=== PATIENT | female | born 1940 ===

== ENCOUNTER 2017-02-23 12:12 | Emergency (ER) | payer OTHER ==
[2017-02-23 12:35] VITALS: BMI 25.9
[2017-02-23] MEDS ORDERED: Albuterol-Ipratrop 3 mg / 0.5 (3 ml) UD IH STA (14:05)
--- NOTE | 2017-02-23 14:23 | RAD ---
HISTORY: SOB COMPARISON: No prior. TECHNIQUE: Chest PA and lateral FINDINGS: LUNGS: No alveolitis is appreciated bilaterally. Reticular markings/fibrosis are identified in the right apex and right base with mild moderate volume loss noted at the right chest. Biapical pleural thickening is greater the right than left sides. PLEURA: No significant pleural effusion identified. No pneumothorax apparent. Biapical pleural thickening noted. CARDIOVASCULAR: Normal. OSSEOUS STRUCTURES: No significant abnormalities. VISUALIZED UPPER ABDOMEN: Normal. OTHER FINDINGS: None. IMPRESSION: No acute cardiopulmonary disease appreciable. Volume loss of the right chest is appreciated with biapical pleural thickening and right apex pulmonary fibrosis as well as at the right base.
--- NOTE | 2017-02-23 14:29 | C.PDOC ---
History Of Present Illness 76 y/o female presents to ED with complaints of cough and congestion for 1 week with associated fever for 1 day. As per daughter patient has Hx of COPD and used to smoke. Patient denies chest pain, sob, n/v/d or any other complaints at this time. Time Seen by Provider: 02/23/17 13:51 Chief Complaint (Nursing): Cough, Cold, Congestion History Per: Patient History/Exam Limitations: no limitations Onset/Duration Of Symptoms: Days Current Symptoms Are (Timing): Still Present Associated Symptoms: Fever Past Medical History Reviewed: Historical Data, Nursing Documentation, Vital Signs Vital Signs: Last Vital Signs Temp 98.1 F 02/23/17 16:01 Pulse 80 02/23/17 16:01 Resp 20 02/23/17 16:01 BP 152/77 H 02/23/17 16:01 Pulse Ox 98 02/23/17 16:01 - Medical History PMH: Asthma, HTN, Hypercholesterolemia Surgical History: Cholecystectomy Family History: States: No Known Family Hx - Social History Hx Alcohol Use: No Hx Substance Use: No - Immunization History Hx Tetanus Toxoid Vaccination: No Hx Influenza Vaccination: No Hx Pneumococcal Vaccination: No Review Of Systems Constitutional: Positive for: Fever. Negative for: Chills ENT: Positive for: Nose Congestion Cardiovascular: Negative for: Chest Pain Respiratory: Positive for: Cough. Negative for: Shortness of Breath Gastrointestinal: Negative for: Nausea, Vomiting, Diarrhea Skin: Negative for: Rash Physical Exam - Physical Exam Appears: Non-toxic, No Acute Distress Skin: Normal Color, Warm, Dry, No Rash Head: Atraumatic, Normacephalic Eye(s): bilateral: Normal Inspection Oral Mucosa: Moist Throat: Normal, No Erythema Neck: Normal ROM, Supple Chest: Symmetrical Cardiovascular: Rhythm Regular, No Murmur Respiratory: Normal Breath Sounds, No Rales, No Rhonchi, No Wheezing Gastrointestinal/Abdominal: Soft, No Tenderness, No Guarding, No Rebound Extremity: Normal ROM, Capillary Refill (<2 seconds) Neurological/Psych: Oriented x3 ED Course And Treatment - Laboratory Results Result Diagrams: 02/23/17 14:32 02/23/17 14:32 Lab Interpretation: No Acute Changes O2 Sat by Pulse Oximetry: 99 (RA) Pulse Ox Interpretation: Normal - Radiology CXR: Interpreted by Me CXR Interpretation: Yes: No Acute Disease Progress Note: Treated with duoneb and zithromax. On re-evaluation lungs clear , feeling better Reassessment Condition: Improved Medical Decision Making Medical Decision Making: Plan: * CXR Disposition Counseled Patient/Family Regarding: Studies Performed, Diagnosis, Need For Followup, Rx Given - Disposition Referrals: [facility] [Outside] [facility] [Outside] Disposition: HOME/ ROUTINE Disposition Time: 15:50 Condition: STABLE Additional Instructions: Follow up with PMD or clinic for further evaluation Prescriptions: Azithromycin [Zithromax] 250 mg PO DAILY #4 tab Instructions: Upper Respiratory Infection (ED) Forms: [facility] ([employer]) Print Language: BHUTANESE - POA Present On Arrival: None - Clinical Impression Clinical Impression: Bronchitis - Scribe Statement The provider has reviewed the documentation as recorded by the Yasminibrobe Ravi All medical record entries made by the Yasminibrobe were at my direction and personally dictated by me. I have reviewed the chart and agree that the record accurately reflects my personal performance of the history, physical exam, medical decision making, and the department course for this patient. I have also personally directed, reviewed, and agree with the discharge instructions and disposition.
[2017-02-23] MEDS ORDERED: Albuterol-Ipratrop 3 mg / 0.5 (3 ml) UD ONE (14:33)
[2017-02-23 14:40] LABS: BASO % 0.5 % (0.0-2.0); EOS # 0.4 K/uL (0.0-0.7); EOS % 5.9 % (0.0-4.0); HEMATOCRIT 35.1 % (34.0-47.0); LYMPH # 1.3 K/uL (1.0-4.3); LYMPH % 22.1 % (20.0-40.0); MEAN CELL VOLUME 90.8 fL (81.0-99.0); MEAN CORPUSCULAR HEMOGLOBIN 30.3 pg (27.0-31.0); MEAN CORPUSCULAR HGB CONC 33.4 g/dL (33.0-37.0); MEAN PLATELET VOLUME 8.1 fL (7.2-11.7); MONO # 0.5 K/uL (0.0-0.8); MONO % 7.7 % (0.0-10.0); NRBC % 0.1 % (0.0-2.0); RED CELL DISTRIBUTION WIDTH 13.9 % (11.5-14.5); WHITE BLOOD COUNT 5.9 K/uL (4.8-10.8)
[2017-02-23 14:57] LABS: POTASSIUM 5.5 mmol/L (3.6-5.2)
[2017-02-23 14:59] LABS: ALB/GLOB RATIO 1.1 (1.0-2.1); BILIRUBIN,TOTAL 0.4 mg/dL (0.2-1.3); TOTAL PROTEIN 8.1 g/dL (6.3-8.3)
[2017-02-23 15:00] LABS: CALCIUM 9.4 mg/dl (8.6-10.4)
[2017-02-23 15:01] LABS: GRANULAR CAST 1 /lpf (0-1); RBC URINE 2 /hpf (0-3); URINE BILIRUBIN NEGATIVE (NEGATIVE); URINE BLOOD NEGATIVE (NEGATIVE); URINE COLOR Yellow (YELLOW); URINE GLUCOSE (UA) NORMAL (Normal); URINE KETONE NEGATIVE (NEGATIVE); URINE LEUKOCYTE ESTERASE 1+ Leu/uL (Negative); URINE PROTEIN 2+ mg/dL (NEGATIVE); URINE UROBILINOGEN NORMAL mg/dL (0.2-1.0); WBC URINE 4 /hpf (0-5)
[2017-02-23 16:02] VITALS: BP 152/77; PULSE 80; RESP 20; TEMP 98.1
[2017-02-23 17:31] VITALS: O2SAT 99
== END 2017-02-23 16:18 | disposition home or self-care (01) ==
LOC: C.ER 12:12
DX: J40 Bronchitis, not specified as acute or chronic (principal)

== ENCOUNTER 2017-02-27 13:27 | Emergency (ER) | payer OTHER ==
[2017-02-27 13:30] VITALS: BMI 27.6
[2017-02-27 13:34] VITALS: RESP 18; TEMP 98
[2017-02-27] MEDS ORDERED: Aluminum Hydroxide/Magnesium Hydroxide Susp (30 mL) PO STA (14:40)
[2017-02-27] MEDS ORDERED: Sodium Chloride 0.9% 500 ML IV ONE ×2 (14:40→15:04)
[2017-02-27 15:00] LABS: BASO % 0.2 % (0.0-2.0); EOS # 0.1 K/uL (0.0-0.7); EOS % 1.7 % (0.0-4.0); HEMATOCRIT 34.5 % (34.0-47.0); LYMPH # 0.9 K/uL (1.0-4.3); LYMPH % 13.6 % (20.0-40.0); MEAN CELL VOLUME 89.4 fL (81.0-99.0); MEAN CORPUSCULAR HEMOGLOBIN 30.1 pg (27.0-31.0); MEAN CORPUSCULAR HGB CONC 33.6 g/dL (33.0-37.0); MEAN PLATELET VOLUME 8.2 fL (7.2-11.7); MONO # 0.3 K/uL (0.0-0.8); MONO % 4.1 % (0.0-10.0); NRBC % 0.1 % (0.0-2.0); RED CELL DISTRIBUTION WIDTH 13.7 % (11.5-14.5); WHITE BLOOD COUNT 6.7 K/uL (4.8-10.8)
[2017-02-27] MEDS ORDERED: Aluminum Hydroxide/Magnesium Hydroxide Susp (30 mL) ONE (15:04)
[2017-02-27 15:16] LABS: CHLORIDE 103 mmol/L (98-107); POTASSIUM 5.3 mmol/L (3.6-5.2); SODIUM 139 mmol/L (132-148)
[2017-02-27 15:18] LABS: GFR AFRICAN-AMERICAN 58
[2017-02-27 15:19] LABS: ALB/GLOB RATIO 1.1 (1.0-2.1); ALKALINE PHOSPHATASE 85 U/L (38-126); ALT/SGPT 48 U/L (9-52); AST/SGOT 34 U/L (14-36); BILIRUBIN,TOTAL 0.5 mg/dL (0.2-1.3); BLOOD UREA NITROGEN 30 mg/dL (7-17); CALCIUM 9.5 mg/dl (8.6-10.4); CARBON DIOXIDE 25 mmol/L (22-30); GLUCOSE,RANDOM 192 mg/dL (65-105); TOTAL PROTEIN 8.1 g/dL (6.3-8.3)
--- NOTE | 2017-02-27 15:34 | RAD ---
HISTORY: abd pain COMPARISON: No prior. FINDINGS: BOWEL: Normal. No obstruction. No free air. BONES: Normal. OTHER FINDINGS: None. IMPRESSION: No active disease.
--- NOTE | 2017-02-27 18:39 | C.PDOC ---
History Of Present Illness Patient is a 76 y/o female, with a Hx of HTN and DM, who presents to the ED with her family with complaints of n/v/d for the past day. Patient denies fever , chills, chest pain, and SOB; admits to throwing up multiple times today. Patient notes mild headache, mild neck pain, and mild body aches. No other physical complaints at this time. Time Seen by Provider: 02/27/17 14:36 Chief Complaint (Nursing): Dizziness/Lightheaded History Per: Patient History/Exam Limitations: no limitations Onset/Duration Of Symptoms: Hrs (for the last day. ) Current Symptoms Are (Timing): Still Present Recent travel outside of the [place]: No Additional History Per: Patient, Family Past Medical History Reviewed: Historical Data, Nursing Documentation, Vital Signs Vital Signs: Last Vital Signs Temp 98 F 02/27/17 13:30 Pulse 88 02/27/17 16:31 Resp 18 02/27/17 16:31 BP 168/68 H 02/27/17 16:31 Pulse Ox 96 02/27/17 18:52 - Medical History PMH: Asthma, HTN, Hypercholesterolemia, Osteoporosis Surgical History: Cholecystectomy Family History: States: Unknown Family Hx - Social History Hx Alcohol Use: No Hx Substance Use: No - Immunization History Hx Tetanus Toxoid Vaccination: Yes Hx Influenza Vaccination: Yes Hx Pneumococcal Vaccination: Yes Review Of Systems Constitutional: Negative for: Fever, Chills Cardiovascular: Negative for: Chest Pain Respiratory: Negative for: Shortness of Breath Gastrointestinal: Positive for: Nausea, Vomiting, Diarrhea Musculoskeletal: Positive for: Neck Pain (mild) Neurological: Positive for: Headache (mild) Physical Exam - Physical Exam Appears: Well, Non-toxic, No Acute Distress, Other (awake, alert, cooperative. ) Skin: Normal Color, Warm, Dry Head: Atraumatic, Normacephalic Oral Mucosa: Moist Throat: Normal Chest: Symmetrical Cardiovascular: Rhythm Regular, No Murmur Respiratory: Normal Breath Sounds, No Rales, No Rhonchi, No Wheezing Gastrointestinal/Abdominal: Soft, No Tenderness Neurological/Psych: Oriented x3, Normal Speech, Normal Cognition Other Neurological Findings: Facial Palsy (family reports it to be old. ) ED Course And Treatment - Laboratory Results Result Diagrams: 02/27/17 14:53 02/27/17 14:53 O2 Sat by Pulse Oximetry: 96 (Room air) Pulse Ox Interpretation: Normal Medical Decision Making Medical Decision Making: Plan: Pepcid, Zofran, Maalox, and IV fluids administered; EKG and UA ordered. Patient given "GI Cocktail" and feels better; able to tolerate PO. Pending UA to rule out UTI by Dr. Harry. Disposition - Disposition Disposition Time: 18:54 Condition: STABLE Forms: [employer] (Citizen [place]) - Clinical Impression Clinical Impression: Gastroenteritis - Scribe Statement The provider has reviewed the documentation as recorded by the Scribe Elma Almeida All medical record entries made by the Scribe were at my direction and personally dictated by me. I have reviewed the chart and agree that the record accurately reflects my personal performance of the history, physical exam, medical decision making, and the department course for this patient. I have also personally directed, reviewed, and agree with the discharge instructions and disposition. Physician Patient Turnover Patient Signed Over To: Ab Harry Handoff Comments: elderly patient with NVD, feeling better, pending UA, r/o UTI , and final dispo,
[2017-02-27 18:48] LABS: URINE BACTERIA RARE (<OCC); URINE BILIRUBIN NEGATIVE (NEGATIVE); URINE COLOR Straw (YELLOW); URINE GLUCOSE (UA) 1+ mg/dL (Normal); URINE KETONE NEGATIVE (NEGATIVE); URINE LEUKOCYTE ESTERASE NEG Leu/uL (Negative); URINE PROTEIN 2+ mg/dL (NEGATIVE); URINE UROBILINOGEN NORMAL mg/dL (0.2-1.0); WBC URINE 2 /hpf (0-5)
[2017-02-27 18:51] LABS: RBC URINE 2 /hpf (0-3)
[2017-02-27 18:52] LABS: URINE BLOOD TRACE-INTACT (NEGATIVE)
[2017-02-27 19:12] VITALS: BP 163/80; PULSE 82; O2SAT 78
--- NOTE | 2017-02-28 15:55 | CARD ---
APPROVED REPORT EKG Measurement Heart [id number] <Conclusion> Normal sinus rhythm Normal ECG
== END 2017-02-27 19:11 | disposition home or self-care (01) ==
LOC: C.ER 13:27
DX: K52.9 Noninfective gastroenteritis and colitis, unspecified (principal)
CPT/HCPCS: 74000; 80053; 81001; 84484; 85025; 93005; 96374; 96375; 99285; J2405; J7040

== ENCOUNTER 2017-04-19 14:30 | Inpatient (IN) | payer OTHER ==
[2017-04-19 14:30] VITALS: BMI 27.6
[2017-04-19] MEDS ORDERED: Sodium Chloride 0.9% 1,000 ML IV ONE ×2 (14:58→17:02)
[2017-04-19] MEDS ORDERED: Sodium Chloride 0.9% 1,000 ML ONE ×2 (15:11→17:21)
[2017-04-19 15:24] LABS: BASO % 0.3 % (0.0-2.0); EOS # 0.1 K/uL (0.0-0.7); EOS % 1.7 % (0.0-4.0); HEMATOCRIT 37.2 % (34.0-47.0); LYMPH # 0.9 K/uL (1.0-4.3); LYMPH % 14.9 % (20.0-40.0); MEAN CELL VOLUME 89.7 fL (81.0-99.0); MEAN CORPUSCULAR HEMOGLOBIN 29.7 pg (27.0-31.0); MEAN CORPUSCULAR HGB CONC 33.1 g/dL (33.0-37.0); MEAN PLATELET VOLUME 9.1 fL (7.2-11.7); MONO # 0.3 K/uL (0.0-0.8); MONO % 4.6 % (0.0-10.0); NRBC % 0.2 % (0.0-2.0); RED CELL DISTRIBUTION WIDTH 12.8 % (11.5-14.5); WHITE BLOOD COUNT 6.3 K/uL (4.8-10.8)
[2017-04-19 15:37] LABS: CHLORIDE 92 mmol/L (98-107); SODIUM 126 mmol/L (132-148)
[2017-04-19 15:38] LABS: POTASSIUM 5.8 mmol/L (3.6-5.2)
[2017-04-19 15:39] LABS: GFR AFRICAN-AMERICAN 53
[2017-04-19 15:40] LABS: ALB/GLOB RATIO 1.2 (1.0-2.1); ALKALINE PHOSPHATASE 112 U/L (38-126); ALT/SGPT 53 U/L (9-52); AST/SGOT 38 U/L (14-36); BILIRUBIN,TOTAL 0.7 mg/dL (0.2-1.3); BLOOD UREA NITROGEN 44 mg/dL (7-17); CALCIUM 9.2 mg/dl (8.6-10.4); CARBON DIOXIDE 23 mmol/L (22-30); TOTAL PROTEIN 7.9 g/dL (6.3-8.3)
[2017-04-19 16:00] LABS: GLUCOSE,RANDOM 542 mg/dL (65-105)
--- NOTE | 2017-04-19 16:41 | CT ---
PROCEDURE: CT HEAD WITHOUT CONTRAST. HISTORY: Hit head s/p fall off bed. on Plavix COMPARISON: None available. TECHNIQUE: Axial computed tomography images were obtained through the head/brain without intravenous contrast. Radiation dose: Total exam DLP = 822.72 mGy-cm. This CT exam was performed using one or more of the following dose reduction techniques: Automated exposure control, adjustment of the mA and/or kV according to patient size, and/or use of iterative reconstruction technique. FINDINGS: HEMORRHAGE: No intracranial hemorrhage. BRAIN: Diffuse atrophy with prominence of the ventricles and sulci noted. No mass effect or edema. Intracranial atherosclerosis. Scattered periventricular and subcortical white matter hypodensities, which are nonspecific, but often seen with chronic microvascular ischemic disease. Please note that MRI with diffusion imaging is more sensitive in the detection of acute ischemic event. VENTRICLES: No hydrocephalus. CALVARIUM: Unremarkable. PARANASAL SINUSES: Unremarkable as visualized. No significant inflammatory changes. MASTOID AIR CELLS: Unremarkable as visualized. No inflammatory changes. OTHER FINDINGS: None. IMPRESSION: Generalized atrophy. Nonspecific white matter changes.
--- NOTE | 2017-04-19 16:50 | C.PDOC ---
Time Seen by Provider: 04/19/17 14:47 Chief Complaint (Nursing): Abdominal Pain History Per: Patient, Family Onset/Duration Of Symptoms: Hrs (today) Current Symptoms Are (Timing): Still Present Severity: Moderate Location Of Pain/Discomfort: Epigastric Quality Of Discomfort: "Pain" Associated Symptoms: Nausea, Vomiting, Diarrhea Alleviating Factors: None Last Bowel Movement: Today Additional History Per: Prior Records Past Medical History Reviewed: Historical Data, Nursing Documentation, Vital Signs Vital Signs: Last Vital Signs Temp 97.9 F 04/19/17 14:38 Pulse 14 L 04/19/17 15:50 Resp 13 04/19/17 15:50 BP 180/78 H 04/19/17 15:50 Pulse Ox 97 04/19/17 16:55 - Medical History PMH: Asthma, CVA, Diabetes (?), HTN, Hypercholesterolemia, Osteoporosis, Chronic Kidney Disease Surgical History: Cholecystectomy, Other Surgeries: Eye surgeries. Family History: States: Unknown Family Hx - Social History Hx Tobacco Use: No Hx Alcohol Use: No Hx Substance Use: No - Immunization History Hx Tetanus Toxoid Vaccination: Yes Hx Influenza Vaccination: Yes Hx Pneumococcal Vaccination: Yes Review Of Systems Except As Marked, All Systems Reviewed And Found Negative. Constitutional: Positive for: Weakness. Negative for: Fever Cardiovascular: Negative for: Chest Pain Respiratory: Negative for: Shortness of Breath Gastrointestinal: Positive for: Nausea, Vomiting, Abdominal Pain, Diarrhea. Negative for: Melena, Hematochezia, Hematemesis Musculoskeletal: Negative for: Neck Pain Neurological: Positive for: Headache (Pt was vomiting from the bed today when she fell from the bed hitting her head in the ground.), Dizziness. Negative for : Weakness, Numbness, Seizures Physical Exam - Physical Exam Appears: Other (Uncomfortable. Malaised.) Skin: Normal Color, Warm, Dry Head: No Laceration, Other (Frontal scalp contusion) Eye(s): left: Abnormal Pupil (Post-surgical) Oral Mucosa: Dry Neck: Normal ROM, No Midline Cervical Tenderness, No Step Off Deformity, Supple Cardiovascular: Rhythm Regular Respiratory: Normal Breath Sounds, No Accessory Muscle Use Gastrointestinal/Abdominal: Soft, Tenderness (epigastric) Extremity: Normal ROM, No Deformity Neurological/Psych: Oriented x3, No Normal Motor (right facial droop, old), Slow To Respond With Command, Other (Moving all extremities) Gait: Unable To Assess ED Course And Treatment - Laboratory Results Result Diagrams: 04/19/17 15:18 04/19/17 15:18 Lab Interpretation: Abnormal Interpretation Of Abnormal: Hyperglycemia without DKA. Elevated BUN. Hyperkalemia. ECG: Interpreted By Me, Viewed By Me ECG Rhythm: Sinus Rhythm ECG Interpretation: No Acute Changes Rate From EC O2 Sat by Pulse Oximetry: 97 Pulse Ox Interpretation: Normal - CT Scan/US CT head Other Rad Studies (CT/US): Read By Radiologist, Radiology Report Reviewed CT/US Interpretation: IMPRESSION: Generalized atrophy. Nonspecific white matter changes. CT abd/pelv Other Rad Studies (CT/US): Read By Radiologist, Radiology Report Reviewed CT/US Interpretation: IMPRESSION: Reticular nodular opacities at the lung bases. Bibasilar fibrosis. Bronchiectasis. No acute abdominal or pelvic pathology identified . Incidental findings as above. Disposition Discussed With : Will Morton Comment: She accepted pt on hospitalist service. Doctor Will See Patient In The: Hospital Counseled Patient/Family Regarding: Studies Performed, Diagnosis - Disposition Disposition: HOSPITALIZED Disposition Time: 17:03 Condition: SERIOUS - Clinical Impression Clinical Impression: Nausea, vomiting, and diarrhea, Dehydration, Hyperkalemia, Hyperglycemia, Epigastric abdominal pain, Closed head injury
--- NOTE | 2017-04-19 16:54 | CT ---
PROCEDURE: CT Abdomen and Pelvis without Oral or IV contrast. HISTORY: N/V/D, epigastric pain. r/o obstruction. COMPARISON: None available. TECHNIQUE: Contiguous axial images of the abdomen and pelvis. No oral or IV contrast administered. Coronal and Sagittal reformats generated and reviewed. Radiation dose: Total exam DLP = 820.46 MGy-cm. This CT exam was performed using one or more of the following dose reduction techniques: Automated exposure control, adjustment of the mA and/or kV according to patient size, and/or use of iterative reconstruction technique. FINDINGS: There is limited evaluation of the solid organs without the administration of IV contrast. LOWER THORAX: Reticular nodular opacities at the lung bases. Bibasilar fibrosis. Bronchiectasis. There is no visible pleural effusion or pneumothorax. LIVER: Unremarkable unenhanced appearance. GALLBLADDER AND BILE DUCTS: Cholecystectomy. PANCREAS: Unremarkable unenhanced appearance. SPLEEN: Unremarkable unenhanced appearance. ADRENALS: Unremarkable unenhanced appearance. KIDNEYS AND URETERS: No hydronephrosis or obstructing renal calculus. BLADDER: The urinary bladder appears unremarkable. REPRODUCTIVE: Uterus is absent, presumably due to hysterectomy. APPENDIX: The appendix appears within normal limits of caliber. No secondary signs of acute appendicitis. BOWEL: The stomach is nondistended. Lack of oral contrast limits evaluation for bowel pathology. The bowel loops appear within normal limits of caliber without evidence of intestinal obstruction. PERITONEUM: No significant free fluid. No definite free air. LYMPH NODES: No bulky lymphadenopathy identified. VASCULATURE: Atherosclerotic calcifications. No aortic aneurysm. BONES: Degenerative changes. OTHER FINDINGS: None. IMPRESSION: Reticular nodular opacities at the lung bases. Bibasilar fibrosis. Bronchiectasis. No acute abdominal or pelvic pathology identified . Incidental findings as above.
[2017-04-19] MEDS ORDERED: (Novolin R) Insulin Human Regular 100 units/ml vial IV ONE (17:02)
[2017-04-19] MEDS ORDERED: (Novolin R) Insulin Human Regular 100 units/ml vial ONE (17:21)
--- NOTE | 2017-04-19 18:37 | CP.PCM.HP ---
<Salina Dodson - Last Filed: 04/19/17 19:32> History of Present Illness - History of Present Illness History of Present Illness: This patient is a 76 year old female with a PMHx of Asthma, CVA (30 years ago), Diabetes, HTN, Hypercholesterolemia, Osteoporosis, CKD, pneumonia. Who presented to the ED with complaints of abdominal pain with vomiting, syncopal episode, and fall. Patient was very lethargic so history was taken from daughter and friend. They stated that she sat down on the bed, passed out, fell forward, and hit her forehead. She was unconscious for a couple minutes. When she woke up she was lethargic. They deny any urinary or bowel incontinence or tongue biting. They stated before this syncopal event, the patient complained of abdominal pain associated with non-blood vomiting and diarrhea. The daughter claims that her stool was black. Patient had green banana and cheese for breakfast. ROS Positive: Dizziness, abdominal pain, nausea, vomiting (non-bloody), diarrhea (melena), productive cough with yellow sputum, loss of appetite, lethargy Negative: Fever, chills, SOB, constipation, urinary or bowel incontinence, urinary frequency, hematuria, recent travel, sick contacts PMHx: Asthma, CVA (about 30 years ago, unknown residual weakness), Diabetes, HTN , HLD, Osteoporosis, CKD, Hx of PNA PSHx: cholecystectomy Allergies: NKDA Social: Denies tobacco, alcohol,drugs FamilyHx: Throat Cancer (Mother - at 93), Brother (Lung Cancer - ) Medications: MAR reviewed. Differences include Levemir 12 units HS, Januvia 1 Daily?, and Metoprolol 50mg Daily, Cardizem 50mg? PMD: The couldn't remember name. They know its an [place] woman. They think the name is Dr. Eduarda Garnett. Present on Admission - Present on Admission Any Indicators Present on Admission: Yes History of Uncontrolled Diabetes: Yes Review of Systems - Review of Systems All systems: reviewed and no additional remarkable complaints except Review of Systems: As per HPI Past Patient History - Past Social History Smoking Status: Never Smoked - CARDIAC Hx Hypercholesterolemia: Yes Hx Hypertension: Yes - PULMONARY Hx Asthma: Yes - NEUROLOGICAL HX Cerebrovascular Accident: Yes - RENAL Hx Chronic Kidney Disease: Yes - ENDOCRINE/METABOLIC Hx Endocrine Disorders: Yes Hx Diabetes Mellitus Type 1: Yes - MUSCULOSKELETAL/RHEUMATOLOGICAL Hx Osteoporosis: Yes - PSYCHIATRIC Hx Substance Use: No - SURGICAL HISTORY Hx Cholecystectomy: Yes - ANESTHESIA Hx Anesthesia: Yes Hx Anesthesia Reactions: No Meds Allergies/Adverse Reactions: Allergies Allergy/AdvReac Type Severity Reaction Status Date / Time No Known Allergies Allergy Verified 04/19/17 14:55 Physical Exam - Constitutional Appears: No Acute Distress, Other (Lethargic) - Head Exam Additional comments: Right forehead Tender to palpation, No Abrasion or wound. - Eye Exam Eye Exam: PERRL (Delayed pupilary reflex b/l ). absent: Scleral icterus - ENT Exam ENT Exam: Mucous Membranes Dry - Neck Exam Neck exam: Negative for: Lymphadenopathy, Thyromegaly - Respiratory Exam Respiratory Exam: Wheezes (Diffuse B/L ) - Cardiovascular Exam Cardiovascular Exam: RRR, +S1, +S2 - GI/Abdominal Exam GI & Abdominal Exam: Normal Bowel Sounds, Soft, Tenderness (Epigastric ). absent: Distended, Firm, Guarding, Organomegaly, Rebound, Rigid - Rectal Exam Rectal Exam: NORMAL INSPECTION - Extremities Exam Extremities exam: Positive for: normal capillary refill, pedal pulses present Additional comments: Cool distal lower extremities. - Back Exam Back exam: tenderness - Neurological Exam Neurological exam: Altered - Psychiatric Exam Psychiatric exam: Flat Affect - Skin Skin Exam: Dry, Intact, Normal Color Results - Vital Signs Recent Vital Signs: Last Vital Signs Temp 97.9 F 04/19/17 14:38 Pulse 85 04/19/17 18:14 Resp 18 04/19/17 18:14 BP 161/68 H 04/19/17 18:14 Pulse Ox 95 04/19/17 18:14 - Labs Result Diagrams: 04/19/17 15:18 04/19/17 15:18 Labs: Laboratory Results - last 24 hr 04/19/17 04/19/17 04/19/17 15:18 15:18 18:16 WBC 6.3 RBC 4.14 Hgb 12.3 Hct 37.2 MCV 89.7 MCH 29.7 MCHC 33.1 RDW 12.8 Plt Count 196 MPV 9.1 Neut % (Auto) 78.5 H Lymph % (Auto) 14.[address] % (Auto) 4.6 Eos % (Auto) 1.7 Baso % (Auto) 0.3 Neut # 4.9 Lymph # 0.[address] [place] # 0.3 Eos # 0.1 Baso # 0.0 Sodium 126 L Potassium 5.8 H Chloride 92 L Carbon Dioxide 23 Anion Gap 17 BUN 44 H Creatinine 1.2 Est GFR ( Amer) 53 Est GFR (Non-Af Amer) 44 POC Glucose (mg/dL) 283 H Random Glucose 542 H* D Calcium 9.2 Total Bilirubin 0.7 AST 38 H ALT 53 H Alkaline Phosphatase 112 Troponin I < 0.0120 Total Protein 7.9 Albumin 4.3 Globulin 3.7 Albumin/Globulin Ratio 1.2 Lipase 347 H Serum Ketones Negative Assessment & Plan - Assessment and Plan (Free Text) Assessment: 76 year old female admitted for evaluation and treatment of AMS and Abdominal Pain with Associated nausea and vomiting. Plan: Syncopal Episode with Associated AMS likely 2/[address] showed generalized Atrophy with Non-specific white matter changes EKG was NSR with no acute ST-T wave changes Portable CXR pending read. Preliminary read by Dr. Dodson shows possible developing b/l lower lobe consolidation Patient received 2 1L fluid Boluses in the ED Start NS 100mls/hr Abd/Pelvis CT showed Reticular nodular opacities at the lung bases & basilar fibrosis Blood Cultures UA Urine Cultures Abdominal Pain with associated vomiting and diarrhea likely 2/2 viral gastritis Abd/Pelvis CT showed no GI pathology. Study was limited due to no bowel prep Stool Occult Blood Protonix 40 Daily Zofran Fluids NS 100mls/hr Liquid Diet Consider GI consult if Stool Occult Blood is positive Lipase in AM CMP/CBC/Mg in AM DM Patient was hyperglyemic on Admission. 10 units of regular insulin was given High Dose Insulin Sliding Scale HgBA1C Hx of HTN Metoprolol 25mg PO Daily Consider starting Cardizem once medication is confirmed. Consider increasing Metoprolol to 25 PO BID once medication is confirmed HLD Rosuvastatin 10mg PO HS Hx of CVA Plavix 75 PO Daily ASA 81 Daily Hx of Asthma Advair Diskus 250/50 Duonebs Q6 Proph: Pauda Prediction Score of 3. No indication for pharmacological DVT proph. SCD's Protonix Zofran Patient seen and discussed with Attending Salina Dodson PGY-1 - Date & Time Date: 04/19/17 Time: 17:45 <Will Morton - Last Filed: 04/20/17 13:33> Results - Vital Signs Recent Vital Signs: Last Vital Signs Temp 98.3 F 04/20/17 08:30 Pulse 103 H 04/20/17 10:40 Resp 20 04/20/17 10:40 BP 149/64 04/20/17 10:40 Pulse Ox 98 04/20/17 08:43 - Labs Result Diagrams: 04/20/17 07:02 04/20/17 07:02 Labs: Laboratory Results - last 24 hr 04/19/17 04/19/17 04/19/17 15:18 15:18 18:16 WBC 6.3 RBC 4.14 Hgb 12.3 Hct 37.2 MCV 89.7 MCH 29.7 MCHC 33.1 RDW 12.8 Plt Count 196 MPV 9.1 Neut % (Auto) 78.5 H Lymph % (Auto) 14.[address] [place] % (Auto) 4.6 Eos % (Auto) 1.7 Baso % (Auto) 0.3 Neut # 4.9 Lymph # 0.[address] [place] # 0.3 Eos # 0.1 Baso # 0.0 Sodium 126 L Potassium 5.8 H Chloride 92 L Carbon Dioxide 23 Anion Gap 17 BUN 44 H Creatinine 1.2 Est GFR ( Amer) 53 Est GFR (Non-Af Amer) 44 POC Glucose (mg/dL) 283 H Random Glucose 542 H* D Hemoglobin A1c Calcium 9.2 Magnesium Total Bilirubin 0.7 AST 38 H ALT 53 H Alkaline Phosphatase 112 Total Creatine Kinase CK-MB (Mass) Troponin I < 0.0120 Troponin I, Quant Total Protein 7.9 Albumin 4.3 Globulin 3.7 Albumin/Globulin Ratio 1.2 Lipase 347 H Urine Color Urine Clarity Urine pH Ur Specific [place] Urine Protein Urine Glucose (UA) Urine Ketones Urine Blood Urine Nitrate Urine Bilirubin Urine Urobilinogen Ur Leukocyte Esterase Urine WBC (Auto) Urine RBC (Auto) Ur Squamous Epith Cells Calcium Oxalate Crystal Urine Bacteria Serum Ketones Negative 04/19/17 04/19/17 04/19/17 18:47 19:42 21:10 WBC RBC Hgb Hct MCV MCH MCHC RDW Plt Count MPV Neut % (Auto) Lymph % (Auto) [place] % (Auto) Eos % (Auto) Baso % (Auto) Neut # Lymph # [place] # Eos # Baso # Sodium Potassium Chloride Carbon Dioxide Anion Gap BUN Creatinine Est GFR ( Amer) Est GFR (Non-Af Amer) POC Glucose (mg/dL) 263 H 297 H Random Glucose Hemoglobin A1c Calcium Magnesium Total Bilirubin AST ALT Alkaline Phosphatase Total Creatine Kinase CK-MB (Mass) Troponin I Troponin I, Quant Total Protein Albumin Globulin Albumin/Globulin Ratio Lipase Urine Color Yellow Urine Clarity Hazy Urine pH 7.0 Ur Specific [place] 1.016 Urine Protein 2+ H Urine Glucose (UA) 3+ H Urine Ketones Negative Urine Blood Trace H Urine Nitrate Negative Urine Bilirubin Negative Urine Urobilinogen Normal Ur Leukocyte Esterase Negative Urine WBC (Auto) 2 Urine RBC (Auto) 3 Ur Squamous Epith Cells < 1 Calcium Oxalate Crystal Rare Urine Bacteria Rare Serum Ketones 04/20/17 04/20/17 04/20/17 06:14 07:02 07:02 WBC 7.3 RBC 3.38 L Hgb 10.3 L D Hct 30.2 L MCV 89.4 MCH 30.4 MCHC 34.1 RDW 12.9 Plt Count 176 MPV 9.1 Neut % (Auto) 85.9 H Lymph % (Auto) 10.[address] [place] % (Auto) 3.1 Eos % (Auto) 0.0 Baso % (Auto) 0.1 Neut # 6.3 Lymph # 0.[address] [place] # 0.2 Eos # 0.0 Baso # 0.0 Sodium Potassium Chloride Carbon Dioxide Anion Gap BUN Creatinine Est GFR ( Amer) Est GFR (Non-Af Amer) POC Glucose (mg/dL) 353 H Random Glucose Hemoglobin A1c 12.3 H Calcium Magnesium Total Bilirubin AST ALT Alkaline Phosphatase Total Creatine Kinase CK-MB (Mass) Troponin I Troponin I, Quant Total Protein Albumin Globulin Albumin/Globulin Ratio Lipase Urine Color Urine Clarity Urine pH Ur Specific [place] Urine Protein Urine Glucose (UA) Urine Ketones Urine Blood Urine Nitrate Urine Bilirubin Urine Urobilinogen Ur Leukocyte Esterase Urine WBC (Auto) Urine RBC (Auto) Ur Squamous Epith Cells Calcium Oxalate Crystal Urine Bacteria Serum Ketones 04/20/17 04/20/17 04/20/17 07:02 09:15 11:48 WBC RBC Hgb Hct MCV MCH MCHC RDW Plt Count MPV Neut % (Auto) Lymph % (Auto) [place] % (Auto) Eos % (Auto) Baso % (Auto) Neut # Lymph # [place] # Eos # Baso # Sodium 131 L Potassium 4.9 Chloride 97 L Carbon Dioxide 25 Anion Gap 14 BUN 32 H Creatinine 1.2 Est GFR ( Amer) 53 Est GFR (Non-Af Amer) 44 POC Glucose (mg/dL) 372 H Random Glucose 370 H Hemoglobin A1c Calcium 8.0 L Magnesium 1.1 L Total Bilirubin 0.6 AST 20 ALT 48 Alkaline Phosphatase 80 Total Creatine Kinase 39 CK-MB (Mass) < 0.22 Troponin I Troponin I, Quant < 0.0120 Total Protein 6.4 Albumin 3.5 Globulin 2.9 Albumin/Globulin Ratio 1.2 Lipase 100 Urine Color Urine Clarity Urine pH Ur Specific [place] Urine Protein Urine Glucose (UA) Urine Ketones Urine Blood Urine Nitrate Urine Bilirubin Urine Urobilinogen Ur Leukocyte Esterase Urine WBC (Auto) Urine RBC (Auto) Ur Squamous Epith Cells Calcium Oxalate Crystal Urine Bacteria Serum Ketones Attending/Attestation - Attestation I have personally seen and examined this patient.: Yes I have fully participated in the care of the patient.: Yes I have reviewed all pertinent clinical information: Yes Notes (Text): This is a 76years old female with history of CVA,DM,HTN ,asthma and anemia on oral iron was brought in for syncope,vomiting,abdominal pain and diarrhea.Patient's daughter found her face down on the floor.patient said she was dizzy before the fall and fainting episode.Had dark stool 1.Syncope 2.abdominal pain,nause,vomting dark stool could be due to iron we will give protonix and do stool OB,rectal exam with no stool or blood 3.DM 4.HTN 5.HLD 6.h/o CVA 6.asthma patient was seen and examined.D/W the resident I agree with the residents documentation of the assessment and the plan
[2017-04-19 19:03] LABS: RBC URINE 3 /hpf (0-3); URINE BACTERIA RARE (<OCC); URINE BILIRUBIN NEGATIVE (NEGATIVE); URINE CALCIUM OXALATE CRYSTALS RARE /hpf (<OCC); URINE COLOR Yellow (YELLOW); URINE GLUCOSE (UA) 3+ mg/dL (Normal); URINE KETONE NEGATIVE (NEGATIVE); URINE PROTEIN 2+ mg/dL (NEGATIVE); URINE UROBILINOGEN NORMAL mg/dL (0.2-1.0); WBC URINE 2 /hpf (0-5)
[2017-04-19 19:04] LABS: URINE BLOOD TRACE (NEGATIVE); URINE LEUKOCYTE ESTERASE NEGATIVE Leu/uL (Negative)
[2017-04-19] MEDS: Sodium Chloride 0.9% 1,000 ML IV SCH (20:16)
[2017-04-19] MEDS: Albuterol-Ipratrop 3 mg / 0.5 (3 ml) UD INH SCH ×2 (20:41→21:03)
[2017-04-19] MEDS: (Novolin R) Insulin Human Regular 100 units/ml vial SC SCH (21:27)
--- NOTE | 2017-04-20 00:29 | RAD ---
HISTORY: Wheezing COMPARISON: Comparison is made to 02/25/2017 FINDINGS: LUNGS: No active pulmonary disease. PLEURA: No significant pleural effusion identified, no pneumothorax apparent. CARDIOVASCULAR: Normal. OSSEOUS STRUCTURES: No significant abnormalities. VISUALIZED UPPER ABDOMEN: Normal. OTHER FINDINGS: None. IMPRESSION: No active disease.
[2017-04-20] MEDS: Albuterol-Ipratrop 3 mg / 0.5 (3 ml) UD INH SCH ×4 (01:33→20:13)
[2017-04-20] MEDS: Sodium Chloride 0.9% 1,000 ML IV SCH ×2 (05:45→14:39)
[2017-04-20 07:32] LABS: BASO % 0.1 % (0.0-2.0); LYMPH # 0.8 K/uL (1.0-4.3); MEAN PLATELET VOLUME 9.1 fL (7.2-11.7); MONO # 0.2 K/uL (0.0-0.8); RED CELL DISTRIBUTION WIDTH 12.9 % (11.5-14.5)
[2017-04-20 07:37] LABS: POTASSIUM 4.9 mmol/L (3.6-5.2)
[2017-04-20 07:38] LABS: ALB/GLOB RATIO 1.2 (1.0-2.1); BILIRUBIN,TOTAL 0.6 mg/dL (0.2-1.3); TOTAL PROTEIN 6.4 g/dL (6.3-8.3)
[2017-04-20 07:39] LABS: MAGNESIUM 1.1 mg/dL (1.6-2.3)
[2017-04-20 07:47] LABS: LYMPH % 10.9 % (20.0-40.0); MONO % 3.1 % (0.0-10.0); WHITE BLOOD COUNT 7.3 K/uL (4.8-10.8)
[2017-04-20 07:54] LABS: HEMATOCRIT 30.2 % (34.0-47.0); MEAN CELL VOLUME 89.4 fL (81.0-99.0); MEAN CORPUSCULAR HEMOGLOBIN 30.4 pg (27.0-31.0); MEAN CORPUSCULAR HGB CONC 34.1 g/dL (33.0-37.0)
[2017-04-20] MEDS ORDERED: Magnesium Sulfate 1 gm in D5W 1 GM/100 ML BAG IVPB ONE (08:00)
[2017-04-20] MEDS: (Novolin R) Insulin Human Regular 100 units/ml vial SC SCH ×4 (08:28→22:34)
[2017-04-20] MEDS ORDERED: Pantoprazole 40 mg EC Tab PO SCH (10:00)
--- NOTE | 2017-04-20 10:26 | CP.PCM.PN ---
<Manuel Latif - Last Filed: 04/20/17 18:21> Subjective - Date & Time of Evaluation Date of Evaluation: 04/20/17 Time of Evaluation: 10:25 - Subjective Subjective: PGY-[address] Morton. No acute events overnight. Patient today complained of reproducible chest pain. A stat EKG was done which showed sinus tachycardia. She also admits to nausea/ vomiting this AM as well as lethargy, diffuse abdominal pain and lower extremity pain bilaterally. She said she had black diarrhea stool but admits to taking an iron pill. Patient is AAOx3. Her daughter was at bedside and provided the number to the pharmacy so her medication list can be verified. She denied fever, chills, dysuria. Objective - Vital Signs/Intake and Output Vital Signs (last 24 hours): Temp Pulse Resp BP Pulse Ox 98.3 F 113 H 20 155/68 H 98 04/20/17 08:30 04/20/17 08:43 04/20/17 08:43 04/20/17 08:43 04/20/17 08:43 Intake and Output: 04/20/17 04/20/17 06:59 18:59 Intake Total 1220 Output Total 300 Balance 920 - Medications Medications: Current Medications Albuterol/Ipratropium (Duoneb 3 Mg/0.5 Mg (3 Ml) Ud) 3 ml INH RQ6 [facility] Last Admin: 04/20/17 07:57 Dose: 3 ml Aspirin (Ecotrin) 81 mg PO DAILY [facility] Clopidogrel Bisulfate (Plavix) 75 mg PO DAILY [facility] Sodium Chloride (Sodium Chloride 0.9%) 1,000 mls @ 100 mls/hr IV .Q10H [facility] Last Admin: 04/20/17 05:45 Dose: 100 mls/hr Insulin Human Regular (Novolin R) 0 unit SC ACHS [facility] PRN Reason: Protocol Last Admin: 04/20/17 08:28 Dose: 8 unit Metoprolol Succinate (Toprol Xl) 25 mg PO DAILY [facility] Ondansetron HCl (Zofran Inj) 4 mg IVP ONCE PRN PRN Reason: Nausea/Vomiting Pantoprazole Sodium (Protonix Inj) 40 mg IVP Q12H [facility] Rosuvastatin Calcium (Crestor) 10 mg PO HS [facility] Last Admin: 04/19/17 21:20 Dose: 10 mg Fluticasone/Salmeterol (Advair Diskus 250/50) 1 puff IH RBID [facility] - Labs Labs: 04/20/17 07:02 04/20/17 07:02 - Additional Findings Additional findings: - Constitutional Appears: No Acute Distress, Other (Lethargic) - Head Exam Additional comments: Right forehead Tender to palpation, No Abrasion or wound. Right facial droop from prior CVA. - Eye Exam Eye Exam: PERRL (Delayed pupilary reflex b/l ). absent: Scleral icterus - ENT Exam ENT Exam: Mucous Membranes Dry - Neck Exam Neck exam: Negative for: Lymphadenopathy, Thyromegaly - Respiratory Exam Respiratory Exam: Wheezes (Diffuse B/L ) - Cardiovascular Exam Cardiovascular Exam: RRR, +S1, +S2 - GI/Abdominal Exam GI & Abdominal Exam: Normal Bowel Sounds, Soft, Tenderness (Epigastric ). absent: Distended, Firm, Guarding, Organomegaly, Rebound, Rigid - Rectal Exam Rectal Exam: NORMAL INSPECTION - Extremities Exam Extremities exam: Positive for: normal capillary refill, pedal pulses present Additional comments: non-tender to palpation - Back Exam Back exam: tenderness - Neurological Exam Neurological exam: Altered - Psychiatric Exam Psychiatric exam: Flat Affect - Skin Skin Exam: Dry, Intact, Normal Color Assessment and Plan - Assessment and Plan (Free Text) Assessment: Assessment: 76 year old female admitted for evaluation and treatment of AMS and Abdominal Pain with Associated nausea and vomiting. Plan: Syncopal Episode with Associated AMS Neurology consult, Dr Monzon. likely 2/2 to dehydration EKG was NSR with no acute ST-T wave changes Patient received 2 1L fluid Boluses in the ED NS 100mls/hr UA 04/19: 2+ protein, 3+ glucose, trace blood Urine Cultures, F/U Blood Cultures, F/U Imaging: Head CT 04/19 showed generalized Atrophy with non-specific white matter changes CXR 04/19 showed no active disease Abd/Pelvis CT w/o PO or IV contrast 04/19: No acute abdominal or pelvic pathology identified. Reticular nodular opacities at the lung bases. Basilar fibrosis. Bronchiectasis. Abdominal Pain with associated vomiting and diarrhea likely 2/2 viral gastritis Stool Occult Blood Protonix 40 Daily Zofran 4mg IVP qd prn NS 100mls/hr Liquid Diet Consider GI consult if Stool Occult Blood is positive Lipase 347 on admission, now WNL LFTs WNL Imaging: Abd/Pelvis CT w/o PO or IV contrast 04/19 No acute abdominal or pelvic pathology identified. Reticular nodular opacities at the lung bases. Basilar fibrosis. Bronchiectasis. Uncontrolled DM2 Patient was hyperglyemic on Admission. 10 units of regular insulin was given High Dose Insulin Sliding Scale HgBA1C 12.3 Hx of HTN Metoprolol 25mg PO Daily Consider starting Cardizem once medication is confirmed. Consider increasing Metoprolol to 25 PO BID once medication is confirmed HLD Rosuvastatin 10mg PO HS Hx of CVA Plavix 75 PO Daily ASA 81 Daily Hx of Asthma Advair Diskus 250/50 Duonebs Q6 Abd/Pelvis CT w/o PO or IV contrast 04/19: Reticular nodular opacities at the lung bases. Basilar fibrosis. Bronchiectasis. Proph: Pauda Prediction Score of 3. No indication for pharmacological DVT proph. SCD's Protonix Zofran <Will Morton - Last Filed: 04/21/17 13:53> Objective - Vital Signs/Intake and Output Vital Signs (last 24 hours): Temp Pulse Resp BP Pulse Ox 98.3 F 103 H 20 149/64 98 04/20/17 08:30 04/20/17 10:40 04/20/17 10:40 04/20/17 10:40 04/20/17 08:43 Intake and Output: 04/20/17 04/20/17 06:59 18:59 Intake Total 1220 Output Total 300 Balance 920 - Medications Medications: Current Medications Albuterol/Ipratropium (Duoneb 3 Mg/0.5 Mg (3 Ml) Ud) 3 ml INH RQ6 [facility] Last Admin: 04/20/17 13:24 Dose: 3 ml Aspirin (Ecotrin) 81 mg PO DAILY [facility] Last Admin: 04/20/17 10:41 Dose: 81 mg Clopidogrel Bisulfate (Plavix) 75 mg PO DAILY [facility] Last Admin: 04/20/17 10:41 Dose: 75 mg Sodium Chloride (Sodium Chloride 0.9%) 1,000 mls @ 100 mls/hr IV .Q10H [facility] Last Admin: 04/20/17 05:45 Dose: 100 mls/hr Insulin Human Regular (Novolin R) 0 unit SC ACHS [facility] PRN Reason: Protocol Last Admin: 04/20/17 13:07 Dose: 8 unit Metoprolol Succinate (Toprol Xl) 25 mg PO DAILY [facility] Last Admin: 04/20/17 10:41 Dose: 25 mg Ondansetron HCl (Zofran Inj) 4 mg IVP ONCE PRN PRN Reason: Nausea/Vomiting Pantoprazole Sodium (Protonix Inj) 40 mg IVP Q12H [facility] Last Admin: 04/20/17 10:41 Dose: 40 mg Rosuvastatin Calcium (Crestor) 10 mg PO HS [facility] Last Admin: 04/19/17 21:20 Dose: 10 mg Fluticasone/Salmeterol (Advair Diskus 250/50) 1 puff IH RBID [facility] - Labs Labs: 04/20/17 07:02 04/20/17 07:02 Attending/Attestation - Attestation I have personally seen and examined this patient.: Yes I have fully participated in the care of the patient.: Yes I have reviewed all pertinent clinical information, including history, physical exam and plan: Yes Notes (Text): Patient was seen and examined this morning. She was complaining of chest pain.Talk to her with language service.Complaining of chest pain and epigastric pain.NO SOB,no vomiting.Reproducible chest pain d/w her daughter at bedside She takse iron,levemir 13units and Janumet with other listed home meds.She will bring it later EKG done shows no ischemic changes and troponin normal we will continue clear liquids,IV fluids,Follow Stool OB (Rectal exam with no bleeding,not able to get enough sample) monitor cbc neurology consult,monitor sugar.resume insulin once she start tolerating diet
[2017-04-20] MEDS: Metoprolol Succinate 25 mg XL Tab PO SCH (10:41)
--- NOTE | 2017-04-20 11:13 | CARD ---
APPROVED REPORT EKG Measurement Heart [id number] <Conclusion> Normal sinus rhythm Normal ECG
[2017-04-20 15:14] LABS: HEMATOCRIT 29.8 % (34.0-47.0); MEAN CELL VOLUME 91.3 fL (81.0-99.0); MEAN CORPUSCULAR HGB CONC 32.9 g/dL (33.0-37.0); MEAN PLATELET VOLUME 8.9 fL (7.2-11.7); RED CELL DISTRIBUTION WIDTH 12.9 % (11.5-14.5)
[2017-04-20] MEDS: Fluticasone-Salmeterol 250-50mcg Diskus IH SCH (20:20)
--- NOTE | 2017-04-20 23:48 | CP.PCM.CON ---
History of Present Illness - History of Present Illness History of Present Illness: Syncopal episode, and fall, very lethargic. Dizziness, abdominal pain, nausea, vomiting (non -bloody), diarrhea (melena), productive cough This patient is a 76 year old female with a PMHx of Asthma, CVA (30 years ago), Diabetes, HTN, Hypercholesterolemia, Osteoporosis, CKD, pneumonia. Who presented to the ED with complaints of abdominal pain with vomiting, syncopal episode, and fall. Patient was very lethargic so history was taken from daughter and friend. They stated that she sat down on the bed, passed out, fell forward, and hit her forehead. She was unconscious for a couple minutes. When she woke up she was lethargic. They deny any urinary or bowel incontinence or tongue biting. They stated before this syncopal event, the patient complained of abdominal pain associated with non-blood vomiting and diarrhea. The daughter claims that her stool was black. Patient had green banana and cheese for breakfast. 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 Differences include Levemir 12 units HS, Januvia 1 Daily?, and Metoprolol 50mg Daily, Cardizem 50mg? History of Uncontrolled Diabetes: Yes Review of Systems - Review of Systems All systems: reviewed and no additional remarkable complaints except Review of Systems: As per HPI Past Patient History - Past Social History Smoking Status: Never Smoked - CARDIAC Hx Hypercholesterolemia: Yes Hx Hypertension: Yes - PULMONARY Hx Asthma: Yes - NEUROLOGICAL HX Cerebrovascular Accident: Yes - RENAL Hx Chronic Kidney Disease: Yes - ENDOCRINE/METABOLIC Hx Endocrine Disorders: Yes Hx Diabetes Mellitus Type 1: Yes - MUSCULOSKELETAL/RHEUMATOLOGICAL Hx Osteoporosis: Yes - PSYCHIATRIC Hx Substance Use: No - SURGICAL HISTORY Hx Cholecystectomy: Yes - ANESTHESIA Hx Anesthesia: Yes Hx Anesthesia Reactions: No Meds Allergies/Adverse Reactions: Allergies Allergy/AdvReac Type Severity Reaction Status Date / Time No Known Allergies Allergy Verified 04/19/17 14:55 Physical Exam - Constitutional Appears: No Acute Distress, Other (Lethargic) - Head Exam Additional comments: Right forehead Tender to palpation, No Abrasion or wound. - Eye Exam Eye Exam: PERRL (Delayed pupilary reflex b/l ). absent: Scleral icterus - ENT Exam ENT Exam: Mucous Membranes Dry - Neck Exam Neck exam: Negative for: Lymphadenopathy, Thyromegaly - Respiratory Exam Respiratory Exam: Wheezes (Diffuse B/L ) - Cardiovascular Exam Cardiovascular Exam: RRR, +S1, +S2 - GI/Abdominal Exam GI & Abdominal Exam: Normal Bowel Sounds, Soft, Tenderness (Epigastric ). absent: Distended, Firm, Guarding, Organomegaly, Rebound, Rigid - Rectal Exam Rectal Exam: NORMAL INSPECTION - Extremities Exam Extremities exam: Positive for: normal capillary refill, pedal pulses present Additional comments: Cool distal lower extremities. - Back Exam Back exam: tenderness - Neurological Exam Neurological exam: Altered - Psychiatric Exam Psychiatric exam: Flat Affect - Skin Skin Exam: Dry, Intact, Normal Color Results - Vital Signs Recent Vital Signs: Last Vital Signs Temp 97.9 F 04/19/17 14:38 Pulse 85 04/19/17 18:14 Resp 18 04/19/17 18:14 BP 161/68 H 04/19/17 18:14 Pulse Ox 95 04/19/17 18:14 Assessment & Plan - Assessment and Plan (Free Text) Assessment: 76 year old female admitted for evaluation and treatment of AMS and Abdominal Pain with Associated nausea and vomiting. Plan: Syncopal Episode with Associated AMS likely 2/[address] showed generalized Atrophy with Non-specific white matter changes EKG was NSR with no acute ST-T wave changes Portable CXR pending read. Preliminary read by Dr. Dodson shows possible developing b/l lower lobe consolidation Patient received 2 1L fluid Boluses in the ED Start NS 100mls/hr Abd/Pelvis CT showed Reticular nodular opacities at the lung bases & basilar fibrosis Blood Cultures UA Urine Cultures Abdominal Pain with associated vomiting and diarrhea likely 2/2 viral gastritis Abd/Pelvis CT showed no GI pathology. Study was limited due to no bowel prep Stool Occult Blood Protonix 40 Daily Zofran Fluids NS 100mls/hr Liquid Diet Consider GI consult if Stool Occult Blood is positive Lipase in AM CMP/CBC/Mg in AM DM Patient was hyperglyemic on Admission. 10 units of regular insulin was given High Dose Insulin Sliding Scale HgBA1C Hx of HTN Metoprolol 25mg PO Daily Consider starting Cardizem once medication is confirmed. Consider increasing Metoprolol to 25 PO BID once medication is confirmed HLD Rosuvastatin 10mg PO HS Hx of CVA Plavix 75 PO Daily ASA 81 Daily Hx of Asthma Advair Diskus 250/50 Duonebs Q6 Proph: Pauda Prediction Score of 3. No indication for pharmacological DVT proph. SCD's Protonix Zofran Patient seen and discussed with Attending Salina Dodson PGY-1 - Date & Time Date: 04/19/17 Time: 17:45 <Will Morton - Last Filed: 04/20/17 13:33> Results - Vital Signs Recent Vital Signs: Last Vital Signs Temp 98.3 F 04/20/17 08:30 Pulse 103 H 04/20/17 10:40Summary Resp 20 04/20/17 10:40 BP 149/64 04/20/17 10:40 Pulse Ox 98 04/20/17 08:43 - Labs Result Diagrams: 04/20/17 07:02 Summary: 1.Syncope 2.abdominal pain,nause,vomting dark stool could be due to iron we will give protonix and do stool OB,rectal exam with no stool or blood 3.DM 4.HTN 5.HLD 6.old h/o CVA and old History of Horta's Palsy 7. History of Bronchial Asthma and CXR shows bilateral Pneumonia. Past Patient History - Past Medical History & Family History Past Medical History?: Yes - Past Social History Smoking Status: Never Smoked - CARDIAC Hx Hypercholesterolemia: Yes Hx Hypertension: Yes - PULMONARY Hx Asthma: Yes - NEUROLOGICAL HX Cerebrovascular Accident: Yes - HEENT Hx HEENT Problems: Yes - RENAL Hx Chronic Kidney Disease: Yes - ENDOCRINE/METABOLIC Hx Endocrine Disorders: Yes Hx Diabetes Mellitus Type 1: Yes - HEMATOLOGICAL/ONCOLOGICAL Hx Blood Disorders: No - INTEGUMENTARY Hx Dermatological Problems: No - MUSCULOSKELETAL/RHEUMATOLOGICAL Hx Osteoporosis: Yes - GASTROINTESTINAL Hx Gastrointestinal Disorders: No - GENITOURINARY/GYNECOLOGICAL Hx Genitourinary Disorders: No - PSYCHIATRIC Hx Substance Use: No - SURGICAL HISTORY Hx Cholecystectomy: Yes - ANESTHESIA Hx Anesthesia: Yes Hx Anesthesia Reactions: No Meds Allergies/Adverse Reactions: Allergies Allergy/AdvReac Type Severity Reaction Status Date / Time No Known Allergies Allergy Verified 04/19/17 14:55 - Medications Medications: Current Medications Acetaminophen (Tylenol 325mg Tab) 650 mg PO Q8H PRN PRN Reason: Pain, Mild (1-3) Last Admin: 04/20/17 14:37 Dose: 650 mg Albuterol/Ipratropium (Duoneb 3 Mg/0.5 Mg (3 Ml) Ud) 3 ml INH RQ6 [facility] Last Admin: 04/20/17 20:13 Dose: 3 ml Aspirin (Ecotrin) 81 mg PO DAILY [facility] Last Admin: 04/20/17 10:41 Dose: 81 mg Clopidogrel Bisulfate (Plavix) 75 mg PO DAILY [facility] Last Admin: 04/20/17 10:41 Dose: 75 mg Sodium Chloride (Sodium Chloride 0.9%) 1,000 mls @ 100 mls/hr IV .Q10H [facility] Last Admin: 04/20/17 14:39 Dose: Not Given Insulin Human Regular (Novolin R) 0 unit SC ACHS [facility]ITO PRN Reason: Protocol Last Admin: 04/20/17 22:34 Dose: 3 unit Metoprolol Succinate (Toprol Xl) 25 mg PO DAILY [facility] Last Admin: 04/20/17 10:41 Dose: 25 mg Ondansetron HCl (Zofran Inj) 4 mg IVP ONCE PRN PRN Reason: Nausea/Vomiting Pantoprazole Sodium (Protonix Inj) 40 mg IVP Q12H [facility] Last Admin: 04/20/17 22:34 Dose: 40 mg Rosuvastatin Calcium (Crestor) 10 mg PO HS [facility] Last Admin: 04/20/17 22:34 Dose: 10 mg Fluticasone/Salmeterol (Advair Diskus 250/50) 1 puff IH RBID [facility] Last Admin: 04/20/17 20:20 Dose: Not Given Physical Exam - Neurological Exam Additional comments: She feels multiple bony aches allover the body, neck pain lbp, knee pain, UEs pain, more on the right side, she has a post traumatic headache. 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 Sensory : Pain because of her Traumas Cerebellar: Normal FNT Stature and Gait: she is able to walk with help, before her falling 2 days ago she was walking normally Results - Vital Signs Recent Vital Signs: Last Vital Signs Temp 98.8 F 04/20/17 15:05 Pulse 103 H 04/20/17 16:00 Resp 20 04/20/17 15:05 BP 169/77 H 04/20/17 15:05 Pulse Ox 98 04/20/17 15:05 - Labs Result Diagrams: 04/20/17 15:10 04/20/17 07:02 Labs: Laboratory Results - last 24 hr 04/20/17 04/20/17 04/20/17 06:14 07:02 07:02 WBC 7.3 RBC 3.38 L Hgb 10.3 L D Hct 30.2 L MCV 89.4 MCH 30.4 MCHC 34.1 RDW 12.9 Plt Count 176 MPV 9.1 Neut % (Auto) 85.9 H Lymph % (Auto) 10.9 L Bland % (Auto) 3.1 Eos % (Auto) 0.0 Baso % (Auto) 0.1 Neut # 6.3 Lymph # 0.8 L Bland # 0.2 Eos # 0.0 Baso # 0.0 Sodium Potassium Chloride Carbon Dioxide Anion Gap BUN Creatinine Est GFR ( Amer) Est GFR (Non-Af Amer) POC Glucose (mg/dL) 353 H Random Glucose Hemoglobin A1c 12.3 H Calcium Magnesium Total Bilirubin AST ALT Alkaline Phosphatase Total Creatine Kinase CK-MB (Mass) Troponin I, Quant Total Protein Albumin Globulin Albumin/Globulin Ratio Lipase 04/20/17 04/20/17 04/20/17 07:02 09:15 11:48 WBC RBC Hgb Hct MCV MCH MCHC RDW Plt Count MPV Neut % (Auto) Lymph % (Auto) Bland % (Auto) Eos % (Auto) Baso % (Auto) Neut # Lymph # Bland # Eos # Baso # Sodium 131 L Potassium 4.9 Chloride 97 L Carbon Dioxide 25 Anion Gap 14 BUN 32 H Creatinine 1.2 Est GFR ( Amer) 53 Est GFR (Non-Af Amer) 44 POC Glucose (mg/dL) 372 H Random Glucose 370 H Hemoglobin A1c Calcium 8.0 L Magnesium 1.1 L Total Bilirubin 0.6 AST 20 ALT 48 Alkaline Phosphatase 80 Total Creatine Kinase 39 CK-MB (Mass) < 0.22 Troponin I, Quant < 0.0120 Total Protein 6.4 Albumin 3.5 Globulin 2.9 Albumin/Globulin Ratio 1.2 Lipase 100 04/20/17 04/20/17 04/20/17 15:10 16:26 20:58 WBC 8.0 RBC 3.26 L Hgb 9.8 L Hct 29.8 L MCV 91.3 MCH 30.0 MCHC 32.9 L RDW 12.9 Plt Count 155 MPV 8.9 Neut % (Auto) Lymph % (Auto) Bland % (Auto) Eos % (Auto) Baso % (Auto) Neut # Lymph # Bland # Eos # Baso # Sodium Potassium Chloride Carbon Dioxide Anion Gap BUN Creatinine Est GFR ( Amer) Est GFR (Non-Af Amer) POC Glucose (mg/dL) 323 H 367 H Random Glucose Hemoglobin A1c Calcium Magnesium Total Bilirubin AST ALT Alkaline Phosphatase Total Creatine Kinase CK-MB (Mass) Troponin I, Quant Total Protein Albumin Globulin Albumin/Globulin Ratio Lipase Assessment & Plan (1) Closed head injury Assessment and Plan: R/O Seizures, R/O Intra cranial structural Pathology. She has post traumatic Headache. 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
[2017-04-21] MEDS: Albuterol-Ipratrop 3 mg / 0.5 (3 ml) UD INH SCH ×4 (01:29→19:00)
[2017-04-21] MEDS: Sodium Chloride 0.9% 1,000 ML IV SCH ×2 (05:51→11:08)
[2017-04-21 07:05] LABS: BASO % 0.1 % (0.0-2.0); EOS % 0.2 % (0.0-4.0); HEMATOCRIT 28.6 % (34.0-47.0); LYMPH # 1.1 K/uL (1.0-4.3); LYMPH % 16.4 % (20.0-40.0); MEAN CELL VOLUME 89.1 fL (81.0-99.0); MEAN CORPUSCULAR HEMOGLOBIN 30.1 pg (27.0-31.0); MEAN CORPUSCULAR HGB CONC 33.8 g/dL (33.0-37.0); MEAN PLATELET VOLUME 8.6 fL (7.2-11.7); MONO # 0.4 K/uL (0.0-0.8); MONO % 6.1 % (0.0-10.0); NRBC % 0.1 % (0.0-2.0); RED CELL DISTRIBUTION WIDTH 12.8 % (11.5-14.5); WHITE BLOOD COUNT 6.7 K/uL (4.8-10.8)
--- NOTE | 2017-04-21 07:06 | CP.PCM.PN ---
Addendum entered and electronically signed by Manuel Latif 04/21/17 16:22: continuation of subjective: She denied vomiting. She complained of epigastric pain which she described as "like heartburn". Urinating normally but has not had a bowel movement. She says the melena started around the time she started taking her iron pills which as 10 days ago. Original Note: <Manuel Latif - Last Filed: 04/21/17 16:05> Subjective - Date & Time of Evaluation Date of Evaluation: 04/21/17 Time of Evaluation: 07:04 - Subjective Subjective: PGY-[address] Morton. Overnight the patient again complained of chest pain, a stat EKG was ordered which showed NSR. Patient says the chest pain could be from due to her cough. She complains of body aches all over her body, as well as neck pain, low back pain, right knee pain. Objective - Vital Signs/Intake and Output Vital Signs (last 24 hours): Temp Pulse Resp BP Pulse Ox 98.4 F 90 20 160/69 H 100 04/21/17 05:56 04/21/17 05:56 04/21/17 05:56 04/21/17 05:56 04/21/17 05:56 Intake and Output: 04/21/17 04/21/17 06:59 18:59 Intake Total 1840 Output Total 400 Balance 1440 - Medications Medications: Current Medications Acetaminophen (Tylenol 325mg Tab) 650 mg PO Q8H PRN PRN Reason: Pain, Mild (1-3) Last Admin: 04/21/17 05:50 Dose: 650 mg Albuterol/Ipratropium (Duoneb 3 Mg/0.5 Mg (3 Ml) Ud) 3 ml INH RQ6 [facility] Last Admin: 04/21/17 01:29 Dose: 3 ml Aspirin (Ecotrin) 81 mg PO DAILY [facility] Last Admin: 04/20/17 10:41 Dose: 81 mg Clopidogrel Bisulfate (Plavix) 75 mg PO DAILY [facility] Last Admin: 04/20/17 10:41 Dose: 75 mg Sodium Chloride (Sodium Chloride 0.9%) 1,000 mls @ 100 mls/hr IV .Q10H [facility] Last Admin: 04/21/17 05:51 Dose: 100 mls/hr Insulin Human Regular (Novolin R) 0 unit SC ACHS TITO PRN Reason: Protocol Last Admin: 04/20/17 22:34 Dose: 3 unit Metoprolol Succinate (Toprol Xl) 25 mg PO DAILY [facility] Last Admin: 04/20/17 10:41 Dose: 25 mg Ondansetron HCl (Zofran Inj) 4 mg IVP ONCE PRN PRN Reason: Nausea/Vomiting Pantoprazole Sodium (Protonix Inj) 40 mg IVP Q12H [facility] Last Admin: 04/20/17 22:34 Dose: 40 mg Rosuvastatin Calcium (Crestor) 10 mg PO HS [facility] Last Admin: 04/20/17 22:34 Dose: 10 mg Fluticasone/Salmeterol (Advair Diskus 250/50) 1 puff IH RBID [facility] Last Admin: 04/20/17 20:20 Dose: Not Given - Labs Labs: 04/20/17 15:10 04/20/17 07:02 - Additional Findings Additional findings: - Constitutional Appears: No Acute Distress, Other (Lethargic) - Head Exam Additional comments: Right forehead Tender to palpation, No Abrasion or wound. 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 absent: Distended, Firm, Guarding, Organomegaly, Rebound, Rigid - Rectal Exam Rectal Exam: NORMAL INSPECTION - Extremities Exam Extremities exam: Positive for: normal capillary refill, pedal pulses present Additional comments: non-tender to palpation - Back Exam Back exam: tenderness - Neurological Exam Neurological exam: AAOx3 she is able to walk with help, before her falling 2 days ago she was walking normally DTR 0/4 By Plantar stimulation toes are down going bilaterally Normal finger to nose test - Psychiatric Exam Psychiatric exam: Flat Affect - Skin Skin Exam: Dry, Intact, Normal Color Assessment and Plan - Assessment and Plan (Free Text) Assessment: Syncopal Episode with Associated AMS Neurology consult, Dr Monzon. likely 2/2 to dehydration; R/O Seizures, R/O Intra cranial structural Pathology , R/O CVA EKG was NSR with no acute ST-T wave changes Patient received 2 1L fluid Boluses in the ED UA 04/19: 2+ protein, 3+ glucose, trace blood Blood Cultures 04/19 shows no growth up to date Urine Cultures 04/19, multiple species, probably contamination CRP WNL Folate, F/U Lipid Panel WNL TSH WNL Uric Acid WNL Vitamin D 25-OH 21.5 (low) ESR 50 (high) Vitamin B2, F/U Anti Nuclear Antibody, F/U Imaging: CT Head 04/19 showed generalized Atrophy with non-specific white matter changes CXR 04/[address] showed no active disease CT Abd/Pelvis w/o PO or IV contrast 04/19: No acute abdominal or pelvic pathology identified. Reticular nodular opacities at the lung bases. Basilar fibrosis. Bronchiectasis. MRI Brain without contrast 04/21: no acute intracranial findings EEG, F/U Cardotid Duplex, F/U Meds: NS 100mls/hr Abdominal Pain with associated vomiting and diarrhea likely 2/2 viral gastritis Stool Occult Blood Consider GI consult if Stool Occult Blood is positive, FOBT still pending Lipase 347 on admission, now WNL LFTs WNL Imaging: Abd/Pelvis CT w/o PO or IV contrast 04/19 No acute abdominal or pelvic pathology identified. Reticular nodular opacities at the lung bases. Basilar fibrosis. Bronchiectasis. Meds: Protonix 40mg IVP Q12H Zofran 4mg IVP qd prn NS 100mls/hr Uncontrolled DM2 Patient was hyperglycemic on Admission. 10 units of regular insulin was given High Dose Insulin Sliding Scale Continue home med Levemir 13units QAM HgBA1C 12.3 Hx of HTN Continue home med Metoprolol 50mg PO Daily Losartan 25mg PO QD HLD Rosuvastatin 10mg PO HS Hx of CVA Plavix 75 PO Daily ASA 81 Daily Hx of Asthma Advair Diskus 250/50 Duonebs Q6 Abd/Pelvis CT w/o PO or IV contrast 04/19: Reticular nodular opacities at the lung bases. Basilar fibrosis. Bronchiectasis. 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 No indication for pharmacological DVT proph. SCD's Protonix 40mg IVP Q12H Zofran 4mg IVP qd prn Physical therapy screen Heart healthy diet - low carbohydrate diet <FernandezGarfield colesravanthigalen - Last Filed: 04/23/17 19:06> Objective - Vital Signs/Intake and Output Vital Signs (last 24 hours): Temp Pulse Resp BP Pulse Ox 98.3 F 85 20 153/69 H 99 04/21/17 12:59 04/21/17 12:59 04/21/17 12:59 04/21/17 12:59 04/21/17 12:59 Intake and Output: 04/21/17 04/21/17 06:59 18:59 Intake Total 1840 Output Total 400 Balance 1440 - Medications Medications: Current Medications Acetaminophen (Tylenol 325mg Tab) 650 mg PO Q8H PRN PRN Reason: Pain, Mild (1-3) Last Admin: 04/21/17 05:50 Dose: 650 mg Albuterol/Ipratropium (Duoneb 3 Mg/0.5 Mg (3 Ml) Ud) 3 ml INH RQ6 [facility] Last Admin: 04/21/17 13:29 Dose: 3 ml Aspirin (Ecotrin) 81 mg PO DAILY [facility] Last Admin: 04/21/17 10:13 Dose: 81 mg Clopidogrel Bisulfate (Plavix) 75 mg PO DAILY [facility] Last Admin: 04/21/17 10:13 Dose: 75 mg Insulin Detemir (Levemir) 13 unit SC QAM [facility] Last Admin: 04/21/17 10:59 Dose: 13 unit Insulin Human Regular (Novolin R) 0 unit SC ACHS [facility] PRN Reason: Protocol Last Admin: 04/21/17 12:57 Dose: 6 unit Losartan Potassium (Cozaar) 25 mg PO DAILY [facility] Metoprolol Succinate (Toprol Xl) 50 mg PO DAILY [facility] Ondansetron HCl (Zofran Inj) 4 mg IVP ONCE PRN PRN Reason: Nausea/Vomiting Pantoprazole Sodium (Protonix Inj) 40 mg IVP Q12H [facility] Last Admin: 04/21/17 10:13 Dose: 40 mg Rosuvastatin Calcium (Crestor) 10 mg PO HS [facility] Last Admin: 04/20/17 22:34 Dose: 10 mg Fluticasone/Salmeterol (Advair Diskus 250/50) 1 puff IH RBID [facility] Last Admin: 04/21/17 07:20 Dose: Not Given - Labs Labs: 04/21/17 06:51 Attending/Attestation - Attestation I have personally seen and examined this patient.: Yes I have fully participated in the care of the patient.: Yes I have reviewed all pertinent clinical information, including history, physical exam and plan: Yes Notes (Text): Seen and examined.Talk to her with the language interpreter service.No vomiting this morning,No BM after admission.had diarrhea with dark stool before she came.As per pt she has dark stool after started taking iron tablet.Rectal exam at ER , no stool,no bleeding Her abdominal pain is better d/w Daughter Resume diet,follow neuro recommendation I agree with resident's documentation of the assessment and the plan Recommend to follow stool OB as an out pt and follow clinic
[2017-04-21] MEDS: Fluticasone-Salmeterol 250-50mcg Diskus IH SCH ×2 (07:20→19:00)
[2017-04-21 07:50] LABS: CHLORIDE 92 mmol/L (98-107); POTASSIUM 4.3 mmol/L (3.6-5.2); SODIUM 125 mmol/L (132-148)
[2017-04-21 07:52] LABS: CARBON DIOXIDE 26 mmol/L (22-30); CHOLESTEROL 114 mg/dL (0-199); GFR AFRICAN-AMERICAN > 60
[2017-04-21 07:53] LABS: ALB/GLOB RATIO 1.1 (1.0-2.1); ALKALINE PHOSPHATASE 76 U/L (38-126); ALT/SGPT 38 U/L (9-52); AST/SGOT 22 U/L (14-36); BILIRUBIN,TOTAL 0.7 mg/dL (0.2-1.3); BLOOD UREA NITROGEN 17 mg/dL (7-17); CALCIUM 8.1 mg/dl (8.6-10.4); GLUCOSE,RANDOM 290 mg/dL (65-105); TOTAL PROTEIN 6.2 g/dL (6.3-8.3); URIC ACID 5.2 mg/dL (2.2-7.5)
[2017-04-21] MEDS: Metoprolol Succinate 25 mg XL Tab PO SCH ×2 (07:56→10:13)
[2017-04-21 08:08] LABS: THYROID STIMULATING HORMONE 1.69 mIU/L (0.46-4.68)
[2017-04-21] MEDS: (Novolin R) Insulin Human Regular 100 units/ml vial SC SCH ×4 (08:15→22:13)
[2017-04-21 08:43] LABS: FOLATE 11.5 ng/mL
[2017-04-21] MEDS: Insulin Detemir 100 units/ml Vial (Levemir) SC SCH (10:59)
--- NOTE | 2017-04-21 11:06 | MRI ---
PROCEDURE: MRI BRAIN WITHOUT CONTRAST HISTORY: R/O Seizures, Post Concussion, severe head trauma COMPARISON: None. TECHNIQUE: Multiplanar, multisequence MR images of the brain were obtained without intravenous contrast enhancement. FINDINGS: HEMORRHAGE: None DWI: No evidence of an acute or early subacute infarction. BRAIN PARENCHYMA: No mass effect or edema. Minimal chronic microvascular changes are seen. VENTRICLES: Unremarkable. No hydrocephalus. CRANIUM: Unremarkable. ORBITS: Grossly unremarkable. PARANASAL SINUSES/MASTOIDS: Clear VASCULAR SYSTEM: Skull base flow voids intact. OTHER FINDINGS: None. IMPRESSION: No acute intracranial findings
[2017-04-21] MEDS ORDERED: Metoprolol Succinate 50 mg XL Tab PO ONE (17:00)
--- NOTE | 2017-04-21 21:25 | CP.PCM.PN ---
Subjective - Date & Time of Evaluation Date of Evaluation: 04/21/17 Time of Evaluation: 20:00 - Subjective Subjective: No deterioration in her condition, low vitamin D that needs to be replaced Objective - Vital Signs/Intake and Output Vital Signs (last 24 hours): Temp Pulse Resp BP Pulse Ox 98.3 F 76 20 184/76 H 98 04/21/17 15:10 04/21/17 16:08 04/21/17 15:10 04/21/17 15:10 04/21/17 15:10 Intake and Output: 04/21/17 04/22/17 18:59 06:59 Intake Total 900 Balance 900 - Medications Medications: Current Medications Acetaminophen (Tylenol 325mg Tab) 650 mg PO Q8H PRN PRN Reason: Pain, Mild (1-3) Last Admin: 04/21/17 05:50 Dose: 650 mg Albuterol/Ipratropium (Duoneb 3 Mg/0.5 Mg (3 Ml) Ud) 3 ml INH RQ6 [facility] Last Admin: 04/21/17 19:00 Dose: 3 ml Aspirin (Ecotrin) 81 mg PO DAILY [facility] Last Admin: 04/21/17 10:13 Dose: 81 mg Calcium Carbonate (Oscal) 500 mg PO BID [facility] Clopidogrel Bisulfate (Plavix) 75 mg PO DAILY [facility] Last Admin: 04/21/17 10:13 Dose: 75 mg Ergocalciferol (Drisdol 50,000 Intl Units Cap) 1 cap PO Q7D [facility] Insulin Detemir (Levemir) 13 unit SC QAM [facility] Last Admin: 04/21/17 10:59 Dose: 13 unit Insulin Human Regular (Novolin R) 0 unit SC ACHS [facility] PRN Reason: Protocol Last Admin: 04/21/17 17:29 Dose: 6 unit Losartan Potassium (Cozaar) 25 mg PO DAILY [facility] Metoprolol Succinate (Toprol Xl) 50 mg PO DAILY [facility] Ondansetron HCl (Zofran Inj) 4 mg IVP ONCE PRN PRN Reason: Nausea/Vomiting Pantoprazole Sodium (Protonix Inj) 40 mg IVP Q12H [facility] Last Admin: 04/21/17 10:13 Dose: 40 mg Rosuvastatin Calcium (Crestor) 10 mg PO HS [facility] Last Admin: 04/20/17 22:34 Dose: 10 mg Fluticasone/Salmeterol (Advair Diskus 250/50) 1 puff IH RBID [facility] Last Admin: 04/21/17 19:00 Dose: Not Given - Labs Labs: 04/21/17 06:51 04/21/17 06:51 Assessment and Plan (1) Closed head injury Status: Acute (2) Gastroenteritis Status: Acute (3) CVA (cerebral vascular accident) Status: Acute (4) Syncope Status: Acute (5) Right-sided Horta's palsy Status: Acute
[2017-04-21] MEDS: Ergocalciferol 50,000 Intl Units Cap PO SCH (21:54)
[2017-04-22] MEDS: Albuterol-Ipratrop 3 mg / 0.5 (3 ml) UD INH SCH ×4 (01:30→19:44)
[2017-04-22] MEDS ORDERED: Alum-Mag Hydrox-Simethicone Susp (30 mL) PO STA (06:24)
[2017-04-22] MEDS: Fluticasone-Salmeterol 250-50mcg Diskus IH SCH ×2 (07:35→19:44)
[2017-04-22 08:02] LABS: BASO % 0.1 % (0.0-2.0); EOS # 0.1 K/uL (0.0-0.7); EOS % 0.8 % (0.0-4.0); HEMATOCRIT 30.9 % (34.0-47.0); LYMPH # 1.3 K/uL (1.0-4.3); LYMPH % 15.3 % (20.0-40.0); MEAN CELL VOLUME 88.1 fL (81.0-99.0); MEAN CORPUSCULAR HEMOGLOBIN 29.9 pg (27.0-31.0); MEAN CORPUSCULAR HGB CONC 33.9 g/dL (33.0-37.0); MEAN PLATELET VOLUME 8.8 fL (7.2-11.7); MONO # 0.5 K/uL (0.0-0.8); MONO % 6.3 % (0.0-10.0); NRBC % 0.1 % (0.0-2.0); RED CELL DISTRIBUTION WIDTH 12.8 % (11.5-14.5); WHITE BLOOD COUNT 8.5 K/uL (4.8-10.8)
[2017-04-22] MEDS: (Novolin R) Insulin Human Regular 100 units/ml vial SC SCH ×4 (08:19→21:41)
[2017-04-22 08:31] LABS: POTASSIUM 4.1 mmol/L (3.6-5.2)
[2017-04-22 08:32] LABS: BILIRUBIN,TOTAL 0.7 mg/dL (0.2-1.3)
[2017-04-22 08:33] LABS: ALB/GLOB RATIO 1.2 (1.0-2.1); CALCIUM 7.9 mg/dl (8.6-10.4); TOTAL PROTEIN 6.6 g/dL (6.3-8.3)
[2017-04-22] MEDS: Metoprolol Succinate 50 mg XL Tab PO SCH (08:59)
[2017-04-22] MEDS: Insulin Detemir 100 units/ml Vial (Levemir) SC SCH (09:08)
--- NOTE | 2017-04-22 10:50 | VASCLAB ---
PROCEDURE: HISTORY: Syncopal spell, R/O CVA, R/O TIA COMPARISON: None available. TECHNIQUE: Grayscale and duplex Doppler evaluation of the cervical carotid and vertebral arteries were performed. The common carotid, carotid bifurcations and cervical Internal Carotid Artery (ICA) and proximal External Carotid Artery (ECA) were evaluated. The vertebral arteries were evaluated for gross patency and flow direction. Report prepared by Jonathan Zhou, BS, RVT FINDINGS: RIGHT CAROTID ARTERIES: 1. Common Carotid Artery: No significant focal plaque formation of the right common carotid artery. Maximum Peak Systolic velocity: 94 cm/sec: End-diastolic velocity 16 cm/sec. 2. Carotid Bifurcation: plaque formation. Maximum Peak Systolic velocity: 91 cm/sec: End-diastolic velocity 25 cm/sec. 3. Internal Carotid Artery: Plaque description: Heterogeneous 3.1. Proximal Segment: Peak systolic velocity 135 cm/sec: End-diastolic velocity 37 cm/sec - % stenosis 0-15% 3.2. Middle Segment: Peak systolic velocity 67 cm/sec: End-diastolic velocity 19 cm/sec - % stenosis 0-15% 3.3. Distal Segment: Peak systolic velocity 65 cm/sec: End-diastolic velocity 15 cm/sec - % stenosis 0-15% 4. External Carotid Artery: No significant focal plaque formation. Peak systolic velocity 89 cm/sec 5. ICA/CCA Ratio: 1.7 LEFT CAROTID ARTERIES: 1. Common Carotid Artery: No significant focal plaque formation of the left common carotid artery. Maximum Peak Systolic velocity: 85 cm/sec: End-diastolic velocity 15 cm/sec. 2. Carotid Bifurcation: plaque formation. Maximum Peak Systolic velocity: 63 cm/sec: End-diastolic velocity 10 cm/sec. 3. Internal Carotid Artery: Plaque description: Heterogeneous 3.1. Proximal Segment: Peak systolic velocity 101 cm/sec: End-diastolic velocity 22 cm/sec - % stenosis 0-15% 3.2. Middle Segment: Peak systolic velocity 57 cm/sec: End-diastolic velocity 20 cm/sec - % stenosis 0-15% 3.3. Distal Segment: Peak systolic velocity 95 cm/sec: End-diastolic velocity 30 cm/sec - % stenosis 0-15% 4. External Carotid Artery: No significant focal plaque formation. Peak systolic velocity 89 cm/sec 5. ICA/CCA Ratio: 1.6 VERTEBRAL ARTERIES: 1. Right Vertebral Artery: The right vertebral artery flow direction is antegrade. 2. Left Vertebral Artery: The left vertebral artery flow direction is antegrade. OTHER FINDINGS: 1. Right Brachial Blood pressure: 210 mmHg. 2. Left Brachial Blood pressure: 190 mmHg. IMPRESSION: RIGHT: Duplex scan does not suggest hemodynamically significant stenosis of the right extracranial carotid arteries. LEFT: Duplex scan does not suggest hemodynamically significant stenosis of the left extracranial carotid arteries.
[2017-04-22] MEDS: Magnesium Sulfate 1 gm in D5W 1 GM/100 ML BAG IVPB SCH ×6 (13:03→19:03)
[2017-04-22] MEDS: POLYETHYLENE GLYCOL 3350 17 GM/Dose PACKET PO SCH (15:02)
--- NOTE | 2017-04-22 15:35 | CP.PCM.CON ---
<aRniMitchelllisa - Last Filed: 04/22/17 15:15> History of Present Illness - History of Present Illness History of Present Illness: Kathy Saravia DO PGY1 - GI Consult Note for Dr. Alexandre Consultation for abdominal pain HPI: 76yo F with PMH of asthma, CVA 30 years ago, DM, HTN, HLD, osteoporosis, and chronic anemia initially presented to the hospital s/p fall and syncopal episode, and was also complaining of abdominal pain, nausea, and constipation. Our consultation was requested for intractable abdominal pain. The patient is now complaining of bilateral lower quadrant and suprapubic abdominal pain, worse when she attempts to urinate, with associated dysuria, and incomplete voiding, all of which started about 5 days ago. She also has epigastric burning pain extending to her chest and neck, which started 2 days ago, and is slightly improved today; she does admit to occasional heartburn at home which feels similar, but not as severe. She is also complaining of constipation, which she has had for a long time, last BM was 4 days ago, prior to her admission; she normally has a BM every 1-4 days, with straining, hard stools, and pain. She also admits to black stools, which she attributes to her iron pills which she takes for chronic anemia. She is also complaining of nausea, without vomiting; she endorses a decreased appetite, but was able to eat her meals yesterday and this morning without vomiting. She denies fevers, chills, diarrhea, recent weight loss, hematochezia, hematemesis, hemoptysis. She has never had a colonoscopy or endoscopy before. ROS: 12 point ROS obtained and was negative except as in HPI PMH: as above PSH: Cholecystectomy, cesearean section, tubal ligation FHx: "Throat" CA in mother; Lung CA in brother; denies family history of colon or gastric CA Soc: Prior smoker, quit 30 years ago; Denies alcohol or illicits All: NKDA Past Patient History - Past Medical History & Family History Past Medical History?: Yes - Past Social History Smoking Status: Never Smoked - CARDIAC Hx Hypercholesterolemia: Yes Hx Hypertension: Yes - PULMONARY Hx Asthma: Yes - NEUROLOGICAL HX Cerebrovascular Accident: Yes - HEENT Hx HEENT Problems: Yes - RENAL Hx Chronic Kidney Disease: Yes - ENDOCRINE/METABOLIC Hx Diabetes Mellitus Type 1: Yes - HEMATOLOGICAL/ONCOLOGICAL Hx Blood Disorders: No - INTEGUMENTARY Hx Dermatological Problems: No - MUSCULOSKELETAL/RHEUMATOLOGICAL Hx Osteoporosis: Yes - GASTROINTESTINAL Hx Gastrointestinal Disorders: No - GENITOURINARY/GYNECOLOGICAL Hx Genitourinary Disorders: No - PSYCHIATRIC Hx Substance Use: No - SURGICAL HISTORY Hx Cholecystectomy: Yes - ANESTHESIA Hx Anesthesia: Yes Hx Anesthesia Reactions: No Meds Allergies/Adverse Reactions: Allergies Allergy/AdvReac Type Severity Reaction Status Date / Time No Known Allergies Allergy Verified 04/19/17 14:55 - Medications Medications: Current Medications Acetaminophen (Tylenol 325mg Tab) 650 mg PO Q8H PRN PRN Reason: Pain, Mild (1-3) Last Admin: 04/22/17 01:53 Dose: 650 mg Albuterol/Ipratropium (Duoneb 3 Mg/0.5 Mg (3 Ml) Ud) 3 ml INH RQ6 [facility] Last Admin: 04/22/17 13:21 Dose: 3 ml Aspirin (Ecotrin) 81 mg PO DAILY [facility] Last Admin: 04/22/17 09:00 Dose: 81 mg Calcium Carbonate (Oscal) 500 mg PO BID [facility] Last Admin: 04/22/17 09:07 Dose: 500 mg Clopidogrel Bisulfate (Plavix) 75 mg PO DAILY [facility] Last Admin: 04/22/17 09:00 Dose: 75 mg Ergocalciferol (Drisdol 50,000 Intl Units Cap) 1 cap PO Q7D [facility] Last Admin: 04/21/17 21:54 Dose: 1 cap Hydralazine HCl (Apresoline) 10 mg IVP Q6H PRN PRN Reason: Systolic Blood Pressure Last Admin: 04/22/17 08:23 Dose: 10 mg Insulin Detemir (Levemir) 13 unit SC QAM [facility] Last Admin: 04/22/17 09:08 Dose: 13 unit Insulin Human Regular (Novolin R) 0 unit SC ACHS [facility] PRN Reason: Protocol Last Admin: 04/22/17 13:00 Dose: 10 unit Losartan Potassium (Cozaar) 25 mg PO DAILY [facility] Last Admin: 04/22/17 09:43 Dose: 25 mg Metoprolol Succinate (Toprol Xl) 50 mg PO DAILY [facility] Last Admin: 04/22/17 08:59 Dose: 50 mg Ondansetron HCl (Zofran Inj) 4 mg IVP ONCE PRN PRN Reason: Nausea/Vomiting Last Admin: 04/22/17 09:05 Dose: 4 mg Pantoprazole Sodium (Protonix Inj) 40 mg IVP Q12H [facility] Last Admin: 04/22/17 09:00 Dose: 40 mg Polyethylene Glycol (Miralax) 17 gm PO DAILY [facility] Last Admin: 04/22/17 15:02 Dose: 17 gm Rosuvastatin Calcium (Crestor) 10 mg PO HS [facility] Last Admin: 04/21/17 22:12 Dose: 10 mg Fluticasone/Salmeterol (Advair Diskus 250/50) 1 puff IH RBID [facility] Last Admin: 04/22/17 07:35 Dose: Not Given Physical Exam - Constitutional Appears: Non-toxic, No Acute Distress - Head Exam Head Exam: ATRAUMATIC, NORMOCEPHALIC - Eye Exam Eye Exam: EOMI, Normal appearance. absent: Scleral icterus - ENT Exam ENT Exam: Mucous Membranes Moist, Normal Oropharynx - Neck Exam Neck exam: Positive for: Normal Inspection - Respiratory Exam Respiratory Exam: Clear to Auscultation Bilateral, NORMAL BREATHING PATTERN - Cardiovascular Exam Cardiovascular Exam: RRR, +S1, +S2 - GI/Abdominal Exam GI & Abdominal Exam: Normal Bowel Sounds, Soft, Tenderness (minimal, diffuse, worst in b/l LQ and epigastrum) - Rectal Exam Rectal Exam: NORMAL INSPECTION. absent: Black Stool, Bloody Stool, Hemorrhoids , Fecal Impaction Additional comments: Small-moderate amount of hard stool Brown stool - Extremities Exam Extremities exam: Negative for: calf tenderness, pedal edema - Neurological Exam Neurological exam: Alert, Oriented x3 - Psychiatric Exam Psychiatric exam: Normal Affect, Normal Mood - Skin Skin Exam: Dry, Intact Results - Vital Signs Recent Vital Signs: Last Vital Signs Temp 97.8 F 04/22/17 08:45 Pulse 96 H 04/22/17 08:45 Resp 18 04/22/17 08:45 BP 169/73 H 04/22/17 08:45 Pulse Ox 100 04/22/17 08:45 - Labs Result Diagrams: 04/22/17 07:38 04/22/17 07:38 Labs: Laboratory Results - last 24 hr 04/21/17 04/21/17 04/21/17 06:51 16:24 21:45 WBC RBC Hgb Hct MCV MCH MCHC RDW Plt Count MPV Neut % (Auto) Lymph % (Auto) [place] % (Auto) Eos % (Auto) Baso % (Auto) Neut # Lymph # [place] # Eos # Baso # Sodium Potassium Chloride Carbon Dioxide Anion Gap BUN Creatinine Est GFR ( Amer) Est GFR (Non-Af Amer) POC Glucose (mg/dL) 314 H 327 H Random Glucose Serum Osmolality Calcium Magnesium Total Bilirubin AST ALT Alkaline Phosphatase Total Protein Albumin Globulin Albumin/Globulin Ratio Ur Random Sodium NADIA 6 Profile Negative 04/22/17 04/22/17 04/22/17 02:21 07:00 07:38 WBC 8.5 RBC 3.51 L Hgb 10.5 L Hct 30.9 L MCV 88.1 MCH 29.9 MCHC 33.9 RDW 12.8 Plt Count 177 MPV 8.8 Neut % (Auto) 77.5 H Lymph % (Auto) 15.3 L [place] % (Auto) 6.3 Eos % (Auto) 0.8 Baso % (Auto) 0.1 Neut # 6.6 Lymph # 1.3 [place] # 0.5 Eos # 0.1 Baso # 0.0 Sodium Potassium Chloride Carbon Dioxide Anion Gap BUN Creatinine Est GFR ( Amer) Est GFR (Non-Af Amer) POC Glucose (mg/dL) 335 H 280 H Random Glucose Serum Osmolality Calcium Magnesium Total Bilirubin AST ALT Alkaline Phosphatase Total Protein Albumin Globulin Albumin/Globulin Ratio Ur Random Sodium NADIA 6 Profile 04/22/17 04/22/17 04/22/17 07:38 11:26 11:26 WBC RBC Hgb Hct MCV MCH MCHC RDW Plt Count MPV Neut % (Auto) Lymph % (Auto) [place] % (Auto) Eos % (Auto) Baso % (Auto) Neut # Lymph # [place] # Eos # Baso # Sodium 121 L Potassium 4.1 Chloride 85 L Carbon Dioxide 27 Anion Gap 13 BUN 25 H Creatinine 1.2 Est GFR ( Amer) 53 Est GFR (Non-Af Amer) 44 POC Glucose (mg/dL) Random Glucose 316 H Serum Osmolality Calcium 7.9 L Magnesium 1.0 L* Total Bilirubin 0.7 AST 23 ALT 49 Alkaline Phosphatase 75 Total Protein 6.6 Albumin 3.6 Globulin 3.0 Albumin/Globulin Ratio 1.2 Ur Random Sodium 64 NADIA 6 Profile 04/22/17 04/22/17 11:31 12:18 WBC RBC Hgb Hct MCV MCH MCHC RDW Plt Count MPV Neut % (Auto) Lymph % (Auto) [place] % (Auto) Eos % (Auto) Baso % (Auto) Neut # Lymph # [place] # Eos # Baso # Sodium Potassium Chloride Carbon Dioxide Anion Gap BUN Creatinine Est GFR ( Amer) Est GFR (Non-Af Amer) POC Glucose (mg/dL) 409 H* Random Glucose Serum Osmolality 281 Calcium Magnesium Total Bilirubin AST ALT Alkaline Phosphatase Total Protein Albumin Globulin Albumin/Globulin Ratio Ur Random Sodium NADIA 6 Profile Assessment & Plan - Assessment and Plan (Free Text) Assessment: 76yo F with PMH of asthma, CVA 30 years ago, DM, HTN, HLD, osteoporosis, and chronic anemia presented s/p syncopal episode and fall; complaining of abdominal pain, nausea, constipation, and melena. Plan: >CT A/P in ER shows no acute abdominal or pelvic pathology; reticular nodular opacities at lung bases and bronchiectasis >Rectal exam shows no impaction, no tani blood or melanotic stool - History of melena more likely 2/2 iron supplementation than GIB - Currently hemodynamically stable, with stable H/H compared to baseline from prior admission >Abdominal pain likely 2/2 chronic constipation vs UTI - Patient is afebrile, no leukocytosis, UA negative, urine culture likely contaminated - Constipation may be causing difficulty with urination - Start bowel regimen; Miralax 15gm daily, glycerin suppository x1 >Burning epigastric pain likely 2/2 acid reflux, recommend trial of once daily oral PPI >Patient would benefit from outpatient colonoscopy and EGD given history of melena, chronic constipation, and reflux to rule out underlying anatomical pathology >Will continue to monitor clinical status Patient seen, discussed, and reviewed with attending <Master Alexandre - Last Filed: 04/22/17 17:35> Meds - Medications Medications: Current Medications Acetaminophen (Tylenol 325mg Tab) 650 mg PO Q8H PRN PRN Reason: Pain, Mild (1-3) Last Admin: 04/22/17 01:53 Dose: 650 mg Albuterol/Ipratropium (Duoneb 3 Mg/0.5 Mg (3 Ml) Ud) 3 ml INH RQ6 [facility] Last Admin: 04/22/17 13:21 Dose: 3 ml Aspirin (Ecotrin) 81 mg PO DAILY [facility] Last Admin: 04/22/17 09:00 Dose: 81 mg Calcium Carbonate (Oscal) 500 mg PO BID [facility] Last Admin: 04/22/17 09:07 Dose: 500 mg Clopidogrel Bisulfate (Plavix) 75 mg PO DAILY [facility] Last Admin: 04/22/17 09:00 Dose: 75 mg Ergocalciferol (Drisdol 50,000 Intl Units Cap) 1 cap PO Q7D [facility] Last Admin: 04/21/17 21:54 Dose: 1 cap Hydralazine HCl (Apresoline) 10 mg IVP Q6H PRN PRN Reason: Systolic Blood Pressure Last Admin: 04/22/17 08:23 Dose: 10 mg Insulin Detemir (Levemir) 13 unit SC QAM [facility] Last Admin: 04/22/17 09:08 Dose: 13 unit Insulin Human Regular (Novolin R) 0 unit SC [facility] PRN Reason: Protocol Last Admin: 04/22/17 13:00 Dose: 10 unit Losartan Potassium (Cozaar) 25 mg PO DAILY [facility] Last Admin: 04/22/17 09:43 Dose: 25 mg Magnesium Oxide (Mag-Ox) 400 mg PO BID [facility] Metoprolol Succinate (Toprol Xl) 50 mg PO DAILY [facility] Last Admin: 04/22/17 08:59 Dose: 50 mg Ondansetron HCl (Zofran Inj) 4 mg IVP ONCE PRN PRN Reason: Nausea/Vomiting Last Admin: 04/22/17 09:05 Dose: 4 mg Pantoprazole Sodium (Protonix Ec Tab) 40 mg PO QAM [facility] Polyethylene Glycol (Miralax) 17 gm PO DAILY [facility] Last Admin: 04/22/17 15:02 Dose: 17 gm Rosuvastatin Calcium (Crestor) 10 mg PO HS [facility] Last Admin: 04/21/17 22:12 Dose: 10 mg Fluticasone/Salmeterol (Advair Diskus 250/50) 1 puff IH RBID [facility] Last Admin: 04/22/17 07:35 Dose: Not Given Results - Vital Signs Recent Vital Signs: Last Vital Signs Temp 97.9 F 04/22/17 15:15 Pulse 86 04/22/17 15:15 Resp 18 04/22/17 15:15 BP 174/81 H 04/22/17 15:15 Pulse Ox 99 04/22/17 15:15 - Labs Result Diagrams: 04/22/17 07:38 04/22/17 07:38 Labs: Laboratory Results - last 24 hr 04/21/17 04/21/17 04/22/17 06:51 21:45 02:21 WBC RBC Hgb Hct MCV MCH MCHC RDW Plt Count MPV Neut % (Auto) Lymph % (Auto) [place] % (Auto) Eos % (Auto) Baso % (Auto) Neut # Lymph # [place] # Eos # Baso # Sodium Potassium Chloride Carbon Dioxide Anion Gap BUN Creatinine Est GFR ( Amer) Est GFR (Non-Af Amer) POC Glucose (mg/dL) 327 H 335 H Random Glucose Serum Osmolality Calcium Magnesium Total Bilirubin AST ALT Alkaline Phosphatase Total Protein Albumin Globulin Albumin/Globulin Ratio Ur Random Sodium NADIA 6 Profile Negative 04/22/17 04/22/17 04/22/17 07:00 07:38 07:38 WBC 8.5 RBC 3.51 L Hgb 10.5 L Hct 30.9 L MCV 88.1 MCH 29.9 MCHC 33.9 RDW 12.8 Plt Count 177 MPV 8.8 Neut % (Auto) 77.5 H Lymph % (Auto) 15.3 L [place] % (Auto) 6.3 Eos % (Auto) 0.8 Baso % (Auto) 0.1 Neut # 6.6 Lymph # 1.3 [place] # 0.5 Eos # 0.1 Baso # 0.0 Sodium 121 L Potassium 4.1 Chloride 85 L Carbon Dioxide 27 Anion Gap 13 BUN 25 H Creatinine 1.2 Est GFR ( Amer) 53 Est GFR (Non-Af Amer) 44 POC Glucose (mg/dL) 280 H Random Glucose 316 H Serum Osmolality Calcium 7.9 L Magnesium Total Bilirubin 0.7 AST 23 ALT 49 Alkaline Phosphatase 75 Total Protein 6.6 Albumin 3.6 Globulin 3.0 Albumin/Globulin Ratio 1.2 Ur Random Sodium NADIA 6 Profile 04/22/17 04/22/17 04/22/17 11:26 11:26 11:31 WBC RBC Hgb Hct MCV MCH MCHC RDW Plt Count MPV Neut % (Auto) Lymph % (Auto) [place] % (Auto) Eos % (Auto) Baso % (Auto) Neut # Lymph # [place] # Eos # Baso # Sodium Potassium Chloride Carbon Dioxide Anion Gap BUN Creatinine Est GFR ( Amer) Est GFR (Non-Af Amer) POC Glucose (mg/dL) Random Glucose Serum Osmolality 281 Calcium Magnesium 1.0 L* Total Bilirubin AST ALT Alkaline Phosphatase Total Protein Albumin Globulin Albumin/Globulin Ratio Ur Random Sodium 64 NADIA 6 Profile 04/22/17 04/22/17 12:18 17:11 WBC RBC Hgb Hct MCV MCH MCHC RDW Plt Count MPV Neut % (Auto) Lymph % (Auto) [place] % (Auto) Eos % (Auto) Baso % (Auto) Neut # Lymph # [place] # Eos # Baso # Sodium Potassium Chloride Carbon Dioxide Anion Gap BUN Creatinine Est GFR ( Amer) Est GFR (Non-Af Amer) POC Glucose (mg/dL) 409 H* 300 H Random Glucose Serum Osmolality Calcium Magnesium Total Bilirubin AST ALT Alkaline Phosphatase Total Protein Albumin Globulin Albumin/Globulin Ratio Ur Random Sodium NADIA 6 Profile Attending/Attestation - Attestation I have personally seen and examined this patient.: Yes I have fully participated in the care of the patient.: Yes I have reviewed all pertinent clinical information: Yes Notes (Text): 04/22/17 17:33 76 year old female with h/o asthma, CVA, DM, HTN, HLD, osteoporosis, and chronic anemia a/w syncope and fall, also with GERD symptoms and constipation/ abdominal pain. 1. GERD 2. Abdominal pain 3. Constipation 4. Iron deficiency Anemia Plan: -CT unremarkable, no signs of GI bleeding -would recommend PPI therapy -recommend outpatient egd/colonoscopy for anemia workup -recommend bowel regimen with miralax -pain seems to be related to constipation, possible IBS-C
--- NOTE | 2017-04-22 16:19 | CP.PCM.PN ---
<Gisela Meyer - Last Filed: 04/22/17 16:14> Subjective - Date & Time of Evaluation Date of Evaluation: 04/22/17 Time of Evaluation: 07:30 - Subjective Subjective: Medicine note for Dr. Morton Patient seen and examined at bedside. Patient resting comfortably in bed with no new complaints at this time. Patient still complaining of epigastric burning radiating down her entire abdomen and to her feet b/l. Patient admits to associated nausea and constipation x5days. Patient denies fever, chills, SOB, vomiting, diarrhea, LE swelling. Objective - Vital Signs/Intake and Output Vital Signs (last 24 hours): Temp Pulse Resp BP Pulse Ox 97.8 F 96 H 18 169/73 H 100 04/22/17 08:45 04/22/17 08:45 04/22/17 08:45 04/22/17 08:45 04/22/17 08:45 Intake and Output: 04/22/17 04/22/17 06:59 18:59 Intake Total 20 Output Total 400 Balance -380 - Medications Medications: Current Medications Acetaminophen (Tylenol 325mg Tab) 650 mg PO Q8H PRN PRN Reason: Pain, Mild (1-3) Last Admin: 04/22/17 01:53 Dose: 650 mg Albuterol/Ipratropium (Duoneb 3 Mg/0.5 Mg (3 Ml) Ud) 3 ml INH RQ6 [facility] Last Admin: 04/22/17 13:21 Dose: 3 ml Aspirin (Ecotrin) 81 mg PO DAILY [facility] Last Admin: 04/22/17 09:00 Dose: 81 mg Calcium Carbonate (Oscal) 500 mg PO BID [facility] Last Admin: 04/22/17 09:07 Dose: 500 mg Clopidogrel Bisulfate (Plavix) 75 mg PO DAILY [facility] Last Admin: 04/22/17 09:00 Dose: 75 mg Ergocalciferol (Drisdol 50,000 Intl Units Cap) 1 cap PO Q7D [facility] Last Admin: 04/21/17 21:54 Dose: 1 cap Hydralazine HCl (Apresoline) 10 mg IVP Q6H PRN PRN Reason: Systolic Blood Pressure Last Admin: 04/22/17 08:23 Dose: 10 mg Insulin Detemir (Levemir) 13 unit SC QAM [facility] Last Admin: 04/22/17 09:08 Dose: 13 unit Insulin Human Regular (Novolin R) 0 unit SC ACHS [facility] PRN Reason: Protocol Last Admin: 04/22/17 13:00 Dose: 10 unit Losartan Potassium (Cozaar) 25 mg PO DAILY [facility] Last Admin: 04/22/17 09:43 Dose: 25 mg Metoprolol Succinate (Toprol Xl) 50 mg PO DAILY [facility] Last Admin: 04/22/17 08:59 Dose: 50 mg Ondansetron HCl (Zofran Inj) 4 mg IVP ONCE PRN PRN Reason: Nausea/Vomiting Last Admin: 04/22/17 09:05 Dose: 4 mg Pantoprazole Sodium (Protonix Ec Tab) 40 mg PO QAM [facility] Polyethylene Glycol (Miralax) 17 gm PO DAILY [facility] Last Admin: 04/22/17 15:02 Dose: 17 gm Rosuvastatin Calcium (Crestor) 10 mg PO HS [facility] Last Admin: 04/21/17 22:12 Dose: 10 mg Fluticasone/Salmeterol (Advair Diskus 250/50) 1 puff IH RBID [facility] Last Admin: 04/22/17 07:35 Dose: Not Given - Labs Labs: 04/22/17 07:38 04/22/17 07:38 - Additional Findings Additional findings: - Constitutional Appears: No Acute Distress, Other (Lethargic) - Head Exam Additional comments: 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 absent: Distended, Firm, Guarding, Organomegaly, Rebound, Rigid - Rectal Exam Rectal Exam: NORMAL INSPECTION - Extremities Exam Extremities exam: Positive for: normal capillary refill, pedal pulses present Additional comments: non-tender to palpation - Back Exam Back exam: tenderness - Neurological Exam Neurological exam: AAOx3 she is able to walk with help, before her falling 2 days ago she was walking normally DTR 0/4 By Plantar stimulation toes are down going bilaterally Normal finger to nose test - Psychiatric Exam Psychiatric exam: Flat Affect - Skin Skin Exam: Dry, Intact, Normal Color Assessment and Plan - Assessment and Plan (Free Text) Plan: Syncopal Episode with Associated AMS Neurology consult, Dr Monzon. likely 2/2 to dehydration; R/O Seizures, R/O Intra cranial structural Pathology , R/O CVA EKG was NSR with no acute ST-T wave changes Patient received 2 1L fluid Boluses in the ED UA 04/19: 2+ protein, 3+ glucose, trace blood Blood Cultures 04/19 shows no growth up to date Urine Cultures 04/19, multiple species, probably contamination CRP WNL Folate 11.5 Lipid Panel WNL TSH WNL Uric Acid WNL Vitamin D 25-OH 21.5 (low) ESR 50 (high) Vitamin B2, F/U Anti Nuclear Antibody, F/U Imaging: CT Head 04/19 showed generalized Atrophy with non-specific white matter changes CXR 04/19 showed no active disease CT Abd/Pelvis w/o PO or IV contrast 04/19: No acute abdominal or pelvic pathology identified. Reticular nodular opacities at the lung bases. Basilar fibrosis. Bronchiectasis. MRI Brain without contrast 04/21: no acute intracranial findings EEG, F/U Cardotid Duplex showed mild disease b/l Echo, F/U Meds: NS 100mls/hr Abdominal Pain with associated vomiting and diarrhea GI consult (Dr. Melvin) - recs appreciated likely 2/2 viral gastritis Stool Occult Blood Consider GI consult if Stool Occult Blood is positive, FOBT still pending Lipase 347 on admission, now WNL LFTs WNL Imaging: Abd/Pelvis CT w/o PO or IV contrast 04/19 No acute abdominal or pelvic pathology identified. Reticular nodular opacities at the lung bases. Basilar fibrosis. Bronchiectasis. Meds: Protonix 40mg IVP Q12H Zofran 4mg IVP qd prn NS 100mls/hr Hyponatremia Nephrology consult (Lc) - recs appreciated F/U Urine sodium Uncontrolled DM2 Patient was hyperglycemic on Admission. 10 units of regular insulin was given High Dose Insulin Sliding Scale Continue home med Levemir 13units QAM HgBA1C 12.3 Hx of HTN Continue home med Metoprolol 50mg PO Daily Losartan 25mg PO QD HLD Rosuvastatin 10mg PO HS Hx of CVA Plavix 75 PO Daily ASA 81 Daily Hx of Asthma Advair Diskus 250/50 Duonebs Q6 Abd/Pelvis CT w/o PO or IV contrast 04/19: Reticular nodular opacities at the lung bases. Basilar fibrosis. Bronchiectasis. 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 No indication for pharmacological DVT proph. SCD's Protonix 40mg IVP Q12H Zofran 4mg IVP qd prn Physical therapy screen Heart healthy diet - low carbohydrate diet <Will Morton - Last Filed: 04/23/17 19:08> Objective - Vital Signs/Intake and Output Vital Signs (last 24 hours): Temp Pulse Resp BP Pulse Ox 97.9 F 102 H 18 101/38 L 99 04/23/17 16:00 04/23/17 18:00 04/23/17 18:00 04/23/17 18:00 04/23/17 18:00 Intake and Output: 04/23/17 04/23/17 06:59 18:59 Intake Total 20 1679 Output Total 2820 Balance 20 -1141 - Medications Medications: Current Medications Acetaminophen (Tylenol 325mg Tab) 650 mg PO Q8H PRN PRN Reason: Pain, Mild (1-3) Last Admin: 04/23/17 05:26 Dose: 650 mg Albuterol/Ipratropium (Duoneb 3 Mg/0.5 Mg (3 Ml) Ud) 3 ml INH RQ6 [facility] Last Admin: 04/23/17 14:31 Dose: 3 ml Aspirin (Ecotrin) 81 mg PO DAILY [facility] Last Admin: 04/23/17 11:29 Dose: 81 mg Calcium Carbonate (Oscal) 500 mg PO BID [facility] Last Admin: 04/23/17 17:33 Dose: Not Given Clopidogrel Bisulfate (Plavix) 75 mg PO DAILY [facility] Last Admin: 04/23/17 11:28 Dose: 75 mg Ergocalciferol (Drisdol 50,000 Intl Units Cap) 1 cap PO Q7D [facility] Last Admin: 04/21/17 21:54 Dose: 1 cap Hydralazine HCl (Apresoline) 10 mg IVP Q6H PRN PRN Reason: Systolic Blood Pressure Last Admin: 04/23/17 11:27 Dose: 10 mg Sodium Chloride (Sodium Chloride 0.9%) 1,000 mls @ 75 mls/hr IV .[id number] [facility] Last Admin: 04/23/17 18:07 Dose: 75 mls/hr Insulin Human Regular 100 unit (/ Sodium Chloride) 100 mls @ 2 mls/hr IV .Q24H [facility] Last Admin: 04/23/17 17:30 Dose: 2 mls/hr Insulin Detemir (Levemir) 13 unit SC ACB [facility] Last Admin: 04/23/17 08:22 Dose: 13 unit Isosorbide Mononitrate (Imdur) 60 mg PO DAILY [facility] Last Admin: 04/23/17 11:28 Dose: 60 mg Labetalol HCl (Trandate) 10 mg IV Q4 PRN PRN Reason: Systolic Blood Pressure >150 Last Admin: 04/23/17 15:35 Dose: 10 mg Losartan Potassium (Cozaar) 25 mg PO DAILY [facility] Last Admin: 04/23/17 11:29 Dose: 25 mg Magnesium Oxide (Mag-Ox) 400 mg PO BID [facility] Last Admin: 04/23/17 11:31 Dose: Not Given Metoprolol Succinate (Toprol Xl) 50 mg PO DAILY [facility] Last Admin: 04/23/17 11:28 Dose: 50 mg Ondansetron HCl (Zofran Inj) 4 mg IVP ONCE PRN PRN Reason: Nausea/Vomiting Last Admin: 04/22/17 09:05 Dose: 4 mg Pantoprazole Sodium (Protonix Ec Tab) 40 mg PO QAM [facility] Last Admin: 04/23/17 11:29 Dose: 40 mg Polyethylene Glycol (Miralax) 17 gm PO DAILY [facility] Last Admin: 04/23/17 12:20 Dose: Not Given Rosuvastatin Calcium (Crestor) 10 mg PO HS [facility] Last Admin: 04/22/17 21:36 Dose: 10 mg Fluticasone/Salmeterol (Advair Diskus 250/50) 1 puff IH RBID [facility] Last Admin: 04/23/17 07:55 Dose: Not Given Sodium Bicarbonate (Sodium Bicarbonate Tab) 650 mg PO Q6 [facility] Last Admin: 04/23/17 17:20 Dose: 650 mg - Labs Labs: 04/23/17 07:15 04/23/17 15:53 Attending/Attestation - Attestation I have personally seen and examined this patient.: Yes I have fully participated in the care of the patient.: Yes I have reviewed all pertinent clinical information, including history, physical exam and plan: Yes Notes (Text): This is a 76years old female with history of astma,cva,horta's palsy,DM, HTN,CKD was brought in for nausea,vomiting,diarrhea and syncope. No diarrhea after her admission.Having dark stool since she was started on iron .She was nauseous.On admission her HCT was held. Patient's hyponatremia was getting worse.Fluids held on 04/21/2017.Insulin added for DM control Her intake was poor . 1.Syncope CT brai and MRI negative for new pathology blood and urine culture negative Neurology consult, Dr Monzon. likely 2/2 to dehydration 2.Abdominal pain Improving,zofran for nausea 3.Hyponatremia d/w sr account executive DR Platt - Recommend off fluids urine sodium and osmolarity done,serum osmolarity He will see the patient soon 3.uncontrolled DM Insulin added,poor intake,we will increase insulin as needed 4.HTN continue metoprolol amd Losartan 5.Hyperlipidemia 6.CVA 7.Astma 8.bells palsy 9 DVT and GI prophylaxis
[2017-04-22] MEDS ORDERED: Metoprolol Succinate 50 mg XL Tab PO ONE (18:00)
[2017-04-22] MEDS: Magnesium Oxide 400 mg Tab UD PO SCH (19:01)
--- NOTE | 2017-04-22 21:18 | CP.PCM.PN ---
Subjective - Date & Time of Evaluation Date of Evaluation: 04/22/17 Time of Evaluation: 19:00 - Subjective Subjective: No major changes, she suffers from CHEVY, epigastric pain, Blood sugar readings are high, Low serum Ca at 7.6, low serum Mg 1 /dl Objective - Vital Signs/Intake and Output Vital Signs (last 24 hours): Temp Pulse Resp BP Pulse Ox 97.9 F 86 18 174/81 H 99 04/22/17 15:15 04/22/17 15:15 04/22/17 15:15 04/22/17 15:15 04/22/17 15:15 - Medications Medications: Current Medications Acetaminophen (Tylenol 325mg Tab) 650 mg PO Q8H PRN PRN Reason: Pain, Mild (1-3) Last Admin: 04/22/17 01:53 Dose: 650 mg Albuterol/Ipratropium (Duoneb 3 Mg/0.5 Mg (3 Ml) Ud) 3 ml INH RQ6 [facility] Last Admin: 04/22/17 19:44 Dose: 3 ml Aspirin (Ecotrin) 81 mg PO DAILY [facility] Last Admin: 04/22/17 09:00 Dose: 81 mg Calcium Carbonate (Oscal) 500 mg PO BID [facility] Last Admin: 04/22/17 19:01 Dose: 500 mg Clopidogrel Bisulfate (Plavix) 75 mg PO DAILY [facility] Last Admin: 04/22/17 09:00 Dose: 75 mg Ergocalciferol (Drisdol 50,000 Intl Units Cap) 1 cap PO Q7D [facility] Last Admin: 04/21/17 21:54 Dose: 1 cap Hydralazine HCl (Apresoline) 10 mg IVP Q6H PRN PRN Reason: Systolic Blood Pressure Last Admin: 04/22/17 08:23 Dose: 10 mg Insulin Detemir (Levemir) 13 unit SC QAM [facility] Last Admin: 04/22/17 09:08 Dose: 13 unit Insulin Human Regular (Novolin R) 0 unit SC ACHS [facility] PRN Reason: Protocol Last Admin: 04/22/17 19:00 Dose: 6 unit Losartan Potassium (Cozaar) 25 mg PO DAILY [facility] Last Admin: 04/22/17 09:43 Dose: 25 mg Magnesium Oxide (Mag-Ox) 400 mg PO BID [facility] Last Admin: 04/22/17 19:01 Dose: 400 mg Metoprolol Succinate (Toprol Xl) 50 mg PO DAILY [facility] Last Admin: 04/22/17 08:59 Dose: 50 mg Ondansetron HCl (Zofran Inj) 4 mg IVP ONCE PRN PRN Reason: Nausea/Vomiting Last Admin: 04/22/17 09:05 Dose: 4 mg Pantoprazole Sodium (Protonix Ec Tab) 40 mg PO QAM [facility] Polyethylene Glycol (Miralax) 17 gm PO DAILY [facility] Last Admin: 04/22/17 15:02 Dose: 17 gm Rosuvastatin Calcium (Crestor) 10 mg PO HS [facility] Last Admin: 04/21/17 22:12 Dose: 10 mg Fluticasone/Salmeterol (Advair Diskus 250/50) 1 puff IH RBID [facility] Last Admin: 04/22/17 19:44 Dose: Not Given - Labs Labs: 04/22/17 07:38 04/22/17 07:38 Assessment and Plan (1) Closed head injury Status: Acute (2) Gastroenteritis Status: Acute (3) CVA (cerebral vascular accident) Status: Acute (4) Syncope Status: Acute (5) Right-sided Horta's palsy Status: Acute
--- NOTE | 2017-04-22 21:29 | CP.PCM.CON ---
Past Patient History - Past Medical History & Family History Past Medical History?: Yes - Past Social History Smoking Status: Never Smoked - CARDIAC Hx Hypercholesterolemia: Yes Hx Hypertension: Yes - PULMONARY Hx Asthma: Yes - NEUROLOGICAL HX Cerebrovascular Accident: Yes - HEENT Hx HEENT Problems: Yes - RENAL Hx Chronic Kidney Disease: Yes - ENDOCRINE/METABOLIC Hx Diabetes Mellitus Type 1: Yes - HEMATOLOGICAL/ONCOLOGICAL Hx Blood Disorders: No - INTEGUMENTARY Hx Dermatological Problems: No - MUSCULOSKELETAL/RHEUMATOLOGICAL Hx Osteoporosis: Yes - GASTROINTESTINAL Hx Gastrointestinal Disorders: No - GENITOURINARY/GYNECOLOGICAL Hx Genitourinary Disorders: No - PSYCHIATRIC Hx Substance Use: No - SURGICAL HISTORY Hx Cholecystectomy: Yes - ANESTHESIA Hx Anesthesia: Yes Hx Anesthesia Reactions: No Meds Allergies/Adverse Reactions: Allergies Allergy/AdvReac Type Severity Reaction Status Date / Time No Known Allergies Allergy Verified 04/19/17 14:55 - Medications Medications: Current Medications Acetaminophen (Tylenol 325mg Tab) 650 mg PO Q8H PRN PRN Reason: Pain, Mild (1-3) Last Admin: 04/22/17 01:53 Dose: 650 mg Albuterol/Ipratropium (Duoneb 3 Mg/0.5 Mg (3 Ml) Ud) 3 ml INH RQ6 [facility] Last Admin: 04/22/17 19:44 Dose: 3 ml Aspirin (Ecotrin) 81 mg PO DAILY [facility] Last Admin: 04/22/17 09:00 Dose: 81 mg Calcium Carbonate (Oscal) 500 mg PO BID [facility] Last Admin: 04/22/17 19:01 Dose: 500 mg Clopidogrel Bisulfate (Plavix) 75 mg PO DAILY [facility] Last Admin: 04/22/17 09:00 Dose: 75 mg Ergocalciferol (Drisdol 50,000 Intl Units Cap) 1 cap PO Q7D [facility] Last Admin: 04/21/17 21:54 Dose: 1 cap Hydralazine HCl (Apresoline) 10 mg IVP Q6H PRN PRN Reason: Systolic Blood Pressure Last Admin: 04/22/17 08:23 Dose: 10 mg Insulin Detemir (Levemir) 13 unit SC QAM [facility] Last Admin: 04/22/17 09:08 Dose: 13 unit Insulin Human Regular (Novolin R) 0 unit SC ACHS [facility] PRN Reason: Protocol Last Admin: 04/22/17 19:00 Dose: 6 unit Losartan Potassium (Cozaar) 25 mg PO DAILY [facility] Last Admin: 04/22/17 09:43 Dose: 25 mg Magnesium Oxide (Mag-Ox) 400 mg PO BID [facility] Last Admin: 04/22/17 19:01 Dose: 400 mg Metoprolol Succinate (Toprol Xl) 50 mg PO DAILY [facility] Last Admin: 04/22/17 08:59 Dose: 50 mg Ondansetron HCl (Zofran Inj) 4 mg IVP ONCE PRN PRN Reason: Nausea/Vomiting Last Admin: 04/22/17 09:05 Dose: 4 mg Pantoprazole Sodium (Protonix Ec Tab) 40 mg PO QAM [facility] Polyethylene Glycol (Miralax) 17 gm PO DAILY [facility] Last Admin: 04/22/17 15:02 Dose: 17 gm Rosuvastatin Calcium (Crestor) 10 mg PO HS [facility] Last Admin: 04/21/17 22:12 Dose: 10 mg Fluticasone/Salmeterol (Advair Diskus 250/50) 1 puff IH RBID [facility] Last Admin: 04/22/17 19:44 Dose: Not Given Results - Vital Signs Recent Vital Signs: Last Vital Signs Temp 97.9 F 04/22/17 15:15 Pulse 86 04/22/17 15:15 Resp 18 04/22/17 15:15 BP 174/81 H 04/22/17 15:15 Pulse Ox 99 04/22/17 15:15 - Labs Result Diagrams: 04/22/17 07:38 04/22/17 07:38 Labs: Laboratory Results - last 24 hr 04/21/17 04/21/17 04/22/17 06:51 21:45 02:21 WBC RBC Hgb Hct MCV MCH MCHC RDW Plt Count MPV Neut % (Auto) Lymph % (Auto) [place] % (Auto) Eos % (Auto) Baso % (Auto) Neut # Lymph # [place] # Eos # Baso # Sodium Potassium Chloride Carbon Dioxide Anion Gap BUN Creatinine Est GFR ( Amer) Est GFR (Non-Af Amer) POC Glucose (mg/dL) 327 H 335 H Random Glucose Serum Osmolality Calcium Magnesium Total Bilirubin AST ALT Alkaline Phosphatase Total Protein Albumin Globulin Albumin/Globulin Ratio Urine Osmolality Ur Random Sodium Stool Occult Blood NADIA 6 Profile Negative 04/22/17 04/22/17 04/22/17 07:00 07:38 07:38 WBC 8.5 RBC 3.51 L Hgb 10.5 L Hct 30.9 L MCV 88.1 MCH 29.9 MCHC 33.9 RDW 12.8 Plt Count 177 MPV 8.8 Neut % (Auto) 77.5 H Lymph % (Auto) 15.3 L [place] % (Auto) 6.3 Eos % (Auto) 0.8 Baso % (Auto) 0.1 Neut # 6.6 Lymph # 1.3 [place] # 0.5 Eos # 0.1 Baso # 0.0 Sodium 121 L Potassium 4.1 Chloride 85 L Carbon Dioxide 27 Anion Gap 13 BUN 25 H Creatinine 1.2 Est GFR ( Amer) 53 Est GFR (Non-Af Amer) 44 POC Glucose (mg/dL) 280 H Random Glucose 316 H Serum Osmolality Calcium 7.9 L Magnesium Total Bilirubin 0.7 AST 23 ALT 49 Alkaline Phosphatase 75 Total Protein 6.6 Albumin 3.6 Globulin 3.0 Albumin/Globulin Ratio 1.2 Urine Osmolality Ur Random Sodium Stool Occult Blood NADIA 6 Profile 04/22/17 04/22/17 04/22/17 11:26 11:26 11:31 WBC RBC Hgb Hct MCV MCH MCHC RDW Plt Count MPV Neut % (Auto) Lymph % (Auto) [place] % (Auto) Eos % (Auto) Baso % (Auto) Neut # Lymph # [place] # Eos # Baso # Sodium Potassium Chloride Carbon Dioxide Anion Gap BUN Creatinine Est GFR ( Amer) Est GFR (Non-Af Amer) POC Glucose (mg/dL) Random Glucose Serum Osmolality 281 Calcium Magnesium 1.0 L* Total Bilirubin AST ALT Alkaline Phosphatase Total Protein Albumin Globulin Albumin/Globulin Ratio Urine Osmolality Ur Random Sodium 64 Stool Occult Blood NADIA 6 Profile 04/22/17 04/22/17 04/22/17 12:18 17:11 20:23 WBC RBC Hgb Hct MCV MCH MCHC RDW Plt Count MPV Neut % (Auto) Lymph % (Auto) [place] % (Auto) Eos % (Auto) Baso % (Auto) Neut # Lymph # [place] # Eos # Baso # Sodium Potassium Chloride Carbon Dioxide Anion Gap BUN Creatinine Est GFR ( Amer) Est GFR (Non-Af Amer) POC Glucose (mg/dL) 409 H* 300 H Random Glucose Serum Osmolality Calcium Magnesium Total Bilirubin AST ALT Alkaline Phosphatase Total Protein Albumin Globulin Albumin/Globulin Ratio Urine Osmolality Ur Random Sodium Stool Occult Blood Negative NADIA 6 Profile 04/22/17 04/22/17 20:23 21:05 WBC RBC Hgb Hct MCV MCH MCHC RDW Plt Count MPV Neut % (Auto) Lymph % (Auto) [place] % (Auto) Eos % (Auto) Baso % (Auto) Neut # Lymph # [place] # Eos # Baso # Sodium Potassium Chloride Carbon Dioxide Anion Gap BUN Creatinine Est GFR ( Amer) Est GFR (Non-Af Amer) POC Glucose (mg/dL) 312 H Random Glucose Serum Osmolality Calcium Magnesium Total Bilirubin AST ALT Alkaline Phosphatase Total Protein Albumin Globulin Albumin/Globulin Ratio Urine Osmolality 445 Ur Random Sodium Stool Occult Blood NADIA 6 Profile Assessment & Plan - Assessment and Plan (Free Text) Plan: s osmo u osmo cbc cm daily sansca 15mg daily restrict fluid
[2017-04-23] MEDS: Albuterol-Ipratrop 3 mg / 0.5 (3 ml) UD INH SCH ×4 (01:15→19:06)
[2017-04-23 07:39] LABS: BASO % 0.1 % (0.0-2.0); EOS # 0.1 K/uL (0.0-0.7); EOS % 0.7 % (0.0-4.0); HEMATOCRIT 34.1 % (34.0-47.0); LYMPH # 1.4 K/uL (1.0-4.3); LYMPH % 11.4 % (20.0-40.0); MEAN CELL VOLUME 86.3 fL (81.0-99.0); MEAN CORPUSCULAR HEMOGLOBIN 29.9 pg (27.0-31.0); MEAN CORPUSCULAR HGB CONC 34.7 g/dL (33.0-37.0); MONO # 0.8 K/uL (0.0-0.8); MONO % 6.2 % (0.0-10.0); NRBC % 0.1 % (0.0-2.0); RED CELL DISTRIBUTION WIDTH 12.4 % (11.5-14.5); WHITE BLOOD COUNT 12.4 K/uL (4.8-10.8)
[2017-04-23] MEDS ORDERED: Insulin Detemir 100 units/ml Vial (Levemir) SC SCH ×2 (07:45→07:49)
[2017-04-23] MEDS: Fluticasone-Salmeterol 250-50mcg Diskus IH SCH ×2 (07:55→19:07)
[2017-04-23 08:06] LABS: CHLORIDE 74 mmol/L (98-107)
[2017-04-23 08:07] LABS: POTASSIUM 4.3 mmol/L (3.6-5.2)
[2017-04-23 08:09] LABS: ALB/GLOB RATIO 1.2 (1.0-2.1); ALKALINE PHOSPHATASE 93 U/L (38-126); ALT/SGPT 48 U/L (9-52); AST/SGOT 26 U/L (14-36); BILIRUBIN,TOTAL 1.1 mg/dL (0.2-1.3); BLOOD UREA NITROGEN 21 mg/dL (7-17); CARBON DIOXIDE 27 mmol/L (22-30); GFR AFRICAN-AMERICAN > 60; GLUCOSE,RANDOM 264 mg/dL (65-105); TOTAL PROTEIN 7.6 g/dL (6.3-8.3)
[2017-04-23 08:10] LABS: CALCIUM 8.1 mg/dl (8.6-10.4); MAGNESIUM 1.6 mg/dL (1.6-2.3)
--- NOTE | 2017-04-23 08:20 | CARD ---
APPROVED REPORT EKG Measurement Heart [id number] <Conclusion> Sinus tachycardia Otherwise normal ECG
[2017-04-23 08:21] LABS: SODIUM 111 mmol/L (132-148)
[2017-04-23] MEDS: Insulin Detemir 100 units/ml Vial (Levemir) SC SCH (08:22)
[2017-04-23] MEDS: (Novolin R) Insulin Human Regular 100 units/ml vial SC SCH ×2 (08:23→12:22)
[2017-04-23] MEDS ORDERED: Tolvaptan 15 MG TAB PO STA (08:28)
--- NOTE | 2017-04-23 09:34 | CP.PCM.PN ---
Subjective - Date & Time of Evaluation Date of Evaluation: 04/23/17 Time of Evaluation: 08:30 - Subjective Subjective: Patient was seen and examined this morning She was alert and oriented and was complaining of lower abdomen and epigastria are pain.No vomiting,No change in her mental status noted Objective - Vital Signs/Intake and Output Vital Signs (last 24 hours): Temp Pulse Resp BP Pulse Ox 98.5 F 86 20 155/73 H 100 04/23/17 07:45 04/23/17 07:45 04/23/17 07:45 04/23/17 07:45 04/23/17 07:45 Intake and Output: 04/23/17 04/23/17 06:59 18:59 Intake Total 20 Balance 20 - Medications Medications: Current Medications Acetaminophen (Tylenol 325mg Tab) 650 mg PO Q8H PRN PRN Reason: Pain, Mild (1-3) Last Admin: 04/23/17 05:26 Dose: 650 mg Albuterol/Ipratropium (Duoneb 3 Mg/0.5 Mg (3 Ml) Ud) 3 ml INH RQ6 [facility] Last Admin: 04/23/17 01:15 Dose: 3 ml Aspirin (Ecotrin) 81 mg PO DAILY [facility] Last Admin: 04/22/17 09:00 Dose: 81 mg Calcium Carbonate (Oscal) 500 mg PO BID [facility] Last Admin: 04/22/17 19:01 Dose: 500 mg Clopidogrel Bisulfate (Plavix) 75 mg PO DAILY [facility] Last Admin: 04/22/17 09:00 Dose: 75 mg Ergocalciferol (Drisdol 50,000 Intl Units Cap) 1 cap PO Q7D [facility] Last Admin: 04/21/17 21:54 Dose: 1 cap Hydralazine HCl (Apresoline) 10 mg IVP Q6H PRN PRN Reason: Systolic Blood Pressure Last Admin: 04/23/17 05:25 Dose: 10 mg Insulin Detemir (Levemir) 13 unit SC ACB [facility] Last Admin: 04/23/17 08:22 Dose: 13 unit Insulin Human Regular (Novolin R) 0 unit SC ACHS [facility] PRN Reason: Protocol Last Admin: 04/23/17 08:23 Dose: 3 unit Losartan Potassium (Cozaar) 25 mg PO DAILY [facility] Last Admin: 04/22/17 09:43 Dose: 25 mg Magnesium Oxide (Mag-Ox) 400 mg PO BID [facility] Last Admin: 04/22/17 19:01 Dose: 400 mg Metoprolol Succinate (Toprol Xl) 50 mg PO DAILY [facility] Last Admin: 04/22/17 08:59 Dose: 50 mg Ondansetron HCl (Zofran Inj) 4 mg IVP ONCE PRN PRN Reason: Nausea/Vomiting Last Admin: 04/22/17 09:05 Dose: 4 mg Pantoprazole Sodium (Protonix Ec Tab) 40 mg PO QAM [facility] Polyethylene Glycol (Miralax) 17 gm PO DAILY [facility] Last Admin: 04/22/17 15:02 Dose: 17 gm Rosuvastatin Calcium (Crestor) 10 mg PO HS [facility] Last Admin: 04/22/17 21:36 Dose: 10 mg Fluticasone/Salmeterol (Advair Diskus 250/50) 1 puff IH RBID [facility] Last Admin: 04/22/17 19:44 Dose: Not Given - Labs Labs: 04/23/17 07:15 04/23/17 07:15 - Constitutional Appears: Non-toxic - Head Exam Head Exam: ATRAUMATIC - Eye Exam Eye Exam: Normal appearance - ENT Exam ENT Exam: Normal Exam - Neck Exam Neck Exam: Normal Inspection - Respiratory Exam Respiratory Exam: Clear to Ausculation Bilateral - Cardiovascular Exam Cardiovascular Exam: REGULAR RHYTHM - GI/Abdominal Exam GI & Abdominal Exam: Soft, Tenderness (mild epigastric tenderness). absent: Guarding, Rigid, Rebound - Extremities Exam Extremities Exam: Full ROM - Neurological Exam Neurological Exam: Alert - Psychiatric Exam Psychiatric exam: Normal Mood - Skin Skin Exam: Normal Color Assessment and Plan - Assessment and Plan (Free Text) Assessment: This is a 76years old female with history of astma,cva,lauren's palsy,DM, HTN,CKD was brought in for nausea,vomiting,diarrhea and syncope. No diarrhea after her admission.Having dark stool since she was started on iron .She was nauseous.On admission her HCT was held. Patient's hyponatremia was getting worse.Fluids held on 04/21/2017.Insulin added for DM control Her intake was poor . 1.Severe Hyponatremia Patient is awake and oriented and no mental status changes noted Her sodium is 111.Off fluids.D/W Dr Lc Cat motion picture camera operator about the sodium level.He recommended 3% saline at 20ml/hour at ICU Intensive care physician was called for a an ICU bed and management of hyponatremia Discussed with ICU physician Dr Oscar Platt about the recommendation of motion picture camera operator . Patient was transferred to ICU for the management of hyponatremia d/w daughter at ICU 2.Syncope CT brain and MRI negative for new pathology blood and urine culture negative Neurology consult, Dr Monzon. likely 2/2 to dehydration 3.Abdominal pain Improving,zofran for nausea 4.uncontrolled DM Insulin added,poor intake,we will increase insulin as needed 5.HTN continue metoprolol amd Losartan.Hydralazine as needed and treat nausea 6.Hyperlipidemia 7.CVA 8.bells palsy 9 DVT and GI prophylaxis
[2017-04-23] MEDS ORDERED: Pantoprazole 40 mg EC Tab PO SCH (10:00)
--- NOTE | 2017-04-23 10:27 | CP.PCM.CON ---
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 Patient c/o abdominal pain, nausea, and constipation. (+) nausea, without vomiting; (+) decreased appetite (-) fevers, chills, diarrhea, recent weight loss Patient has uncontrolled BGM. Patient's PMD Dr. Garnett has recently prescribed atacand/hydrochlorothiazine and losartan with hydrochrolothiazide. Patient's sodium is low and ICU was consulted. Patient seen and examined at bedside. Medications clarified with bintaer. Patient denies any chest pain, denies any abdominal pain and denies any dizziness. Review of Systems - Review of Systems Systems not reviewed;Unavailable: Unstable Vital Signs Review of Systems: SBP >170 - Constitutional Constitutional: As Per HPI, Anorexia - Cardiovascular Cardiovascular: As Per HPI - Respiratory Respiratory: As Per HPI - Gastrointestinal Gastrointestinal: As Per HPI Past Patient History - Past Medical History & Family History Past Medical History?: Yes - Past Social History Smoking Status: Never Smoked - CARDIAC Hx Hypercholesterolemia: Yes Hx Hypertension: Yes - PULMONARY Hx Asthma: Yes - NEUROLOGICAL HX Cerebrovascular Accident: Yes - HEENT Hx HEENT Problems: Yes - RENAL Hx Chronic Kidney Disease: Yes - ENDOCRINE/METABOLIC Hx Diabetes Mellitus Type 1: Yes - HEMATOLOGICAL/ONCOLOGICAL Hx Blood Disorders: No - INTEGUMENTARY Hx Dermatological Problems: No - MUSCULOSKELETAL/RHEUMATOLOGICAL Hx Osteoporosis: Yes - GASTROINTESTINAL Hx Gastrointestinal Disorders: No - GENITOURINARY/GYNECOLOGICAL Hx Genitourinary Disorders: No - PSYCHIATRIC Hx Substance Use: No - SURGICAL HISTORY Hx Cholecystectomy: Yes - ANESTHESIA Hx Anesthesia: Yes Hx Anesthesia Reactions: No Meds Allergies/Adverse Reactions: Allergies Allergy/AdvReac Type Severity Reaction Status Date / Time No Known Allergies Allergy Verified 04/19/17 14:55 - Medications Medications: Current Medications Acetaminophen (Tylenol 325mg Tab) 650 mg PO Q8H PRN PRN Reason: Pain, Mild (1-3) Last Admin: 04/23/17 05:26 Dose: 650 mg Albuterol/Ipratropium (Duoneb 3 Mg/0.5 Mg (3 Ml) Ud) 3 ml INH RQ6 [facility] Last Admin: 04/23/17 07:55 Dose: 3 ml Aspirin (Ecotrin) 81 mg PO DAILY [facility] Last Admin: 04/22/17 09:00 Dose: 81 mg Calcium Carbonate (Oscal) 500 mg PO BID [facility] Last Admin: 04/22/17 19:01 Dose: 500 mg Clopidogrel Bisulfate (Plavix) 75 mg PO DAILY [facility] Last Admin: 04/22/17 09:00 Dose: 75 mg Ergocalciferol (Drisdol 50,000 Intl Units Cap) 1 cap PO Q7D [facility] Last Admin: 04/21/17 21:54 Dose: 1 cap Furosemide (Lasix) 40 mg IVP STAT STA Stop: 04/23/17 10:20 Hydralazine HCl (Apresoline) 10 mg IVP Q6H PRN PRN Reason: Systolic Blood Pressure Last Admin: 04/23/17 05:25 Dose: 10 mg Insulin Detemir (Levemir) 13 unit SC ACB [facility] Last Admin: 04/23/17 08:22 Dose: 13 unit Insulin Human Regular (Novolin R) 0 unit SC ACHS [facility] PRN Reason: Protocol Last Admin: 04/23/17 08:23 Dose: 3 unit Losartan Potassium (Cozaar) 25 mg PO DAILY [facility] Last Admin: 04/22/17 09:43 Dose: 25 mg Magnesium Oxide (Mag-Ox) 400 mg PO BID [facility] Last Admin: 04/22/17 19:01 Dose: 400 mg Metoprolol Succinate (Toprol Xl) 50 mg PO DAILY [facility] Last Admin: 04/22/17 08:59 Dose: 50 mg Ondansetron HCl (Zofran Inj) 4 mg IVP ONCE PRN PRN Reason: Nausea/Vomiting Last Admin: 04/22/17 09:05 Dose: 4 mg Pantoprazole Sodium (Protonix Ec Tab) 40 mg PO QAM [facility] Polyethylene Glycol (Miralax) 17 gm PO DAILY [facility] Last Admin: 04/22/17 15:02 Dose: 17 gm Rosuvastatin Calcium (Crestor) 10 mg PO HS [facility] Last Admin: 04/22/17 21:36 Dose: 10 mg Fluticasone/Salmeterol (Advair Diskus 250/50) 1 puff IH RBID [facility] Last Admin: 04/23/17 07:55 Dose: Not Given Physical Exam - Constitutional Appears: Older Than Stated Age, Chronically Ill - Head Exam Head Exam: ATRAUMATIC - Eye Exam Additional comments: left pupil s/p cataract right pupil reactive, lateral gaze - Neck Exam Neck exam: Positive for: Full Rom - Respiratory Exam Respiratory Exam: Rales - Cardiovascular Exam Cardiovascular Exam: Diastolic murmur, +S1, +S2, Systolic Murmur - GI/Abdominal Exam GI & Abdominal Exam: Normal Bowel Sounds - Skin Skin Exam: Dry, Intact Results - Vital Signs Recent Vital Signs: Last Vital Signs Temp 98.5 F 04/23/17 07:45 Pulse 86 04/23/17 07:45 Resp 20 04/23/17 07:45 BP 155/73 H 04/23/17 07:45 Pulse Ox 100 04/23/17 07:45 - Labs Result Diagrams: 04/23/17 07:15 04/23/17 07:15 Labs: Laboratory Results - last 24 hr 04/21/17 04/22/17 04/22/17 06:51 11:26 11:26 WBC RBC Hgb Hct MCV MCH MCHC RDW Plt Count MPV Neut % (Auto) Lymph % (Auto) Haines % (Auto) Eos % (Auto) Baso % (Auto) Neut # Lymph # Haines # Eos # Baso # Sodium Potassium Chloride Carbon Dioxide Anion Gap BUN Creatinine Est GFR ( Amer) Est GFR (Non-Af Amer) POC Glucose (mg/dL) Random Glucose Serum Osmolality Calcium Magnesium 1.0 L* Total Bilirubin AST ALT Alkaline Phosphatase Total Protein Albumin Globulin Albumin/Globulin Ratio Urine Osmolality Ur Random Sodium 64 Stool Occult Blood NADIA 6 Profile Negative 04/22/17 04/22/17 04/22/17 11:31 12:18 17:11 WBC RBC Hgb Hct MCV MCH MCHC RDW Plt Count MPV Neut % (Auto) Lymph % (Auto) Haines % (Auto) Eos % (Auto) Baso % (Auto) Neut # Lymph # Haines # Eos # Baso # Sodium Potassium Chloride Carbon Dioxide Anion Gap BUN Creatinine Est GFR ( Amer) Est GFR (Non-Af Amer) POC Glucose (mg/dL) 409 H* 300 H Random Glucose Serum Osmolality 281 Calcium Magnesium Total Bilirubin AST ALT Alkaline Phosphatase Total Protein Albumin Globulin Albumin/Globulin Ratio Urine Osmolality Ur Random Sodium Stool Occult Blood NADIA 6 Profile 04/22/17 04/22/17 04/22/17 20:23 20:23 21:05 WBC RBC Hgb Hct MCV MCH MCHC RDW Plt Count MPV Neut % (Auto) Lymph % (Auto) Haines % (Auto) Eos % (Auto) Baso % (Auto) Neut # Lymph # Haines # Eos # Baso # Sodium Potassium Chloride Carbon Dioxide Anion Gap BUN Creatinine Est GFR ( Amer) Est GFR (Non-Af Amer) POC Glucose (mg/dL) 312 H Random Glucose Serum Osmolality Calcium Magnesium Total Bilirubin AST ALT Alkaline Phosphatase Total Protein Albumin Globulin Albumin/Globulin Ratio Urine Osmolality 445 Ur Random Sodium Stool Occult Blood Negative NADIA 6 Profile 04/23/17 04/23/17 04/23/17 02:15 06:41 07:15 WBC 12.4 H RBC 3.95 Hgb 11.8 Hct 34.1 MCV 86.3 MCH 29.9 MCHC 34.7 RDW 12.4 Plt Count 201 MPV 9.0 Neut % (Auto) 81.6 H Lymph % (Auto) 11.4 L Haines % (Auto) 6.2 Eos % (Auto) 0.7 Baso % (Auto) 0.1 Neut # 10.1 H Lymph # 1.4 Haines # 0.8 Eos # 0.1 Baso # 0.0 Sodium Potassium Chloride Carbon Dioxide Anion Gap BUN Creatinine Est GFR ( Amer) Est GFR (Non-Af Amer) POC Glucose (mg/dL) 198 H 213 H Random Glucose Serum Osmolality Calcium Magnesium Total Bilirubin AST ALT Alkaline Phosphatase Total Protein Albumin Globulin Albumin/Globulin Ratio Urine Osmolality Ur Random Sodium Stool Occult Blood NADIA 6 Profile 04/23/17 07:15 WBC RBC Hgb Hct MCV MCH MCHC RDW Plt Count MPV Neut % (Auto) Lymph % (Auto) Haines % (Auto) Eos % (Auto) Baso % (Auto) Neut # Lymph # Haines # Eos # Baso # Sodium 111 L* Potassium 4.3 Chloride 74 L Carbon Dioxide 27 Anion Gap 14 BUN 21 H Creatinine 1.0 Est GFR ( Amer) > 60 Est GFR (Non-Af Amer) 54 POC Glucose (mg/dL) Random Glucose 264 H Serum Osmolality Calcium 8.1 L Magnesium 1.6 Total Bilirubin 1.1 AST 26 ALT 48 Alkaline Phosphatase 93 Total Protein 7.6 Albumin 4.1 Globulin 3.5 Albumin/Globulin Ratio 1.2 Urine Osmolality Ur Random Sodium Stool Occult Blood NADIA 6 Profile Assessment & Plan - Assessment and Plan (Free Text) Assessment: -Hyponatremia:2nd HCTZ: hold hydrochlorothiazide, please contact primary clinic and verify individual medications -HTN/urgency: uncotrolled: continue patient's home medications, add av chanell swapna, hydralazine and ACEI as (cr normal) -DM: uncontrolled: will beneift from endocrin follow up, continue home medicatoins of long acting and pre-meals -PVD: due to long history of uncontrolled BP and DM, at risk of CAD and PVD: will benwfit from antiplatelets -diabetic neuropathy: patient currently denies any burning pain -DVT ppx lovenox -PUD ppx not indicated -will hold 3% saline as patient likely has diastolic heart failure and holding HCTZ will likely improve sodium cc time spent 35 minutes
[2017-04-23] MEDS: Metoprolol Succinate 50 mg XL Tab PO SCH (11:28)
[2017-04-23] MEDS: Pantoprazole 40 mg EC Tab PO SCH (11:29)
[2017-04-23] MEDS: Magnesium Oxide 400 mg Tab UD PO SCH ×2 (11:31→19:14)
[2017-04-23] MEDS: POLYETHYLENE GLYCOL 3350 17 GM/Dose PACKET PO SCH (12:20)
[2017-04-23 13:14] LABS: URINE BILIRUBIN NEGATIVE (NEGATIVE); URINE BLOOD 1+ (NEGATIVE); URINE COLOR Straw (YELLOW); URINE GLUCOSE (UA) 3+ mg/dL (Normal); URINE KETONE TRACE mg/dL (NEGATIVE); URINE LEUKOCYTE ESTERASE NEG Leu/uL (Negative); URINE PROTEIN 2+ mg/dL (NEGATIVE); URINE UROBILINOGEN NORMAL mg/dL (0.2-1.0); WBC URINE 1 /hpf (0-5)
[2017-04-23 13:17] LABS: RBC URINE 4 /hpf (0-3)
[2017-04-23 13:25] LABS: CREATININE, RANDOM URINE 23.9 mg/dL
--- NOTE | 2017-04-23 14:44 | CARD ---
APPROVED REPORT EXAM: Two-dimensional and M-mode echocardiogram with Doppler and color Doppler. M-Mode DIMENSIONS Left Atrium (MM)2.60 (2.5-4.0cm)IVSd1.28 (0.7-1.1cm) Aortic Root3.29 (2.2-3.7cm)LVDd3.67 (4.0-5.6cm) Aortic Cusp Exc.1.85 (1.5-2.0cm)PWd1.31 (0.7-1.1cm) FS (%) 40 %LVDs2.19 (2.0-3.8cm) LVEF (%)72 (>50%) Mitral Valve MV E [id number]/sMV A Dxijubhx086.4cm/sE/A ratio0.7 TDI E/Lateral E'0.0E/Medial E'0.0 Tricuspid Valve TR Peak [id number]/sTR Peak [id number] LEFT VENTRICLE The left ventricle is normal size. There is mild concentric left ventricular hypertrophy. The left ventricular function is normal. The left ventricular ejection fraction is within the normal range. There is normal LV segmental wall motion. Transmitral Doppler flow pattern is Grade I-abnormal relaxation pattern. No left ventricle thrombus noted on this study. There is no ventricular septal defect visualized. There is no left ventricular aneurysm. There is no mass noted in the left ventricle. RIGHT VENTRICLE The right ventricle is normal size. There is normal right ventricular wall thickness. The right ventricular systolic function is normal. ATRIA The left atrium size is normal. The right atrium size is normal. The interatrial septum is intact with no evidence for an atrial septal defect. AORTIC VALVE The aortic valve is normal in structure. No aortic regurgitation is present. There is no aortic valvular stenosis. There is no aortic valvular vegetation. MITRAL VALVE The mitral valve is normal in structure. There is no mitral valve stenosis. There is no mitral valve regurgitation noted. TRICUSPID VALVE The tricuspid valve is normal in structure. There is no tricuspid valve regurgitation noted. PULMONIC VALVE The pulmonary valve is normal in structure. GREAT VESSELS The aortic root is normal in size. The ascending aorta is normal in size. The pulmonary artery is normal. The IVC is normal in size and collapses >50% with inspiration. PERICARDIAL EFFUSION There is no pericardial effusion. <Conclusion> There is mild concentric left ventricular hypertrophy. Transmitral Doppler flow pattern is Grade I-abnormal relaxation pattern. lvef is 70%.
--- NOTE | 2017-04-23 15:44 | CP.PCM.PN ---
<Kendall Platt - Last Filed: 04/23/17 15:45> Subjective - Date & Time of Evaluation Date of Evaluation: 04/23/17 Time of Evaluation: 07:00 - Subjective Subjective: PGY4 GI Follow-up Pt seen and examined in the AM As per RN, she had a BM yesterday Rn denies any BRBPR, melena, or hematemesis Sodium low, was transfered to ICU tolerating diet as per RN, pt still complaining of intermittent abd pain in the AM ROS: could not conduct due to AMS Objective - Vital Signs/Intake and Output Vital Signs (last 24 hours): Temp Pulse Resp BP Pulse Ox 98.3 F 101 H 20 174/61 H 97 04/23/17 15:11 04/23/17 15:11 04/23/17 15:11 04/23/17 15:11 04/23/17 15:11 Intake and Output: 04/23/17 04/23/17 06:59 18:59 Intake Total 20 140 Output Total 650 Balance 20 -510 - Medications Medications: Current Medications Acetaminophen (Tylenol 325mg Tab) 650 mg PO Q8H PRN PRN Reason: Pain, Mild (1-3) Last Admin: 04/23/17 05:26 Dose: 650 mg Albuterol/Ipratropium (Duoneb 3 Mg/0.5 Mg (3 Ml) Ud) 3 ml INH RQ6 [facility] Last Admin: 04/23/17 14:31 Dose: 3 ml Aspirin (Ecotrin) 81 mg PO DAILY [facility] Last Admin: 04/23/17 11:29 Dose: 81 mg Calcium Carbonate (Oscal) 500 mg PO BID [facility] Last Admin: 04/23/17 12:20 Dose: Not Given Clopidogrel Bisulfate (Plavix) 75 mg PO DAILY [facility] Last Admin: 04/23/17 11:28 Dose: 75 mg Ergocalciferol (Drisdol 50,000 Intl Units Cap) 1 cap PO Q7D [facility] Last Admin: 04/21/17 21:54 Dose: 1 cap Hydralazine HCl (Apresoline) 10 mg IVP Q6H PRN PRN Reason: Systolic Blood Pressure Last Admin: 04/23/17 11:27 Dose: 10 mg Insulin Detemir (Levemir) 13 unit SC ACB [facility] Last Admin: 04/23/17 08:22 Dose: 13 unit Insulin Human Regular (Novolin R) 0 unit SC ACHS [facility] PRN Reason: Protocol Last Admin: 04/23/17 12:22 Dose: 4 unit Isosorbide Mononitrate (Imdur) 60 mg PO DAILY [facility] Last Admin: 04/23/17 11:28 Dose: 60 mg Labetalol HCl (Trandate) 10 mg IV Q4 PRN PRN Reason: Systolic Blood Pressure >150 Losartan Potassium (Cozaar) 25 mg PO DAILY [facility] Last Admin: 04/23/17 11:29 Dose: 25 mg Magnesium Oxide (Mag-Ox) 400 mg PO BID [facility] Last Admin: 04/23/17 11:31 Dose: Not Given Metoprolol Succinate (Toprol Xl) 50 mg PO DAILY [facility] Last Admin: 04/23/17 11:28 Dose: 50 mg Ondansetron HCl (Zofran Inj) 4 mg IVP ONCE PRN PRN Reason: Nausea/Vomiting Last Admin: 04/22/17 09:05 Dose: 4 mg Pantoprazole Sodium (Protonix Ec Tab) 40 mg PO QAM [facility] Last Admin: 04/23/17 11:29 Dose: 40 mg Polyethylene Glycol (Miralax) 17 gm PO DAILY [facility] Last Admin: 04/23/17 12:20 Dose: Not Given Rosuvastatin Calcium (Crestor) 10 mg PO HS [facility] Last Admin: 04/22/17 21:36 Dose: 10 mg Fluticasone/Salmeterol (Advair Diskus 250/50) 1 puff IH RBID [facility] Last Admin: 04/23/17 07:55 Dose: Not Given - Labs Labs: 04/23/17 07:15 04/23/17 07:15 - Constitutional Appears: Confused, Chronically Ill - Head Exam Head Exam: ATRAUMATIC, NORMOCEPHALIC - Eye Exam Eye Exam: Normal appearance - Respiratory Exam Respiratory Exam: Clear to Ausculation Bilateral, NORMAL BREATHING PATTERN. absent: Decreased Breath Sounds, Rales, Rhonchi, Respiratory Distress - Cardiovascular Exam Cardiovascular Exam: REGULAR RHYTHM, +S1, +S2 - GI/Abdominal Exam GI & Abdominal Exam: Soft, Normal Bowel Sounds. absent: Distended, Guarding, Rigid, Tenderness - Extremities Exam Extremities Exam: absent: Joint Swelling, Pedal Edema - Neurological Exam Neurological Exam: Altered - Skin Skin Exam: Dry, Intact, Normal Color, Warm Assessment and Plan - Assessment and Plan (Free Text) Assessment: 76yo F with PMH of asthma, CVA 30 years ago, DM, HTN, HLD, osteoporosis, and chronic anemia presented s/p syncopal episode and fall; complaining of abdominal pain, nausea, constipation, and melena. 1. Constipation 2. Melena?, hgb stable 3. AMS likely 2/2 infection and hyponatremia Plan: -CT A/P in ER shows no acute abdominal or pelvic pathology; reticular nodular opacities at lung bases and bronchiectasis -Rectal exam shows no impaction, no tani blood or melanotic stool - History of melena more likely 2/2 iron supplementation than GIB - Currently hemodynamically stable, with stable H/H compared to baseline from prior admission -continue miralax daily -continue PPI daily -Patient would benefit from outpatient colonoscopy and EGD given history of melena, chronic constipation, and reflux to rule out underlying anatomical pathology -will sign off D/W Dr. Melvin <Olegario PACHECO,[facility] - Last Filed: 04/23/17 19:02> Objective - Vital Signs/Intake and Output Vital Signs (last 24 hours): Temp Pulse Resp BP Pulse Ox 97.9 F 102 H 18 101/38 L 99 04/23/17 16:00 04/23/17 18:00 04/23/17 18:00 04/23/17 18:00 04/23/17 18:00 Intake and Output: 04/23/17 04/23/17 06:59 18:59 Intake Total 20 2009 Output Total 3120 Balance 20 -1111 - Medications Medications: Current Medications Acetaminophen (Tylenol 325mg Tab) 650 mg PO Q8H PRN PRN Reason: Pain, Mild (1-3) Last Admin: 04/23/17 05:26 Dose: 650 mg Albuterol/Ipratropium (Duoneb 3 Mg/0.5 Mg (3 Ml) Ud) 3 ml INH RQ6 [facility] Last Admin: 04/23/17 14:31 Dose: 3 ml Aspirin (Ecotrin) 81 mg PO DAILY [facility] Last Admin: 04/23/17 11:29 Dose: 81 mg Calcium Carbonate (Oscal) 500 mg PO BID [facility] Last Admin: 04/23/17 17:33 Dose: Not Given Clopidogrel Bisulfate (Plavix) 75 mg PO DAILY [facility] Last Admin: 04/23/17 11:28 Dose: 75 mg Ergocalciferol (Drisdol 50,000 Intl Units Cap) 1 cap PO Q7D [facility] Last Admin: 04/21/17 21:54 Dose: 1 cap Hydralazine HCl (Apresoline) 10 mg IVP Q6H PRN PRN Reason: Systolic Blood Pressure Last Admin: 04/23/17 11:27 Dose: 10 mg Sodium Chloride (Sodium Chloride 0.9%) 1,000 mls @ 75 mls/hr IV .[id number] [facility] Last Admin: 04/23/17 18:07 Dose: 75 mls/hr Insulin Human Regular 100 unit (/ Sodium Chloride) 100 mls @ 2 mls/hr IV .Q24H [facility] Last Admin: 04/23/17 17:30 Dose: 2 mls/hr Insulin Detemir (Levemir) 13 unit SC ACB [facility] Last Admin: 04/23/17 08:22 Dose: 13 unit Isosorbide Mononitrate (Imdur) 60 mg PO DAILY [facility] Last Admin: 04/23/17 11:28 Dose: 60 mg Labetalol HCl (Trandate) 10 mg IV Q4 PRN PRN Reason: Systolic Blood Pressure >150 Last Admin: 04/23/17 15:35 Dose: 10 mg Losartan Potassium (Cozaar) 25 mg PO DAILY [facility] Last Admin: 04/23/17 11:29 Dose: 25 mg Magnesium Oxide (Mag-Ox) 400 mg PO BID [facility] Last Admin: 04/23/17 11:31 Dose: Not Given Metoprolol Succinate (Toprol Xl) 50 mg PO DAILY [facility] Last Admin: 04/23/17 11:28 Dose: 50 mg Ondansetron HCl (Zofran Inj) 4 mg IVP ONCE PRN PRN Reason: Nausea/Vomiting Last Admin: 04/22/17 09:05 Dose: 4 mg Pantoprazole Sodium (Protonix Ec Tab) 40 mg PO QAM [facility] Last Admin: 04/23/17 11:29 Dose: 40 mg Polyethylene Glycol (Miralax) 17 gm PO DAILY [facility] Last Admin: 04/23/17 12:20 Dose: Not Given Rosuvastatin Calcium (Crestor) 10 mg PO HS [facility] Last Admin: 04/22/17 21:36 Dose: 10 mg Fluticasone/Salmeterol (Advair Diskus 250/50) 1 puff IH RBID [facility] Last Admin: 04/23/17 07:55 Dose: Not Given Sodium Bicarbonate (Sodium Bicarbonate Tab) 650 mg PO Q6 [facility] Last Admin: 04/23/17 17:20 Dose: 650 mg - Labs Labs: 04/23/17 07:15 04/23/17 15:53 Attending/Attestation - Attestation I have personally seen and examined this patient.: Yes I have fully participated in the care of the patient.: Yes I have reviewed all pertinent clinical information, including history, physical exam and plan: Yes Notes (Text): 04/23/17 18:58 Patient seen with GI fellow on rounds. This is a 76 yr old F with PMH of asthma , CVA on plavix, DM, HTN, HLD, osteoporosis, and chronic anemia presented s/p syncopal episode and fall; complaining of abdominal pain, nausea, constipation. Gi consulted for above. Continue stringent bowel regimen. Hb/Hct stable without overt GI bleeding. Rectal exam with empty vault. CT A/P in ER shows no acute abdominal or pelvic pathology; reticular nodular opacities at lung bases and bronchiectasis. Hyponatremia and hyperglycemia this morning mandated MICU admission. Rest of plan as per MICU. No urgent luminal/ endoscopic intervention necessary in acute setting. Will sign off. Thank you for letting us participate in the care of your patient
[2017-04-23] MEDS ORDERED: Labetalol 5 mg/ml Inj 20ML IV PRN (16:00)
[2017-04-23 16:07] LABS: POTASSIUM 4.4 mmol/L (3.6-5.2)
[2017-04-23 16:09] LABS: ALB/GLOB RATIO 0.9 (1.0-2.1); BILIRUBIN,TOTAL 0.6 mg/dL (0.2-1.3); TOTAL PROTEIN 7.5 g/dL (6.3-8.3)
[2017-04-23 16:10] LABS: CALCIUM 7.9 mg/dl (8.6-10.4)
[2017-04-23] MEDS ORDERED: Sodium Chloride 0.9% 1,000 ML IV ONE (16:26)
[2017-04-23] MEDS ORDERED: Insulin Human Regular 100 UNIT in Sodium Chloride 0.9% 99 ML IV SCH ×2 (16:30→19:45)
--- NOTE | 2017-04-23 16:33 | CP.PCM.PCO ---
Addendum Addendum: Patient's Blood glucose at 4PM was 107 with blood sugar 484. -will start insulin ggt and NS -patient's bp uncontrolled - 04/23/17 16:33
[2017-04-23] MEDS: Sodium Chloride 0.9% 1,000 ML IV SCH ×2 (17:22→18:07)
--- NOTE | 2017-04-23 18:33 | CP.PCM.PN ---
Subjective - Date & Time of Evaluation Date of Evaluation: 04/23/17 Time of Evaluation: 13:00 - Subjective Subjective: clinically same Objective - Vital Signs/Intake and Output Vital Signs (last 24 hours): Temp Pulse Resp BP Pulse Ox 97.9 F 102 H 18 101/38 L 99 04/23/17 16:00 04/23/17 18:00 04/23/17 18:00 04/23/17 18:00 04/23/17 18:00 Intake and Output: 04/23/17 04/23/17 06:59 18:59 Intake Total 20 1675 Output Total 2820 Balance 20 -1145 - Medications Medications: Current Medications Acetaminophen (Tylenol 325mg Tab) 650 mg PO Q8H PRN PRN Reason: Pain, Mild (1-3) Last Admin: 04/23/17 05:26 Dose: 650 mg Albuterol/Ipratropium (Duoneb 3 Mg/0.5 Mg (3 Ml) Ud) 3 ml INH RQ6 [facility] Last Admin: 04/23/17 14:31 Dose: 3 ml Aspirin (Ecotrin) 81 mg PO DAILY [facility] Last Admin: 04/23/17 11:29 Dose: 81 mg Calcium Carbonate (Oscal) 500 mg PO BID [facility] Last Admin: 04/23/17 17:33 Dose: Not Given Clopidogrel Bisulfate (Plavix) 75 mg PO DAILY [facility] Last Admin: 04/23/17 11:28 Dose: 75 mg Ergocalciferol (Drisdol 50,000 Intl Units Cap) 1 cap PO Q7D [facility] Last Admin: 04/21/17 21:54 Dose: 1 cap Hydralazine HCl (Apresoline) 10 mg IVP Q6H PRN PRN Reason: Systolic Blood Pressure Last Admin: 04/23/17 11:27 Dose: 10 mg Sodium Chloride (Sodium Chloride 0.9%) 1,000 mls @ 75 mls/hr IV .[id number] [facility] Last Admin: 04/23/17 18:07 Dose: 75 mls/hr Insulin Human Regular 100 unit (/ Sodium Chloride) 100 mls @ 2 mls/hr IV .Q24H [facility] Last Admin: 04/23/17 17:30 Dose: 2 mls/hr Insulin Detemir (Levemir) 13 unit SC ACB [facility] Last Admin: 04/23/17 08:22 Dose: 13 unit Isosorbide Mononitrate (Imdur) 60 mg PO DAILY [facility] Last Admin: 04/23/17 11:28 Dose: 60 mg Labetalol HCl (Trandate) 10 mg IV Q4 PRN PRN Reason: Systolic Blood Pressure >150 Last Admin: 04/23/17 15:35 Dose: 10 mg Losartan Potassium (Cozaar) 25 mg PO DAILY [facility] Last Admin: 04/23/17 11:29 Dose: 25 mg Magnesium Oxide (Mag-Ox) 400 mg PO BID [facility] Last Admin: 04/23/17 11:31 Dose: Not Given Metoprolol Succinate (Toprol Xl) 50 mg PO DAILY [facility] Last Admin: 04/23/17 11:28 Dose: 50 mg Ondansetron HCl (Zofran Inj) 4 mg IVP ONCE PRN PRN Reason: Nausea/Vomiting Last Admin: 04/22/17 09:05 Dose: 4 mg Pantoprazole Sodium (Protonix Ec Tab) 40 mg PO QAM [facility] Last Admin: 04/23/17 11:29 Dose: 40 mg Polyethylene Glycol (Miralax) 17 gm PO DAILY [facility] Last Admin: 04/23/17 12:20 Dose: Not Given Rosuvastatin Calcium (Crestor) 10 mg PO HS [facility] Last Admin: 04/22/17 21:36 Dose: 10 mg Fluticasone/Salmeterol (Advair Diskus 250/50) 1 puff IH RBID [facility] Last Admin: 04/23/17 07:55 Dose: Not Given Sodium Bicarbonate (Sodium Bicarbonate Tab) 650 mg PO Q6 [facility] Last Admin: 04/23/17 17:20 Dose: 650 mg - Labs Labs: 04/23/17 07:15 04/23/17 15:53 - Constitutional Appears: Well - Head Exam Head Exam: ATRAUMATIC, NORMAL INSPECTION, NORMOCEPHALIC - Eye Exam Eye Exam: EOMI, Normal appearance, PERRL Pupil Exam: NORMAL ACCOMODATION, PERRL - ENT Exam ENT Exam: Mucous Membranes Moist, Normal Exam - Neck Exam Neck Exam: Full ROM, Normal Inspection. absent: Lymphadenopathy - Respiratory Exam Respiratory Exam: Decreased Breath Sounds - Cardiovascular Exam Cardiovascular Exam: REGULAR RHYTHM, +S1, +S2. absent: Murmur - GI/Abdominal Exam GI & Abdominal Exam: Soft, Normal Bowel Sounds. absent: Tenderness - Rectal Exam Rectal Exam: Deferred Assessment and Plan (1) CVA (cerebral vascular accident) Status: Acute (2) Closed head injury Status: Acute (3) Hyponatremia Status: Acute (4) Right-sided Horta's palsy Status: Acute (5) Syncope Status: Acute (6) Gastroenteritis Status: Acute - Assessment and Plan (Free Text) Plan: discused with staff and pmd 20 ml per hr 3 percent noivf and restrict fluid samsca prn paul same control nasuea or vomitting/pain pt received ivf discussed with inesivist on duty at 1050pm adv to stp ic fluid start 3 percent nacl at 25ml per hr adn cmp q 12
[2017-04-23 23:34] LABS: BILIRUBIN,TOTAL 0.5 mg/dL (0.2-1.3)
[2017-04-23 23:35] LABS: ALB/GLOB RATIO 0.9 (1.0-2.1); PHOSPHOROUS 3.6 mg/dL (2.5-4.5); TOTAL PROTEIN 7.2 g/dL (6.3-8.3)
[2017-04-23 23:36] LABS: CALCIUM 7.5 mg/dl (8.6-10.4); MAGNESIUM 1.6 mg/dL (1.6-2.3)
--- NOTE | 2017-04-23 23:37 | CP.PCM.PN ---
Subjective - Date & Time of Evaluation Date of Evaluation: 04/23/17 Time of Evaluation: 19:40 - Subjective Subjective: Patient is transferred to the ICU for significant a significant low level of Na 107 Dr Emory Platt was called on the case for nephrology help. She is stable now and she will be receiving slow replacement of her electrolytes deficit, She is on Insulin for her Diabetes. Objective - Vital Signs/Intake and Output Vital Signs (last 24 hours): Temp Pulse Resp BP Pulse Ox 97.9 F 91 H 19 122/44 L 99 04/23/17 16:00 04/23/17 23:00 04/23/17 23:00 04/23/17 22:26 04/23/17 23:00 Intake and Output: 04/23/17 04/24/17 18:59 06:59 Intake Total 2008 85 Output Total 3120 270 Balance -1111 584 - Medications Medications: Current Medications Acetaminophen (Tylenol 325mg Tab) 650 mg PO Q8H PRN PRN Reason: Pain, Mild (1-3) Last Admin: 04/23/17 05:26 Dose: 650 mg Albuterol/Ipratropium (Duoneb 3 Mg/0.5 Mg (3 Ml) Ud) 3 ml INH RQ6 [facility] Last Admin: 04/23/17 19:06 Dose: 3 ml Aspirin (Ecotrin) 81 mg PO DAILY [facility] Last Admin: 04/23/17 11:29 Dose: 81 mg Calcium Carbonate (Oscal) 500 mg PO BID [facility] Last Admin: 04/23/17 17:33 Dose: Not Given Clopidogrel Bisulfate (Plavix) 75 mg PO DAILY [facility] Last Admin: 04/23/17 11:28 Dose: 75 mg Ergocalciferol (Drisdol 50,000 Intl Units Cap) 1 cap PO Q7D [facility] Last Admin: 04/21/17 21:54 Dose: 1 cap Hydralazine HCl (Apresoline) 10 mg IVP Q6H PRN PRN Reason: Systolic Blood Pressure Last Admin: 04/23/17 11:27 Dose: 10 mg Insulin Human Regular 100 unit (/ Sodium Chloride) 100 mls @ 1.41 mls/hr IV .Q24H [facility]; 0.02 UNIT/KG/HR PRN Reason: Protocol Last Titration: 04/23/17 23:07 Dose: 0.02 unit/kg/hr, 2 mls/hr Insulin Detemir (Levemir) 13 unit SC ACB [facility] Last Admin: 04/23/17 08:22 Dose: 13 unit Isosorbide Mononitrate (Imdur) 60 mg PO DAILY [facility] Last Admin: 04/23/17 11:28 Dose: 60 mg Labetalol HCl (Trandate) 10 mg IV Q4 PRN PRN Reason: Systolic Blood Pressure >150 Last Admin: 04/23/17 15:35 Dose: 10 mg Losartan Potassium (Cozaar) 25 mg PO DAILY [facility] Last Admin: 04/23/17 11:29 Dose: 25 mg Magnesium Oxide (Mag-Ox) 400 mg PO BID [facility] Last Admin: 04/23/17 19:14 Dose: Not Given Metoprolol Succinate (Toprol Xl) 50 mg PO DAILY [facility] Last Admin: 04/23/17 11:28 Dose: 50 mg Ondansetron HCl (Zofran Inj) 4 mg IVP ONCE PRN PRN Reason: Nausea/Vomiting Last Admin: 04/22/17 09:05 Dose: 4 mg Pantoprazole Sodium (Protonix Ec Tab) 40 mg PO QAM [facility] Last Admin: 04/23/17 11:29 Dose: 40 mg Polyethylene Glycol (Miralax) 17 gm PO DAILY [facility] Last Admin: 04/23/17 12:20 Dose: Not Given Rosuvastatin Calcium (Crestor) 10 mg PO HS [facility] Last Admin: 04/23/17 21:38 Dose: 10 mg Fluticasone/Salmeterol (Advair Diskus 250/50) 1 puff IH RBID [facility] Last Admin: 04/23/17 19:07 Dose: Not Given Sodium Chloride (Sodium Chloride Tab) 1 gm PO Q8 [facility] - Labs Labs: 04/23/17 07:15 04/23/17 15:53 Assessment and Plan (1) Closed head injury Status: Acute (2) Gastroenteritis Status: Acute (3) CVA (cerebral vascular accident) Status: Acute (4) Syncope Status: Acute (5) Right-sided Horta's palsy Status: Acute
[2017-04-24] MEDS: Albuterol-Ipratrop 3 mg / 0.5 (3 ml) UD INH SCH ×4 (01:29→19:37)
[2017-04-24 05:40] LABS: BASO % 0.1 % (0.0-2.0); EOS % 0.2 % (0.0-4.0); HEMATOCRIT 27.8 % (34.0-47.0); LYMPH # 0.9 K/uL (1.0-4.3); LYMPH % 8.1 % (20.0-40.0); MEAN CELL VOLUME 86.4 fL (81.0-99.0); MEAN CORPUSCULAR HEMOGLOBIN 30.6 pg (27.0-31.0); MEAN CORPUSCULAR HGB CONC 35.4 g/dL (33.0-37.0); MEAN PLATELET VOLUME 8.1 fL (7.2-11.7); MONO # 0.9 K/uL (0.0-0.8); MONO % 8.1 % (0.0-10.0); PLATELET COUNT 170 K/uL (130-400); RED CELL DISTRIBUTION WIDTH 12.9 % (11.5-14.5); WHITE BLOOD COUNT 10.6 K/uL (4.8-10.8)
[2017-04-24 05:51] LABS: POTASSIUM 4.2 mmol/L (3.6-5.2)
[2017-04-24 05:53] LABS: ALB/GLOB RATIO 0.8 (1.0-2.1); BILIRUBIN,TOTAL 0.5 mg/dL (0.2-1.3); TOTAL PROTEIN 6.9 g/dL (6.3-8.3)
[2017-04-24 05:54] LABS: CALCIUM 7.4 mg/dl (8.6-10.4)
[2017-04-24 06:33] LABS: NEUTROPHIL 84 % (50-75); REACTIVE LYMPHOCYTES 6 % (0-0); TOTAL CELLS COUNTED 100
[2017-04-24] MEDS: Fluticasone-Salmeterol 250-50mcg Diskus IH SCH ×2 (07:42→19:35)
[2017-04-24] MEDS: (Novolin R) Insulin Human Regular 100 units/ml vial SC SCH ×4 (08:48→21:36)
[2017-04-24] MEDS: Insulin Detemir 100 units/ml Vial (Levemir) SC SCH (08:48)
[2017-04-24] MEDS: Sodium Chloride 0.9% 1,000 ML IV SCH ×2 (09:41→18:30)
[2017-04-24] MEDS: Pantoprazole 40 mg EC Tab PO SCH (09:41)
[2017-04-24] MEDS: Magnesium Oxide 400 mg Tab UD PO SCH ×2 (09:41→18:50)
[2017-04-24] MEDS: POLYETHYLENE GLYCOL 3350 17 GM/Dose PACKET PO SCH (09:43)
--- NOTE | 2017-04-24 09:49 | CP.PCM.PN ---
Subjective - Date & Time of Evaluation Date of Evaluation: 04/24/17 Time of Evaluation: 09:41 - Subjective Subjective: No events, patient was sleeping this morning, but has been responding to house staff. Patent overnight had been 3% saline and salt tablets. Objective - Vital Signs/Intake and Output Vital Signs (last 24 hours): Temp Pulse Resp BP Pulse Ox 97.9 F 107 H 21 120/46 L 100 04/23/17 16:00 04/24/17 08:26 04/24/17 08:26 04/24/17 08:26 04/24/17 08:26 Intake and Output: 04/24/17 04/24/17 06:59 18:59 Intake Total 1164 25 Output Total 645 70 Balance 519 -45 - Medications Medications: Current Medications Acetaminophen (Tylenol 325mg Tab) 650 mg PO Q8H PRN PRN Reason: Pain, Mild (1-3) Last Admin: 04/23/17 05:26 Dose: 650 mg Albuterol/Ipratropium (Duoneb 3 Mg/0.5 Mg (3 Ml) Ud) 3 ml INH RQ6 [facility] Last Admin: 04/24/17 07:39 Dose: 3 ml Aspirin (Ecotrin) 81 mg PO DAILY [facility] Last Admin: 04/23/17 11:29 Dose: 81 mg Calcium Carbonate (Oscal) 500 mg PO BID [facility] Last Admin: 04/23/17 17:33 Dose: Not Given Clopidogrel Bisulfate (Plavix) 75 mg PO DAILY [facility] Last Admin: 04/23/17 11:28 Dose: 75 mg Ergocalciferol (Drisdol 50,000 Intl Units Cap) 1 cap PO Q7D [facility] Last Admin: 04/21/17 21:54 Dose: 1 cap Sodium Chloride (Sodium Chloride 0.9%) 1,000 mls @ 125 mls/hr IV .Q8H [facility] Insulin Detemir (Levemir) 13 unit SC ACB [facility] Last Admin: 04/24/17 08:48 Dose: 13 unit Insulin Human Regular (Novolin R) 0 unit SC ACHS [facility] PRN Reason: Protocol Last Admin: 04/24/17 08:48 Dose: 3 unit Labetalol HCl (Trandate) 10 mg IV Q4 PRN PRN Reason: Systolic Blood Pressure >150 Last Admin: 04/23/17 15:35 Dose: 10 mg Losartan Potassium (Cozaar) 25 mg PO DAILY [facility] Last Admin: 04/23/17 11:29 Dose: 25 mg Magnesium Oxide (Mag-Ox) 400 mg PO BID [facility] Last Admin: 04/23/17 19:14 Dose: Not Given Metoprolol Succinate (Toprol Xl) 50 mg PO DAILY [facility] Last Admin: 04/23/17 11:28 Dose: 50 mg Ondansetron HCl (Zofran Inj) 4 mg IVP ONCE PRN PRN Reason: Nausea/Vomiting Last Admin: 04/24/17 02:36 Dose: 4 mg Pantoprazole Sodium (Protonix Ec Tab) 40 mg PO QAM [facility] Last Admin: 04/23/17 11:29 Dose: 40 mg Polyethylene Glycol (Miralax) 17 gm PO DAILY [facility] Last Admin: 04/23/17 12:20 Dose: Not Given Rosuvastatin Calcium (Crestor) 10 mg PO HS [facility] Last Admin: 04/23/17 21:38 Dose: 10 mg Fluticasone/Salmeterol (Advair Diskus 250/50) 1 puff IH RBID [facility] Last Admin: 04/24/17 07:42 Dose: Not Given Sodium Chloride (Sodium Chloride Tab) 1 gm PO Q8 [facility] Last Admin: 04/24/17 05:59 Dose: 1 gm - Labs Labs: 04/24/17 05:37 04/24/17 05:37 - Additional Findings Additional findings: * HEENT TITA * Neck Supple * Chest Clear * CVS regular, not gallop or rub * PA soft, nt, bs present * ext no edema * Skin lower trgor, clinically dry * CORONER slow response, discuss with primary team has some what slower response, moving ext. Assessment and Plan - Assessment and Plan (Free Text) Assessment: * Hyponatremia unclear form hctz vs being dry, as today on clinical exam patient is dry, Na came up on 3% saline * HTN, LVH, good ef, suggesting chronic htn but fluctuations noticed in hospital rather consistent htn * Hyperglycema patient has been restarted on home dose levimir, with sliding scale coverage * Renal insufficiency creat 1.3 Plan: * Since patient is dry on clinical exam will provide NS, hold of on the 3% saline, salt tabs * stop prn bp meds, pt not in clinical heart failure, hold on nitrates, may go up ARB as it is lower in dose, this admission metorpolol has also been increased * Serial electrolytes * DM control * GI/DVT prophylaxis * See orders for detail.
--- NOTE | 2017-04-24 12:01 | CP.PCM.PN ---
Subjective - Date & Time of Evaluation Date of Evaluation: 04/24/17 Time of Evaluation: 11:30 - Subjective Subjective: Patient is complaining of stomach is burning.Had headache yesterday.She is nauseous,no vomting ,no diarrhea. She knows she is at hospital for treatment.As per daughter samantha mental status is at her baseline Discussed with the patient and the daughter with the dog raiser service. Objective - Vital Signs/Intake and Output Vital Signs (last 24 hours): Temp Pulse Resp BP Pulse Ox 97.9 F 103 H 19 130/63 100 04/23/17 16:00 04/24/17 10:26 04/24/17 10:26 04/24/17 10:26 04/24/17 10:26 Intake and Output: 04/24/17 04/24/17 06:59 18:59 Intake Total 1164 275 Output Total 645 140 Balance 519 135 - Medications Medications: Current Medications Acetaminophen (Tylenol 325mg Tab) 650 mg PO Q8H PRN PRN Reason: Pain, Mild (1-3) Last Admin: 04/23/17 05:26 Dose: 650 mg Albuterol/Ipratropium (Duoneb 3 Mg/0.5 Mg (3 Ml) Ud) 3 ml INH RQ6 [facility] Last Admin: 04/24/17 07:39 Dose: 3 ml Aspirin (Ecotrin) 81 mg PO DAILY [facility] Last Admin: 04/23/17 11:29 Dose: 81 mg Calcium Carbonate (Oscal) 500 mg PO BID [facility] Last Admin: 04/24/17 09:41 Dose: 500 mg Clopidogrel Bisulfate (Plavix) 75 mg PO DAILY [facility] Last Admin: 04/24/17 09:41 Dose: 75 mg Ergocalciferol (Drisdol 50,000 Intl Units Cap) 1 cap PO Q7D [facility] Last Admin: 04/21/17 21:54 Dose: 1 cap Sodium Chloride (Sodium Chloride 0.9%) 1,000 mls @ 125 mls/hr IV .Q8H [facility] Last Admin: 04/24/17 09:41 Dose: 125 mls/hr Insulin Detemir (Levemir) 13 unit SC ACB [facility] Last Admin: 04/24/17 08:48 Dose: 13 unit Insulin Human Regular (Novolin R) 0 unit SC ACHS [facility] PRN Reason: Protocol Last Admin: 04/24/17 08:48 Dose: 3 unit Labetalol HCl (Trandate) 10 mg IV Q4 PRN PRN Reason: Systolic Blood Pressure >150 Last Admin: 04/23/17 15:35 Dose: 10 mg Losartan Potassium (Cozaar) 25 mg PO DAILY [facility] Last Admin: 04/24/17 09:41 Dose: 25 mg Magnesium Oxide (Mag-Ox) 400 mg PO BID [facility] Last Admin: 04/24/17 09:41 Dose: 400 mg Metoprolol Succinate (Toprol Xl) 50 mg PO DAILY [facility] Last Admin: 04/23/17 11:28 Dose: 50 mg Ondansetron HCl (Zofran Inj) 4 mg IVP ONCE PRN PRN Reason: Nausea/Vomiting Last Admin: 04/24/17 02:36 Dose: 4 mg Pantoprazole Sodium (Protonix Ec Tab) 40 mg PO QAM [facility] Last Admin: 04/24/17 09:41 Dose: 40 mg Polyethylene Glycol (Miralax) 17 gm PO DAILY [facility] Last Admin: 04/24/17 09:43 Dose: 17 gm Rosuvastatin Calcium (Crestor) 10 mg PO HS [facility] Last Admin: 04/23/17 21:38 Dose: 10 mg Fluticasone/Salmeterol (Advair Diskus 250/50) 1 puff IH RBID [facility] Last Admin: 04/24/17 07:42 Dose: Not Given Sodium Chloride (Sodium Chloride Tab) 1 gm PO Q8 [facility] Last Admin: 04/24/17 05:59 Dose: 1 gm - Labs Labs: 04/24/17 05:37 04/24/17 05:37 - Constitutional Appears: Non-toxic - Head Exam Head Exam: NORMAL INSPECTION - Eye Exam Eye Exam: Normal appearance - ENT Exam ENT Exam: Mucous Membranes Dry - Neck Exam Neck Exam: Full ROM, Normal Inspection - Respiratory Exam Respiratory Exam: NORMAL BREATHING PATTERN - Cardiovascular Exam Cardiovascular Exam: REGULAR RHYTHM - GI/Abdominal Exam GI & Abdominal Exam: Soft, Tenderness (mild epigastric), Normal Bowel Sounds. absent: Guarding, Rigid - Extremities Exam Extremities Exam: Full ROM - Back Exam Back Exam: NORMAL INSPECTION - Neurological Exam Neurological Exam: Alert - Psychiatric Exam Psychiatric exam: Normal Mood - Skin Skin Exam: Dry Assessment and Plan - Assessment and Plan (Free Text) Assessment: This is a 76years old female with history of astma,cva,lauren's palsy,DM, HTN,CKD was brought in for nausea,vomiting,diarrhea and syncope. No diarrhea after her admission.Having dark stool since she was started on iron .stool ob negative She is nauseous since admission .On admission her HCT was held.Her intake is poor Patient's was brought to ICU yesterday for hyponatremia 1.Severe Hyponatremia Patient is awake and oriented and no mental status changes Her sodium is 117.D/W Dr Winter in detail Monitor sodium,continue normal saline follow nephrology recommendation 2.Syncope CT brain and MRI negative for new pathology blood and urine culture negative Neurology consult, Dr Monzon. likely 2/2 to dehydration 3.Abdominal pain,nausea voming possible gastroparesis vs gastritis Improving,zofran for nausea GI f/u appreciated 4.uncontrolled DM On home insulin, poor intake,we will increase insulin as needed 5.HTN BP has been fluctuating since admission continue metoprolol amd Losartan control nausea and stop prn hydralazine 6.Hyperlipidemia 7.CVA 8.bells palsy 9 DVT and GI prophylaxis d/w daughter at bedside
--- NOTE | 2017-04-24 13:59 | CP.PCM.PN ---
Subjective - Date & Time of Evaluation Date of Evaluation: 04/24/17 Time of Evaluation: 13:20 - Subjective Subjective: clinically same Objective - Vital Signs/Intake and Output Vital Signs (last 24 hours): Temp Pulse Resp BP Pulse Ox 97.9 F 96 H 14 106/55 L 100 04/23/17 16:00 04/24/17 12:27 04/24/17 12:27 04/24/17 12:27 04/24/17 12:27 Intake and Output: 04/24/17 04/24/17 06:59 18:59 Intake Total 1164 525 Output Total 645 230 Balance 519 295 - Medications Medications: Current Medications Acetaminophen (Tylenol 325mg Tab) 650 mg PO Q8H PRN PRN Reason: Pain, Mild (1-3) Last Admin: 04/23/17 05:26 Dose: 650 mg Albuterol/Ipratropium (Duoneb 3 Mg/0.5 Mg (3 Ml) Ud) 3 ml INH RQ6 [facility] Last Admin: 04/24/17 13:04 Dose: 3 ml Aspirin (Ecotrin) 81 mg PO DAILY [facility] Last Admin: 04/23/17 11:29 Dose: 81 mg Calcium Carbonate (Oscal) 500 mg PO BID [facility] Last Admin: 04/24/17 09:41 Dose: 500 mg Clopidogrel Bisulfate (Plavix) 75 mg PO DAILY [facility] Last Admin: 04/24/17 09:41 Dose: 75 mg Ergocalciferol (Drisdol 50,000 Intl Units Cap) 1 cap PO Q7D [facility] Last Admin: 04/21/17 21:54 Dose: 1 cap Sodium Chloride (Sodium Chloride 0.9%) 1,000 mls @ 125 mls/hr IV .Q8H [facility] Last Admin: 04/24/17 09:41 Dose: 125 mls/hr Insulin Detemir (Levemir) 13 unit SC ACB [facility] Last Admin: 04/24/17 08:48 Dose: 13 unit Insulin Human Regular (Novolin R) 0 unit SC ACHS [facility] PRN Reason: Protocol Last Admin: 04/24/17 08:48 Dose: 3 unit Labetalol HCl (Trandate) 10 mg IV Q4 PRN PRN Reason: Systolic Blood Pressure >150 Last Admin: 04/23/17 15:35 Dose: 10 mg Losartan Potassium (Cozaar) 25 mg PO DAILY [facility] Last Admin: 04/24/17 09:41 Dose: 25 mg Magnesium Oxide (Mag-Ox) 400 mg PO BID [facility] Last Admin: 04/24/17 09:41 Dose: 400 mg Metoprolol Succinate (Toprol Xl) 50 mg PO DAILY [facility] Last Admin: 04/23/17 11:28 Dose: 50 mg Ondansetron HCl (Zofran Inj) 4 mg IVP ONCE PRN PRN Reason: Nausea/Vomiting Last Admin: 04/24/17 02:36 Dose: 4 mg Pantoprazole Sodium (Protonix Ec Tab) 40 mg PO QAM [facility] Last Admin: 04/24/17 09:41 Dose: 40 mg Polyethylene Glycol (Miralax) 17 gm PO DAILY [facility] Last Admin: 04/24/17 09:43 Dose: 17 gm Rosuvastatin Calcium (Crestor) 10 mg PO HS [facility] Last Admin: 04/23/17 21:38 Dose: 10 mg Fluticasone/Salmeterol (Advair Diskus 250/50) 1 puff IH RBID [facility] Last Admin: 04/24/17 07:42 Dose: Not Given Sodium Chloride (Sodium Chloride Tab) 1 gm PO Q8 [facility] Last Admin: 04/24/17 05:59 Dose: 1 gm - Labs Labs: 04/24/17 05:37 04/24/17 05:37 - Constitutional Appears: Well - Head Exam Head Exam: ATRAUMATIC, NORMAL INSPECTION, NORMOCEPHALIC - Eye Exam Eye Exam: EOMI, Normal appearance, PERRL Pupil Exam: NORMAL ACCOMODATION, PERRL - ENT Exam ENT Exam: Mucous Membranes Moist, Normal Exam - Neck Exam Neck Exam: Full ROM, Normal Inspection. absent: Lymphadenopathy - Respiratory Exam Respiratory Exam: Decreased Breath Sounds - Cardiovascular Exam Cardiovascular Exam: REGULAR RHYTHM, +S1, +S2 - GI/Abdominal Exam GI & Abdominal Exam: Soft, Diminished Bowel Sounds - Rectal Exam Rectal Exam: Deferred Assessment and Plan (1) CVA (cerebral vascular accident) Status: Acute (2) Closed head injury Status: Acute (3) Hyponatremia Status: Acute (4) Right-sided Horta's palsy Status: Acute (5) Syncope Status: Acute (6) Gastroenteritis Status: Acute - Assessment and Plan (Free Text) Plan: Patient examined. Patient better. Continue aspirin and clopidogrel. Continue antihypertensive and antidiabetic medications. Bronchodilator. Continue supportive care.
[2017-04-24] MEDS: Metoprolol Succinate 50 mg XL Tab PO SCH (14:08)
[2017-04-24 14:55] LABS: POTASSIUM 4.1 mmol/L (3.6-5.2)
[2017-04-24 14:59] LABS: CALCIUM 7.4 mg/dl (8.6-10.4)
--- NOTE | 2017-04-24 23:05 | CP.PCM.PN ---
Subjective - Date & Time of Evaluation Date of Evaluation: 04/24/17 Time of Evaluation: 17:45 - Subjective Subjective: She is receiving replacement for her Na deficit. She was sleeping, not very responsive earlier this morning. Glucose is Below 300 and once below 200, and she is responsive now. Hyponatremia has improved to a value of 117 and the Na replacement is very gradual to avoid comlications of sudden changes. Objective - Vital Signs/Intake and Output Vital Signs (last 24 hours): Temp Pulse Resp BP Pulse Ox 98.2 F 97 H 20 177/69 H 100 04/24/17 22:00 04/24/17 22:27 04/24/17 22:27 04/24/17 22:27 04/24/17 22:27 Intake and Output: 04/24/17 04/25/17 18:59 06:59 Intake Total 1275 600 Output Total 1340 175 Balance -65 425 - Medications Medications: Current Medications Acetaminophen (Tylenol 325mg Tab) 650 mg PO Q8H PRN PRN Reason: Pain, Mild (1-3) Last Admin: 04/23/17 05:26 Dose: 650 mg Aspirin (Ecotrin) 81 mg PO DAILY [facility] Last Admin: 04/24/17 10:00 Dose: 81 mg Calcium Carbonate (Oscal) 500 mg PO BID [facility] Last Admin: 04/24/17 18:51 Dose: 500 mg Clopidogrel Bisulfate (Plavix) 75 mg PO DAILY [facility] Last Admin: 04/24/17 09:41 Dose: 75 mg Ergocalciferol (Drisdol 50,000 Intl Units Cap) 1 cap PO Q7D [facility] Last Admin: 04/21/17 21:54 Dose: 1 cap Sodium Chloride (Sodium Chloride 0.9%) 1,000 mls @ 125 mls/hr IV .Q8H [facility] Last Admin: 04/24/17 18:30 Dose: 125 mls/hr Insulin Detemir (Levemir) 20 unit SC ACB [facility] Insulin Human Regular (Novolin R) 0 unit SC ACHS [facility] PRN Reason: Protocol Last Admin: 04/24/17 21:36 Dose: Not Given Labetalol HCl (Trandate) 10 mg IV Q4 PRN PRN Reason: Systolic Blood Pressure >150 Last Admin: 04/23/17 15:35 Dose: 10 mg Losartan Potassium (Cozaar) 25 mg PO DAILY [facility] Last Admin: 04/24/17 09:41 Dose: 25 mg Magnesium Oxide (Mag-Ox) 400 mg PO BID [facility] Last Admin: 04/24/17 18:50 Dose: 400 mg Metoprolol Succinate (Toprol Xl) 50 mg PO DAILY [facility] Last Admin: 04/24/17 14:08 Dose: 50 mg Ondansetron HCl (Zofran Inj) 4 mg IVP ONCE PRN PRN Reason: Nausea/Vomiting Last Admin: 04/24/17 02:36 Dose: 4 mg Pantoprazole Sodium (Protonix Ec Tab) 40 mg PO QAM [facility] Last Admin: 04/24/17 09:41 Dose: 40 mg Polyethylene Glycol (Miralax) 17 gm PO DAILY [facility] Last Admin: 04/24/17 09:43 Dose: 17 gm Rosuvastatin Calcium (Crestor) 10 mg PO HS [facility] Last Admin: 04/24/17 21:40 Dose: 10 mg Fluticasone/Salmeterol (Advair Diskus 250/50) 1 puff IH RBID [facility] Last Admin: 04/24/17 19:35 Dose: Not Given Sodium Chloride (Sodium Chloride Tab) 1 gm PO Q8 [facility] Last Admin: 04/24/17 21:40 Dose: 1 gm - Labs Labs: 04/24/17 05:37 04/24/17 14:40 Assessment and Plan (1) Closed head injury Status: Acute (2) Gastroenteritis Status: Acute (3) CVA (cerebral vascular accident) Status: Acute (4) Syncope Status: Acute (5) Right-sided Horta's palsy Status: Acute
[2017-04-25] MEDS: Sodium Chloride 0.9% 1,000 ML IV SCH ×3 (02:00→17:15)
[2017-04-25 04:35] LABS: BASO % 0.1 % (0.0-2.0); EOS # 0.1 K/uL (0.0-0.7); EOS % 1.4 % (0.0-4.0); HEMATOCRIT 28.2 % (34.0-47.0); MEAN CELL VOLUME 87.5 fL (81.0-99.0); MEAN CORPUSCULAR HEMOGLOBIN 30.3 pg (27.0-31.0); MEAN CORPUSCULAR HGB CONC 34.6 g/dL (33.0-37.0); MEAN PLATELET VOLUME 8.3 fL (7.2-11.7); MONO # 0.8 K/uL (0.0-0.8); MONO % 8.3 % (0.0-10.0); RED CELL DISTRIBUTION WIDTH 12.6 % (11.5-14.5); WHITE BLOOD COUNT 9.5 K/uL (4.8-10.8)
[2017-04-25 04:44] LABS: CHLORIDE 87 mmol/L (98-107); SODIUM 121 mmol/L (132-148)
[2017-04-25 04:45] LABS: POTASSIUM 4.1 mmol/L (3.6-5.2)
[2017-04-25 04:47] LABS: ALB/GLOB RATIO 0.8 (1.0-2.1); ALKALINE PHOSPHATASE 65 U/L (38-126); ALT/SGPT 39 U/L (9-52); AST/SGOT 16 U/L (14-36); BILIRUBIN,TOTAL 0.5 mg/dL (0.2-1.3); BLOOD UREA NITROGEN 18 mg/dL (7-17); CALCIUM 7.6 mg/dl (8.6-10.4); CARBON DIOXIDE 27 mmol/L (22-30); GFR AFRICAN-AMERICAN > 60; GLUCOSE,RANDOM 170 mg/dL (65-105); TOTAL PROTEIN 6.8 g/dL (6.3-8.3)
[2017-04-25 04:48] LABS: MAGNESIUM 1.2 mg/dL (1.6-2.3)
[2017-04-25] MEDS: Fluticasone-Salmeterol 250-50mcg Diskus IH SCH ×2 (07:34→19:53)
[2017-04-25] MEDS: (Novolin R) Insulin Human Regular 100 units/ml vial SC SCH ×4 (08:21→21:37)
[2017-04-25] MEDS: Insulin Detemir 100 units/ml Vial (Levemir) SC SCH (08:22)
--- NOTE | 2017-04-25 08:37 | CP.CCUPN ---
<Coco Eugene Susan - Last Filed: 04/25/17 12:54> CCU Subjective - Physician Review Subjective (Free Text): Patient seen and examined at bedside. Patient complains of abdominal pain and nausea. Patient has had no vomiting and is tolerating breakfast. Patient denies shortness of breath, diarrhea, or constipation. CCU Objective - Vital Signs / Intake & Output Vital Signs (Last 4 hours): Vital Signs Temp Pulse Resp BP Pulse Ox 04/25/17 07:00 84 13 100 04/25/17 06:27 82 20 139/60 100 04/25/17 06:21 85 19 168/70 H 100 04/25/17 06:00 98.2 F 86 20 100 04/25/17 05:26 94 H 14 119/98 H 95 04/25/17 05:00 86 17 96 04/25/17 04:27 83 20 140/52 L 100 04/25/17 04:26 82 21 100 Intake and Output (Last 8hrs): Intake & Output 04/24/17 04/25/17 04/25/17 22:59 06:59 14:59 Intake Total 1100 1250 125 Output Total 675 450 50 Balance 425 800 75 Weight 144 lb Intake: Intake, IV Amount 1000 1000 125 Left Forearm 1000 1000 125 Oral 100 250 0 Output: Urine 675 450 50 Urethral (Douglass) 675 450 50 Stool 0 Other: # Bowel Movements 0 - Physical Exam Head: Positive for: Atraumatic, Normocephalic Extroacular Muscles: Positive for: Other (right sided droop ) Conjunctiva: Positive for: Normal Mouth: Positive for: Moist Mucous Membranes Respiratory/Chest: Positive for: Clear to Auscultation, Good Air Exchange. Negative for: Accessory Muscle Use Cardiovascular: Positive for: Regular Rate and Rhythm, Normal S1, S2 Abdomen: Positive for: Tenderness, Normal Bowel Sounds Upper Extremity: Positive for: Normal Inspection Lower Extremity: Positive for: Normal Inspection. Negative for: Edema Skin: Positive for: Warm, Normal Color Psychiatric: Positive for: Alert, Oriented x 3 - Medications Active Medications: Active Medications Generic Name Dose Route Start Last Admin Trade Name Freq PRN Reason Stop Dose Admin Acetaminophen 650 mg 04/20/17 13:44 04/25/17 01:03 Tylenol 325mg Tab PO 650 mg Q8H PRN Administration Pain, Mild (1-3) Albuterol/Ipratropium 3 ml 04/25/17 08:00 Duoneb 3 Mg/0.5 Mg (3 Ml) Ud INH RQ6 [facility] Aspirin 81 mg 04/20/17 10:00 04/24/17 10:00 Ecotrin PO 81 mg DAILY TITO Administration Calcium Carbonate 500 mg 04/22/17 10:00 04/24/17 18:51 Oscal PO 500 mg BID TITO Administration Clopidogrel Bisulfate 75 mg 04/20/17 10:00 04/24/17 09:41 Plavix PO 75 mg DAILY TITO Administration Ergocalciferol 1 cap 04/21/17 21:30 04/21/17 21:54 Drisdol 50,000 Intl Units Cap PO 1 cap Q7D TITO Administration Sodium Chloride 1,000 mls @ 125 mls/hr 04/24/17 09:45 04/25/17 02:00 Sodium Chloride 0.9% IV 125 mls/hr .Q8H [facility]O Administration Insulin Detemir 20 unit 04/25/17 07:30 Levemir SC ACB [facility] Insulin Human Regular 0 unit 04/24/17 07:30 04/24/17 21:36 Novolin R SC Not Given ACHS [facility] Protocol Labetalol HCl 10 mg 04/23/17 16:00 04/23/17 15:35 Trandate IV 10 mg Q4 PRN Administration Systolic Blood Pressure >150 Losartan Potassium 25 mg 04/22/17 10:00 04/24/17 09:41 Cozaar PO 25 mg DAILY TITO Administration Magnesium Oxide 400 mg 04/22/17 18:00 04/24/17 18:50 Mag-Ox PO 400 mg BID TITO Administration Metoprolol Succinate 50 mg 04/21/17 10:28 04/24/17 14:08 Toprol Xl PO 50 mg DAILY TITO Administration Ondansetron HCl 4 mg 04/22/17 08:59 04/24/17 02:36 Zofran Inj IVP 4 mg ONCE PRN Administration Nausea/Vomiting Pantoprazole Sodium 40 mg 04/23/17 10:00 04/24/17 09:41 Protonix Ec Tab PO 40 mg QAM TITO Administration Polyethylene Glycol 17 gm 04/22/17 14:30 04/24/17 09:43 Miralax PO 17 gm DAILY TITO Administration Rosuvastatin Calcium 10 mg 04/19/17 22:00 11/12/17 21:40 Crestor PO 10 mg HS TITO Administration Fluticasone/Salmeterol 1 puff 04/20/17 10:00 04/25/17 07:34 Advair Diskus 250/50 IH Not Given RBID TITO Sodium Chloride 1 gm 04/24/17 06:00 04/25/17 06:33 Sodium Chloride Tab PO 1 gm Q8 TITO Administration - Patient Studies Lab Studies: Microbiology Studies 04/19/17 20:15 Blood Culture - Final Blood NO GROWTH AFTER 5 DAYS Gram Stain - Final TEST NOT PERFORMED 04/19/17 20:15 Blood Culture - Final Blood NO GROWTH AFTER 5 DAYS Gram Stain - Final TEST NOT PERFORMED 04/23/17 11:40 MRSA Culture (Admit) - Final Naris MRSA NOT DETECTED Lab Studies 04/25/17 04/25/17 04/25/17 Range/Units 07:19 04:29 04:29 WBC 9.5 (4.8-10.8) K/uL RBC 3.23 L (3.80-5.20) Mil/uL Hgb 9.8 L (11.0-16.0) g/dL Hct 28.2 L (34.0-47.0) % MCV 87.5 (81.0-99.0) fL MCH 30.3 (27.0-31.0) pg MCHC 34.6 (33.0-37.0) g/dL RDW 12.6 (11.5-14.5) % Plt Count 165 (130-400) K/uL MPV 8.3 (7.2-11.7) fL Neut % (Auto) 79.2 H (50.0-75.0) % Lymph % (Auto) 11.0 L (20.0-40.0) % [place] % (Auto) 8.3 (0.0-10.0) % Eos % (Auto) 1.4 (0.0-4.0) % Baso % (Auto) 0.1 (0.0-2.0) % Neut # 7.5 H (1.8-7.0) K/uL Lymph # 1.0 (1.0-4.3) K/uL [place] # 0.8 (0.0-0.8) K/uL Eos # 0.1 (0.0-0.7) K/uL Baso # 0.0 (0.0-0.2) K/uL Sodium 121 L (132-148) mmol/L Potassium 4.1 (3.6-5.2) mmol/L Chloride 87 L (98-107) mmol/L Carbon Dioxide 27 (22-30) mmol/L Anion Gap 11 (10-20) BUN 18 H (7-17) mg/dL Creatinine 1.0 (0.7-1.2) mg/dL Est GFR ( Amer) > 60 Est GFR (Non-Af Amer) 54 POC Glucose (mg/dL) 226 H (65-110) mg/dL Random Glucose 170 H (65-105) mg/dL Calcium 7.6 L (8.6-10.4) mg/dl Magnesium 1.2 L (1.6-2.3) mg/dL Total Bilirubin 0.5 (0.2-1.3) mg/dL AST 16 (14-36) U/L ALT 39 (9-52) U/L Alkaline Phosphatase 65 (38-126) U/L Total Protein 6.8 (6.3-8.3) g/dL Albumin 3.1 L (3.5-5.0) g/dL Globulin 3.8 (2.2-3.9) gm/dL Albumin/Globulin Ratio 0.8 L (1.0-2.1) 04/24/17 04/24/17 04/24/17 Range/Units 21:28 16:15 14:40 WBC (4.8-10.8) K/uL RBC (3.80-5.20) Mil/uL Hgb (11.0-16.0) g/dL Hct (34.0-47.0) % MCV (81.0-99.0) fL MCH (27.0-31.0) pg MCHC (33.0-37.0) g/dL RDW (11.5-14.5) % Plt Count (130-400) K/uL MPV (7.2-11.7) fL Neut % (Auto) (50.0-75.0) % Lymph % (Auto) (20.0-40.0) % [place] % (Auto) (0.0-10.0) % Eos % (Auto) (0.0-4.0) % Baso % (Auto) (0.0-2.0) % Neut # (1.8-7.0) K/uL Lymph # (1.0-4.3) K/uL [place] # (0.0-0.8) K/uL Eos # (0.0-0.7) K/uL Baso # (0.0-0.2) K/uL Sodium 119 L* (132-148) mmol/L Potassium 4.1 (3.6-5.2) mmol/L Chloride 87 L (98-107) mmol/L Carbon Dioxide 24 (22-30) mmol/L Anion Gap 12 (10-20) BUN 25 H (7-17) mg/dL Creatinine 1.1 (0.7-1.2) mg/dL Est GFR ( Amer) 58 Est GFR (Non-Af Amer) 48 POC Glucose (mg/dL) 293 H 233 H (65-110) mg/dL Random Glucose 265 H (65-105) mg/dL Calcium 7.4 L (8.6-10.4) mg/dl Magnesium (1.6-2.3) mg/dL Total Bilirubin (0.2-1.3) mg/dL AST (14-36) U/L ALT (9-52) U/L Alkaline Phosphatase (38-126) U/L Total Protein (6.3-8.3) g/dL Albumin (3.5-5.0) g/dL Globulin (2.2-3.9) gm/dL Albumin/Globulin Ratio (1.0-2.1) 04/24/17 Range/Units 14:01 WBC (4.8-10.8) K/uL RBC (3.80-5.20) Mil/uL Hgb (11.0-16.0) g/dL Hct (34.0-47.0) % MCV (81.0-99.0) fL MCH (27.0-31.0) pg MCHC (33.0-37.0) g/dL RDW (11.5-14.5) % Plt Count (130-400) K/uL MPV (7.2-11.7) fL Neut % (Auto) (50.0-75.0) % Lymph % (Auto) (20.0-40.0) % [place] % (Auto) (0.0-10.0) % Eos % (Auto) (0.0-4.0) % Baso % (Auto) (0.0-2.0) % Neut # (1.8-7.0) K/uL Lymph # (1.0-4.3) K/uL [place] # (0.0-0.8) K/uL Eos # (0.0-0.7) K/uL Baso # (0.0-0.2) K/uL Sodium (132-148) mmol/L Potassium (3.6-5.2) mmol/L Chloride (98-107) mmol/L Carbon Dioxide (22-30) mmol/L Anion Gap (10-20) BUN (7-17) mg/dL Creatinine (0.7-1.2) mg/dL Est GFR ( Amer) Est GFR (Non-Af Amer) POC Glucose (mg/dL) 258 H (65-110) mg/dL Random Glucose (65-105) mg/dL Calcium (8.6-10.4) mg/dl Magnesium (1.6-2.3) mg/dL Total Bilirubin (0.2-1.3) mg/dL AST (14-36) U/L ALT (9-52) U/L Alkaline Phosphatase (38-126) U/L Total Protein (6.3-8.3) g/dL Albumin (3.5-5.0) g/dL Globulin (2.2-3.9) gm/dL Albumin/Globulin Ratio (1.0-2.1) Laboratory Results - last 24 hr 04/24/17 04/24/17 04/24/17 14:01 14:40 16:15 WBC RBC Hgb Hct MCV MCH MCHC RDW Plt Count MPV Neut % (Auto) Lymph % (Auto) [place] % (Auto) Eos % (Auto) Baso % (Auto) Neut # Lymph # [place] # Eos # Baso # Sodium 119 L* Potassium 4.1 Chloride 87 L Carbon Dioxide 24 Anion Gap 12 BUN 25 H Creatinine 1.1 Est GFR ( Amer) 58 Est GFR (Non-Af Amer) 48 POC Glucose (mg/dL) 258 H 233 H Random Glucose 265 H Calcium 7.4 L Magnesium Total Bilirubin AST ALT Alkaline Phosphatase Total Protein Albumin Globulin Albumin/Globulin Ratio 04/24/17 04/25/17 04/25/17 21:28 04:29 04:29 WBC 9.5 RBC 3.23 L Hgb 9.8 L Hct 28.2 L MCV 87.5 MCH 30.3 MCHC 34.6 RDW 12.6 Plt Count 165 MPV 8.3 Neut % (Auto) 79.2 H Lymph % (Auto) 11.0 L [place] % (Auto) 8.3 Eos % (Auto) 1.4 Baso % (Auto) 0.1 Neut # 7.5 H Lymph # 1.0 [place] # 0.8 Eos # 0.1 Baso # 0.0 Sodium 121 L Potassium 4.1 Chloride 87 L Carbon Dioxide 27 Anion Gap 11 BUN 18 H Creatinine 1.0 Est GFR ( Amer) > 60 Est GFR (Non-Af Amer) 54 POC Glucose (mg/dL) 293 H Random Glucose 170 H Calcium 7.6 L Magnesium 1.2 L Total Bilirubin 0.5 AST 16 ALT 39 Alkaline Phosphatase 65 Total Protein 6.8 Albumin 3.1 L Globulin 3.8 Albumin/Globulin Ratio 0.8 L 04/25/17 07:19 WBC RBC Hgb Hct MCV MCH MCHC RDW Plt Count MPV Neut % (Auto) Lymph % (Auto) [place] % (Auto) Eos % (Auto) Baso % (Auto) Neut # Lymph # [place] # Eos # Baso # Sodium Potassium Chloride Carbon Dioxide Anion Gap BUN Creatinine Est GFR ( Amer) Est GFR (Non-Af Amer) POC Glucose (mg/dL) 226 H Random Glucose Calcium Magnesium Total Bilirubin AST ALT Alkaline Phosphatase Total Protein Albumin Globulin Albumin/Globulin Ratio Fingerstick Blood Sugar Results: 293 Review of Systems - Constitutional Constitutional: absent: Fever, Chills, Sweats - Cardiovascular Cardiovascular: absent: Chest Pain, Dyspnea, Leg Edema - Respiratory Respiratory: absent: Cough, Dyspnea, Stridor - Gastrointestinal Gastrointestinal: Abdominal Pain, Nausea. 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 Neuro: Head CT (04/19): generalized atrophy, nonspecific white matter changes MRI (04/21): no acute intracranial findings Cardio: -Aspirin 82 mg po daily -Plavix 75mg po daily -Labetalol 10 mg iv q4 prn -Losartan 25mg po daily -Metoprolol Succinate 50mg po daily -Crestor 10mg po HS -Carotid duplex scan (04/21): does not suggest hemodynamically significant stenosis of the right or left extracranial carotid arteries Pulm: -Duonebs q6h -Advair diskus Nephro: hyponatremia -continue to monitor -magnesium repleted GI: CT Abd/ Pelvis (04/19): reticular nodular opacities at the lung bases. bibasilar fibrosis. bronchiectasis. no acute abdominal or pelvic pathology. Endo: hx DM -Levemir 20 u SC ACB -ISS -acchuchecks Prophylaxis: GI: Protonix 40mg po daily DVT: Heparin 5000 u sc q8h <Radha Montaño - Last Filed: 04/25/17 13:52> CCU Objective - Vital Signs / Intake & Output Vital Signs (Last 4 hours): Vital Signs Temp Pulse Resp BP Pulse Ox 04/25/17 13:00 95 H 19 98 04/25/17 12:55 96 H 12 138/64 100 04/25/17 12:28 97 H 12 187/76 H 100 04/25/17 12:00 98.3 F 94 H 17 100 04/25/17 11:27 92 H 18 152/65 H 100 04/25/17 11:00 89 15 100 04/25/17 10:27 93 H 19 147/59 L 100 04/25/17 10:09 95 H 20 106/55 L 100 04/25/17 10:00 100 H 19 100 Intake and Output (Last 8hrs): Intake & Output 04/24/17 04/25/17 04/25/17 22:59 06:59 14:59 Intake Total 1100 1250 1595 Output Total 675 450 950 Balance 425 800 645 Weight 144 lb Intake: Intake, IV Amount 1000 1000 1075 Left Forearm 1000 1000 125 Right Forearm 950 Oral 100 250 520 Output: Urine 675 450 950 Urethral (Douglass) 675 450 950 Stool 0 Other: # Voids Urine, Voided 0 # Bowel Movements 0 0 - Medications Active Medications: Active Medications Generic Name Dose Route Start Last Admin Trade Name Freq PRN Reason Stop Dose Admin Acetaminophen 650 mg 04/20/17 13:44 04/25/17 01:03 Tylenol 325mg Tab PO 650 mg Q8H PRN Administration Pain, Mild (1-3) Albuterol/Ipratropium 3 ml 04/25/17 08:00 04/19/17 20:41 Duoneb 3 Mg/0.5 Mg (3 Ml) Ud INH 3 ml RQ6 [facility] Administration Aspirin 81 mg 04/20/17 10:00 04/25/17 10:23 Ecotrin PO 81 mg DAILY TITO Administration Clopidogrel Bisulfate 75 mg 04/20/17 10:00 04/25/17 10:23 Plavix PO 75 mg DAILY [facility] Administration Ergocalciferol 1 cap 04/21/17 21:30 04/21/17 21:54 Drisdol 50,000 Intl Units Cap PO 1 cap Q7D [facility] Administration Heparin Sodium (Porcine) 5,000 units 04/25/17 10:00 04/25/17 13:37 Heparin SC 5,000 units Q8 TITO Administration Sodium Chloride 1,000 mls @ 125 mls/hr 04/24/17 09:45 04/25/17 10:27 Sodium Chloride 0.9% IV 125 mls/hr .Q8H [facility] Administration Insulin Detemir 20 unit 04/25/17 07:30 04/25/17 08:22 Levemir SC 20 unit ACB [facility] Administration Insulin Human Regular 0 unit 04/24/17 07:30 04/25/17 11:25 Novolin R SC 8 unit ACHS [facility] Administration Protocol Losartan Potassium 25 mg 04/22/17 10:00 04/25/17 10:40 Cozaar PO 25 mg DAILY [facility]O Administration Metoprolol Succinate 50 mg 04/21/17 10:28 04/25/17 10:39 Toprol Xl PO 50 mg DAILY [facility]ITO Administration Ondansetron HCl 4 mg 04/22/17 08:59 04/24/17 02:36 Zofran Inj IVP 4 mg ONCE PRN Administration Nausea/Vomiting Pantoprazole Sodium 40 mg 04/23/17 10:00 04/25/17 10:23 Protonix Ec Tab PO 40 mg QAM [facility] Administration Polyethylene Glycol 17 gm 04/22/17 14:30 04/25/17 10:23 Miralax PO 17 gm DAILY [facility]O Administration Rosuvastatin Calcium 10 mg 04/19/17 22:00 04/24/17 21:40 Crestor PO 10 mg HS [facility]O Administration Fluticasone/Salmeterol 1 puff 04/20/17 10:00 04/25/17 07:34 Advair Diskus 250/50 IH Not Given RBID [facility] - Patient Studies Lab Studies: Microbiology Studies 04/19/17 20:15 Blood Culture - Final Blood NO GROWTH AFTER 5 DAYS Gram Stain - Final TEST NOT PERFORMED 04/19/17 20:15 Blood Culture - Final Blood NO GROWTH AFTER 5 DAYS Gram Stain - Final TEST NOT PERFORMED 04/23/17 11:40 MRSA Culture (Admit) - Final Naris MRSA NOT DETECTED Lab Studies 04/25/17 04/25/17 04/25/17 Range/Units 11:10 10:14 10:14 WBC (4.8-10.8) K/uL RBC (3.80-5.20) Mil/uL Hgb (11.0-16.0) g/dL Hct (34.0-47.0) % MCV (81.0-99.0) fL MCH (27.0-31.0) pg MCHC (33.0-37.0) g/dL RDW (11.5-14.5) % Plt Count (130-400) K/uL MPV (7.2-11.7) fL Neut % (Auto) (50.0-75.0) % Lymph % (Auto) (20.0-40.0) % [place] % (Auto) (0.0-10.0) % Eos % (Auto) (0.0-4.0) % Baso % (Auto) (0.0-2.0) % Neut # (1.8-7.0) K/uL Lymph # (1.0-4.3) K/uL [place] # (0.0-0.8) K/uL Eos # (0.0-0.7) K/uL Baso # (0.0-0.2) K/uL Sodium 121 L (132-148) mmol/L Potassium 4.2 (3.6-5.2) mmol/L Chloride 87 L (98-107) mmol/L Carbon Dioxide 28 (22-30) mmol/L Anion Gap 10 (10-20) BUN 19 H (7-17) mg/dL Creatinine 1.0 (0.7-1.2) mg/dL Est GFR ( Amer) > 60 Est GFR (Non-Af Amer) 54 POC Glucose (mg/dL) 370 H (65-110) mg/dL Random Glucose 301 H (65-105) mg/dL Serum Osmolality 278 (272-300) mosm/kg Calcium 7.4 L (8.6-10.4) mg/dl Phosphorus 2.5 (2.5-4.5) mg/dL Magnesium 1.1 L (1.6-2.3) mg/dL Total Bilirubin 0.6 (0.2-1.3) mg/dL AST 18 (14-36) U/L ALT 36 (9-52) U/L Alkaline Phosphatase 66 (38-126) U/L Total Protein 5.9 L (6.3-8.3) g/dL Albumin 3.2 L (3.5-5.0) g/dL Globulin 2.8 (2.2-3.9) gm/dL Albumin/Globulin Ratio 1.1 (1.0-2.1) Urine Osmolality (300-1000) mosm/kg Ur Random Sodium mmol/L 04/25/17 04/25/17 04/25/17 Range/Units 10:13 07:19 04:29 WBC 9.5 (4.8-10.8) K/uL RBC 3.23 L (3.80-5.20) Mil/uL Hgb 9.8 L (11.0-16.0) g/dL Hct 28.2 L (34.0-47.0) % MCV 87.5 (81.0-99.0) fL MCH 30.3 (27.0-31.0) pg MCHC 34.6 (33.0-37.0) g/dL RDW 12.6 (11.5-14.5) % Plt Count 165 (130-400) K/uL MPV 8.3 (7.2-11.7) fL Neut % (Auto) 79.2 H (50.0-75.0) % Lymph % (Auto) 11.0 L (20.0-40.0) % [place] % (Auto) 8.3 (0.0-10.0) % Eos % (Auto) 1.4 (0.0-4.0) % Baso % (Auto) 0.1 (0.0-2.0) % Neut # 7.5 H (1.8-7.0) K/uL Lymph # 1.0 (1.0-4.3) K/uL [place] # 0.8 (0.0-0.8) K/uL Eos # 0.1 (0.0-0.7) K/uL Baso # 0.0 (0.0-0.2) K/uL Sodium (132-148) mmol/L Potassium (3.6-5.2) mmol/L Chloride (98-107) mmol/L Carbon Dioxide (22-30) mmol/L Anion Gap (10-20) BUN (7-17) mg/dL Creatinine (0.7-1.2) mg/dL Est GFR ( Amer) Est GFR (Non-Af Amer) POC Glucose (mg/dL) 226 H (65-110) mg/dL Random Glucose (65-105) mg/dL Serum Osmolality (272-300) mosm/kg Calcium (8.6-10.4) mg/dl Phosphorus (2.5-4.5) mg/dL Magnesium (1.6-2.3) mg/dL Total Bilirubin (0.2-1.3) mg/dL AST (14-36) U/L ALT (9-52) U/L Alkaline Phosphatase (38-126) U/L Total Protein (6.3-8.3) g/dL Albumin (3.5-5.0) g/dL Globulin (2.2-3.9) gm/dL Albumin/Globulin Ratio (1.0-2.1) Urine Osmolality 483 (300-1000) mosm/kg Ur Random Sodium 128 mmol/L 04/25/17 04/24/17 04/24/17 Range/Units 04:29 21:28 16:15 WBC (4.8-10.8) K/uL RBC (3.80-5.20) Mil/uL Hgb (11.0-16.0) g/dL Hct (34.0-47.0) % MCV (81.0-99.0) fL MCH (27.0-31.0) pg MCHC (33.0-37.0) g/dL RDW (11.5-14.5) % Plt Count (130-400) K/uL MPV (7.2-11.7) fL Neut % (Auto) (50.0-75.0) % Lymph % (Auto) (20.0-40.0) % [place] % (Auto) (0.0-10.0) % Eos % (Auto) (0.0-4.0) % Baso % (Auto) (0.0-2.0) % Neut # (1.8-7.0) K/uL Lymph # (1.0-4.3) K/uL [place] # (0.0-0.8) K/uL Eos # (0.0-0.7) K/uL Baso # (0.0-0.2) K/uL Sodium 121 L (132-148) mmol/L Potassium 4.1 (3.6-5.2) mmol/L Chloride 87 L (98-107) mmol/L Carbon Dioxide 27 (22-30) mmol/L Anion Gap 11 (10-20) BUN 18 H (7-17) mg/dL Creatinine 1.0 (0.7-1.2) mg/dL Est GFR ( Amer) > 60 Est GFR (Non-Af Amer) 54 POC Glucose (mg/dL) 293 H 233 H (65-110) mg/dL Random Glucose 170 H (65-105) mg/dL Serum Osmolality (272-300) mosm/kg Calcium 7.6 L (8.6-10.4) mg/dl Phosphorus (2.5-4.5) mg/dL Magnesium 1.2 L (1.6-2.3) mg/dL Total Bilirubin 0.5 (0.2-1.3) mg/dL AST 16 (14-36) U/L ALT 39 (9-52) U/L Alkaline Phosphatase 65 (38-126) U/L Total Protein 6.8 (6.3-8.3) g/dL Albumin 3.1 L (3.5-5.0) g/dL Globulin 3.8 (2.2-3.9) gm/dL Albumin/Globulin Ratio 0.8 L (1.0-2.1) Urine Osmolality (300-1000) mosm/kg Ur Random Sodium mmol/L 04/24/17 04/24/17 Range/Units 14:40 14:01 WBC (4.8-10.8) K/uL RBC (3.80-5.20) Mil/uL Hgb (11.0-16.0) g/dL Hct (34.0-47.0) % MCV (81.0-99.0) fL MCH (27.0-31.0) pg MCHC (33.0-37.0) g/dL RDW (11.5-14.5) % Plt Count (130-400) K/uL MPV (7.2-11.7) fL Neut % (Auto) (50.0-75.0) % Lymph % (Auto) (20.0-40.0) % [place] % (Auto) (0.0-10.0) % Eos % (Auto) (0.0-4.0) % Baso % (Auto) (0.0-2.0) % Neut # (1.8-7.0) K/uL Lymph # (1.0-4.3) K/uL [place] # (0.0-0.8) K/uL Eos # (0.0-0.7) K/uL Baso # (0.0-0.2) K/uL Sodium 119 L* (132-148) mmol/L Potassium 4.1 (3.6-5.2) mmol/L Chloride 87 L (98-107) mmol/L Carbon Dioxide 24 (22-30) mmol/L Anion Gap 12 (10-20) BUN 25 H (7-17) mg/dL Creatinine 1.1 (0.7-1.2) mg/dL Est GFR ( Amer) 58 Est GFR (Non-Af Amer) 48 POC Glucose (mg/dL) 258 H (65-110) mg/dL Random Glucose 265 H (65-105) mg/dL Serum Osmolality (272-300) mosm/kg Calcium 7.4 L (8.6-10.4) mg/dl Phosphorus (2.5-4.5) mg/dL Magnesium (1.6-2.3) mg/dL Total Bilirubin (0.2-1.3) mg/dL AST (14-36) U/L ALT (9-52) U/L Alkaline Phosphatase (38-126) U/L Total Protein (6.3-8.3) g/dL Albumin (3.5-5.0) g/dL Globulin (2.2-3.9) gm/dL Albumin/Globulin Ratio (1.0-2.1) Urine Osmolality (300-1000) mosm/kg Ur Random Sodium mmol/L Laboratory Results - last 24 hr 04/24/17 04/24/17 04/24/17 14:01 14:40 16:15 WBC RBC Hgb Hct MCV MCH MCHC RDW Plt Count MPV Neut % (Auto) Lymph % (Auto) [place] % (Auto) Eos % (Auto) Baso % (Auto) Neut # Lymph # [place] # Eos # Baso # Sodium 119 L* Potassium 4.1 Chloride 87 L Carbon Dioxide 24 Anion Gap 12 BUN 25 H Creatinine 1.1 Est GFR ( Amer) 58 Est GFR (Non-Af Amer) 48 POC Glucose (mg/dL) 258 H 233 H Random Glucose 265 H Serum Osmolality Calcium 7.4 L Phosphorus Magnesium Total Bilirubin AST ALT Alkaline Phosphatase Total Protein Albumin Globulin Albumin/Globulin Ratio Urine Osmolality Ur Random Sodium 04/24/17 04/25/17 04/25/17 21:28 04:29 04:29 WBC 9.5 RBC 3.23 L Hgb 9.8 L Hct 28.2 L MCV 87.5 MCH 30.3 MCHC 34.6 RDW 12.6 Plt Count 165 MPV 8.3 Neut % (Auto) 79.2 H Lymph % (Auto) 11.0 L [place] % (Auto) 8.3 Eos % (Auto) 1.4 Baso % (Auto) 0.1 Neut # 7.5 H Lymph # 1.0 [place] # 0.8 Eos # 0.1 Baso # 0.0 Sodium 121 L Potassium 4.1 Chloride 87 L Carbon Dioxide 27 Anion Gap 11 BUN 18 H Creatinine 1.0 Est GFR ( Amer) > 60 Est GFR (Non-Af Amer) 54 POC Glucose (mg/dL) 293 H Random Glucose 170 H Serum Osmolality Calcium 7.6 L Phosphorus Magnesium 1.2 L Total Bilirubin 0.5 AST 16 ALT 39 Alkaline Phosphatase 65 Total Protein 6.8 Albumin 3.1 L Globulin 3.8 Albumin/Globulin Ratio 0.8 L Urine Osmolality Ur Random Sodium 04/25/17 04/25/17 04/25/17 07:19 10:13 10:14 WBC RBC Hgb Hct MCV MCH MCHC RDW Plt Count MPV Neut % (Auto) Lymph % (Auto) [place] % (Auto) Eos % (Auto) Baso % (Auto) Neut # Lymph # [place] # Eos # Baso # Sodium 121 L Potassium 4.2 Chloride 87 L Carbon Dioxide 28 Anion Gap 10 BUN 19 H Creatinine 1.0 Est GFR ( Amer) > 60 Est GFR (Non-Af Amer) 54 POC Glucose (mg/dL) 226 H Random Glucose 301 H Serum Osmolality Calcium 7.4 L Phosphorus 2.5 Magnesium 1.1 L Total Bilirubin 0.6 AST 18 ALT 36 Alkaline Phosphatase 66 Total Protein 5.9 L Albumin 3.2 L Globulin 2.8 Albumin/Globulin Ratio 1.1 Urine Osmolality 483 Ur Random Sodium 128 04/25/17 04/25/17 10:14 11:10 WBC RBC Hgb Hct MCV MCH MCHC RDW Plt Count MPV Neut % (Auto) Lymph % (Auto) [place] % (Auto) Eos % (Auto) Baso % (Auto) Neut # Lymph # [place] # Eos # Baso # Sodium Potassium Chloride Carbon Dioxide Anion Gap BUN Creatinine Est GFR ( Amer) Est GFR (Non-Af Amer) POC Glucose (mg/dL) 370 H Random Glucose Serum Osmolality 278 Calcium Phosphorus Magnesium Total Bilirubin AST ALT Alkaline Phosphatase Total Protein Albumin Globulin Albumin/Globulin Ratio Urine Osmolality Ur Random Sodium Critical Care Progress Note - Nutrition Nutrition: Nutrition Category Date Time Status Heart Healthy Diet [DIET] Diets 04/24/17 Dinner Active Attending/Attestation - Attestation I have personally seen and examined this patient.: Yes I have fully participated in the care of the patient.: Yes I have reviewed all pertinent clinical information: Yes Notes (Text): 04/25/17 13:51 Patient is more awake and responding. Weakness present. Significant urine output noted. During the rounds a discussion was made. Labs reviewed Radiological investigation done Low-sodium level is still noted. Currently receiving normal saline. Urine output is increasing. Recent sodium is still on the low side. Patient is currently eating well and drinking well. She may be a good candidate for talvapton. We'll continue the current treatment.
[2017-04-25] MEDS: Magnesium Sulfate 1 gm in D5W 1 GM/100 ML BAG IVPB SCH ×2 (10:22→11:15)
[2017-04-25] MEDS: POLYETHYLENE GLYCOL 3350 17 GM/Dose PACKET PO SCH (10:23)
[2017-04-25] MEDS: Pantoprazole 40 mg EC Tab PO SCH (10:23)
[2017-04-25] MEDS: Metoprolol Succinate 50 mg XL Tab PO SCH ×2 (10:24→10:39)
[2017-04-25 10:25] LABS: CHLORIDE 87 mmol/L (98-107); POTASSIUM 4.2 mmol/L (3.6-5.2); SODIUM 121 mmol/L (132-148)
[2017-04-25 10:27] LABS: BILIRUBIN,TOTAL 0.6 mg/dL (0.2-1.3); CARBON DIOXIDE 28 mmol/L (22-30); GFR AFRICAN-AMERICAN > 60
[2017-04-25 10:28] LABS: ALB/GLOB RATIO 1.1 (1.0-2.1); ALKALINE PHOSPHATASE 66 U/L (38-126); ALT/SGPT 36 U/L (9-52); AST/SGOT 18 U/L (14-36); BLOOD UREA NITROGEN 19 mg/dL (7-17); CALCIUM 7.4 mg/dl (8.6-10.4); GLUCOSE,RANDOM 301 mg/dL (65-105); MAGNESIUM 1.1 mg/dL (1.6-2.3); PHOSPHOROUS 2.5 mg/dL (2.5-4.5); TOTAL PROTEIN 5.9 g/dL (6.3-8.3)
[2017-04-25] MEDS ORDERED: Magnesium Sulfate 1 gm in D5W 1 GM/100 ML BAG IVPB SCH (13:00)
[2017-04-25] MEDS ORDERED: Tolvaptan 15 MG TAB PO ONE (13:49)
[2017-04-25] MEDS: Albuterol-Ipratrop 3 mg / 0.5 (3 ml) UD INH SCH ×2 (13:57→19:53)
[2017-04-25 17:40] LABS: POTASSIUM 4.5 mmol/L (3.6-5.2)
[2017-04-25 17:42] LABS: ALB/GLOB RATIO 1.1 (1.0-2.1); BILIRUBIN,TOTAL 0.5 mg/dL (0.2-1.3); TOTAL PROTEIN 6.3 g/dL (6.3-8.3)
[2017-04-25 17:43] LABS: CALCIUM 7.7 mg/dl (8.6-10.4); MAGNESIUM 1.6 mg/dL (1.6-2.3); PHOSPHOROUS 2.4 mg/dL (2.5-4.5)
--- NOTE | 2017-04-25 19:23 | CP.PCM.PN ---
Subjective - Date & Time of Evaluation Date of Evaluation: 04/25/17 Time of Evaluation: 12:20 - Subjective Subjective: clinically same Objective - Vital Signs/Intake and Output Vital Signs (last 24 hours): Temp Pulse Resp BP Pulse Ox 98.6 F 91 H 14 137/64 100 04/25/17 16:00 04/25/17 19:00 04/25/17 19:00 04/25/17 18:27 04/25/17 16:01 Intake and Output: 04/25/17 04/26/17 18:59 06:59 Intake Total 2340 125 Output Total 2050 Balance 290 125 - Medications Medications: Current Medications Acetaminophen (Tylenol 325mg Tab) 650 mg PO Q8H PRN PRN Reason: Pain, Mild (1-3) Last Admin: 04/25/17 01:03 Dose: 650 mg Albuterol/Ipratropium (Duoneb 3 Mg/0.5 Mg (3 Ml) Ud) 3 ml INH RQ6 [facility] Last Admin: 04/25/17 13:57 Dose: 3 ml Aspirin (Ecotrin) 81 mg PO DAILY [facility] Last Admin: 04/25/17 10:23 Dose: 81 mg Clopidogrel Bisulfate (Plavix) 75 mg PO DAILY [facility] Last Admin: 04/25/17 10:23 Dose: 75 mg Ergocalciferol (Drisdol 50,000 Intl Units Cap) 1 cap PO Q7D [facility] Last Admin: 04/21/17 21:54 Dose: 1 cap Heparin Sodium (Porcine) (Heparin) 5,000 units SC Q8 [facility] Last Admin: 04/25/17 13:37 Dose: 5,000 units Sodium Chloride (Sodium Chloride 0.9%) 1,000 mls @ 125 mls/hr IV .Q8H [facility] Last Admin: 04/25/17 17:15 Dose: 125 mls/hr Insulin Detemir (Levemir) 20 unit SC ACB [facility] Last Admin: 04/25/17 08:22 Dose: 20 unit Insulin Human Regular (Novolin R) 0 unit SC ACHS [facility] PRN Reason: Protocol Last Admin: 04/25/17 17:14 Dose: 4 unit Losartan Potassium (Cozaar) 25 mg PO DAILY [facility] Last Admin: 04/25/17 10:40 Dose: 25 mg Metoprolol Succinate (Toprol Xl) 50 mg PO DAILY [facility] Last Admin: 04/25/17 10:39 Dose: 50 mg Ondansetron HCl (Zofran Inj) 4 mg IVP ONCE PRN PRN Reason: Nausea/Vomiting Last Admin: 04/24/17 02:36 Dose: 4 mg Pantoprazole Sodium (Protonix Ec Tab) 40 mg PO QAM [facility] Last Admin: 04/25/17 10:23 Dose: 40 mg Polyethylene Glycol (Miralax) 17 gm PO DAILY [facility] Last Admin: 04/25/17 10:23 Dose: 17 gm Rosuvastatin Calcium (Crestor) 10 mg PO HS [facility] Last Admin: 04/24/17 21:40 Dose: 10 mg Fluticasone/Salmeterol (Advair Diskus 250/50) 1 puff IH RBID [facility] Last Admin: 04/25/17 07:34 Dose: Not Given - Labs Labs: 04/25/17 04:29 04/25/17 17:28 - Constitutional Appears: Well - Head Exam Head Exam: ATRAUMATIC, NORMAL INSPECTION, NORMOCEPHALIC - Eye Exam Eye Exam: EOMI, Normal appearance, PERRL Pupil Exam: NORMAL ACCOMODATION, PERRL - ENT Exam ENT Exam: Mucous Membranes Moist, Normal Exam - Neck Exam Neck Exam: Full ROM, Normal Inspection. absent: Lymphadenopathy - Respiratory Exam Respiratory Exam: Decreased Breath Sounds - Cardiovascular Exam Cardiovascular Exam: REGULAR RHYTHM, +S1, +S2 - GI/Abdominal Exam GI & Abdominal Exam: Soft, Diminished Bowel Sounds - Rectal Exam Rectal Exam: Deferred Assessment and Plan (1) CVA (cerebral vascular accident) Status: Acute (2) Closed head injury Status: Acute (3) Hyponatremia Status: Acute (4) Right-sided Horta's palsy Status: Acute (5) Syncope Status: Acute (6) Gastroenteritis Status: Acute - Assessment and Plan (Free Text) Plan: Patient examined. Patient better. Continue aspirin and clopidogrel. Continue antihypertensive and antidiabetic medications. Bronchodilator. Continue supportive care.
[2017-04-26] MEDS: Albuterol-Ipratrop 3 mg / 0.5 (3 ml) UD INH SCH ×4 (01:13→20:06)
--- NOTE | 2017-04-26 01:14 | CP.PCM.PN ---
Subjective - Date & Time of Evaluation Date of Evaluation: 04/25/17 Time of Evaluation: 20:40 - Subjective Subjective: Patient Na is 120, she is receiving a slow replacement. Serum Glucose is 376 up to 403 Objective - Vital Signs/Intake and Output Vital Signs (last 24 hours): Temp Pulse Resp BP Pulse Ox 99 F 95 H 20 117/57 L 99 04/26/17 00:00 04/26/17 00:27 04/26/17 00:27 04/26/17 00:27 04/25/17 21:00 Intake and Output: 04/25/17 04/26/17 18:59 06:59 Intake Total 2340 1150 Output Total 2050 800 Balance 290 350 - Medications Medications: Current Medications Acetaminophen (Tylenol 325mg Tab) 650 mg PO Q8H PRN PRN Reason: Pain, Mild (1-3) Last Admin: 04/25/17 01:03 Dose: 650 mg Albuterol/Ipratropium (Duoneb 3 Mg/0.5 Mg (3 Ml) Ud) 3 ml INH RQ6 [facility] Last Admin: 04/25/17 19:53 Dose: 3 ml Aspirin (Ecotrin) 81 mg PO DAILY [facility] Last Admin: 04/25/17 10:23 Dose: 81 mg Clopidogrel Bisulfate (Plavix) 75 mg PO DAILY [facility] Last Admin: 04/25/17 10:23 Dose: 75 mg Ergocalciferol (Drisdol 50,000 Intl Units Cap) 1 cap PO Q7D [facility] Last Admin: 04/21/17 21:54 Dose: 1 cap Heparin Sodium (Porcine) (Heparin) 5,000 units SC Q8 [facility] Last Admin: 04/25/17 21:36 Dose: 5,000 units Sodium Chloride (Sodium Chloride 0.9%) 1,000 mls @ 125 mls/hr IV .Q8H [facility] Last Admin: 04/25/17 17:15 Dose: 125 mls/hr Insulin Detemir (Levemir) 20 unit SC ACB [facility] Last Admin: 04/25/17 08:22 Dose: 20 unit Insulin Human Regular (Novolin R) 0 unit SC ACHS [facility] PRN Reason: Protocol Last Admin: 04/25/17 21:37 Dose: 4 unit Losartan Potassium (Cozaar) 25 mg PO DAILY [facility] Last Admin: 04/25/17 10:40 Dose: 25 mg Metoprolol Succinate (Toprol Xl) 50 mg PO DAILY [facility] Last Admin: 04/25/17 10:39 Dose: 50 mg Ondansetron HCl (Zofran Inj) 4 mg IVP ONCE PRN PRN Reason: Nausea/Vomiting Last Admin: 04/24/17 02:36 Dose: 4 mg Pantoprazole Sodium (Protonix Ec Tab) 40 mg PO QAM [facility] Last Admin: 04/25/17 10:23 Dose: 40 mg Polyethylene Glycol (Miralax) 17 gm PO DAILY [facility] Last Admin: 04/25/17 10:23 Dose: 17 gm Rosuvastatin Calcium (Crestor) 10 mg PO HS [facility] Last Admin: 04/25/17 21:36 Dose: 10 mg Fluticasone/Salmeterol (Advair Diskus 250/50) 1 puff IH RBID [facility] Last Admin: 04/25/17 19:53 Dose: Not Given - Labs Labs: 04/25/17 04:29 04/25/17 17:28 Assessment and Plan (1) Closed head injury Status: Acute (2) Gastroenteritis Status: Acute (3) CVA (cerebral vascular accident) Status: Acute (4) Syncope Status: Acute (5) Right-sided Horta's palsy Status: Acute
[2017-04-26] MEDS: Sodium Chloride 0.9% 1,000 ML IV SCH ×2 (01:45→09:22)
[2017-04-26 04:10] LABS: CHLORIDE URINE 118 mmol/L (32-290)
[2017-04-26 06:46] LABS: BASO % 0.1 % (0.0-2.0); EOS # 0.2 K/uL (0.0-0.7); EOS % 2.2 % (0.0-4.0); HEMATOCRIT 28.7 % (34.0-47.0); LYMPH # 0.9 K/uL (1.0-4.3); LYMPH % 9.8 % (20.0-40.0); MEAN CELL VOLUME 88.8 fL (81.0-99.0); MEAN CORPUSCULAR HGB CONC 33.7 g/dL (33.0-37.0); MEAN PLATELET VOLUME 8.7 fL (7.2-11.7); MONO # 0.7 K/uL (0.0-0.8); MONO % 7.4 % (0.0-10.0); PLATELET COUNT 199 K/uL (130-400); RED CELL DISTRIBUTION WIDTH 12.8 % (11.5-14.5); WHITE BLOOD COUNT 9.6 K/uL (4.8-10.8)
[2017-04-26 07:02] LABS: ALB/GLOB RATIO 0.9 (1.0-2.1); BILIRUBIN,TOTAL 0.2 mg/dL (0.2-1.3); PHOSPHOROUS 2.4 mg/dL (2.5-4.5); TOTAL PROTEIN 6.9 g/dL (6.3-8.3)
[2017-04-26 07:03] LABS: CALCIUM 8.2 mg/dl (8.6-10.4); MAGNESIUM 1.7 mg/dL (1.6-2.3)
[2017-04-26 07:06] LABS: POTASSIUM 4.5 mmol/L (3.6-5.2)
[2017-04-26] MEDS: Insulin Detemir 100 units/ml Vial (Levemir) SC SCH (07:45)
[2017-04-26] MEDS: (Novolin R) Insulin Human Regular 100 units/ml vial SC SCH ×4 (07:45→22:26)
--- NOTE | 2017-04-26 08:16 | CP.CCUPN ---
CCU Subjective - Physician Review Subjective (Free Text): Patient seen and examined at bedside. Patient has no complaints today. Patient has had no vomiting and is tolerating breakfast. Patient denies shortness of breath, diarrhea, or constipation. Patient says she is feeling better. CCU Objective - Vital Signs / Intake & Output Vital Signs (Last 4 hours): Vital Signs Pulse Resp BP Pulse Ox 04/26/17 07:00 94 H 18 100 04/26/17 06:00 103 H 17 98 04/26/17 05:26 105 H 156/57 H 97 04/26/17 05:00 96 H 19 98 04/26/17 04:55 94 H 16 154/62 H 100 Intake and Output (Last 8hrs): Intake & Output 04/25/17 04/26/17 04/26/17 22:59 06:59 14:59 Intake Total 1520 1200 125 Output Total 1400 400 900 Balance 120 800 -775 Weight 148 lb Intake: Intake, IV Amount 1000 1000 125 Right Forearm 1000 1000 125 Oral 520 200 0 Output: Urine 1400 400 900 Urine, Voided 1400 400 900 Other: # Voids Urine, Voided 0 # Bowel Movements 0 - Physical Exam Head: Positive for: Atraumatic, Normocephalic Extroacular Muscles: Positive for: Other (right sided droop ) Conjunctiva: Positive for: Normal Mouth: Positive for: Moist Mucous Membranes Respiratory/Chest: Positive for: Clear to Auscultation, Good Air Exchange. Negative for: Accessory Muscle Use Cardiovascular: Positive for: Regular Rate and Rhythm, Normal S1, S2 Abdomen: Positive for: Tenderness, Normal Bowel Sounds Upper Extremity: Positive for: Normal Inspection Lower Extremity: Positive for: Normal Inspection. Negative for: Edema Skin: Positive for: Warm, Normal Color Psychiatric: Positive for: Alert, Oriented x 3 - Medications Active Medications: Active Medications Generic Name Dose Route Start Last Admin Trade Name Freq PRN Reason Stop Dose Admin Acetaminophen 650 mg 04/20/17 13:44 04/26/17 07:44 Tylenol 325mg Tab PO 650 mg Q8H PRN Administration Pain, Mild (1-3) Albuterol/Ipratropium 3 ml 04/25/17 08:00 04/26/17 07:20 Duoneb 3 Mg/0.5 Mg (3 Ml) Ud INH 3 ml RQ6 [facility] Administration Aspirin 81 mg 04/20/17 10:00 04/25/17 10:23 Ecotrin PO 81 mg DAILY [facility] Administration Clopidogrel Bisulfate 75 mg 04/20/17 10:00 04/25/17 10:23 Plavix PO 75 mg DAILY [facility] Administration Ergocalciferol 1 cap 04/21/17 21:30 04/21/17 21:54 Drisdol 50,000 Intl Units Cap PO 1 cap Q7D [facility] Administration Heparin Sodium (Porcine) 5,000 units 04/25/17 10:00 04/26/17 06:26 Heparin SC 5,000 units Q8 [facility] Administration Sodium Chloride 1,000 mls @ 125 mls/hr 04/24/17 09:45 04/26/17 01:45 Sodium Chloride 0.9% IV Not Given .Q8H [facility] Insulin Detemir 20 unit 04/25/17 07:30 04/26/17 07:45 Levemir SC 20 unit ACB [facility] Administration Insulin Human Regular 0 unit 04/24/17 07:30 04/26/17 07:45 Novolin R SC 6 unit ACHS [facility] Administration Protocol Losartan Potassium 25 mg 04/22/17 10:00 04/25/17 10:40 Cozaar PO 25 mg DAILY [facility] Administration Metoprolol Succinate 50 mg 04/21/17 10:28 04/25/17 10:39 Toprol Xl PO 50 mg DAILY [facility] Administration Ondansetron HCl 4 mg 04/22/17 08:59 04/24/17 02:36 Zofran Inj IVP 4 mg ONCE PRN Administration Nausea/Vomiting Pantoprazole Sodium 40 mg 04/23/17 10:00 04/25/17 10:23 Protonix Ec Tab PO 40 mg QAM [facility] Administration Polyethylene Glycol 17 gm 04/22/17 14:30 04/25/17 10:23 Miralax PO 17 gm DAILY [facility] Administration Rosuvastatin Calcium 10 mg 04/19/17 22:00 04/25/17 21:36 Crestor PO 10 mg HS [facility] Administration Fluticasone/Salmeterol 1 puff 04/20/17 10:00 04/25/17 19:53 Advair Diskus 250/50 IH Not Given RBID [facility] - Patient Studies Lab Studies: Lab Studies 04/26/17 04/26/17 04/25/17 Range/Units 06:40 06:40 21:08 WBC 9.6 (4.8-10.8) K/uL RBC 3.24 L (3.80-5.20) Mil/uL Hgb 9.7 L (11.0-16.0) g/dL Hct 28.7 L (34.0-47.0) % MCV 88.8 (81.0-99.0) fL MCH 30.0 (27.0-31.0) pg MCHC 33.7 (33.0-37.0) g/dL RDW 12.8 (11.5-14.5) % Plt Count 199 (130-400) K/uL MPV 8.7 (7.2-11.7) fL Neut % (Auto) 80.5 H (50.0-75.0) % Lymph % (Auto) 9.8 L (20.0-40.0) % [place] % (Auto) 7.4 (0.0-10.0) % Eos % (Auto) 2.2 (0.0-4.0) % Baso % (Auto) 0.1 (0.0-2.0) % Neut # 7.7 H (1.8-7.0) K/uL Lymph # 0.9 L (1.0-4.3) K/uL [place] # 0.7 (0.0-0.8) K/uL Eos # 0.2 (0.0-0.7) K/uL Baso # 0.0 (0.0-0.2) K/uL Sodium 134 (132-148) mmol/L Potassium 4.5 (3.6-5.2) mmol/L Chloride 98 (98-107) mmol/L Carbon Dioxide 28 (22-30) mmol/L Anion Gap 13 (10-20) BUN 24 H (7-17) mg/dL Creatinine 1.3 H (0.7-1.2) mg/dL Est GFR ( Amer) 48 Est GFR (Non-Af Amer) 40 POC Glucose (mg/dL) 403 H* (65-110) mg/dL Random Glucose 147 H (65-105) mg/dL Serum Osmolality (272-300) mosm/kg Calcium 8.2 L (8.6-10.4) mg/dl Phosphorus 2.4 L (2.5-4.5) mg/dL Magnesium 1.7 (1.6-2.3) mg/dL Total Bilirubin 0.2 (0.2-1.3) mg/dL AST 24 (14-36) U/L ALT 37 (9-52) U/L Alkaline Phosphatase 62 (38-126) U/L Total Protein 6.9 (6.3-8.3) g/dL Albumin 3.2 L (3.5-5.0) g/dL Globulin 3.7 (2.2-3.9) gm/dL Albumin/Globulin Ratio 0.9 L (1.0-2.1) Urine Osmolality (300-1000) mosm/kg Ur Random Sodium mmol/L Urine Chloride (32-290) mmol/L 04/25/17 04/25/17 04/25/17 Range/Units 17:28 17:28 16:27 WBC (4.8-10.8) K/uL RBC (3.80-5.20) Mil/uL Hgb (11.0-16.0) g/dL Hct (34.0-47.0) % MCV (81.0-99.0) fL MCH (27.0-31.0) pg MCHC (33.0-37.0) g/dL RDW (11.5-14.5) % Plt Count (130-400) K/uL MPV (7.2-11.7) fL Neut % (Auto) (50.0-75.0) % Lymph % (Auto) (20.0-40.0) % [place] % (Auto) (0.0-10.0) % Eos % (Auto) (0.0-4.0) % Baso % (Auto) (0.0-2.0) % Neut # (1.8-7.0) K/uL Lymph # (1.0-4.3) K/uL [place] # (0.0-0.8) K/uL Eos # (0.0-0.7) K/uL Baso # (0.0-0.2) K/uL Sodium 120 L* (132-148) mmol/L Potassium 4.5 (3.6-5.2) mmol/L Chloride 88 L (98-107) mmol/L Carbon Dioxide 25 (22-30) mmol/L Anion Gap 12 (10-20) BUN 21 H (7-17) mg/dL Creatinine 1.1 (0.7-1.2) mg/dL Est GFR ( Amer) 58 Est GFR (Non-Af Amer) 48 POC Glucose (mg/dL) 276 H (65-110) mg/dL Random Glucose 247 H (65-105) mg/dL Serum Osmolality 282 (272-300) mosm/kg Calcium 7.7 L (8.6-10.4) mg/dl Phosphorus 2.4 L (2.5-4.5) mg/dL Magnesium 1.6 (1.6-2.3) mg/dL Total Bilirubin 0.5 (0.2-1.3) mg/dL AST 19 (14-36) U/L ALT 38 (9-52) U/L Alkaline Phosphatase 69 (38-126) U/L Total Protein 6.3 (6.3-8.3) g/dL Albumin 3.3 L (3.5-5.0) g/dL Globulin 3.0 (2.2-3.9) gm/dL Albumin/Globulin Ratio 1.1 (1.0-2.1) Urine Osmolality (300-1000) mosm/kg Ur Random Sodium mmol/L Urine Chloride (32-290) mmol/L 04/25/17 04/25/17 04/25/17 Range/Units 11:10 10:14 10:14 WBC (4.8-10.8) K/uL RBC (3.80-5.20) Mil/uL Hgb (11.0-16.0) g/dL Hct (34.0-47.0) % MCV (81.0-99.0) fL MCH (27.0-31.0) pg MCHC (33.0-37.0) g/dL RDW (11.5-14.5) % Plt Count (130-400) K/uL MPV (7.2-11.7) fL Neut % (Auto) (50.0-75.0) % Lymph % (Auto) (20.0-40.0) % [place] % (Auto) (0.0-10.0) % Eos % (Auto) (0.0-4.0) % Baso % (Auto) (0.0-2.0) % Neut # (1.8-7.0) K/uL Lymph # (1.0-4.3) K/uL [place] # (0.0-0.8) K/uL Eos # (0.0-0.7) K/uL Baso # (0.0-0.2) K/uL Sodium 121 L (132-148) mmol/L Potassium 4.2 (3.6-5.2) mmol/L Chloride 87 L (98-107) mmol/L Carbon Dioxide 28 (22-30) mmol/L Anion Gap 10 (10-20) BUN 19 H (7-17) mg/dL Creatinine 1.0 (0.7-1.2) mg/dL Est GFR ( Amer) > 60 Est GFR (Non-Af Amer) 54 POC Glucose (mg/dL) 370 H (65-110) mg/dL Random Glucose 301 H (65-105) mg/dL Serum Osmolality 278 (272-300) mosm/kg Calcium 7.4 L (8.6-10.4) mg/dl Phosphorus 2.5 (2.5-4.5) mg/dL Magnesium 1.1 L (1.6-2.3) mg/dL Total Bilirubin 0.6 (0.2-1.3) mg/dL AST 18 (14-36) U/L ALT 36 (9-52) U/L Alkaline Phosphatase 66 (38-126) U/L Total Protein 5.9 L (6.3-8.3) g/dL Albumin 3.2 L (3.5-5.0) g/dL Globulin 2.8 (2.2-3.9) gm/dL Albumin/Globulin Ratio 1.1 (1.0-2.1) Urine Osmolality (300-1000) mosm/kg Ur Random Sodium mmol/L Urine Chloride (32-290) mmol/L 04/25/17 04/25/17 Range/Units 10:13 10:13 WBC (4.8-10.8) K/uL RBC (3.80-5.20) Mil/uL Hgb (11.0-16.0) g/dL Hct (34.0-47.0) % MCV (81.0-99.0) fL MCH (27.0-31.0) pg MCHC (33.0-37.0) g/dL RDW (11.5-14.5) % Plt Count (130-400) K/uL MPV (7.2-11.7) fL Neut % (Auto) (50.0-75.0) % Lymph % (Auto) (20.0-40.0) % [place] % (Auto) (0.0-10.0) % Eos % (Auto) (0.0-4.0) % Baso % (Auto) (0.0-2.0) % Neut # (1.8-7.0) K/uL Lymph # (1.0-4.3) K/uL [place] # (0.0-0.8) K/uL Eos # (0.0-0.7) K/uL Baso # (0.0-0.2) K/uL Sodium (132-148) mmol/L Potassium (3.6-5.2) mmol/L Chloride (98-107) mmol/L Carbon Dioxide (22-30) mmol/L Anion Gap (10-20) BUN (7-17) mg/dL Creatinine (0.7-1.2) mg/dL Est GFR ( Amer) Est GFR (Non-Af Amer) POC Glucose (mg/dL) (65-110) mg/dL Random Glucose (65-105) mg/dL Serum Osmolality (272-300) mosm/kg Calcium (8.6-10.4) mg/dl Phosphorus (2.5-4.5) mg/dL Magnesium (1.6-2.3) mg/dL Total Bilirubin (0.2-1.3) mg/dL AST (14-36) U/L ALT (9-52) U/L Alkaline Phosphatase (38-126) U/L Total Protein (6.3-8.3) g/dL Albumin (3.5-5.0) g/dL Globulin (2.2-3.9) gm/dL Albumin/Globulin Ratio (1.0-2.1) Urine Osmolality 483 (300-1000) mosm/kg Ur Random Sodium 128 mmol/L Urine Chloride 118 (32-290) mmol/L Laboratory Results - last 24 hr 04/25/17 04/25/17 04/25/17 10:13 10:13 10:14 WBC RBC Hgb Hct MCV MCH MCHC RDW Plt Count MPV Neut % (Auto) Lymph % (Auto) [place] % (Auto) Eos % (Auto) Baso % (Auto) Neut # Lymph # [place] # Eos # Baso # Sodium 121 L Potassium 4.2 Chloride 87 L Carbon Dioxide 28 Anion Gap 10 BUN 19 H Creatinine 1.0 Est GFR ( Amer) > 60 Est GFR (Non-Af Amer) 54 POC Glucose (mg/dL) Random Glucose 301 H Serum Osmolality Calcium 7.4 L Phosphorus 2.5 Magnesium 1.1 L Total Bilirubin 0.6 AST 18 ALT 36 Alkaline Phosphatase 66 Total Protein 5.9 L Albumin 3.2 L Globulin 2.8 Albumin/Globulin Ratio 1.1 Urine Osmolality 483 Ur Random Sodium 128 Urine Chloride 118 04/25/17 04/25/17 04/25/17 10:14 11:10 16:27 WBC RBC Hgb Hct MCV MCH MCHC RDW Plt Count MPV Neut % (Auto) Lymph % (Auto) [place] % (Auto) Eos % (Auto) Baso % (Auto) Neut # Lymph # [place] # Eos # Baso # Sodium Potassium Chloride Carbon Dioxide Anion Gap BUN Creatinine Est GFR ( Amer) Est GFR (Non-Af Amer) POC Glucose (mg/dL) 370 H 276 H Random Glucose Serum Osmolality 278 Calcium Phosphorus Magnesium Total Bilirubin AST ALT Alkaline Phosphatase Total Protein Albumin Globulin Albumin/Globulin Ratio Urine Osmolality Ur Random Sodium Urine Chloride 04/25/17 04/25/17 04/25/17 17:28 17:28 21:08 WBC RBC Hgb Hct MCV MCH MCHC RDW Plt Count MPV Neut % (Auto) Lymph % (Auto) [place] % (Auto) Eos % (Auto) Baso % (Auto) Neut # Lymph # [place] # Eos # Baso # Sodium 120 L* Potassium 4.5 Chloride 88 L Carbon Dioxide 25 Anion Gap 12 BUN 21 H Creatinine 1.1 Est GFR ( Amer) 58 Est GFR (Non-Af Amer) 48 POC Glucose (mg/dL) 403 H* Random Glucose 247 H Serum Osmolality 282 Calcium 7.7 L Phosphorus 2.4 L Magnesium 1.6 Total Bilirubin 0.5 AST 19 ALT 38 Alkaline Phosphatase 69 Total Protein 6.3 Albumin 3.3 L Globulin 3.0 Albumin/Globulin Ratio 1.1 Urine Osmolality Ur Random Sodium Urine Chloride 04/26/17 04/26/17 06:40 06:40 WBC 9.6 RBC 3.24 L Hgb 9.7 L Hct 28.7 L MCV 88.8 MCH 30.0 MCHC 33.7 RDW 12.8 Plt Count 199 MPV 8.7 Neut % (Auto) 80.5 H Lymph % (Auto) 9.8 L [place] % (Auto) 7.4 Eos % (Auto) 2.2 Baso % (Auto) 0.1 Neut # 7.7 H Lymph # 0.9 L [place] # 0.7 Eos # 0.2 Baso # 0.0 Sodium 134 Potassium 4.5 Chloride 98 Carbon Dioxide 28 Anion Gap 13 BUN 24 H Creatinine 1.3 H Est GFR ( Amer) 48 Est GFR (Non-Af Amer) 40 POC Glucose (mg/dL) Random Glucose 147 H Serum Osmolality Calcium 8.2 L Phosphorus 2.4 L Magnesium 1.7 Total Bilirubin 0.2 AST 24 ALT 37 Alkaline Phosphatase 62 Total Protein 6.9 Albumin 3.2 L Globulin 3.7 Albumin/Globulin Ratio 0.9 L Urine Osmolality Ur Random Sodium Urine Chloride Fingerstick Blood Sugar Results: 310 Review of Systems - Constitutional Constitutional: absent: Fever, Chills, Sweats - Cardiovascular Cardiovascular: Dyspnea. absent: Chest Pain, Irregular Heart Rhythm, Leg Edema - Respiratory Respiratory: absent: Cough - Gastrointestinal Gastrointestinal: absent: Abdominal Pain, Constipation, Diarrhea, Nausea, Vomiting - Genitourinary Genitourinary: absent: Difficulty Urinating - Integumentary Integumentary: absent: Rash Critical Care Progress Note - Nutrition Nutrition: Nutrition Category Date Time Status Heart Healthy Diet [DIET] Diets 04/24/17 Dinner Active Assessment/Plan - Assessment and Plan (Free Text) Assessment: 76 yo F with PMH of asthma, CVA 30 years ago(right sided droop), DM, HTN, HLD, osteoporosis, CAD/PVD, presents to [facility] s/p fall and syncopal episode and found to have hyponatremia. Today's Plan: Patient stable for transfer to med/surg floors. Plan: Neuro: Head CT (04/19): generalized atrophy, nonspecific white matter changes MRI (04/21): no acute intracranial findings Cardio: -Aspirin 81 mg po daily -Plavix 75mg po daily -Labetalol 10 mg iv q4 prn -Losartan 25mg po daily -Metoprolol Succinate 50mg po daily -Crestor 10mg po HS -Carotid duplex scan (04/21): does not suggest hemodynamically significant stenosis of the right or left extracranial carotid arteries Pulm: -Duonebs q6h -Advair diskus Nephro: hyponatremia -resolved, Na+: 134 on 04/26 -continue to monitor -d/c NS GI: CT Abd/ Pelvis (04/19): reticular nodular opacities at the lung bases. bibasilar fibrosis. bronchiectasis. no acute abdominal or pelvic pathology. Endo: hx DM -Levemir 20 u SC ACB -ISS -acchuchecks Prophylaxis: GI: Protonix 40mg po daily DVT: Heparin 5000 u sc q8h
[2017-04-26 09:11] LABS: EOSINOPHIL 3 % (0-4); NEUTROPHIL 78 % (50-75); TOTAL CELLS COUNTED 100
[2017-04-26] MEDS: Pantoprazole 40 mg EC Tab PO SCH (09:21)
[2017-04-26] MEDS: POLYETHYLENE GLYCOL 3350 17 GM/Dose PACKET PO SCH (09:21)
[2017-04-26] MEDS: Metoprolol Succinate 50 mg XL Tab PO SCH (09:21)
--- NOTE | 2017-04-26 12:41 | CARD ---
APPROVED REPORT EKG Measurement Heart [id number] <Conclusion> Normal sinus rhythm Normal ECG
[2017-04-26 13:59] VITALS: RESP 20
[2017-04-26] MEDS: Fluticasone-Salmeterol 250-50mcg Diskus IH SCH (20:06)
--- NOTE | 2017-04-26 20:36 | CP.PCM.PN ---
Subjective - Date & Time of Evaluation Date of Evaluation: 04/26/17 Time of Evaluation: 07:00 - Subjective Subjective: clinically same Objective - Vital Signs/Intake and Output Vital Signs (last 24 hours): Temp Pulse Resp BP Pulse Ox 98.2 F 94 H 20 147/66 98 04/26/17 16:00 04/26/17 16:00 04/26/17 16:00 04/26/17 16:00 04/26/17 16:00 Intake and Output: 04/26/17 04/27/17 18:59 06:59 Intake Total 1180 Output Total 1250 Balance -70 - Medications Medications: Current Medications Acetaminophen (Tylenol 325mg Tab) 650 mg PO Q8H PRN PRN Reason: Pain, Mild (1-3) Last Admin: 04/26/17 07:44 Dose: 650 mg Albuterol/Ipratropium (Duoneb 3 Mg/0.5 Mg (3 Ml) Ud) 3 ml INH RQ6 [facility] Last Admin: 04/26/17 20:06 Dose: 3 ml Aspirin (Ecotrin) 81 mg PO DAILY [facility] Last Admin: 04/26/17 09:21 Dose: 81 mg Clopidogrel Bisulfate (Plavix) 75 mg PO DAILY [facility] Last Admin: 04/26/17 09:21 Dose: 75 mg Ergocalciferol (Drisdol 50,000 Intl Units Cap) 1 cap PO Q7D [facility] Last Admin: 04/21/17 21:54 Dose: 1 cap Heparin Sodium (Porcine) (Heparin) 5,000 units SC Q8 [facility] Last Admin: 04/26/17 14:13 Dose: 5,000 units Insulin Detemir (Levemir) 30 unit SC ACB [facility] Insulin Human Regular (Novolin R) 0 unit SC ACHS [facility] PRN Reason: Protocol Last Admin: 04/26/17 17:19 Dose: 4 unit Losartan Potassium (Cozaar) 25 mg PO DAILY [facility] Last Admin: 04/26/17 09:21 Dose: 25 mg Metoprolol Succinate (Toprol Xl) 50 mg PO DAILY [facility] Last Admin: 04/26/17 09:21 Dose: 50 mg Ondansetron HCl (Zofran Inj) 4 mg IVP ONCE PRN PRN Reason: Nausea/Vomiting Last Admin: 04/24/17 02:36 Dose: 4 mg Pantoprazole Sodium (Protonix Ec Tab) 40 mg PO QAM [facility] Last Admin: 04/26/17 09:21 Dose: 40 mg Polyethylene Glycol (Miralax) 17 gm PO DAILY [facility] Last Admin: 04/26/17 09:21 Dose: 17 gm Rosuvastatin Calcium (Crestor) 10 mg PO HS [facility] Last Admin: 04/25/17 21:36 Dose: 10 mg Fluticasone/Salmeterol (Advair Diskus 250/50) 1 puff IH RBID [facility] Last Admin: 04/26/17 20:06 Dose: Not Given - Labs Labs: 04/26/17 06:40 04/26/17 06:40 - Constitutional Appears: Well - Head Exam Head Exam: ATRAUMATIC, NORMAL INSPECTION, NORMOCEPHALIC - Eye Exam Eye Exam: EOMI, Normal appearance, PERRL Pupil Exam: NORMAL ACCOMODATION, PERRL - ENT Exam ENT Exam: Mucous Membranes Moist, Normal Exam - Neck Exam Neck Exam: Full ROM, Normal Inspection. absent: Lymphadenopathy - Respiratory Exam Respiratory Exam: Decreased Breath Sounds - Cardiovascular Exam Cardiovascular Exam: REGULAR RHYTHM, +S1, +S2 - GI/Abdominal Exam GI & Abdominal Exam: Soft, Diminished Bowel Sounds - Rectal Exam Rectal Exam: Deferred Assessment and Plan (1) CVA (cerebral vascular accident) Status: Acute (2) Closed head injury Status: Acute (3) Hyponatremia Status: Acute (4) Right-sided Horta's palsy Status: Acute (5) Syncope Status: Acute (6) Gastroenteritis Status: Acute - Assessment and Plan (Free Text) Plan: Patient examined. Patient better. Continue aspirin and clopidogrel. Continue antihypertensive and antidiabetic medications. Bronchodilator. Continue supportive care.
--- NOTE | 2017-04-27 00:44 | CP.PCM.PN ---
Subjective - Date & Time of Evaluation Date of Evaluation: 04/26/17 Time of Evaluation: 21:00 - Subjective Subjective: Her Na and Chloride are back to normal. She was transferred to the floor and is awake, alert, oriented. She is receiving Vitamin D 50,000 unit/week and Oscal 500 mg BID. Objective - Vital Signs/Intake and Output Vital Signs (last 24 hours): Temp Pulse Resp BP Pulse Ox 98 F 94 H 20 155/71 H 99 04/27/17 00:00 04/27/17 00:00 04/27/17 00:00 04/27/17 00:00 04/27/17 00:00 Intake and Output: 04/26/17 04/27/17 18:59 06:59 Intake Total 1180 180 Output Total 1250 Balance -70 180 - Medications Medications: Current Medications Acetaminophen (Tylenol 325mg Tab) 650 mg PO Q8H PRN PRN Reason: Pain, Mild (1-3) Last Admin: 04/26/17 21:52 Dose: 650 mg Albuterol/Ipratropium (Duoneb 3 Mg/0.5 Mg (3 Ml) Ud) 3 ml INH RQ6 [facility] Last Admin: 04/26/17 20:06 Dose: 3 ml Aspirin (Ecotrin) 81 mg PO DAILY [facility] Last Admin: 04/26/17 09:21 Dose: 81 mg Clopidogrel Bisulfate (Plavix) 75 mg PO DAILY [facility] Last Admin: 04/26/17 09:21 Dose: 75 mg Ergocalciferol (Drisdol 50,000 Intl Units Cap) 1 cap PO Q7D [facility] Last Admin: 04/21/17 21:54 Dose: 1 cap Heparin Sodium (Porcine) (Heparin) 5,000 units SC Q8 [facility] Last Admin: 04/26/17 21:52 Dose: 5,000 units Insulin Detemir (Levemir) 30 unit SC ACB [facility] Insulin Human Regular (Novolin R) 0 unit SC ACHS [facility] PRN Reason: Protocol Last Admin: 04/26/17 22:26 Dose: Not Given Losartan Potassium (Cozaar) 25 mg PO DAILY [facility] Last Admin: 04/26/17 09:21 Dose: 25 mg Metoprolol Succinate (Toprol Xl) 50 mg PO DAILY [facility] Last Admin: 04/26/17 09:21 Dose: 50 mg Ondansetron HCl (Zofran Inj) 4 mg IVP ONCE PRN PRN Reason: Nausea/Vomiting Last Admin: 04/26/17 20:36 Dose: 4 mg Pantoprazole Sodium (Protonix Ec Tab) 40 mg PO QAM [facility] Last Admin: 04/26/17 09:21 Dose: 40 mg Polyethylene Glycol (Miralax) 17 gm PO DAILY [facility] Last Admin: 04/26/17 09:21 Dose: 17 gm Rosuvastatin Calcium (Crestor) 10 mg PO HS [facility] Last Admin: 04/26/17 21:54 Dose: 10 mg Fluticasone/Salmeterol (Advair Diskus 250/50) 1 puff IH RBID [facility] Last Admin: 04/26/17 20:06 Dose: Not Given - Labs Labs: 04/26/17 06:40 04/26/17 06:40 Assessment and Plan (1) Closed head injury Status: Acute (2) Gastroenteritis Status: Acute (3) CVA (cerebral vascular accident) Status: Acute (4) Syncope Status: Acute (5) Right-sided Horta's palsy Status: Acute (6) Hyponatremia Assessment & Plan: She recovered from Hyponatremia after being admitted to the ICU. She is back to Normal. Status: Acute
[2017-04-27] MEDS: Albuterol-Ipratrop 3 mg / 0.5 (3 ml) UD INH SCH ×4 (01:55→19:29)
[2017-04-27 07:57] LABS: BASO % 0.3 % (0.0-2.0); EOS # 0.3 K/uL (0.0-0.7); EOS % 2.9 % (0.0-4.0); HEMATOCRIT 31.2 % (34.0-47.0); LYMPH # 1.3 K/uL (1.0-4.3); LYMPH % 12.6 % (20.0-40.0); MEAN CELL VOLUME 90.1 fL (81.0-99.0); MEAN CORPUSCULAR HEMOGLOBIN 30.5 pg (27.0-31.0); MEAN CORPUSCULAR HGB CONC 33.9 g/dL (33.0-37.0); MEAN PLATELET VOLUME 8.1 fL (7.2-11.7); MONO % 9.2 % (0.0-10.0); NRBC % 0.1 % (0.0-2.0); WHITE BLOOD COUNT 10.5 K/uL (4.8-10.8)
[2017-04-27] MEDS: Fluticasone-Salmeterol 250-50mcg Diskus IH SCH ×2 (08:07→19:29)
[2017-04-27 08:38] LABS: CALCIUM 8.4 mg/dl (8.6-10.4); PHOSPHOROUS 2.8 mg/dL (2.5-4.5); POTASSIUM 4.7 mmol/L (3.6-5.2)
[2017-04-27 08:39] LABS: ALB/GLOB RATIO 1.3 (1.0-2.1); BILIRUBIN,TOTAL 0.6 mg/dL (0.2-1.3); MAGNESIUM 1.2 mg/dL (1.6-2.3); TOTAL PROTEIN 6.5 g/dL (6.3-8.3)
[2017-04-27] MEDS: Insulin Detemir 100 units/ml Vial (Levemir) SC SCH (08:48)
[2017-04-27] MEDS: (Novolin R) Insulin Human Regular 100 units/ml vial SC SCH ×3 (08:49→22:13)
[2017-04-27] MEDS: POLYETHYLENE GLYCOL 3350 17 GM/Dose PACKET PO SCH (10:46)
[2017-04-27] MEDS: Pantoprazole 40 mg EC Tab PO SCH (10:46)
[2017-04-27] MEDS: Magnesium Sulfate 1 gm in D5W 1 GM/100 ML BAG IVPB SCH ×2 (10:46→11:52)
[2017-04-27] MEDS: Metoprolol Succinate 50 mg XL Tab PO SCH (12:16)
--- NOTE | 2017-04-27 18:15 | CP.PCM.PN ---
<Jamir Arteaga - Last Filed: 04/27/17 18:08> Subjective - Date & Time of Evaluation Date of Evaluation: 04/27/17 Time of Evaluation: 18:08 - Subjective Subjective: Patient seen and examined at bedside Doing well with no complaints at this time ambulating dependently to and from the bathroom Objective - Vital Signs/Intake and Output Vital Signs (last 24 hours): Temp Pulse Resp BP Pulse Ox 98.9 F 95 H 20 140/65 97 04/27/17 15:00 04/27/17 15:00 04/27/17 15:00 04/27/17 15:00 04/27/17 15:00 Intake and Output: 04/27/17 04/27/17 06:59 18:59 Intake Total 180 440 Balance 180 440 - Medications Medications: Current Medications Acetaminophen (Tylenol 325mg Tab) 650 mg PO Q6H PRN PRN Reason: Pain, Mild (1-3) Albuterol/Ipratropium (Duoneb 3 Mg/0.5 Mg (3 Ml) Ud) 3 ml INH RQ6 [facility] Last Admin: 04/27/17 13:33 Dose: 3 ml Aspirin (Ecotrin) 81 mg PO DAILY [facility] Last Admin: 04/27/17 10:46 Dose: 81 mg Clopidogrel Bisulfate (Plavix) 75 mg PO DAILY [facility] Last Admin: 04/27/17 10:46 Dose: 75 mg Ergocalciferol (Drisdol 50,000 Intl Units Cap) 1 cap PO Q7D [facility] Last Admin: 04/21/17 21:54 Dose: 1 cap Heparin Sodium (Porcine) (Heparin) 5,000 units SC Q8 [facility] Last Admin: 04/27/17 14:47 Dose: 5,000 units Insulin Detemir (Levemir) 30 unit SC ACB [facility] Last Admin: 04/27/17 08:48 Dose: 30 unit Insulin Human Regular (Novolin R) 0 unit SC ACHS [facility] PRN Reason: Protocol Last Admin: 04/27/17 12:00 Dose: 10 unit Losartan Potassium (Cozaar) 50 mg PO DAILY [facility] Metoprolol Succinate (Toprol Xl) 50 mg PO DAILY [facility] Last Admin: 04/27/17 12:16 Dose: 50 mg Ondansetron HCl (Zofran Inj) 4 mg IVP ONCE PRN PRN Reason: Nausea/Vomiting Last Admin: 04/26/17 20:36 Dose: 4 mg Pantoprazole Sodium (Protonix Ec Tab) 40 mg PO QAM [facility] Last Admin: 04/27/17 10:46 Dose: 40 mg Polyethylene Glycol (Miralax) 17 gm PO DAILY [facility] Last Admin: 04/27/17 10:46 Dose: 17 gm Rosuvastatin Calcium (Crestor) 10 mg PO HS [facility] Last Admin: 04/26/17 21:54 Dose: 10 mg Fluticasone/Salmeterol (Advair Diskus 250/50) 1 puff IH RBID [facility] Last Admin: 04/27/17 08:07 Dose: 1 puff - Labs Labs: 04/27/17 07:49 04/27/17 07:49 - Additional Findings Additional findings: - Constitutional Appears: Non-toxic - Head Exam Head Exam: NORMAL INSPECTION - Eye Exam Eye Exam: Normal appearance - ENT Exam ENT Exam: Mucous Membranes Dry - Neck Exam Neck Exam: Full ROM, Normal Inspection - Respiratory Exam Respiratory Exam: NORMAL BREATHING PATTERN - Cardiovascular Exam Cardiovascular Exam: REGULAR RHYTHM - GI/Abdominal Exam GI & Abdominal Exam: Soft, Tenderness (mild epigastric), Normal Bowel Sounds. absent: Guarding, Rigid - Extremities Exam Extremities Exam: Full ROM - Back Exam Back Exam: NORMAL INSPECTION - Neurological Exam Neurological Exam: Alert - Psychiatric Exam Psychiatric exam: Normal Mood - Skin Skin Exam: Dry Assessment and Plan - Assessment and Plan (Free Text) Assessment: Hyponatremia * Mental status at baseline * Na 128 * Nephro Reccs Syncope * Neuro (Na) * 2/2 to dehydration * CT brain and MRI negative for new pathology * blood and urine culture negative Abdominal pain * gastroparesis vs gastritis * zofran for nausea DM * Levemir 30 SC Q8 * ISS High HTN * metoprolol * Losartan * PRN hydralazine <Halima Chakraborty V - Last Filed: 04/27/17 21:13> Objective - Vital Signs/Intake and Output Vital Signs (last 24 hours): Temp Pulse Resp BP Pulse Ox 98.9 F 95 H 20 140/65 97 04/27/17 15:00 04/27/17 15:00 04/27/17 15:00 04/27/17 15:00 04/27/17 15:00 Intake and Output: 04/27/17 04/28/17 18:59 06:59 Intake Total 440 Balance 440 - Medications Medications: Current Medications Acetaminophen (Tylenol 325mg Tab) 650 mg PO Q6H PRN PRN Reason: Pain, Mild (1-3) Albuterol/Ipratropium (Duoneb 3 Mg/0.5 Mg (3 Ml) Ud) 3 ml INH RQ6 [facility] Last Admin: 04/27/17 19:29 Dose: 3 ml Aspirin (Ecotrin) 81 mg PO DAILY [facility] Last Admin: 04/27/17 10:46 Dose: 81 mg Clopidogrel Bisulfate (Plavix) 75 mg PO DAILY [facility] Last Admin: 04/27/17 10:46 Dose: 75 mg Ergocalciferol (Drisdol 50,000 Intl Units Cap) 1 cap PO Q7D [facility] Last Admin: 04/21/17 21:54 Dose: 1 cap Heparin Sodium (Porcine) (Heparin) 5,000 units SC Q8 [facility] Last Admin: 04/27/17 14:47 Dose: 5,000 units Insulin Detemir (Levemir) 30 unit SC ACB [facility] Last Admin: 04/27/17 08:48 Dose: 30 unit Insulin Human Regular (Novolin R) 0 unit SC ACHS [facility] PRN Reason: Protocol Losartan Potassium (Cozaar) 50 mg PO DAILY [facility] Metoprolol Succinate (Toprol Xl) 50 mg PO DAILY [facility] Last Admin: 04/27/17 12:16 Dose: 50 mg Ondansetron HCl (Zofran Inj) 4 mg IVP ONCE PRN PRN Reason: Nausea/Vomiting Last Admin: 04/26/17 20:36 Dose: 4 mg Pantoprazole Sodium (Protonix Ec Tab) 40 mg PO QAM [facility] Last Admin: 04/27/17 10:46 Dose: 40 mg Polyethylene Glycol (Miralax) 17 gm PO DAILY [facility] Last Admin: 04/27/17 10:46 Dose: 17 gm Rosuvastatin Calcium (Crestor) 10 mg PO HS [facility] Last Admin: 04/26/17 21:54 Dose: 10 mg Fluticasone/Salmeterol (Advair Diskus 250/50) 1 puff IH RBID [facility] Last Admin: 04/27/17 19:29 Dose: 1 puff - Labs Labs: 04/27/17 07:49 04/27/17 07:49 Attending/Attestation - Attestation I have personally seen and examined this patient.: Yes I have fully participated in the care of the patient.: Yes I have reviewed all pertinent clinical information, including history, physical exam and plan: Yes Notes (Text): Patient seen, examined and case discussed with day-time resident. Patient transferred out from the ICU yesterday evening following correction of hyponatremia. Patient seen this morning. Reports mild headache which resolved with tylenol, denies nausea, denies vomitting, and is unsure when her last bowel movement. Magnesium repleted doay Physical therapy reconsulted today Assessment/Plan 1.Severe Hyponatremia * Patient is awake and oriented and no mental status changes * on 04/23: Na: 107 * Given Hypteronic bolus X1 on 04/24, attempted salt tabs on 04/24 * Given Samsca on 04/25 * NS 125 cc/hr until 14 AM * Sodium today: 128 * Emory Platt (nephrology on the case)-->help appreciated 2.Syncope * CT brain and MRI negative for new pathology * Blood culture (04/29): no growth after 5 days X2 * urine culture (04/29) contaminated * Neurology consult, Dr Monzon, on board--> help appreciate * likely 2/2 to dehydration * Cartoid normal * Echo: LVH EF: 70% 3.Abdominal pain,nausea vomitting-->resolved * GI (Dr. Blanchard) on board-->help appreciated * Signed off 04/23/17 * Ct Abdomen/Pelvis negative for acute pathology 4.Uncontrolled DM * On home insulin, poor intake,we will increase insulin as needed * Levemir 30 units ACB * RISS * Accuchecks QAC and HS * [employer] referral * Hgba1c: 12.3 5.HTN * Increase Cozaar 50mg PO daily * Toprol xl 50mg PO daily 6.Hyperlipidemia * Crestor 10mg POqHS 7.Hx of prior CVA * CT brain and MRI negative for new pathology * Aspirin 81mg PO daily * Plavix 75mg PO daily * Crestor 10mg POqHS * Blood pressure control * monitor and optimize sugars 8.bells palsy 9. Hx of asthma * Duonebs PRN shortness of breathe * Advair 250/50 1 inhaled BID 10 DVT and GI prophylaxis * Protonix 40mg PO daily * Heparin 5000 units [id number] * Reconsult PT * [employer] [employer] referral Disposition: patient is possible discharge tomorrow pending sodium level. Will f /u nephrology if patient will need Samsca or not. Follow-up PT regarding evaluation.
--- NOTE | 2017-04-27 20:04 | CP.PCM.PN ---
Subjective - Date & Time of Evaluation Date of Evaluation: 04/27/17 Time of Evaluation: 07:20 - Subjective Subjective: clinically same Objective - Vital Signs/Intake and Output Vital Signs (last 24 hours): Temp Pulse Resp BP Pulse Ox 98.9 F 95 H 20 140/65 97 04/27/17 15:00 04/27/17 15:00 04/27/17 15:00 04/27/17 15:00 04/27/17 15:00 Intake and Output: 04/27/17 04/28/17 18:59 06:59 Intake Total 440 Balance 440 - Medications Medications: Current Medications Acetaminophen (Tylenol 325mg Tab) 650 mg PO Q6H PRN PRN Reason: Pain, Mild (1-3) Albuterol/Ipratropium (Duoneb 3 Mg/0.5 Mg (3 Ml) Ud) 3 ml INH RQ6 [facility] Last Admin: 04/27/17 19:29 Dose: 3 ml Aspirin (Ecotrin) 81 mg PO DAILY [facility] Last Admin: 04/27/17 10:46 Dose: 81 mg Clopidogrel Bisulfate (Plavix) 75 mg PO DAILY [facility] Last Admin: 04/27/17 10:46 Dose: 75 mg Ergocalciferol (Drisdol 50,000 Intl Units Cap) 1 cap PO Q7D [facility] Last Admin: 04/21/17 21:54 Dose: 1 cap Heparin Sodium (Porcine) (Heparin) 5,000 units SC Q8 [facility] Last Admin: 04/27/17 14:47 Dose: 5,000 units Insulin Detemir (Levemir) 30 unit SC ACB [facility] Last Admin: 04/27/17 08:48 Dose: 30 unit Insulin Human Regular (Novolin R) 0 unit SC ACHS [facility] PRN Reason: Protocol Losartan Potassium (Cozaar) 50 mg PO DAILY [facility] Metoprolol Succinate (Toprol Xl) 50 mg PO DAILY [facility] Last Admin: 04/27/17 12:16 Dose: 50 mg Ondansetron HCl (Zofran Inj) 4 mg IVP ONCE PRN PRN Reason: Nausea/Vomiting Last Admin: 04/26/17 20:36 Dose: 4 mg Pantoprazole Sodium (Protonix Ec Tab) 40 mg PO QAM [facility] Last Admin: 04/27/17 10:46 Dose: 40 mg Polyethylene Glycol (Miralax) 17 gm PO DAILY [facility] Last Admin: 04/27/17 10:46 Dose: 17 gm Rosuvastatin Calcium (Crestor) 10 mg PO HS [facility] Last Admin: 04/26/17 21:54 Dose: 10 mg Fluticasone/Salmeterol (Advair Diskus 250/50) 1 puff IH RBID [facility] Last Admin: 04/27/17 19:29 Dose: 1 puff - Labs Labs: 04/27/17 07:49 04/27/17 07:49 - Constitutional Appears: Well - Head Exam Head Exam: ATRAUMATIC, NORMAL INSPECTION, NORMOCEPHALIC - Eye Exam Eye Exam: EOMI, Normal appearance, PERRL Pupil Exam: NORMAL ACCOMODATION, PERRL - ENT Exam ENT Exam: Mucous Membranes Moist, Normal Exam - Neck Exam Neck Exam: Full ROM, Normal Inspection. absent: Lymphadenopathy - Respiratory Exam Respiratory Exam: Decreased Breath Sounds - Cardiovascular Exam Cardiovascular Exam: REGULAR RHYTHM, +S1, +S2 - GI/Abdominal Exam GI & Abdominal Exam: Soft, Diminished Bowel Sounds - Rectal Exam Rectal Exam: Deferred Assessment and Plan (1) CVA (cerebral vascular accident) Status: Acute (2) Closed head injury Status: Acute (3) Hyponatremia Status: Acute (4) Right-sided Horta's palsy Status: Acute (5) Syncope Status: Acute (6) Gastroenteritis Status: Acute - Assessment and Plan (Free Text) Plan: Patient examined. Patient better. Continue aspirin and clopidogrel. Continue antihypertensive and antidiabetic medications. Continue bronchodilator. Continue supportive care.
--- NOTE | 2017-04-27 23:41 | CP.PCM.PN ---
Subjective - Date & Time of Evaluation Date of Evaluation: 04/27/17 Time of Evaluation: 18:50 - Subjective Subjective: She is improving and walking, horta's Palsy needs PT. Na level is back to normal Objective - Vital Signs/Intake and Output Vital Signs (last 24 hours): Temp Pulse Resp BP Pulse Ox 98.9 F 95 H 20 140/65 97 04/27/17 15:00 04/27/17 15:00 04/27/17 15:00 04/27/17 15:00 04/27/17 15:00 Intake and Output: 04/27/17 04/28/17 18:59 06:59 Intake Total 440 700 Balance 440 700 - Medications Medications: Current Medications Acetaminophen (Tylenol 325mg Tab) 650 mg PO Q6H PRN PRN Reason: Pain, Mild (1-3) Albuterol/Ipratropium (Duoneb 3 Mg/0.5 Mg (3 Ml) Ud) 3 ml INH RQ6 [facility] Last Admin: 04/27/17 19:29 Dose: 3 ml Aspirin (Ecotrin) 81 mg PO DAILY [facility] Last Admin: 04/27/17 10:46 Dose: 81 mg Clopidogrel Bisulfate (Plavix) 75 mg PO DAILY [facility] Last Admin: 04/27/17 10:46 Dose: 75 mg Ergocalciferol (Drisdol 50,000 Intl Units Cap) 1 cap PO Q7D [facility] Last Admin: 04/21/17 21:54 Dose: 1 cap Heparin Sodium (Porcine) (Heparin) 5,000 units SC Q8 [facility] Last Admin: 04/27/17 21:24 Dose: 5,000 units Insulin Detemir (Levemir) 30 unit SC ACB [facility] Last Admin: 04/27/17 08:48 Dose: 30 unit Insulin Human Regular (Novolin R) 0 unit SC ACHS [facility] PRN Reason: Protocol Last Admin: 04/27/17 22:13 Dose: 2 unit Losartan Potassium (Cozaar) 50 mg PO DAILY [facility] Metoprolol Succinate (Toprol Xl) 50 mg PO DAILY [facility] Last Admin: 04/27/17 12:16 Dose: 50 mg Ondansetron HCl (Zofran Inj) 4 mg IVP ONCE PRN PRN Reason: Nausea/Vomiting Last Admin: 04/26/17 20:36 Dose: 4 mg Pantoprazole Sodium (Protonix Ec Tab) 40 mg PO QAM [facility] Last Admin: 04/27/17 10:46 Dose: 40 mg Polyethylene Glycol (Miralax) 17 gm PO DAILY [facility] Last Admin: 04/27/17 10:46 Dose: 17 gm Rosuvastatin Calcium (Crestor) 10 mg PO HS [facility] Last Admin: 04/27/17 21:24 Dose: 10 mg Fluticasone/Salmeterol (Advair Diskus 250/50) 1 puff IH RBID [facility] Last Admin: 04/27/17 19:29 Dose: 1 puff - Labs Labs: 04/27/17 07:49 04/27/17 07:49 Assessment and Plan (1) Closed head injury Status: Acute (2) Gastroenteritis Status: Acute (3) CVA (cerebral vascular accident) Status: Acute (4) Syncope Status: Acute (5) Right-sided Horta's palsy Status: Acute (6) Hyponatremia Status: Acute
[2017-04-28] MEDS: Albuterol-Ipratrop 3 mg / 0.5 (3 ml) UD INH SCH ×4 (01:56→19:19)
[2017-04-28] MEDS: Fluticasone-Salmeterol 250-50mcg Diskus IH SCH ×2 (07:12→19:19)
[2017-04-28] MEDS: Insulin Detemir 100 units/ml Vial (Levemir) SC SCH (08:44)
[2017-04-28] MEDS: (Novolin R) Insulin Human Regular 100 units/ml vial SC SCH ×4 (08:45→21:43)
[2017-04-28 08:48] LABS: BASO % 0.2 % (0.0-2.0); EOS # 0.2 K/uL (0.0-0.7); EOS % 2.4 % (0.0-4.0); LYMPH # 1.9 K/uL (1.0-4.3); LYMPH % 20.2 % (20.0-40.0); MEAN CELL VOLUME 89.1 fL (81.0-99.0); MEAN CORPUSCULAR HEMOGLOBIN 30.2 pg (27.0-31.0); MEAN CORPUSCULAR HGB CONC 33.8 g/dL (33.0-37.0); MEAN PLATELET VOLUME 8.1 fL (7.2-11.7); MONO # 0.8 K/uL (0.0-0.8); MONO % 8.5 % (0.0-10.0); RED CELL DISTRIBUTION WIDTH 12.8 % (11.5-14.5); WHITE BLOOD COUNT 9.5 K/uL (4.8-10.8)
--- NOTE | 2017-04-28 08:52 | CP.PCM.PN ---
Subjective - Date & Time of Evaluation Date of Evaluation: 04/28/17 Time of Evaluation: 07:20 - Subjective Subjective: clinically same Objective - Vital Signs/Intake and Output Vital Signs (last 24 hours): Temp Pulse Resp BP Pulse Ox 98.6 F 67 20 134/68 97 04/28/17 07:44 04/28/17 07:44 04/28/17 07:44 04/28/17 07:44 04/28/17 07:44 Intake and Output: 04/28/17 04/28/17 06:59 18:59 Intake Total 900 Balance 900 - Medications Medications: Current Medications Acetaminophen (Tylenol 325mg Tab) 650 mg PO Q6H PRN PRN Reason: Pain, Mild (1-3) Last Admin: 04/28/17 03:16 Dose: 650 mg Albuterol/Ipratropium (Duoneb 3 Mg/0.5 Mg (3 Ml) Ud) 3 ml INH RQ6 [facility] Last Admin: 04/28/17 07:12 Dose: 3 ml Aspirin (Ecotrin) 81 mg PO DAILY [facility] Last Admin: 04/27/17 10:46 Dose: 81 mg Clopidogrel Bisulfate (Plavix) 75 mg PO DAILY [facility] Last Admin: 04/27/17 10:46 Dose: 75 mg Ergocalciferol (Drisdol 50,000 Intl Units Cap) 1 cap PO Q7D [facility] Last Admin: 04/21/17 21:54 Dose: 1 cap Heparin Sodium (Porcine) (Heparin) 5,000 units SC Q8 [facility] Last Admin: 04/28/17 06:40 Dose: Not Given Insulin Detemir (Levemir) 30 unit SC ACB [facility] Last Admin: 04/28/17 08:44 Dose: 30 unit Insulin Human Regular (Novolin R) 0 unit SC ACHS [facility] PRN Reason: Protocol Last Admin: 04/28/17 08:45 Dose: 4 unit Losartan Potassium (Cozaar) 50 mg PO DAILY [facility] Metoprolol Succinate (Toprol Xl) 50 mg PO DAILY [facility] Last Admin: 04/27/17 12:16 Dose: 50 mg Ondansetron HCl (Zofran Inj) 4 mg IVP ONCE PRN PRN Reason: Nausea/Vomiting Last Admin: 04/26/17 20:36 Dose: 4 mg Pantoprazole Sodium (Protonix Ec Tab) 40 mg PO QAM [facility] Last Admin: 04/27/17 10:46 Dose: 40 mg Polyethylene Glycol (Miralax) 17 gm PO DAILY [facility] Last Admin: 04/27/17 10:46 Dose: 17 gm Rosuvastatin Calcium (Crestor) 10 mg PO HS [facility] Last Admin: 04/27/17 21:24 Dose: 10 mg Fluticasone/Salmeterol (Advair Diskus 250/50) 1 puff IH RBID [facility] Last Admin: 04/28/17 07:12 Dose: 1 puff - Labs Labs: 04/27/17 07:49 04/27/17 07:49 - Constitutional Appears: Well - Head Exam Head Exam: ATRAUMATIC, NORMAL INSPECTION, NORMOCEPHALIC - Eye Exam Eye Exam: EOMI, Normal appearance, PERRL Pupil Exam: NORMAL ACCOMODATION, PERRL - ENT Exam ENT Exam: Mucous Membranes Moist, Normal Exam - Neck Exam Neck Exam: Full ROM, Normal Inspection. absent: Lymphadenopathy - Respiratory Exam Respiratory Exam: Decreased Breath Sounds - Cardiovascular Exam Cardiovascular Exam: REGULAR RHYTHM, +S1, +S2 - GI/Abdominal Exam GI & Abdominal Exam: Soft, Diminished Bowel Sounds - Rectal Exam Rectal Exam: Deferred Assessment and Plan - Assessment and Plan (Free Text) Plan: Samsca 15 mg once a day check CMP daily Controlled nausea vomiting and pain Patient may need a neurology consultations for occasional twitching Patient care discussed with the staff and the residents med reviewed
[2017-04-28 09:20] LABS: ALB/GLOB RATIO 1.2 (1.0-2.1); BILIRUBIN,TOTAL 0.7 mg/dL (0.2-1.3); CALCIUM 8.7 mg/dl (8.6-10.4); MAGNESIUM 1.5 mg/dL (1.6-2.3); PHOSPHOROUS 3.3 mg/dL (2.5-4.5); POTASSIUM 4.9 mmol/L (3.6-5.2)
[2017-04-28] MEDS ORDERED: Magnesium Sulfate 1 gm in D5W 1 GM/100 ML BAG IVPB ONE ×2 (10:00→17:28)
[2017-04-28] MEDS: POLYETHYLENE GLYCOL 3350 17 GM/Dose PACKET PO SCH (10:43)
[2017-04-28] MEDS: Pantoprazole 40 mg EC Tab PO SCH (10:43)
[2017-04-28] MEDS: Metoprolol Succinate 50 mg XL Tab PO SCH (10:55)
[2017-04-28] MEDS: Simethicone 40 mg/0.6 ml Liquid (30 ml) PO SCH ×4 (10:59→21:42)
[2017-04-28] MEDS ORDERED: Insulin Detemir 100 units/ml Vial (Levemir) SC SCH (12:52)
--- NOTE | 2017-04-28 13:44 | CP.PCM.PN ---
<Jamir Arteaga - Last Filed: 04/28/17 13:46> Subjective - Date & Time of Evaluation Date of Evaluation: 04/28/17 Time of Evaluation: 13:44 - Subjective Subjective: Patient seen and examined Doing well with no complaints at this time unable to ambulate due primarily to weakness. PT will continue to work with her Objective - Vital Signs/Intake and Output Vital Signs (last 24 hours): Temp Pulse Resp BP Pulse Ox 98.6 F 67 20 134/68 97 04/28/17 07:44 04/28/17 07:44 04/28/17 07:44 04/28/17 07:44 04/28/17 07:44 Intake and Output: 04/28/17 04/28/17 06:59 18:59 Intake Total 900 Balance 900 - Medications Medications: Current Medications Acetaminophen (Tylenol 325mg Tab) 650 mg PO Q6H PRN PRN Reason: Pain, Mild (1-3) Last Admin: 04/28/17 03:16 Dose: 650 mg Albuterol/Ipratropium (Duoneb 3 Mg/0.5 Mg (3 Ml) Ud) 3 ml INH RQ6 [facility] Last Admin: 04/28/17 13:26 Dose: 3 ml Aspirin (Ecotrin) 81 mg PO DAILY [facility] Last Admin: 04/28/17 10:43 Dose: 81 mg Clopidogrel Bisulfate (Plavix) 75 mg PO DAILY [facility] Last Admin: 04/28/17 10:43 Dose: 75 mg Ergocalciferol (Drisdol 50,000 Intl Units Cap) 1 cap PO Q7D [facility] Last Admin: 04/21/17 21:54 Dose: 1 cap Insulin Detemir (Levemir) 40 unit SC ACB TITO Insulin Human Regular (Novolin R) 0 unit SC ACHS [facility] PRN Reason: Protocol Last Admin: 04/28/17 12:21 Dose: 12 unit Losartan Potassium (Cozaar) 50 mg PO DAILY [facility] Last Admin: 04/28/17 10:47 Dose: 50 mg Metoprolol Succinate (Toprol Xl) 50 mg PO DAILY [facility] Last Admin: 04/28/17 10:55 Dose: 50 mg Ondansetron HCl (Zofran Inj) 4 mg IVP ONCE PRN PRN Reason: Nausea/Vomiting Last Admin: 04/26/17 20:36 Dose: 4 mg Pantoprazole Sodium (Protonix Ec Tab) 40 mg PO QAM [facility] Last Admin: 04/28/17 10:43 Dose: 40 mg Polyethylene Glycol (Miralax) 17 gm PO DAILY [facility] Last Admin: 04/28/17 10:43 Dose: 17 gm Rosuvastatin Calcium (Crestor) 10 mg PO HS [facility] Last Admin: 04/27/17 21:24 Dose: 10 mg Fluticasone/Salmeterol (Advair Diskus 250/50) 1 puff IH RBID [facility] Last Admin: 04/28/17 07:12 Dose: 1 puff Simethicone (Mylicon Liq) 40 mg PO QID [facility] Last Admin: 04/28/17 10:59 Dose: 0.6 ml - Labs Labs: 04/28/17 08:38 04/28/17 08:38 - Constitutional Appears: Well, Non-toxic, No Acute Distress - Head Exam Head Exam: ATRAUMATIC, NORMAL INSPECTION, NORMOCEPHALIC - Eye Exam Eye Exam: EOMI Pupil Exam: NORMAL ACCOMODATION - ENT Exam ENT Exam: Mucous Membranes Moist - Respiratory Exam Respiratory Exam: Clear to Ausculation Bilateral, NORMAL BREATHING PATTERN - Cardiovascular Exam Cardiovascular Exam: REGULAR RHYTHM - GI/Abdominal Exam GI & Abdominal Exam: Soft, Normal Bowel Sounds. absent: Distended, Tenderness - Extremities Exam Extremities Exam: absent: Joint Swelling, Tenderness - Back Exam Back Exam: absent: CVA tenderness (L), CVA tenderness (R) - Neurological Exam Neurological Exam: Alert, Awake, Oriented x3 Neuro motor strength exam: Left Upper Extremity: 5, Right Upper Extremity: 5, Left Lower Extremity: 5, Right Lower Extremity: 5 - Psychiatric Exam Psychiatric exam: Normal Affect, Normal Mood - Skin Skin Exam: Dry, Intact, Normal Color, Warm - Additional Findings Additional findings: - Constitutional Appears: Non-toxic - Head Exam Head Exam: NORMAL INSPECTION - Eye Exam Eye Exam: Normal appearance - ENT Exam ENT Exam: Mucous Membranes Dry - Neck Exam Neck Exam: Full ROM, Normal Inspection - Respiratory Exam Respiratory Exam: NORMAL BREATHING PATTERN - Cardiovascular Exam Cardiovascular Exam: REGULAR RHYTHM - GI/Abdominal Exam GI & Abdominal Exam: Soft, Tenderness (mild epigastric), Normal Bowel Sounds. absent: Guarding, Rigid - Extremities Exam Extremities Exam: Full ROM - Back Exam Back Exam: NORMAL INSPECTION - Neurological Exam Neurological Exam: Alert - Psychiatric Exam Psychiatric exam: Normal Mood - Skin Skin Exam: Dry Assessment and Plan - Assessment and Plan (Free Text) Assessment: Hyponatremia * Mental status at baseline * Nephro Reccs Syncope * Neuro (Na) * 2/2 to dehydration * CT brain and MRI negative for new pathology * blood and urine culture negative Abdominal pain * gastroparesis vs gastritis * zofran for nausea DM * Levemir 30 SC Q8 * ISS High HTN * metoprolol * Losartan * PRN hydralazine Dispo: Patient medically stable. Needs to work with PT until she is safe to d/c home. Spoke with PT so they will continue to work with her. No insurance so she can not go to [facility]. <Halima Chakraborty V - Last Filed: 04/28/17 22:04> Objective - Vital Signs/Intake and Output Vital Signs (last 24 hours): Temp Pulse Resp BP Pulse Ox 98.7 F 100 H 20 125/66 99 04/28/17 16:00 04/28/17 16:00 04/28/17 16:00 04/28/17 16:00 04/28/17 16:00 Intake and Output: 04/28/17 04/29/17 18:59 06:59 Intake Total 300 Balance 300 - Medications Medications: Current Medications Acetaminophen (Tylenol 325mg Tab) 650 mg PO Q6H PRN PRN Reason: Pain, Mild (1-3) Last Admin: 04/28/17 15:07 Dose: 650 mg Albuterol/Ipratropium (Duoneb 3 Mg/0.5 Mg (3 Ml) Ud) 3 ml INH RQ6 [facility] Last Admin: 04/28/17 19:19 Dose: 3 ml Aspirin (Ecotrin) 81 mg PO DAILY [facility] Last Admin: 04/28/17 10:43 Dose: 81 mg Clopidogrel Bisulfate (Plavix) 75 mg PO DAILY [facility] Last Admin: 04/28/17 10:43 Dose: 75 mg Ergocalciferol (Drisdol 50,000 Intl Units Cap) 1 cap PO Q7D [facility] Last Admin: 04/28/17 21:44 Dose: 1 cap Insulin Detemir (Levemir) 40 unit SC ACB TITO Insulin Human Regular (Novolin R) 0 unit SC ACHS [facility] PRN Reason: Protocol Last Admin: 04/28/17 21:43 Dose: Not Given Losartan Potassium (Cozaar) 50 mg PO DAILY [facility] Last Admin: 04/28/17 10:47 Dose: 50 mg Magnesium Oxide (Mag-Ox) 400 mg PO DAILY [facility] Metoprolol Succinate (Toprol Xl) 50 mg PO DAILY [facility] Last Admin: 04/28/17 10:55 Dose: 50 mg Ondansetron HCl (Zofran Inj) 4 mg IVP ONCE PRN PRN Reason: Nausea/Vomiting Last Admin: 04/26/17 20:36 Dose: 4 mg Pantoprazole Sodium (Protonix Ec Tab) 40 mg PO QAM [facility] Last Admin: 04/28/17 10:43 Dose: 40 mg Rosuvastatin Calcium (Crestor) 10 mg PO HS [facility] Last Admin: 04/28/17 21:44 Dose: 10 mg Fluticasone/Salmeterol (Advair Diskus 250/50) 1 puff IH RBID [facility] Last Admin: 04/28/17 19:19 Dose: 1 puff Simethicone (Mylicon Liq) 40 mg PO QID [facility] Last Admin: 04/28/17 21:42 Dose: 0.6 ml - Labs Labs: 04/28/17 08:38 04/28/17 18:00 Attending/Attestation - Attestation I have personally seen and examined this patient.: Yes I have fully participated in the care of the patient.: Yes I have reviewed all pertinent clinical information, including history, physical exam and plan: Yes Notes (Text): Patient seen, examined and case discussed with day-time resident. Patient seen this morning. Patient reports she does not feel, and had abdominal pain. Patient cannot recall when she had last bowel movement. No family present during my initial. Discussed with nurse, Sandi regarding family's concern for mother. Physical therapy to continue to work with the patient given unsteady. CONTINUOUS WELD PIPE MILL SUPERVISOR called in the afternoon; please refer to details in the CONTINUOUS WELD PIPE MILL SUPERVISOR note. Discussed with family, including 2 daughters, grandson-Nguyễn, and grandson's girlfriend who helped to explained patient's hospitalization as to why the patient remains at the hospital, including gait impairment, uncontrolled sugars, and the event from this afternoon possible new onset, focal seizure. All questions answered to best of knowledge in regards to family's questions. Ordered for repeat serum osmolarity, urine osmolarity, and urine sodium and repeat BMP at 22:00 endorsed to my night colleague and resident on night to follow-up. Nephrology has no recommendations at this time. Discussed with nurse, Delaney, in regards to change patient to telemetry bed given onset seizure, seizure precautions and neurochecks for the patient. Assessment/Plan 1.Severe Hyponatremia * Patient is awake and oriented and no mental status changes * This evening, appears to have focal seizure involving left mouth and eye; resolved on its own; given Ativan 1mg IVX1. witnessed by nursing, daughter, and myself at the CONTINUOUS WELD PIPE MILL SUPERVISOR. * on 04/23: Na: 107 (lowest) prompting further management in the ICU and was stablized and brought to the floors on 04/25 * Given Hypteronic bolus X1 on 04/24, attempted salt tabs on 04/24, Given Samsca on 04/25 * Sodium today: 127 this morning, on repeat 124 * ordered for serum osmolarity, urine osmolarity, urine sodium for this evening with repeat BMP at 22:00 * Emory Platt (nephrology on the case)-->help appreciated 2.Syncope * CT brain and MRI negative for new pathology * Blood culture (04/29): no growth after 5 days X2 * urine culture (04/29) contaminated * Neurology consult, Dr Monzon, on board--> help appreciate * likely 2/2 to dehydration * Cartoid normal * Echo: LVH EF: 70% 3.Abdominal pain,nausea vomitting-->resolved * GI (Dr. Blanchard) on board-->help appreciated * Signed off 04/23/17 * Ct Abdomen/Pelvis negative for acute pathology 4.Uncontrolled DM * On home insulin, poor intake,we will increase insulin as needed * Increased Levemir 40 units ACB given patient's sugars uncontrolled * RISS * Accuchecks QAC and HS * Filteration Operator referral-->seen patient on 04/26; recommended for Yasmani blanco * Ordered for health promotion educator for further diabetes education; also provided source of [employer] for educational information available in both [place] and [place]; family is aware that diabetes management is chronic condition that will need to continue even after hospital stay * Hgba1c: 12.3 5.HTN * Increase Cozaar 50mg PO daily * Toprol xl 50mg PO daily 6.Hyperlipidemia * Crestor 10mg POqHS 7.Hx of prior CVA * CT brain and MRI negative for new pathology * Aspirin 81mg PO daily * Plavix 75mg PO daily * Crestor 10mg POqHS * Blood pressure control * monitor and optimize sugars 8.[place] palsy (right side of face) 9. Hx of asthma * Duonebs PRN shortness of breathe * Advair 250/50 1 inhaled BID 10 DVT and GI prophylaxis * Protonix 40mg PO daily * Heparin 5000 units [id number] * Reconsult PT * Filteration Operator referral Disposition: Patient will need to continue working with Physical therapy. Given new onset seizure, transferred placed to telemetry, awaiting bed, seizure precautions, and neurochecks. Follow-up blood work and urine studies to monitor sodium.
--- NOTE | 2017-04-28 15:07 | CP.PCM.PN ---
Subjective - Date & Time of Evaluation Date of Evaluation: 04/28/17 Time of Evaluation: 15:06 - Subjective Subjective: There is more improvement and she is talking. However her Gait still needs more training. Objective - Vital Signs/Intake and Output Vital Signs (last 24 hours): Temp Pulse Resp BP Pulse Ox 98.6 F 67 20 134/68 97 04/28/17 07:44 04/28/17 07:44 04/28/17 07:44 04/28/17 07:44 04/28/17 07:44 Intake and Output: 04/28/17 04/28/17 06:59 18:59 Intake Total 900 Balance 900 - Medications Medications: Current Medications Acetaminophen (Tylenol 325mg Tab) 650 mg PO Q6H PRN PRN Reason: Pain, Mild (1-3) Last Admin: 04/28/17 03:16 Dose: 650 mg Albuterol/Ipratropium (Duoneb 3 Mg/0.5 Mg (3 Ml) Ud) 3 ml INH RQ6 [facility] Last Admin: 04/28/17 13:26 Dose: 3 ml Aspirin (Ecotrin) 81 mg PO DAILY [facility] Last Admin: 04/28/17 10:43 Dose: 81 mg Clopidogrel Bisulfate (Plavix) 75 mg PO DAILY [facility] Last Admin: 04/28/17 10:43 Dose: 75 mg Ergocalciferol (Drisdol 50,000 Intl Units Cap) 1 cap PO Q7D [facility] Last Admin: 04/21/17 21:54 Dose: 1 cap Insulin Detemir (Levemir) 40 unit SC ACB TITO Insulin Human Regular (Novolin R) 0 unit SC ACHS TITO PRN Reason: Protocol Last Admin: 04/28/17 12:21 Dose: 12 unit Losartan Potassium (Cozaar) 50 mg PO DAILY [facility] Last Admin: 04/28/17 10:47 Dose: 50 mg Metoprolol Succinate (Toprol Xl) 50 mg PO DAILY [facility] Last Admin: 04/28/17 10:55 Dose: 50 mg Ondansetron HCl (Zofran Inj) 4 mg IVP ONCE PRN PRN Reason: Nausea/Vomiting Last Admin: 04/26/17 20:36 Dose: 4 mg Pantoprazole Sodium (Protonix Ec Tab) 40 mg PO QAM [facility] Last Admin: 04/28/17 10:43 Dose: 40 mg Polyethylene Glycol (Miralax) 17 gm PO DAILY [facility] Last Admin: 04/28/17 10:43 Dose: 17 gm Rosuvastatin Calcium (Crestor) 10 mg PO HS [facility] Last Admin: 04/27/17 21:24 Dose: 10 mg Fluticasone/Salmeterol (Advair Diskus 250/50) 1 puff IH RBID [facility] Last Admin: 04/28/17 07:12 Dose: 1 puff Simethicone (Mylicon Liq) 40 mg PO QID [facility] Last Admin: 04/28/17 14:14 Dose: 0.6 ml - Labs Labs: 04/28/17 08:38 04/28/17 08:38 Assessment and Plan (1) Closed head injury Status: Acute (2) Gastroenteritis Status: Acute (3) CVA (cerebral vascular accident) Status: Acute (4) Syncope Status: Acute (5) Right-sided Horta's palsy Status: Acute (6) Hyponatremia Status: Acute
--- NOTE | 2017-04-28 17:55 | PCM.RRT ---
<Jamir Arteaga - Last Filed: 04/28/17 17:52> DISTRIBUTION CENTER SUPERVISOR Nurses Assessment - Situation Date: 04/28/17 Time DISTRIBUTION CENTER SUPERVISOR was called: 17:07 DISTRIBUTION CENTER SUPERVISOR Location:: 3T Med/Oncology Room Number: 371B DISTRIBUTION CENTER SUPERVISOR Called By: RN - IV IV Inserted during DISTRIBUTION CENTER SUPERVISOR?: No New IV Insertion Tolerance: Good - Respiratory [employer]RIBUT[employer] CENTER SUPERVISOR Delivery Method: Nasal Cannula @L/min, Non Rebreather @% Received Nebulizer Treatments: No Was the Patient Ventilated with Bag/Mask 100% O2?: No Secretions Suctioned?: No Was the Patient Intubated?: No - Ventilator Settings SAO2 %: 98 - Diagnostic Test Ordered EKG: No Chest X-Ray: No CT Scan: No - Stat Labs Ordered [employer]RIBUT[employer] CENTER SUPERVISOR Other Labs Ordered: Prolactin CPR started during DISTRIBUTION CENTER SUPERVISOR?: No - Vital Signs Vital Signs: T 98.7 HR 100 BP 125/66 - [place] Coma Scale Coma Scale Eye Opening: Spontaneous Coma Scale Motor: Obeys Commands Movement Coma Scale Verbal: Oriented Coma Scale Total: 15 - Time DISTRIBUTION CENTER SUPERVISOR Ended Time DISTRIBUTION CENTER SUPERVISOR Ended: 17:15 - Vital Signs at end of DISTRIBUTION CENTER SUPERVISOR Vital Signs at end of DISTRIBUTION CENTER SUPERVISOR: T 98 HR 100 BP 125/66 - Recommendations 5) DISTRIBUTION CENTER SUPERVISOR Level of Care Recommendations: Remain in current setting Notifications: Consultations (Na) <Halima Chakraborty V - Last Filed: 04/28/17 19:17> DISTRIBUTION CENTER SUPERVISOR Nurses Assessment - Vital Signs Vital Signs: Rapid Response Vital Sign Blood Pressure 139/81 Pulse Rate 99 Respiratory Rate 20 Temperature 98.4 F Oxygen Saturation 99 - Vital Signs at end of DISTRIBUTION CENTER SUPERVISOR Vital Signs at end of DISTRIBUTION CENTER SUPERVISOR: Rapid Response End Vital Sign Blood Pressure 136/80 Pulse Rate 94 Respiratory Rate 20 Temperature 98.2 F O2 Sat by Pulse Oximetry 99 - Constitutional Appears: Non-toxic, No Acute Distress - Head Head Exam: NORMAL INSPECTION - Eyes Eye Exam: EOMI - Respiratory Exam Respiratory Exam: NORMAL BREATHING PATTERN - Cardiovascular Exam Cardiovascular Exam: REGULAR RHYTHM, +S1, +S2 - GI/Abdominal Exam GI & Abdominal Exam: Soft, Normal Bowel Sounds. absent: Distended, Firm, Guarding, Rigid, Tenderness, Rebound - Neurological Exam Neurological Exam: Alert, Awake Additional exam: Responded to DISTRIBUTION CENTER SUPERVISOR called this afternoon. patient has witness spasm over the left side of facing involving the corner of the mouth and involves eye involuntary twitching which lasted for couple of seconds which resolved on its own. 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 Patient given Ativan 1mg IVX1. Repeat BMP, Mg2+, Prolactin , and EEG ordered at time of rapid. Resident Abadier called neurology, Dr. Monzon , on the case given this new finding. Strength intact 5/5 upper and lower extremities Reacts to commands, to name and face +gag reflex. Patient seen with daughter in the room at time of the DISTRIBUTION CENTER SUPERVISOR. I spoke with family at bedside including patient's two daughters, patient's grandson's Nguyễn, and patient's girlfriend regarding patient's hospitalization. I have explained up this point what has been done in regards to patient's etiology for syncope including hyponatremia; which was at severe level which required ICU monitoring and was stabilized as of two days ago after treatment with 3% saline, samsca, and NS IV fluids. Patient's sugars are attempted to be optimized. Explained that patient's a1c: 12.3 is an average over the past 3 months reflecting that the sugar is uncontrolled. patient's daughter at bedside affirms patient sees her primary care doctor frequently because of her uncontrolled diabetes. Explained patient is ordered for heart healthy, low carb diet; and has been evaluated by turbine assembler as well. Patient's insulin is being adjusted given that it ranges 400s in the morning; is being given long-acting in the AM, and is being given coverage insulin during the gi. I have also explained that patient has received imaging including CT scan head, Brain MRI, cartoid doppler, and echocardiogram in the course of finding the etiology of patient's syncope/fall at home. I have also explained that prior to this event and associated sodium drop, patient is working with the physical therapist given her gait is unsteady and PT has been working with the patient prior to this event. I have spoken with nurse, Delaney and explained the BMP labs to the family as well. We will repeat the lab at 22:00, I have put in a transfer to telemetry given new onset seizure, with neurochecks, and seizure precautions and we will follow-up with nephrology to see what recommendations are needed. ] - Extremities Exam Extremities Exam: absent: Pedal Edema, Tenderness Attending/Attestation - Attestation I have personally seen and examined this patient.: Yes I have fully participated in the care of the patient.: Yes I have reviewed all pertinent clinical information, including history, physical exam and plan: Yes
[2017-04-28 18:19] LABS: ALB/GLOB RATIO 0.9 (1.0-2.1); BILIRUBIN,TOTAL 0.3 mg/dL (0.2-1.3); CALCIUM 8.6 mg/dl (8.6-10.4); PHOSPHOROUS 3.4 mg/dL (2.5-4.5); POTASSIUM 4.8 mmol/L (3.6-5.2); TOTAL PROTEIN 7.5 g/dL (6.3-8.3)
[2017-04-28] MEDS ORDERED: Tolvaptan 15 MG TAB PO STA (20:18)
[2017-04-28] MEDS: Ergocalciferol 50,000 Intl Units Cap PO SCH (21:44)
[2017-04-28 22:56] LABS: CALCIUM 8.5 mg/dl (8.6-10.4); POTASSIUM 4.8 mmol/L (3.6-5.2)
[2017-04-29] MEDS: Albuterol-Ipratrop 3 mg / 0.5 (3 ml) UD INH SCH ×2 (01:51→08:21)
[2017-04-29] MEDS ORDERED: Sodium Chloride 0.9% 1,000 ML IV SCH (02:30)
[2017-04-29] MEDS: Magnesium Oxide 400 mg Tab UD PO SCH ×2 (05:08→11:24)
[2017-04-29 07:57] VITALS: BP 127/53; PULSE 97; TEMP 98.3; O2SAT 95
[2017-04-29] MEDS: Fluticasone-Salmeterol 250-50mcg Diskus IH SCH (08:22)
[2017-04-29 08:32] LABS: MAGNESIUM 1.9 mg/dL (1.6-2.3)
[2017-04-29 08:33] LABS: ALB/GLOB RATIO 1.2 (1.0-2.1); BILIRUBIN,TOTAL 0.7 mg/dL (0.2-1.3); CALCIUM 8.6 mg/dl (8.6-10.4); POTASSIUM 5.8 mmol/L (3.6-5.2); TOTAL PROTEIN 6.1 g/dL (6.3-8.3)
[2017-04-29] MEDS: (Novolin R) Insulin Human Regular 100 units/ml vial SC SCH (09:09)
[2017-04-29] MEDS ORDERED: Tolvaptan 15 MG TAB PO SCH (10:00)
[2017-04-29] MEDS: Metoprolol Succinate 50 mg XL Tab PO SCH (11:25)
[2017-04-29] MEDS: Pantoprazole 40 mg EC Tab PO SCH (11:25)
[2017-04-29] MEDS: Simethicone 40 mg/0.6 ml Liquid (30 ml) PO SCH (11:25)
--- NOTE | 2017-04-29 13:19 | CP.PCM.DIS ---
Provider - Provider Date of Admission: 04/19/17 17:05 Attending physician: Halima Chakraborty DO Consults: Nephro: Platt Time Spent in preparation of Discharge (in minutes): 45 Hospital Course - Lab Results Lab Results: Micro Results 04/26/17 12:01 Naris MRSA Culture - Final MRSA NOT DETECTED 04/19/17 20:15 Blood Blood Culture - Final NO GROWTH AFTER 5 DAYS 04/19/17 20:15 Blood Gram Stain - Final TEST NOT PERFORMED 04/19/17 20:15 Blood Blood Culture - Final NO GROWTH AFTER 5 DAYS 04/19/17 20:15 Blood Gram Stain - Final TEST NOT PERFORMED 04/23/17 11:40 Naris MRSA Culture (Admit) - Final MRSA NOT DETECTED 04/19/17 19:00 Urine Urine Culture - Final 10-50,000 CFU/ML. MULTIPLE SPECIES. PROBABLE CONTAMINATION. Most Recent Lab Values WBC 9.5 K/uL (4.8-10.8) 04/28/17 08:38 RBC 3.47 Mil/uL (3.80-5.20) L 04/28/17 08:38 Hgb 10.5 g/dL (11.0-16.0) L 04/28/17 08:38 Hct 31.0 % (34.0-47.0) L 04/28/17 08:38 MCV 89.1 fL (81.0-99.0) 04/28/17 08:38 MCH 30.2 pg (27.0-31.0) 04/28/17 08:38 MCHC 33.8 g/dL (33.0-37.0) 04/28/17 08:38 RDW 12.8 % (11.5-14.5) 04/28/17 08:38 Plt Count 280 K/uL (130-400) 04/28/17 08:38 MPV 8.1 fL (7.2-11.7) 04/28/17 08:38 Neut % (Auto) 68.7 % (50.0-75.0) 04/28/17 08:38 Lymph % (Auto) 20.2 % (20.0-40.0) 04/28/17 08:38 [place] % (Auto) 8.5 % (0.0-10.0) 04/28/17 08:38 Eos % (Auto) 2.4 % (0.0-4.0) 04/28/17 08:38 Baso % (Auto) 0.2 % (0.0-2.0) 04/28/17 08:38 Neut # 6.5 K/uL (1.8-7.0) 04/28/17 08:38 Lymph # 1.9 K/uL (1.0-4.3) 04/28/17 08:38 [place] # 0.8 K/uL (0.0-0.8) 04/28/17 08:38 Eos # 0.2 K/uL (0.0-0.7) 04/28/17 08:38 Baso # 0.0 K/uL (0.0-0.2) 04/28/17 08:38 Neutrophils % (Manual) 78 % (50-75) H 04/26/17 06:40 Band Neutrophils % 2 % (0-2) 04/26/17 06:40 Lymphocytes % (Manual) 11 % (20-40) L 04/26/17 06:40 Reactive Lymphs % 6 % (0-0) H 04/24/17 05:37 Monocytes % (Manual) 6 % (0-10) 04/26/17 06:40 Eosinophils % (Manual) 3 % (0-4) 04/26/17 06:40 Toxic Granulation Present 04/24/17 05:37 Platelet Estimate Normal (NORMAL) 04/26/17 06:40 Polychromasia Slight 04/26/17 06:40 Hypochromasia (manual) Slight 04/26/17 06:40 Anisocytosis (manual) Slight 04/24/17 05:37 Microcytosis (manual) Slight 04/24/17 05:37 ESR 50 mm/hr (0-20) H 04/21/17 06:51 Sodium 130 mmol/L (132-148) L 04/29/17 08:02 Potassium 5.8 mmol/L (3.6-5.2) H 04/29/17 08:02 Chloride 93 mmol/L (98-107) L 04/29/17 08:02 Carbon Dioxide 28 mmol/L (22-30) 04/29/17 08:02 Anion Gap 14 (10-20) 04/29/17 08:02 BUN 36 mg/dL (7-17) H 04/29/17 08:02 Creatinine 1.2 mg/dL (0.7-1.2) 04/29/17 08:02 Est GFR ( Amer) 53 04/29/17 08:02 Est GFR (Non-Af Amer) 44 04/29/17 08:02 POC Glucose (mg/dL) 204 mg/dL (65-110) H 04/29/17 11:29 Random Glucose 187 mg/dL (65-105) H 04/29/17 08:02 Hemoglobin A1c 12.3 % (4.2-6.5) H 04/21/17 06:51 Serum Osmolality 309 mosm/kg (272-300) H 04/29/17 08:02 Uric Acid 5.2 mg/dL (2.2-7.5) 04/21/17 06:51 Calcium 8.6 mg/dl (8.6-10.4) 04/29/17 08:02 Phosphorus 3.4 mg/dL (2.5-4.5) 04/28/17 18:00 Magnesium 1.9 mg/dL (1.6-2.3) 04/29/17 08:02 Total Bilirubin 0.7 mg/dL (0.2-1.3) 04/29/17 08:02 AST 35 U/L (14-36) 04/29/17 08:02 ALT 53 U/L (9-52) H 04/29/17 08:02 Alkaline Phosphatase 74 U/L (38-126) 04/29/17 08:02 Total Creatine Kinase 48 U/L (30-135) 04/21/17 06:51 CK-MB (Mass) 0.32 ng/mL (0.0-3.38) 04/21/17 06:51 Troponin I < 0.0120 ng/mL (0.00-0.120) 04/19/17 15:18 Troponin I, Quant < 0.0120 ng/mL (0.00-0.120) 04/21/17 06:51 C-React Prot High Sens 1.87 mg/L (1.00-3.00) 04/21/17 06:51 NT-Pro-B Natriuret Pep 1810 pg/mL (0-900) H 04/23/17 15:53 Total Protein 6.1 g/dL (6.3-8.3) L 04/29/17 08:02 Albumin 3.4 g/dL (3.5-5.0) L 04/29/17 08:02 Globulin 2.8 gm/dL (2.2-3.9) 04/29/17 08:02 Albumin/Globulin Ratio 1.2 (1.0-2.1) 04/29/17 08:02 Triglycerides 92 mg/dL (0-149) 04/21/17 06:51 Cholesterol 114 mg/dL (0-199) 04/21/17 06:51 LDL Cholesterol Direct 61 mg/dL (0-129) 04/21/17 06:51 HDL Cholesterol 39 mg/dL (30-70) 04/21/17 06:51 Lipase 100 U/L (23-300) 04/20/17 07:02 Vitamin B2 17.7 nmol/L (6.2-39.0) 04/21/17 06:51 25-OH Vitamin D Total 22.9 NG/ML (30.0-100.0) L 04/28/17 18:43 Folate 11.5 ng/mL 04/21/17 06:51 TSH 3rd Generation 1.69 mIU/L (0.46-4.68) 04/21/17 06:51 Prolactin 7.5 ng/mL (3.0-18.9) 04/28/17 17:40 Urine Color Straw (YELLOW) 04/23/17 12:58 Urine Clarity Clear (Clear) 04/23/17 12:58 Urine pH 7.0 (5.0-8.0) 04/23/17 12:58 Ur Specific [place] 1.009 (1.003-1.030) 04/23/17 12:58 Urine Protein 2+ mg/dL (NEGATIVE) H 04/23/17 12:58 Urine Glucose (UA) 3+ mg/dL (Normal) H 04/23/17 12:58 Urine Ketones Trace mg/dL (NEGATIVE) 04/23/17 12:58 Urine Blood 1+ (NEGATIVE) H 04/23/17 12:58 Urine Nitrate Negative (NEGATIVE) 04/23/17 12:58 Urine Bilirubin Negative (NEGATIVE) 04/23/17 12:58 Urine Urobilinogen Normal mg/dL (0.2-1.0) 04/23/17 12:58 Ur Leukocyte Esterase Neg [place]/uL (Negative) 04/23/17 12:58 Urine WBC (Auto) 1 /hpf (0-5) 04/23/17 12:58 Urine RBC (Auto) 4 /hpf (0-3) H 04/23/17 12:58 Ur Squamous Epith Cells < 1 /hpf (0-5) 04/23/17 12:58 Calcium Oxalate Crystal Rare /hpf (<OCC) 04/19/17 18:47 Urine Bacteria Rare (<OCC) 04/19/17 18:47 Urine Osmolality 179 mosm/kg (300-1000) L 04/29/17 04:46 Ur Random Creatinine 23.9 mg/dL 04/23/17 12:58 Ur Random Sodium 44 mmol/L 04/29/17 04:46 Urine Chloride 118 mmol/L (32-290) 04/25/17 10:13 Stool Occult Blood Negative (NEGATIVE) 04/22/17 20:23 Serum Ketones Negative (NEGATIVE) 04/19/17 15:18 NADIA 6 Profile Negative (NEGATIVE) 04/21/17 06:51 - Hospital Course Hospital Course: On Admission: This patient is a 76 year old female with a PMHx of Asthma, CVA (30 years ago), Diabetes, HTN, Hypercholesterolemia, Osteoporosis, CKD, pneumonia. Who presented to the ED with complaints of abdominal pain with vomiting, syncopal episode, and fall. Patient was very lethargic so history was taken from daughter and friend. They stated that she sat down on the bed, passed out, fell forward, and hit her forehead. She was unconscious for a couple minutes. When she woke up she was lethargic. They deny any urinary or bowel incontinence or tongue biting. They stated before this syncopal event, the patient complained of abdominal pain associated with non-blood vomiting and diarrhea. The daughter claims that her stool was black. Patient had green banana and cheese for breakfast. 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 The patient had a sodium of 107 and was sent to the ICU. Nephro was consulted. She was slowly replaced with 3% saline as well as given tolvaptan. Her blood glucose was also high at this time in the 400s. The patients sodium continue to rise to a normal level. The patient was clinically improving at this time and was transferred to the floor. Here the patient was seen by physical therapy that stated she was unable to get out of bed to walk. That day she began to exhibit some facial twitching that may have been seizure activity. A PHARMACY CUSTOMER CARE SPECIALIST was called and ativan was given. The neurologist was notified right after the incident. the next day the family stated she was unhappy with the care she was receiving at the hospital and asked to be transferred to another hospital. I explained that transfer to another hospital would be unlikely given that the services she needed for proper care were available at this hospital. I explained this to the family members. They insisted on leaving AMA so i explained the risks of leaving the hospital given the patients condition. They insisted on leaving the hospital at that time. All risks were discussed and the family and patient expressed understanding. Discharge Exam - Head Exam Head Exam: ATRAUMATIC, NORMAL INSPECTION, NORMOCEPHALIC - Eye Exam Pupil Exam: NORMAL ACCOMODATION - ENT Exam ENT Exam: Mucous Membranes Moist - Respiratory Exam Respiratory Exam: Clear to PA & Lateral, UNREMARKABLE - GI/Abdominal Exam GI & Abdominal Exam: Normal Bowel Sounds, Soft. absent: Distended, Tenderness - Neurological Exam Neurological exam: Alert, Oriented x3 Additional comments: facial droop Discharge Plan - Follow Up Plan Condition: SERIOUS Disposition: AGAINST MEDICAL ADVICE
--- NOTE | 2017-04-30 | CP.PCM.PN ---
Subjective - Date & Time of Evaluation Date of Evaluation: 04/29/17 Time of Evaluation: 14:00 - Subjective Subjective: She left the hospital AMA by her family after having a brief spell of Left Facial Twitches and calling [employer]. Objective - Vital Signs/Intake and Output Vital Signs (last 24 hours): Temp Pulse Resp BP Pulse Ox 98.3 F 97 H 20 127/53 L 95 04/29/17 07:00 04/29/17 07:00 04/29/17 07:00 04/29/17 07:00 04/29/17 07:00 - Labs Labs: 04/28/17 08:38 04/29/17 08:02 Assessment and Plan (1) Closed head injury Status: Acute (2) Gastroenteritis Status: Acute (3) CVA (cerebral vascular accident) Status: Acute (4) Syncope Status: Acute (5) Right-sided Horta's palsy Status: Acute (6) Hyponatremia Status: Acute
== END 2017-04-29 14:04 | disposition left against medical advice (07) | DRG 551 ==
LOC: C.ER 14:30 → C.9E 17:05 → C.6T 17:44 → C.9I 04-23 09:56 → C.7T 04-26 12:30 → C.3T 04-26 12:30 → C.5S 04-29 01:25
PROVIDERS: ADMIT Hospitalist; ATTEND Hospitalist
DX: A08.4 Viral intestinal infection, unspecified (principal); I50.30 Unspecified diastolic (congestive) heart failure; E11.22 Type 2 diabetes mellitus with diabetic chronic kidney disease; I13.0 Hypertensive heart and chronic kidney disease with heart failure and stage 1 through stage 4 chronic kidney disease, or unspecified chronic kidney disease; E87.1 Hypo-osmolality and hyponatremia; S06.9X1A Unspecified intracranial injury with loss of consciousness of 30 minutes or less, initial encounter; E11.43 Type 2 diabetes mellitus with diabetic autonomic (poly)neuropathy; E11.65 Type 2 diabetes mellitus with hyperglycemia; K92.1 Melena; N18.9 Chronic kidney disease, unspecified; K31.84 Gastroparesis; E86.0 Dehydration; Z79.4 Long term (current) use of insulin; E78.00 Pure hypercholesterolemia, unspecified; M81.0 Age-related osteoporosis without current pathological fracture; J45.909 Unspecified asthma, uncomplicated; R55 Syncope and collapse; Z86.73 Personal history of transient ischemic attack (TIA), and cerebral infarction without residual deficits; Z87.891 Personal history of nicotine dependence; K59.09 Other constipation; K21.9 Gastro-esophageal reflux disease without esophagitis; I25.10 Atherosclerotic heart disease of native coronary artery without angina pectoris; I16.0 Hypertensive urgency; I70.209 Unspecified atherosclerosis of native arteries of extremities, unspecified extremity; J47.9 Bronchiectasis, uncomplicated; G51.0 Bell's palsy; W18.39XA Other fall on same level, initial encounter

== ENCOUNTER 2017-04-29 13:56 | Inpatient (IN) | payer OTHER ==
[2017-04-29 13:57] VITALS: BMI 27.6
--- NOTE | 2017-04-29 14:03 | C.PDOC ---
History Of Present Illness Patient presents via EMS. Granddaughter provides history who states pt was discharged from the hospital this morning. Daughter reports noticing twitching in her face and extremities, and facial droop, yesterday and worsening this morning. Daughter also reports the patient has been complaining of a headache since yesterday. Time Seen by Provider: 04/29/17 14:01 Chief Complaint (Nursing): Weakness/Neurological Deficit History Per: EMS, Family History/Exam Limitations: clinical condition Onset/Duration Of Symptoms: Days Current Symptoms Are (Timing): Still Present Seizure Or Post-ictal Symptoms: None Fall Associated With With Symptoms: No Recent travel outside of the [place]: No Past Medical History Reviewed: Historical Data, Nursing Documentation, Vital Signs Vital Signs: Last Vital Signs Temp 99.3 F 04/30/17 23:25 Pulse 92 H 04/30/17 23:25 Resp 20 04/30/17 23:25 BP 166/75 H 04/30/17 23:25 Pulse Ox 99 05/01/17 01:54 - Medical History PMH: Arthritis (osteoporosis; back pain), Asthma, CVA, Diabetes (?), HTN, Hypercholesterolemia, Osteoporosis, Chronic Kidney Disease Surgical History: Cholecystectomy, Family History: States: Unknown Family Hx - Social History Hx Tobacco Use: No Hx Alcohol Use: No Hx Substance Use: No - Immunization History Hx Tetanus Toxoid Vaccination: Yes Hx Influenza Vaccination: Yes Hx Pneumococcal Vaccination: Yes Review Of Systems Review Of Systems: ROS cannot be obtained secondary to pt's inabilty to answer questions. Physical Exam - Physical Exam Appears: Non-toxic, No Acute Distress Skin: Warm, Dry Head: Atraumatic, Normacephalic Eye(s): bilateral: Normal Inspection Chest: Symmetrical, No Tenderness Cardiovascular: Rhythm Regular, No Murmur Respiratory: Normal Breath Sounds, No Rales, No Rhonchi, No Wheezing Gastrointestinal/Abdominal: Soft, No Tenderness, No Guarding, No Rebound Back: Normal Inspection Extremity: Normal ROM Neurological/Psych: Other (R sided facial droop. Does not spare the forehead. ) ED Course And Treatment - Laboratory Results Result Diagrams: 04/30/17 06:27 04/30/17 06:27 O2 Sat by Pulse Oximetry: 99 Critical Care Time - Critical Care Note Total Time (in mins): 60 Documented critical care: time excludes all time spent performing seperately billable procedures. NIHSS Stroke Scale - Date/Time Evaluation Performed Date Performed: 04/29/17 Time Performed: 13:55 - How Severe is the Stoke Level of Consciousness: 0=Alert LOC to Questions: 0=Both comments correct LOC to commands: 0=Obeys both correctly Best Gaze: 0=Normal Visual: 0=No visual loss Facial: 3=Complete unilateral paralysis Motor Arm - Left: 0=No drift Motor Arm - Right: 0=No drift Motor Leg - Left: 0=No drift Motor Leg - Right: 0=No drift Limb Ataxia: 0=Absent Sensory: 0=Normal Best Language: 0=No aphasia Dysarthia: 0=Normal articulation Extinction & Inattention (Neglect): 0=Normal, no object Score: 3 Severity Of Stroke: 1-4= Minor Stroke Medical Decision Making Medical Decision Making: ecg- sinus tach 104, nl int, no acute ischemia ativan given for recurrent partial seizures while in the ED consulted both ICU Dr Platt and neuro Dr Henao who eval the pt in the ED Disposition - Disposition Disposition: HOSPITALIZED Disposition Time: 17:29 Condition: SERIOUS - Clinical Impression Clinical Impression: UTI (urinary tract infection), Sepsis, Horta palsy, Partial seizure, Hyponatremia - Scribe Statement The provider has reviewed the documentation as recorded by the Scribe SM All medical record entries made by the Scribe were at my direction and personally dictated by me. I have reviewed the chart and agree that the record accurately reflects my personal performance of the history, physical exam, medical decision making, and the department course for this patient. I have also personally directed, reviewed, and agree with the discharge instructions and disposition.
[2017-04-29] MEDS ORDERED: Lactated Ringer's 1,000 ML IV ONE (14:06)
--- NOTE | 2017-04-29 14:20 | CT ---
PROCEDURE: CT HEAD WITHOUT CONTRAST. HISTORY: Code Stroke COMPARISON: Unenhanced head CT 04/19/2017. TECHNIQUE: Axial computed tomography images were obtained through the head/brain without intravenous contrast. Radiation dose: Total exam DLP = 935.2 mGy-cm. This CT exam was performed using one or more of the following dose reduction techniques: Automated exposure control, adjustment of the mA and/or kV according to patient size, and/or use of iterative reconstruction technique. FINDINGS: HEMORRHAGE: No intracranial hemorrhage. BRAIN: Mild diffuse cerebral atrophy chronic microangiopathy are reiterated. No mass-effect or other additional interval finding identified. Corticomedullary differentiation remains adequate throughout. VENTRICLES: Unremarkable. No hydrocephalus. CALVARIUM: Unremarkable. PARANASAL SINUSES: Unremarkable as visualized. No significant inflammatory changes. MASTOID AIR CELLS: Unremarkable as visualized. No inflammatory changes. OTHER FINDINGS: None. IMPRESSION: Stable limited age-related neuro degenerative changes are appreciate not significantly changed compared prior CT 04/19/2017. No acute intracranial findings by standard CT criteria. Follow-up CT or MRI are available if clinically warranted. Discussed with Dr. Isaac 04/19/2017 at 2:14 p.m..
[2017-04-29 14:38] LABS: VENOUS BLOOD GAS BASE EXCESS 8.9 mmol/L (0.0-2.0); VENOUS BLOOD GAS PCO2 56 mmHg (40-60); VENOUS BLOOD PH 7.41 (7.32-7.43)
[2017-04-29 14:58] LABS: BASO # 0.1 K/uL (0.0-0.2); BASO % 0.6 % (0.0-2.0); EOS # 0.3 K/uL (0.0-0.7); EOS % 2.3 % (0.0-4.0); LYMPH # 1.3 K/uL (1.0-4.3); LYMPH % 9.1 % (20.0-40.0); MEAN CORPUSCULAR HEMOGLOBIN 29.8 pg (27.0-31.0); MEAN CORPUSCULAR HGB CONC 33.1 g/dL (33.0-37.0); MEAN PLATELET VOLUME 7.7 fL (7.2-11.7); PLATELET COUNT 352 K/uL (130-400); RED CELL DISTRIBUTION WIDTH 12.9 % (11.5-14.5)
[2017-04-29] MEDS ORDERED: Lactated Ringer's 1,000 ML ONE (15:13)
[2017-04-29 15:35] LABS: BLOOD UREA NITROGEN 38 mg/dL (7-17); GLUCOSE,RANDOM 72 mg/dL (65-105)
[2017-04-29 15:36] LABS: CALCIUM 9.3 mg/dl (8.6-10.4); CARBON DIOXIDE 27 mmol/L (22-30); CHLORIDE 93 mmol/L (98-107); GFR AFRICAN-AMERICAN 48; POTASSIUM 5.3 mmol/L (3.6-5.2); SODIUM 131 mmol/L (132-148)
[2017-04-29 15:37] LABS: ALB/GLOB RATIO 1.1 (1.0-2.1); CHOLESTEROL 148 mg/dL (0-199); TOTAL PROTEIN 8.4 g/dL (6.3-8.3)
[2017-04-29 15:38] LABS: ALKALINE PHOSPHATASE 83 U/L (38-126); ALT/SGPT 77 U/L (9-52); AST/SGOT 56 U/L (14-36); BILIRUBIN,TOTAL 0.9 mg/dL (0.2-1.3)
--- NOTE | 2017-04-29 15:40 | RAD ---
HISTORY: code stroke COMPARISON: 04/19/2017 FINDINGS: LUNGS: No active pulmonary disease. PLEURA: No significant pleural effusion identified, no pneumothorax apparent. CARDIOVASCULAR: Normal. OSSEOUS STRUCTURES: No significant abnormalities. VISUALIZED UPPER ABDOMEN: Normal. OTHER FINDINGS: None. IMPRESSION: No active disease.
[2017-04-29 15:50] LABS: RBC URINE 32 /hpf (0-3); URINE BILIRUBIN NEGATIVE (NEGATIVE); URINE BLOOD 2+ (NEGATIVE); URINE COLOR Yellow (YELLOW); URINE GLUCOSE (UA) NORMAL (Normal); URINE KETONE NEGATIVE (NEGATIVE); URINE LEUKOCYTE ESTERASE TRACE Leu/uL (Negative); URINE PROTEIN 3+ mg/dL (NEGATIVE); WBC URINE 22 /hpf (0-5)
[2017-04-29 15:53] LABS: EOSINOPHIL 3 % (0-4); NEUTROPHIL 80 % (50-75); TOTAL CELLS COUNTED 100
[2017-04-29] MEDS ORDERED: cefTRIAXone IV 1 gm in Dextros 50 ML IVPB ONE (16:17)
--- NOTE | 2017-04-29 17:39 | CP.PCM.CON ---
History of Present Illness - History of Present Illness History of Present Illness: 76 y/o female discharged today from hospitatlist team presents to [facility] with c/o twitching on right side of face. Patient's family wanted to take patient to [facility] and left AMA. Patient had another episode of twitching and EMS brought patient to [facility] ER. Patient was given 0.5 mg of ativan by Er physician and ICU was consulted. Patient was very drowsy and unable to provide any history. LImited history obtained from family. Daughter showed video of facial twitching in Am and tongue. Neurologist Dr. Bates was consulted. Patient left AMA before neurolgy could be consulted. -ER physician was advised to obtain MRI of brain and brain stem. Review of Systems - Review of Systems Systems not reviewed;Unavailable: Altered Mental Status - Constitutional Constitutional: As Per HPI - EENT Eyes: As Per HPI Nose/Mouth/Throat: As Per HPI - Breasts Breasts: As Per HPI - Cardiovascular Cardiovascular: As Per HPI - Respiratory Respiratory: As Per HPI - Gastrointestinal Gastrointestinal: As Per HPI - Neurological Neurological: Other (drowsy limited exam) Past Patient History - Infectious Disease Hx of Infectious Diseases: None - Past Medical History & Family History Past Medical History?: Yes - Past Social History Smoking Status: Never Smoked - CARDIAC Hx Hypercholesterolemia: Yes Hx Hypertension: Yes - PULMONARY Hx Asthma: Yes - NEUROLOGICAL HX 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) - HEENT Hx HEENT Problems: Yes - RENAL Hx Chronic Kidney Disease: Yes - ENDOCRINE/METABOLIC Hx Diabetes Mellitus Type 1: Yes - HEMATOLOGICAL/ONCOLOGICAL Hx Blood Disorders: No - INTEGUMENTARY Hx Dermatological Problems: No - MUSCULOSKELETAL/RHEUMATOLOGICAL Hx Arthritis: Yes (osteoporosis; back pain) Hx Osteoporosis: Yes - GASTROINTESTINAL Hx Gastrointestinal Disorders: No - GENITOURINARY/GYNECOLOGICAL Hx Genitourinary Disorders: No - PSYCHIATRIC Hx Substance Use: No - SURGICAL HISTORY Hx Cholecystectomy: Yes - ANESTHESIA Hx Anesthesia: Yes Hx Anesthesia Reactions: No Meds Allergies/Adverse Reactions: Allergies Allergy/AdvReac Type Severity Reaction Status Date / Time No Known Allergies Allergy Verified 04/29/17 14:02 Physical Exam - Constitutional Additional comments: Drowsy - Head Exam Head Exam: ATRAUMATIC - Eye Exam Eye Exam: absent: Conjunctival injection Additional comments: pupils reactive, right pupil post corneal surgery - Respiratory Exam Respiratory Exam: NORMAL BREATHING PATTERN - Cardiovascular Exam Cardiovascular Exam: REGULAR RHYTHM, Systolic Murmur. absent: Irregular Rhythm - GI/Abdominal Exam GI & Abdominal Exam: Soft - Rectal Exam Rectal Exam: Deferred Results - Vital Signs Recent Vital Signs: Last Vital Signs Temp 101.8 F H 04/29/17 15:40 Pulse 101 H 04/29/17 17:14 Resp 20 04/29/17 17:14 BP 161/66 H 04/29/17 17:14 Pulse Ox 99 04/29/17 17:14 - Labs Result Diagrams: 04/29/17 14:50 04/29/17 14:50 Labs: Laboratory Results - last 24 hr 04/29/17 04/29/17 04/29/17 14:34 14:50 14:50 WBC 14.0 H RBC 3.88 Hgb 11.6 Hct 35.0 MCV 90.0 MCH 29.8 MCHC 33.1 RDW 12.9 Plt Count 352 MPV 7.7 Neut % (Auto) 81.0 H Lymph % (Auto) 9.1 L [place] % (Auto) 7.0 Eos % (Auto) 2.3 Baso % (Auto) 0.6 Neut # 11.3 H Lymph # 1.3 [place] # 1.0 H Eos # 0.3 Baso # 0.1 Neutrophils % (Manual) 80 H Lymphocytes % (Manual) 8 L Monocytes % (Manual) 9 Eosinophils % (Manual) 3 Platelet Estimate Normal RBC Morphology Normal pO2 23 L VBG pH 7.41 VBG pCO2 56 VBG HCO3 30.3 VBG Total CO2 37.2 H VBG O2 Sat (Calc) 45.9 VBG Base Excess 8.9 H VBG Potassium 5.3 H Sodium 139.0 131 L Chloride 103.0 93 L Glucose 79 Lactate 1.6 Potassium 5.3 H Carbon Dioxide 27 Anion Gap 1 L BUN 38 H Creatinine 1.3 H Est GFR ( Amer) 48 Est GFR (Non-Af Amer) 40 Random Glucose 72 Hemoglobin A1c Calcium 9.3 Total Bilirubin 0.9 AST 56 H D ALT 77 H D Alkaline Phosphatase 83 Troponin I < 0.0120 Total Protein 8.4 H Albumin 4.3 Globulin 4.1 H Albumin/Globulin Ratio 1.1 Triglycerides 98 Cholesterol 148 LDL Cholesterol Direct 55 HDL Cholesterol 63 Venous Blood Potassium 5.3 H Urine Color Urine Clarity Urine pH Ur Specific [place] Urine Protein Urine Glucose (UA) Urine Ketones Urine Blood Urine Nitrate Urine Bilirubin Urine Urobilinogen Ur Leukocyte Esterase Urine WBC (Auto) Urine RBC (Auto) Blood Type Antibody Screen 04/29/17 04/29/17 04/29/17 14:50 14:53 15:34 WBC RBC Hgb Hct MCV MCH MCHC RDW Plt Count MPV Neut % (Auto) Lymph % (Auto) [place] % (Auto) Eos % (Auto) Baso % (Auto) Neut # Lymph # [place] # Eos # Baso # Neutrophils % (Manual) Lymphocytes % (Manual) Monocytes % (Manual) Eosinophils % (Manual) Platelet Estimate RBC Morphology pO2 VBG pH VBG pCO2 VBG HCO3 VBG Total CO2 VBG O2 Sat (Calc) VBG Base Excess VBG Potassium Sodium Chloride Glucose Lactate Potassium Carbon Dioxide Anion Gap BUN Creatinine Est GFR ( Amer) Est GFR (Non-Af Amer) Random Glucose Hemoglobin A1c 12.3 H Calcium Total Bilirubin AST ALT Alkaline Phosphatase Troponin I Total Protein Albumin Globulin Albumin/Globulin Ratio Triglycerides Cholesterol LDL Cholesterol Direct HDL Cholesterol Venous Blood Potassium Urine Color Yellow Urine Clarity Clear Urine pH 7.0 Ur Specific [place] 1.011 Urine Protein 3+ H Urine Glucose (UA) Normal Urine Ketones Negative Urine Blood 2+ H Urine Nitrate Negative Urine Bilirubin Negative Urine Urobilinogen 4.0 H Ur Leukocyte Esterase Trace Urine WBC (Auto) 22 H Urine RBC (Auto) 32 H Blood Type A POSITIVE Antibody Screen Negative Assessment & Plan - Assessment and Plan (Free Text) Plan: -AMS: r/o [place] myelonosis, obtai MRI brain and brain stem -NPO -urine tox -leukocytosis: check lectic serial, vanco, cefepime (cover pseusomonas, if aspiraion), check CXR, -monitor BP: hydralazine pRN IV -EEG -BGm q6hrs, lispro ISS Patient will benefit from ICU level care until etiology of patient's current situation - Date & Time Date: 04/29/17 Time: 17:05
--- NOTE | 2017-04-29 18:18 | MRI ---
PROCEDURE: MRI BRAIN WITHOUT CONTRAST HISTORY: r/o central pontine myelinosis COMPARISON: Comparison is made to 04/21/2017 TECHNIQUE: Multiplanar, multisequence MR images of the brain were obtained without intravenous contrast enhancement. FINDINGS: Suboptimal study due to patient's motion. HEMORRHAGE: None DWI: No evidence of an acute or early subacute infarction. BRAIN PARENCHYMA: No mass effect or edema. No atrophy or chronic microvascular ischemic changes. VENTRICLES: Unremarkable. No hydrocephalus. CRANIUM: Unremarkable. ORBITS: Grossly unremarkable. PARANASAL SINUSES/MASTOIDS: Clear VASCULAR SYSTEM: Skull base flow voids intact. OTHER FINDINGS: None. IMPRESSION: Suboptimal study due to patient's motion. No evidence of diffusion restriction or abnormal hyperintense T2 signal at the angela to suggest osmotic demyelination syndrome/central pontine myelinolysis
[2017-04-29] MEDS: Sodium Chloride 0.9% 1,000 ML IV SCH (18:45)
[2017-04-29 19:14] LABS: CALCIUM 8.9 mg/dl (8.6-10.4); POTASSIUM 4.8 mmol/L (3.6-5.2)
--- NOTE | 2017-04-29 19:21 | CP.PCM.CON ---
History of Present Illness - History of Present Illness History of Present Illness: Mrs. Gigi Maldonado is a 76-year-old woman who was recently admitted with hyponatremia, hyperglycemia and possible infection. She was diagnosed with a Horta's Palsy, and discharged earlier today. Apparently, she has been having right facial twitching that the family became increasingly concerned about and brought the patient in for re-evaluation. I was able to view the video that the daughter recorded of the patient's facial twitching since when I saw her, she was no longer having the movements. It appeared to be spontaneous, rhythmic , violent and uncontrollable. It was severe enough to cause tongue lacerations since the whole mouth was moving along with wild jaw movements. The patient has facial weakness on the right side when she does not have these movements. 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) - HEENT Hx HEENT Problems: Yes - RENAL Hx Chronic Kidney Disease: Yes - ENDOCRINE/METABOLIC Hx Diabetes Mellitus Type 1: Yes - HEMATOLOGICAL/ONCOLOGICAL Hx Blood Disorders: No - INTEGUMENTARY Hx Dermatological Problems: No - MUSCULOSKELETAL/RHEUMATOLOGICAL Hx Arthritis: Yes (osteoporosis; back pain) Hx Osteoporosis: Yes - GASTROINTESTINAL Hx Gastrointestinal Disorders: No - GENITOURINARY/GYNECOLOGICAL Hx Genitourinary Disorders: No - PSYCHIATRIC Hx Substance Use: No - SURGICAL HISTORY Hx Cholecystectomy: Yes - ANESTHESIA Hx Anesthesia: Yes Hx Anesthesia Reactions: No Meds Allergies/Adverse Reactions: Allergies Allergy/AdvReac Type Severity Reaction Status Date / Time No Known Allergies Allergy Verified 04/29/17 14:02 - Medications Medications: Current Medications Sodium Chloride (Sodium Chloride 0.9%) 1,000 mls @ 100 mls/hr IV .Q10H TITO Levetiracetam 1,000 mg/ (Dextrose) 110 mls @ 420 mls/hr IVPB ONCE ONE Stop: 04/29/17 19:15 Levetiracetam (Keppra) 250 mg PO BID TITO Valacyclovir HCl (Valtrex) 500 mg PO Q12 TITO Physical Exam - Constitutional Appears: Confused - Head Exam Head Exam: ATRAUMATIC, NORMAL INSPECTION, NORMOCEPHALIC - Eye Exam Eye Exam: EOMI, Normal appearance, PERRL - ENT Exam ENT Exam: Mucous Membranes Moist, Normal Exam - Neck Exam Neck exam: Positive for: Normal Inspection - Respiratory Exam Respiratory Exam: Clear to Auscultation Bilateral, NORMAL BREATHING PATTERN - Cardiovascular Exam Cardiovascular Exam: REGULAR RHYTHM, +S1, +S2 - GI/Abdominal Exam GI & Abdominal Exam: Normal Bowel Sounds, Soft. absent: Tenderness - Rectal Exam Rectal Exam: Deferred - Extremities Exam Extremities exam: Positive for: normal inspection - Back Exam Back exam: NORMAL INSPECTION - Neurological Exam Neurological exam: Abnormal Gait, Altered, Reflexes Normal Additional comments: Slightly confused, but able to follow commands. Right 7th nerve palsy with difficulty in eye closure and facial droop. Generalized weakness, but no other focal findings. 4/5 strength throughout, but somnolent. Sensation is intact throughout. Plantar response is downgoing bilaterally. Romberg was not tested. Reflexes were normal. - Psychiatric Exam Psychiatric exam: Flat Affect - Skin Skin Exam: Dry, Intact, Normal Color, Warm Results - Vital Signs Recent Vital Signs: Last Vital Signs Temp 100.7 F H 04/29/17 18:20 Pulse 101 H 04/29/17 18:51 Resp 21 04/29/17 18:51 BP 171/80 H 04/29/17 18:51 Pulse Ox 99 04/29/17 18:51 - Labs Result Diagrams: 04/29/17 14:50 04/29/17 14:50 Labs: Laboratory Results - last 24 hr 04/29/17 04/29/17 04/29/17 14:34 14:50 14:50 WBC 14.0 H RBC 3.88 Hgb 11.6 Hct 35.0 MCV 90.0 MCH 29.8 MCHC 33.1 RDW 12.9 Plt Count 352 MPV 7.7 Neut % (Auto) 81.0 H Lymph % (Auto) 9.1 L Addison % (Auto) 7.0 Eos % (Auto) 2.3 Baso % (Auto) 0.6 Neut # 11.3 H Lymph # 1.3 Addison # 1.0 H Eos # 0.3 Baso # 0.1 Neutrophils % (Manual) 80 H Lymphocytes % (Manual) 8 L Monocytes % (Manual) 9 Eosinophils % (Manual) 3 Platelet Estimate Normal RBC Morphology Normal pO2 23 L VBG pH 7.41 VBG pCO2 56 VBG HCO3 30.3 VBG Total CO2 37.2 H VBG O2 Sat (Calc) 45.9 VBG Base Excess 8.9 H VBG Potassium 5.3 H Sodium 139.0 131 L Chloride 103.0 93 L Glucose 79 Lactate 1.6 Potassium 5.3 H Carbon Dioxide 27 Anion Gap 1 L BUN 38 H Creatinine 1.3 H Est GFR ( Amer) 48 Est GFR (Non-Af Amer) 40 Random Glucose 72 Hemoglobin A1c Calcium 9.3 Total Bilirubin 0.9 AST 56 H D ALT 77 H D Alkaline Phosphatase 83 Troponin I < 0.0120 C-React Prot High Sens Total Protein 8.4 H Albumin 4.3 Globulin 4.1 H Albumin/Globulin Ratio 1.1 Triglycerides 98 Cholesterol 148 LDL Cholesterol Direct 55 HDL Cholesterol 63 Venous Blood Potassium 5.3 H Urine Color Urine Clarity Urine pH Ur Specific [place] Urine Protein Urine Glucose (UA) Urine Ketones Urine Blood Urine Nitrate Urine Bilirubin Urine Urobilinogen Ur Leukocyte Esterase Urine WBC (Auto) Urine RBC (Auto) Blood Type Antibody Screen 04/29/17 04/29/17 04/29/17 14:50 14:53 15:34 WBC RBC Hgb Hct MCV MCH MCHC RDW Plt Count MPV Neut % (Auto) Lymph % (Auto) Addison % (Auto) Eos % (Auto) Baso % (Auto) Neut # Lymph # Addison # Eos # Baso # Neutrophils % (Manual) Lymphocytes % (Manual) Monocytes % (Manual) Eosinophils % (Manual) Platelet Estimate RBC Morphology pO2 VBG pH VBG pCO2 VBG HCO3 VBG Total CO2 VBG O2 Sat (Calc) VBG Base Excess VBG Potassium Sodium Chloride Glucose Lactate Potassium Carbon Dioxide Anion Gap BUN Creatinine Est GFR ( Amer) Est GFR (Non-Af Amer) Random Glucose Hemoglobin A1c 12.3 H Calcium Total Bilirubin AST ALT Alkaline Phosphatase Troponin I C-React Prot High Sens Total Protein Albumin Globulin Albumin/Globulin Ratio Triglycerides Cholesterol LDL Cholesterol Direct HDL Cholesterol Venous Blood Potassium Urine Color Yellow Urine Clarity Clear Urine pH 7.0 Ur Specific [place] 1.011 Urine Protein 3+ H Urine Glucose (UA) Normal Urine Ketones Negative Urine Blood 2+ H Urine Nitrate Negative Urine Bilirubin Negative Urine Urobilinogen 4.0 H Ur Leukocyte Esterase Trace Urine WBC (Auto) 22 H Urine RBC (Auto) 32 H Blood Type A POSITIVE Antibody Screen Negative 04/29/17 18:32 WBC RBC Hgb Hct MCV MCH MCHC RDW Plt Count MPV Neut % (Auto) Lymph % (Auto) Addison % (Auto) Eos % (Auto) Baso % (Auto) Neut # Lymph # Addison # Eos # Baso # Neutrophils % (Manual) Lymphocytes % (Manual) Monocytes % (Manual) Eosinophils % (Manual) Platelet Estimate RBC Morphology pO2 VBG pH VBG pCO2 VBG HCO3 VBG Total CO2 VBG O2 Sat (Calc) VBG Base Excess VBG Potassium Sodium Chloride Glucose Lactate Potassium Carbon Dioxide Anion Gap BUN Creatinine Est GFR ( Amer) Est GFR (Non-Af Amer) Random Glucose Hemoglobin A1c Calcium Total Bilirubin AST ALT Alkaline Phosphatase Troponin I C-React Prot High Sens > 15.00 H Total Protein Albumin Globulin Albumin/Globulin Ratio Triglycerides Cholesterol LDL Cholesterol Direct HDL Cholesterol Venous Blood Potassium Urine Color Urine Clarity Urine pH Ur Specific [place] Urine Protein Urine Glucose (UA) Urine Ketones Urine Blood Urine Nitrate Urine Bilirubin Urine Urobilinogen Ur Leukocyte Esterase Urine WBC (Auto) Urine RBC (Auto) Blood Type Antibody Screen - Imaging and Cardiology MRI - head Status: Image reviewed by me, Report reviewed by me (Chronic white mater disease , with periventricular T2 hyperintensities. No pontine injury noted. ) Assessment & Plan (1) Seizure Assessment and Plan: The patient is having frequent seizures affecting the right side of the face, and may have the facial weakness as a result of a post-ictal Nish's-type of paralysis. However, the lesions on the lips could be due to HSV and she may have a Horta's Palsy as well. I recommend the followin. Keppra 1000 mg IV loading dose and then 500 mg PO Q12 hours, Valcyclovir 1000 mg BID, Methylprednisone taper per Horta's protocol 2. EEG awake and drowsy for at least 30 mins 3. MRI of the brain WITH and without contrast 4. Telemetry and close observation 5. If she has facial twitching again, give 2 mg of Ativan IV 6. PT/OT eval and treat 7. DVT Px 8. Control serum sodium and glucose 9. Treat underlying infection 10. Check HSV PCR, and stop Valcyclovir if negative. Thank you. Status: Acute Priority: High
[2017-04-29] MEDS ORDERED: WATER IVPB ONE (20:00)
[2017-04-29] MEDS ORDERED: DEXTROSE 5% IVPB ONE (20:00)
[2017-04-29] MEDS ORDERED: LEVETIRACETAM IVPB ONE (20:00)
[2017-04-30] MEDS: Sodium Chloride 0.9% 1,000 ML IV SCH ×2 (04:00→13:03)
[2017-04-30 06:35] LABS: BASO % 0.5 % (0.0-2.0); EOS # 0.4 K/uL (0.0-0.7); EOS % 4.1 % (0.0-4.0); HEMATOCRIT 30.2 % (34.0-47.0); LYMPH % 11.4 % (20.0-40.0); MEAN CORPUSCULAR HEMOGLOBIN 30.6 pg (27.0-31.0); MEAN CORPUSCULAR HGB CONC 33.7 g/dL (33.0-37.0); MEAN PLATELET VOLUME 7.8 fL (7.2-11.7); MONO # 0.6 K/uL (0.0-0.8); MONO % 6.7 % (0.0-10.0); NRBC % 0.1 % (0.0-2.0); WHITE BLOOD COUNT 8.8 K/uL (4.8-10.8)
[2017-04-30 06:47] LABS: INR 1.1
[2017-04-30 07:08] LABS: ALB/GLOB RATIO 0.8 (1.0-2.1); BILIRUBIN,TOTAL 0.4 mg/dL (0.2-1.3); CALCIUM 8.6 mg/dl (8.6-10.4); POTASSIUM 4.7 mmol/L (3.6-5.2); TOTAL PROTEIN 7.6 g/dL (6.3-8.3)
--- NOTE | 2017-04-30 07:27 | CP.PCM.HP ---
History of Present Illness - History of Present Illness History of Present Illness: This is a 76-year-old female who was previously admitted in the hospital just recently on April 19, 2017 for abdominal pain, weakness, uncontrolled diabetes , and falling. The family decided to leave AMA on 2016 in the morning wanting to go to [facility]. However the ambulance they called brought her back to [facility]. According to the family the reasons for them leaving the hospital was that yesterday they noticed that she had a lot of facial twitching as well as facial paralysis. The previous weeks team felt this was Horta Palsy or a siezure. The family explained that they felt she was not given enough communication by the medical team and so they decided to leave AMA for [facility]. I explained to the patient's family particularly her daughters that once the patient is in the hospital particularly if they are stable and they do not have insurance that a hospital to hospital transfer is very unlikely. There was also patient's son there as well who is rather concerned about the patient's blood sugars. They were not entirely happy with this but I did talk to them for an extensive amount of time in the hospital lobby as well as then in the emergency room with the neurologist reviewing a new MRI of the brain when the ambulance brought her back. After repeat discussions they explained they did understand. This is my first time meeting the patient, she was mostly nonverbal in the emergency room so I had to speak mostly with the patient's family area as well as reviewed previous lab work as well as some of the previous notes. So during the last week she had rather extensive workup for the syncope, abdominal pain. She had a echo done, she had a CT scan of the head done as well and also MRI done. The CT of the head done on 04/19 scan as well as MRI of the brain done on 04/21 did not show any new acute pathology. The echo that was done on on 04/22 revealed an ejection fraction of 65%, she did have left ventricular hypertrophy. The previous week was noted to that she had an extreme low sodium level of 107 and she was brought to the ICU. She was evaluated by manual lathe operator at that time however I'll have to go over some the other notes to see what could've led up to her being so hyponatremic. It is possible that she was taking a lot of hydrochlorothiazide however she is not continue this on admission was only after a day or 2 before she started to have developed hyponatremia. It appears she recived hypertonic saline as well as tolvaptam at that time. However it does not look like there was an SIADH work up (but I have not looked at all the notes.) When we saw the patient in the ER she was just returned from a repeat MRI, because of the recent week of severe hyponatremia there was some cocern for possible cerebral pontine myelinolysis, fourtunately I am being told this new MRI is ok. She did have several mg of IV ativan and so when I saw her she was more somulent but awake and following commands. I greatly appreciate neurology comming to see patient in the ER. Because of out concerns for possible [place] Palsy will start steroids and this will have to be tapered down. Also will run HSV studies and also Valcyclovir - if the HSV is negative will stop the valcyclovir. The family did show us a video on the phone of her in a sieuzre so Keppra 1,000 was given and she will be on this as well twice a day. Present on Admission - Present on Admission Any Indicators Present on Admission: Yes History of DVT/PE: No History of Uncontrolled Diabetes: Yes Urinary Catheter: No Decubitus Ulcer Present: No Review of Systems - Review of Systems Systems not reviewed;Unavailable: Acuity of Condition - Constitutional Constitutional: Weakness Past Patient History - Infectious Disease Hx of Infectious Diseases: None - Past Medical History & Family History Past Medical History?: Yes - Past Social History Smoking Status: Never Smoked - CARDIAC Hx Hypercholesterolemia: Yes Hx Hypertension: Yes - PULMONARY Hx Asthma: Yes - NEUROLOGICAL HX 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) - HEENT Hx HEENT Problems: Yes - RENAL Hx Chronic Kidney Disease: Yes - ENDOCRINE/METABOLIC Hx Diabetes Mellitus Type 1: Yes - HEMATOLOGICAL/ONCOLOGICAL Hx Blood Disorders: No - INTEGUMENTARY Hx Dermatological Problems: No - MUSCULOSKELETAL/RHEUMATOLOGICAL Hx Arthritis: Yes (osteoporosis; back pain) Hx Osteoporosis: Yes - GASTROINTESTINAL Hx Gastrointestinal Disorders: No - GENITOURINARY/GYNECOLOGICAL Hx Genitourinary Disorders: No - PSYCHIATRIC Hx Substance Use: No - SURGICAL HISTORY Hx Cholecystectomy: Yes - ANESTHESIA Hx Anesthesia: Yes Hx Anesthesia Reactions: No Meds Allergies/Adverse Reactions: Allergies Allergy/AdvReac Type Severity Reaction Status Date / Time No Known Allergies Allergy Verified 04/29/17 14:02 Physical Exam - Constitutional Appears: Older Than Stated Age, Confused, Chronically Ill - Head Exam Head Exam: NORMAL INSPECTION - Eye Exam Additional comments: There appears some facial paralysis R side - Respiratory Exam Respiratory Exam: Clear to Auscultation Bilateral, NORMAL BREATHING PATTERN - Cardiovascular Exam Cardiovascular Exam: REGULAR RHYTHM - GI/Abdominal Exam GI & Abdominal Exam: Normal Bowel Sounds - Neurological Exam Neurological exam: Alert Additional comments: She is following commands. There was R side facial weakness. She was able to squeeze hand, flex extend elbow, plantar and dorsiflex her feet - Psychiatric Exam Psychiatric exam: Depressed, Flat Affect - Skin Skin Exam: Normal Color, Warm Results - Vital Signs Recent Vital Signs: Last Vital Signs Temp 97.8 F 04/30/17 06:00 Pulse 89 04/30/17 06:00 Resp 18 04/30/17 06:00 BP 122/54 L 04/30/17 06:00 Pulse Ox 100 04/30/17 06:00 - Labs Result Diagrams: 04/30/17 06:27 04/30/17 06:27 Labs: Laboratory Results - last 24 hr 04/29/17 04/29/17 04/29/17 14:34 14:50 14:50 WBC 14.0 H RBC 3.88 Hgb 11.6 Hct 35.0 MCV 90.0 MCH 29.8 MCHC 33.1 RDW 12.9 Plt Count 352 MPV 7.7 Neut % (Auto) 81.0 H Lymph % (Auto) 9.1 L [place] % (Auto) 7.0 Eos % (Auto) 2.3 Baso % (Auto) 0.6 Neut # 11.3 H Lymph # 1.3 [place] # 1.0 H Eos # 0.3 Baso # 0.1 Neutrophils % (Manual) 80 H Lymphocytes % (Manual) 8 L Monocytes % (Manual) 9 Eosinophils % (Manual) 3 Platelet Estimate Normal RBC Morphology Normal ESR PT INR APTT pO2 23 L VBG pH 7.41 VBG pCO2 56 VBG HCO3 30.3 VBG Total CO2 37.2 H VBG O2 Sat (Calc) 45.9 VBG Base Excess 8.9 H VBG Potassium 5.3 H Sodium 139.0 131 L Chloride 103.0 93 L Glucose 79 Lactate 1.6 Potassium 5.3 H Carbon Dioxide 27 Anion Gap 1 L BUN 38 H Creatinine 1.3 H Est GFR ( Amer) 48 Est GFR (Non-Af Amer) 40 POC Glucose (mg/dL) Random Glucose 72 Hemoglobin A1c Calcium 9.3 Total Bilirubin 0.9 AST 56 H D ALT 77 H D Alkaline Phosphatase 83 Troponin I < 0.0120 C-React Prot High Sens Total Protein 8.4 H Albumin 4.3 Globulin 4.1 H Albumin/Globulin Ratio 1.1 Triglycerides 98 Cholesterol 148 LDL Cholesterol Direct 55 HDL Cholesterol 63 Venous Blood Potassium 5.3 H Urine Color Urine Clarity Urine pH Ur Specific [place] Urine Protein Urine Glucose (UA) Urine Ketones Urine Blood Urine Nitrate Urine Bilirubin Urine Urobilinogen Ur Leukocyte Esterase Urine WBC (Auto) Urine RBC (Auto) Blood Type Antibody Screen 04/29/17 04/29/17 04/29/17 14:50 14:53 15:34 WBC RBC Hgb Hct MCV MCH MCHC RDW Plt Count MPV Neut % (Auto) Lymph % (Auto) [place] % (Auto) Eos % (Auto) Baso % (Auto) Neut # Lymph # [place] # Eos # Baso # Neutrophils % (Manual) Lymphocytes % (Manual) Monocytes % (Manual) Eosinophils % (Manual) Platelet Estimate RBC Morphology ESR PT INR APTT pO2 VBG pH VBG pCO2 VBG HCO3 VBG Total CO2 VBG O2 Sat (Calc) VBG Base Excess VBG Potassium Sodium Chloride Glucose Lactate Potassium Carbon Dioxide Anion Gap BUN Creatinine Est GFR ( Amer) Est GFR (Non-Af Amer) POC Glucose (mg/dL) Random Glucose Hemoglobin A1c 12.3 H Calcium Total Bilirubin AST ALT Alkaline Phosphatase Troponin I C-React Prot High Sens Total Protein Albumin Globulin Albumin/Globulin Ratio Triglycerides Cholesterol LDL Cholesterol Direct HDL Cholesterol Venous Blood Potassium Urine Color Yellow Urine Clarity Clear Urine pH 7.0 Ur Specific [place] 1.011 Urine Protein 3+ H Urine Glucose (UA) Normal Urine Ketones Negative Urine Blood 2+ H Urine Nitrate Negative Urine Bilirubin Negative Urine Urobilinogen 4.0 H Ur Leukocyte Esterase Trace Urine WBC (Auto) 22 H Urine RBC (Auto) 32 H Blood Type A POSITIVE Antibody Screen Negative 04/29/17 04/29/17 04/29/17 18:25 18:32 18:59 WBC RBC Hgb Hct MCV MCH MCHC RDW Plt Count MPV Neut % (Auto) Lymph % (Auto) [place] % (Auto) Eos % (Auto) Baso % (Auto) Neut # Lymph # [place] # Eos # Baso # Neutrophils % (Manual) Lymphocytes % (Manual) Monocytes % (Manual) Eosinophils % (Manual) Platelet Estimate RBC Morphology ESR 86 H PT INR APTT pO2 VBG pH VBG pCO2 VBG HCO3 VBG Total CO2 VBG O2 Sat (Calc) VBG Base Excess VBG Potassium Sodium 131 L Chloride 93 L Glucose Lactate Potassium 4.8 Carbon Dioxide 30 Anion Gap 13 BUN 34 H Creatinine 1.2 Est GFR ( Amer) 53 Est GFR (Non-Af Amer) 44 POC Glucose (mg/dL) Random Glucose 50 L Hemoglobin A1c Calcium 8.9 Total Bilirubin AST ALT Alkaline Phosphatase Troponin I C-React Prot High Sens > 15.00 H Total Protein Albumin Globulin Albumin/Globulin Ratio Triglycerides Cholesterol LDL Cholesterol Direct HDL Cholesterol Venous Blood Potassium Urine Color Urine Clarity Urine pH Ur Specific [place] Urine Protein Urine Glucose (UA) Urine Ketones Urine Blood Urine Nitrate Urine Bilirubin Urine Urobilinogen Ur Leukocyte Esterase Urine WBC (Auto) Urine RBC (Auto) Blood Type Antibody Screen 04/29/17 04/30/17 04/30/17 21:37 06:27 06:27 WBC 8.8 RBC 3.32 L Hgb 10.2 L Hct 30.2 L MCV 91.0 MCH 30.6 MCHC 33.7 RDW 13.0 Plt Count 298 MPV 7.8 Neut % (Auto) 77.3 H Lymph % (Auto) 11.4 L [place] % (Auto) 6.7 Eos % (Auto) 4.1 H Baso % (Auto) 0.5 Neut # 6.8 Lymph # 1.0 [place] # 0.6 Eos # 0.4 Baso # 0.0 Neutrophils % (Manual) Lymphocytes % (Manual) Monocytes % (Manual) Eosinophils % (Manual) Platelet Estimate RBC Morphology ESR PT INR APTT pO2 VBG pH VBG pCO2 VBG HCO3 VBG Total CO2 VBG O2 Sat (Calc) VBG Base Excess VBG Potassium Sodium 132 Chloride 96 L Glucose Lactate Potassium 4.7 Carbon Dioxide 30 Anion Gap 11 BUN 35 H Creatinine 1.3 H Est GFR ( Amer) 48 Est GFR (Non-Af Amer) 40 POC Glucose (mg/dL) 102 Random Glucose 58 L Hemoglobin A1c Calcium 8.6 Total Bilirubin 0.4 AST 48 H ALT 65 H Alkaline Phosphatase 75 Troponin I C-React Prot High Sens Total Protein 7.6 Albumin 3.4 L D Globulin 4.2 H Albumin/Globulin Ratio 0.8 L Triglycerides Cholesterol LDL Cholesterol Direct HDL Cholesterol Venous Blood Potassium Urine Color Urine Clarity Urine pH Ur Specific [place] Urine Protein Urine Glucose (UA) Urine Ketones Urine Blood Urine Nitrate Urine Bilirubin Urine Urobilinogen Ur Leukocyte Esterase Urine WBC (Auto) Urine RBC (Auto) Blood Type Antibody Screen 04/30/17 04/30/17 06:27 07:05 WBC RBC Hgb Hct MCV MCH MCHC RDW Plt Count MPV Neut % (Auto) Lymph % (Auto) [place] % (Auto) Eos % (Auto) Baso % (Auto) Neut # Lymph # [place] # Eos # Baso # Neutrophils % (Manual) Lymphocytes % (Manual) Monocytes % (Manual) Eosinophils % (Manual) Platelet Estimate RBC Morphology ESR PT 12.2 INR 1.1 APTT 25 pO2 VBG pH VBG pCO2 VBG HCO3 VBG Total CO2 VBG O2 Sat (Calc) VBG Base Excess VBG Potassium Sodium Chloride Glucose Lactate Potassium Carbon Dioxide Anion Gap BUN Creatinine Est GFR ( Amer) Est GFR (Non-Af Amer) POC Glucose (mg/dL) 67 Random Glucose Hemoglobin A1c Calcium Total Bilirubin AST ALT Alkaline Phosphatase Troponin I C-React Prot High Sens Total Protein Albumin Globulin Albumin/Globulin Ratio Triglycerides Cholesterol LDL Cholesterol Direct HDL Cholesterol Venous Blood Potassium Urine Color Urine Clarity Urine pH Ur Specific [place] Urine Protein Urine Glucose (UA) Urine Ketones Urine Blood Urine Nitrate Urine Bilirubin Urine Urobilinogen Ur Leukocyte Esterase Urine WBC (Auto) Urine RBC (Auto) Blood Type Antibody Screen Assessment & Plan - Assessment and Plan (Free Text) Assessment: Overall so this is a 76-year-old female whose family decided to leave [place] yesterday, they're goal was to get to [facility]. However the ambulance that they called from their house promptly brought her back to [facility]. I had a very long discussion with a very large amount of family members in the hospital lobby and also again we saw the patient and family members in the emergency room as well. This is my first time meeting her and her family. Assessment/Plan 1.Severe Hyponatremia 04/30: Because of the severe hyponatremia the patient just had as well as the correction of her Na, new MRI was done and fourtunately this did not suggest edema or cerebral pontine mylinosis / osmotic brain changes, the new MRI did not suggest any new findings From last admission : "Patient is awake and oriented and no mental status changes. This evening, appears to have focal seizure involving left mouth and eye; resolved on its own ; given Ativan 1mg IVX1. witnessed by nursing, daughter, and myself at the PONY RIDE OPERATOR : Na: 107 (lowest) prompting further management in the ICU and was stablized and brought to the floors on 04/25. Given Hypteronic bolus X1 on 04/24, attempted salt tabs on 04/24, Given Samsca on 04/25Sodium today: 127 this morning, on repeat 124 ordered for serum osmolarity, urine osmolarity, urine sodium for this evening with repeat BMP at 22:00" 2.Syncope 04/30: Patient has had CT as well as MRI done on 04/19 and again on 04/29. * CT brain and MRI negative for new pathology * Blood culture (04/29): no growth after 5 days X2 * urine culture (04/29) contaminated * Neurology consult, Dr Henao, on board--> help appreciate * likely 2/2 to dehydration * Cartoid normal * Echo: LVH EF: 70% 3 Seizures 04/30: Family showed a video on phone of siezure like activity She was started on Keppra 1,000 and then Keprra BID. EEG ordered as well. She has had two MRI so far, no acute findings. 3. [place] palsy (right side of face) 04/30: appreciate neurologist seeing patient in ER. Pending HSV studies, also started on valcylclovir. If these are negative then stop the valcylovir. Will try a tapering prednisone dose 4.Uncontrolled DM 04/30: The patient's family member in particular a male family member in the lobby of the hospital was particularly irate/angry at me because of the blood sugar they explained that she normally takes medication for diabetes and that they felt that it was the hospital's fault for her sugars being very high. I explained to them that it is possible that medications such as steroid class medications can cause a higher sugar. I however I also pointed out to them that during the previous week she had a hemoglobin A1c that was done and this was 13.5. I had to explain to them what a hemoglobin A1c was indicated for the sugar levels for the past 3-4 months. I explained to them that I was glad that she was taking her medication for her diabetes however it is possible that she simply was not getting enough medication for diabetes. 6 UTI 04/30: recheck UA and UCS, will need to be on IV abx 5.HTN 04/30: She was previously on a ARB and BB, these are on hold at this moment. 6.Hyperlipidemia 04/30: Was on crestor, restart later 7.Hx of prior CVA 04/30: Was on ASA, plavix, crestor - will need to resume these at some point
--- NOTE | 2017-04-30 09:28 | CP.PCM.PN ---
Subjective - Date & Time of Evaluation Date of Evaluation: 04/30/17 Time of Evaluation: 09:10 - Subjective Subjective: This is a brief update, please also see H&P Patient was seen and examined again She had one family member at bedside this morning. She is much more awake and alert than yesterday in the ER. Because she was more awake it was easier to see the R facial dropping as well as R facial paralysis. When examining her tounge you can see cut sexton/abrasion probably from recent seizure. She is following all commands very well. She is very strong on exam of her extremities with 5/5 flexion extension of the elbows, wrist, she raises both arms past 90 degrees. She was able to elevate both legs > 5 seconds and also 5/ 5 strength, also plantar and dorsiflexes She was complaining of suprapubic area pain and on palpation it felt rather distended. It was not like this yesterday in the ER so there was a bedside bladder scan and it was >[address] a cardozo catheter. Continue with IV abx, pending cultures Objective - Vital Signs/Intake and Output Vital Signs (last 24 hours): Temp Pulse Resp BP Pulse Ox 97.8 F 89 18 122/54 L 100 04/30/17 06:00 04/30/17 06:00 04/30/17 06:00 04/30/17 06:00 04/30/17 06:00 Intake and Output: 04/30/17 04/30/17 06:59 18:59 Intake Total 1450 100 Output Total 800 300 Balance 650 -200 - Medications Medications: Current Medications Enoxaparin Sodium (Lovenox) 40 mg SC DAILY [facility] Sodium Chloride (Sodium Chloride 0.9%) 1,000 mls @ 100 mls/hr IV .Q10H [facility] Last Admin: 04/30/17 04:00 Dose: Not Given Ceftriaxone Sodium (Rocephin Iv 1 Gm Duplex) 50 mls @ 100 mls/hr IVPB Q12 [facility] Levetiracetam (Keppra) 500 mg PO BID TITO Pantoprazole Sodium (Protonix Ec Tab) 40 mg PO DAILY TITO Prednisone (Prednisone Tab) 60 mg PO DAILY TITO Valacyclovir HCl (Valtrex) 500 mg PO Q12 [facility] Last Admin: 04/29/17 22:00 Dose: Not Given - Labs Labs: 04/30/17 06:27 04/30/17 06:27 PT 12.2 SECONDS (9.7-12.2) 04/30/17 06:27 INR 1.1 04/30/17 06:27 APTT 25 SECONDS (21-34) 04/30/17 06:27 - Constitutional Appears: No Acute Distress - Head Exam Additional comments: right side mouth drooping, also right side face paralysis like. - ENT Exam Additional comments: Tounge bites, abrasions - Respiratory Exam Respiratory Exam: Clear to Ausculation Bilateral, NORMAL BREATHING PATTERN - GI/Abdominal Exam GI & Abdominal Exam: Distended, Tenderness Additional comments: We did a bladder scan - it was > 999 cc urine so will start a cardozo - Neurological Exam Neurological Exam: Alert, Awake Neuro motor strength exam: Left Upper Extremity: 5, Right Upper Extremity: 5, Left Lower Extremity: 5, Right Lower Extremity: 5 - Psychiatric Exam Psychiatric exam: Normal Affect, Normal Mood - Skin Skin Exam: Normal Color, Warm Assessment and Plan - Assessment and Plan (Free Text) Assessment: Overall so this is a 76-year-old female whose family decided to leave AMA yesterday, their goal was to get to [facility]. However the ambulance that they called from their house promptly brought her back to [facility]. I had a very long discussion with a very large amount of family members in the hospital lobby and also again we saw the patient and family members in the emergency room as well. This is my first time meeting her and her family. Assessment/Plan 1.Severe Hyponatremia (04/30 Later in morning): She is now very awake and very alert. Following all commands very well. Her Na remains stable at this time. Tolerating diet, on IVF NSS@ 100. 04/30: Because of the severe hyponatremia the patient just had as well as the correction of her Na, new MRI was done and fourtunately this did not suggest edema or cerebral pontine mylinosis / osmotic brain changes, the new MRI did not suggest any new findings From last admission : "Patient is awake and oriented and no mental status changes. This evening, appears to have focal seizure involving left mouth and eye; resolved on its own ; given Ativan 1mg IVX1. witnessed by nursing, daughter, and myself at the LIME MIXER TENDER : Na: 107 (lowest) prompting further management in the ICU and was stablized and brought to the floors on 04/25. Given Hypteronic bolus X1 on 04/24, attempted salt tabs on 04/24, Given Samsca on 04/25Sodium today: 127 this morning, on repeat 124 ordered for serum osmolarity, urine osmolarity, urine sodium for this evening with repeat BMP at 22:00" 2.Syncope 04/30: Patient has had CT as well as MRI done on 04/19 and again on 04/29. * CT brain and MRI negative for new pathology * Blood culture (04/29): no growth after 5 days X2 * urine culture (04/29) contaminated * Neurology consult, Dr Henao, on board--> help appreciate * likely 2/2 to dehydration * Cartoid normal * Echo: LVH EF: 70% 3 Seizures (04/30 Later in morning): stable overnight. For EEG later today. 04/30: Family showed a video on phone of siezure like activity She was started on Keppra 1,000 and then Keprra BID. EEG ordered as well. Also ativan PRN She has had two MRI so far, no acute findings. 3. [place] palsy / facial paralysis (right side of face) 04/30: appreciate neurologist seeing patient in ER. Pending HSV studies, also started on valcylclovir. If these are negative then stop the valcylovir. Will try a tapering prednisone dose 4.Uncontrolled DM 04/30: She did have some low blood sugars 04/30: The patient's family member in particular a male family member in the lobby of the hospital was particularly irate/angry at me because of the blood sugar they explained that she normally takes medication for diabetes and that they felt that it was the hospital's fault for her sugars being very high. I explained to them that it is possible that medications such as steroid class medications can cause a higher sugar. I however I also pointed out to them that during the previous week she had a hemoglobin A1c that was done and this was 13.5. I had to explain to them what a hemoglobin A1c was indicated for the sugar levels for the past 3-4 months. I explained to them that I was glad that she was taking her medication for her diabetes however it is possible that she simply was not getting enough medication for diabetes. 6 UTI (04/30 Later in morning) she had abdominal pain - a bladder scan was done and she had > 999 cc urine so cardozo was started. Continue with the IV rocephin. Cultures still pending. 04/30: recheck UA and UCS, will need to be on IV abx 5.HTN 04/30: She was previously on a ARB and BB, these are on hold at this moment. 6.Hyperlipidemia 04/30: Was on crestor, ASA restart later 7.Hx of prior CVA 04/30: Was on ASA, plavix, crestor - will need to resume these at some point
[2017-04-30] MEDS: Pantoprazole 40 mg EC Tab PO SCH (09:54)
[2017-04-30] MEDS: Enoxaparin 40 mg Syringe SC SCH (09:55)
[2017-04-30] MEDS: cefTRIAXone IV 1 gm in Dextros 50 ML IVPB SCH ×2 (10:06→22:22)
--- NOTE | 2017-04-30 10:31 | CP.CCUPN ---
CCU Subjective - Physician Review Events Since Last Encounter (Free Text): 04/30/17 10:31 Patient is a 76-year-old female admitted with hyponatremia, and high blood sugar. 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 Patient still continues to have a symptoms of twitching send the right side of the face, also some tingling and numbness in the right side of the face noted. Also feeling in the tongue. But she is able to move out of her extremities On examination: Vital sensitivity Chest good air entry bilaterally regular and also nontender abdomen. 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 Assessment and recommendation: 76-year-old female admitted with the high blood sugar admitted to the suspect with ?seizures There was a question of CPM, but MRI was negative. Clinical stable. Transfer the patient to the floor CCU Objective - Vital Signs / Intake & Output Intake and Output (Last 8hrs): Intake & Output 04/29/17 04/30/17 04/30/17 22:59 06:59 14:59 Intake Total 650 800 400 Output Total 0 800 2900 Balance 650 0 -2500 Weight 157 lb 8 oz Intake: Intake, IV Amount 650 800 300 Left Forearm 650 300 Right Hand 500 300 Oral 0 0 100 Output: Urine 0 800 2900 Urethral ([place]) 1300 Urine, Voided 0 800 300 Other: Voiding Method Bedside Commode # Bowel Movements 2 - Medications Active Medications: Active Medications Generic Name Dose Route Start Last Admin Trade Name Freq PRN Reason Stop Dose Admin Enoxaparin Sodium 40 mg 04/30/17 10:00 04/30/17 09:55 Lovenox SC 40 mg DAILY TITO Administration Sodium Chloride 1,000 mls @ 100 mls/hr 04/29/17 18:00 04/30/17 04:00 Sodium Chloride 0.9% IV Not Given .Q10H TITO Ceftriaxone Sodium 50 mls @ 100 mls/hr 04/30/17 10:00 04/30/17 10:06 Rocephin Iv 1 Gm Duplex IVPB 100 mls/hr Q12 TITO Administration Levetiracetam 500 mg 04/30/17 10:00 04/30/17 09:54 Keppra PO 500 mg BID TITO Administration Pantoprazole Sodium 40 mg 04/30/17 10:00 04/30/17 09:54 Protonix Ec Tab PO 40 mg DAILY TITO Administration Prednisone 60 mg 04/30/17 10:00 04/30/17 10:13 Prednisone Tab PO 60 mg DAILY TITO Administration Valacyclovir HCl 500 mg 04/29/17 22:00 04/30/17 09:54 Valtrex PO 500 mg Q12 TITO Administration - Patient Studies Lab Studies: Lab Studies 04/30/17 04/30/17 04/30/17 Range/Units 07:05 06:27 06:27 WBC (4.8-10.8) K/uL RBC (3.80-5.20) Mil/uL Hgb (11.0-16.0) g/dL Hct (34.0-47.0) % MCV (81.0-99.0) fL MCH (27.0-31.0) pg MCHC (33.0-37.0) g/dL RDW (11.5-14.5) % Plt Count (130-400) K/uL MPV (7.2-11.7) fL Neut % (Auto) (50.0-75.0) % Lymph % (Auto) (20.0-40.0) % [place] % (Auto) (0.0-10.0) % Eos % (Auto) (0.0-4.0) % Baso % (Auto) (0.0-2.0) % Neut # (1.8-7.0) K/uL Lymph # (1.0-4.3) K/uL [place] # (0.0-0.8) K/uL Eos # (0.0-0.7) K/uL Baso # (0.0-0.2) K/uL Neutrophils % (Manual) (50-75) % Lymphocytes % (Manual) (20-40) % Monocytes % (Manual) (0-10) % Eosinophils % (Manual) (0-4) % Platelet Estimate (NORMAL) RBC Morphology ESR (0-20) mm/hr PT 12.2 (9.7-12.2) SECONDS INR 1.1 APTT 25 (21-34) SECONDS pO2 (30-55) mm/Hg VBG pH (7.32-7.43) VBG pCO2 (40-60) mmHg VBG HCO3 mmol/L VBG Total CO2 (22-28) mmol/L VBG O2 Sat (Calc) (40-65) % VBG Base Excess (0.0-2.0) mmol/L VBG Potassium (3.6-5.2) mmol/L Sodium 132 (132-148) mmol/l Chloride 96 L (98-107) mmol/L Glucose (65-105) mg/dl Lactate (0.7-2.1) mmol/L Potassium 4.7 (3.6-5.2) mmol/L Carbon Dioxide 30 (22-30) mmol/L Anion Gap 11 (10-20) BUN 35 H (7-17) mg/dL Creatinine 1.3 H (0.7-1.2) mg/dL Est GFR ( Amer) 48 Est GFR (Non-Af Amer) 40 POC Glucose (mg/dL) 67 (65-110) mg/dL Random Glucose 58 L (65-105) mg/dL Hemoglobin A1c (4.2-6.5) % Calcium 8.6 (8.6-10.4) mg/dl Total Bilirubin 0.4 (0.2-1.3) mg/dL AST 48 H (14-36) U/L ALT 65 H (9-52) U/L Alkaline Phosphatase 75 (38-126) U/L Troponin I (0.00-0.120) ng/mL C-React Prot High Sens (1.00-3.00) mg/L Total Protein 7.6 (6.3-8.3) g/dL Albumin 3.4 L D (3.5-5.0) g/dL Globulin 4.2 H (2.2-3.9) gm/dL Albumin/Globulin Ratio 0.8 L (1.0-2.1) Triglycerides (0-149) mg/dL Cholesterol (0-199) mg/dL LDL Cholesterol Direct (0-129) mg/dL HDL Cholesterol (30-70) mg/dL Venous Blood Potassium (3.6-5.2) mmol/L Urine Color (YELLOW) Urine Clarity (Clear) Urine pH (5.0-8.0) Ur Specific [place] (1.003-1.030) Urine Protein (NEGATIVE) mg/dL Urine Glucose (UA) (Normal) mg/dL Urine Ketones (NEGATIVE) mg/dL Urine Blood (NEGATIVE) Urine Nitrate (NEGATIVE) Urine Bilirubin (NEGATIVE) Urine Urobilinogen (0.2-1.0) mg/dL Ur Leukocyte Esterase (Negative) [place]/uL Urine WBC (Auto) (0-5) /hpf Urine RBC (Auto) (0-3) /hpf Blood Type Antibody Screen 04/30/17 04/29/17 04/29/17 Range/Units 06:27 21:37 18:59 WBC 8.8 (4.8-10.8) K/uL RBC 3.32 L (3.80-5.20) Mil/uL Hgb 10.2 L (11.0-16.0) g/dL Hct 30.2 L (34.0-47.0) % MCV 91.0 (81.0-99.0) fL MCH 30.6 (27.0-31.0) pg MCHC 33.7 (33.0-37.0) g/dL RDW 13.0 (11.5-14.5) % Plt Count 298 (130-400) K/uL MPV 7.8 (7.2-11.7) fL Neut % (Auto) 77.3 H (50.0-75.0) % Lymph % (Auto) 11.4 L (20.0-40.0) % [place] % (Auto) 6.7 (0.0-10.0) % Eos % (Auto) 4.1 H (0.0-4.0) % Baso % (Auto) 0.5 (0.0-2.0) % Neut # 6.8 (1.8-7.0) K/uL Lymph # 1.0 (1.0-4.3) K/uL [place] # 0.6 (0.0-0.8) K/uL Eos # 0.4 (0.0-0.7) K/uL Baso # 0.0 (0.0-0.2) K/uL Neutrophils % (Manual) (50-75) % Lymphocytes % (Manual) (20-40) % Monocytes % (Manual) (0-10) % Eosinophils % (Manual) (0-4) % Platelet Estimate (NORMAL) RBC Morphology ESR (0-20) mm/hr PT (9.7-12.2) SECONDS INR APTT (21-34) SECONDS pO2 (30-55) mm/Hg VBG pH (7.32-7.43) VBG pCO2 (40-60) mmHg VBG HCO3 mmol/L VBG Total CO2 (22-28) mmol/L VBG O2 Sat (Calc) (40-65) % VBG Base Excess (0.0-2.0) mmol/L VBG Potassium (3.6-5.2) mmol/L Sodium 131 L (132-148) mmol/l Chloride 93 L (98-107) mmol/L Glucose (65-105) mg/dl Lactate (0.7-2.1) mmol/L Potassium 4.8 (3.6-5.2) mmol/L Carbon Dioxide 30 (22-30) mmol/L Anion Gap 13 (10-20) BUN 34 H (7-17) mg/dL Creatinine 1.2 (0.7-1.2) mg/dL Est GFR ( Amer) 53 Est GFR (Non-Af Amer) 44 POC Glucose (mg/dL) 102 (65-110) mg/dL Random Glucose 50 L (65-105) mg/dL Hemoglobin A1c (4.2-6.5) % Calcium 8.9 (8.6-10.4) mg/dl Total Bilirubin (0.2-1.3) mg/dL AST (14-36) U/L ALT (9-52) U/L Alkaline Phosphatase (38-126) U/L Troponin I (0.00-0.120) ng/mL C-React Prot High Sens (1.00-3.00) mg/L Total Protein (6.3-8.3) g/dL Albumin (3.5-5.0) g/dL Globulin (2.2-3.9) gm/dL Albumin/Globulin Ratio (1.0-2.1) Triglycerides (0-149) mg/dL Cholesterol (0-199) mg/dL LDL Cholesterol Direct (0-129) mg/dL HDL Cholesterol (30-70) mg/dL Venous Blood Potassium (3.6-5.2) mmol/L Urine Color (YELLOW) Urine Clarity (Clear) Urine pH (5.0-8.0) Ur Specific [place] (1.003-1.030) Urine Protein (NEGATIVE) mg/dL Urine Glucose (UA) (Normal) mg/dL Urine Ketones (NEGATIVE) mg/dL Urine Blood (NEGATIVE) Urine Nitrate (NEGATIVE) Urine Bilirubin (NEGATIVE) Urine Urobilinogen (0.2-1.0) mg/dL Ur Leukocyte Esterase (Negative) [place]/uL Urine WBC (Auto) (0-5) /hpf Urine RBC (Auto) (0-3) /hpf Blood Type Antibody Screen 04/29/17 04/29/17 04/29/17 Range/Units 18:32 18:25 15:34 WBC (4.8-10.8) K/uL RBC (3.80-5.20) Mil/uL Hgb (11.0-16.0) g/dL Hct (34.0-47.0) % MCV (81.0-99.0) fL MCH (27.0-31.0) pg MCHC (33.0-37.0) g/dL RDW (11.5-14.5) % Plt Count (130-400) K/uL MPV (7.2-11.7) fL Neut % (Auto) (50.0-75.0) % Lymph % (Auto) (20.0-40.0) % [place] % (Auto) (0.0-10.0) % Eos % (Auto) (0.0-4.0) % Baso % (Auto) (0.0-2.0) % Neut # (1.8-7.0) K/uL Lymph # (1.0-4.3) K/uL [place] # (0.0-0.8) K/uL Eos # (0.0-0.7) K/uL Baso # (0.0-0.2) K/uL Neutrophils % (Manual) (50-75) % Lymphocytes % (Manual) (20-40) % Monocytes % (Manual) (0-10) % Eosinophils % (Manual) (0-4) % Platelet Estimate (NORMAL) RBC Morphology ESR 86 H (0-20) mm/hr PT (9.7-12.2) SECONDS INR APTT (21-34) SECONDS pO2 (30-55) mm/Hg VBG pH (7.32-7.43) VBG pCO2 (40-60) mmHg VBG HCO3 mmol/L VBG Total CO2 (22-28) mmol/L VBG O2 Sat (Calc) (40-65) % VBG Base Excess (0.0-2.0) mmol/L VBG Potassium (3.6-5.2) mmol/L Sodium (132-148) mmol/l Chloride (98-107) mmol/L Glucose (65-105) mg/dl Lactate (0.7-2.1) mmol/L Potassium (3.6-5.2) mmol/L Carbon Dioxide (22-30) mmol/L Anion Gap (10-20) BUN (7-17) mg/dL Creatinine (0.7-1.2) mg/dL Est GFR ( Amer) Est GFR (Non-Af Amer) POC Glucose (mg/dL) (65-110) mg/dL Random Glucose (65-105) mg/dL Hemoglobin A1c (4.2-6.5) % Calcium (8.6-10.4) mg/dl Total Bilirubin (0.2-1.3) mg/dL AST (14-36) U/L ALT (9-52) U/L Alkaline Phosphatase (38-126) U/L Troponin I (0.00-0.120) ng/mL C-React Prot High Sens > 15.00 H (1.00-3.00) mg/L Total Protein (6.3-8.3) g/dL Albumin (3.5-5.0) g/dL Globulin (2.2-3.9) gm/dL Albumin/Globulin Ratio (1.0-2.1) Triglycerides (0-149) mg/dL Cholesterol (0-199) mg/dL LDL Cholesterol Direct (0-129) mg/dL HDL Cholesterol (30-70) mg/dL Venous Blood Potassium (3.6-5.2) mmol/L Urine Color Yellow (YELLOW) Urine Clarity Clear (Clear) Urine pH 7.0 (5.0-8.0) Ur Specific [place] 1.011 (1.003-1.030) Urine Protein 3+ H (NEGATIVE) mg/dL Urine Glucose (UA) Normal (Normal) mg/dL Urine Ketones Negative (NEGATIVE) mg/dL Urine Blood 2+ H (NEGATIVE) Urine Nitrate Negative (NEGATIVE) Urine Bilirubin Negative (NEGATIVE) Urine Urobilinogen 4.0 H (0.2-1.0) mg/dL Ur Leukocyte Esterase Trace (Negative) [place]/uL Urine WBC (Auto) 22 H (0-5) /hpf Urine RBC (Auto) 32 H (0-3) /hpf Blood Type Antibody Screen 04/29/17 04/29/17 04/29/17 Range/Units 14:53 14:50 14:50 WBC (4.8-10.8) K/uL RBC (3.80-5.20) Mil/uL Hgb (11.0-16.0) g/dL Hct (34.0-47.0) % MCV (81.0-99.0) fL MCH (27.0-31.0) pg MCHC (33.0-37.0) g/dL RDW (11.5-14.5) % Plt Count (130-400) K/uL MPV (7.2-11.7) fL Neut % (Auto) (50.0-75.0) % Lymph % (Auto) (20.0-40.0) % [place] % (Auto) (0.0-10.0) % Eos % (Auto) (0.0-4.0) % Baso % (Auto) (0.0-2.0) % Neut # (1.8-7.0) K/uL Lymph # (1.0-4.3) K/uL [place] # (0.0-0.8) K/uL Eos # (0.0-0.7) K/uL Baso # (0.0-0.2) K/uL Neutrophils % (Manual) (50-75) % Lymphocytes % (Manual) (20-40) % Monocytes % (Manual) (0-10) % Eosinophils % (Manual) (0-4) % Platelet Estimate (NORMAL) RBC Morphology ESR (0-20) mm/hr PT (9.7-12.2) SECONDS INR APTT (21-34) SECONDS pO2 (30-55) mm/Hg VBG pH (7.32-7.43) VBG pCO2 (40-60) mmHg VBG HCO3 mmol/L VBG Total CO2 (22-28) mmol/L VBG O2 Sat (Calc) (40-65) % VBG Base Excess (0.0-2.0) mmol/L VBG Potassium (3.6-5.2) mmol/L Sodium 131 L (132-148) mmol/l Chloride 93 L (98-107) mmol/L Glucose (65-105) mg/dl Lactate (0.7-2.1) mmol/L Potassium 5.3 H (3.6-5.2) mmol/L Carbon Dioxide 27 (22-30) mmol/L Anion Gap 1 L (10-20) BUN 38 H (7-17) mg/dL Creatinine 1.3 H (0.7-1.2) mg/dL Est GFR ( Amer) 48 Est GFR (Non-Af Amer) 40 POC Glucose (mg/dL) (65-110) mg/dL Random Glucose 72 (65-105) mg/dL Hemoglobin A1c 12.3 H (4.2-6.5) % Calcium 9.3 (8.6-10.4) mg/dl Total Bilirubin 0.9 (0.2-1.3) mg/dL AST 56 H D (14-36) U/L ALT 77 H D (9-52) U/L Alkaline Phosphatase 83 (38-126) U/L Troponin I < 0.0120 (0.00-0.120) ng/mL C-React Prot High Sens (1.00-3.00) mg/L Total Protein 8.4 H (6.3-8.3) g/dL Albumin 4.3 (3.5-5.0) g/dL Globulin 4.1 H (2.2-3.9) gm/dL Albumin/Globulin Ratio 1.1 (1.0-2.1) Triglycerides 98 (0-149) mg/dL Cholesterol 148 (0-199) mg/dL LDL Cholesterol Direct 55 (0-129) mg/dL HDL Cholesterol 63 (30-70) mg/dL Venous Blood Potassium (3.6-5.2) mmol/L Urine Color (YELLOW) Urine Clarity (Clear) Urine pH (5.0-8.0) Ur Specific [place] (1.003-1.030) Urine Protein (NEGATIVE) mg/dL Urine Glucose (UA) (Normal) mg/dL Urine Ketones (NEGATIVE) mg/dL Urine Blood (NEGATIVE) Urine Nitrate (NEGATIVE) Urine Bilirubin (NEGATIVE) Urine Urobilinogen (0.2-1.0) mg/dL Ur Leukocyte Esterase (Negative) [place]/uL Urine WBC (Auto) (0-5) /hpf Urine RBC (Auto) (0-3) /hpf Blood Type A POSITIVE Antibody Screen Negative 04/29/17 04/29/17 Range/Units 14:50 14:34 WBC 14.0 H (4.8-10.8) K/uL RBC 3.88 (3.80-5.20) Mil/uL Hgb 11.6 (11.0-16.0) g/dL Hct 35.0 (34.0-47.0) % MCV 90.0 (81.0-99.0) fL MCH 29.8 (27.0-31.0) pg MCHC 33.1 (33.0-37.0) g/dL RDW 12.9 (11.5-14.5) % Plt Count 352 (130-400) K/uL MPV 7.7 (7.2-11.7) fL Neut % (Auto) 81.0 H (50.0-75.0) % Lymph % (Auto) 9.1 L (20.0-40.0) % [place] % (Auto) 7.0 (0.0-10.0) % Eos % (Auto) 2.3 (0.0-4.0) % Baso % (Auto) 0.6 (0.0-2.0) % Neut # 11.3 H (1.8-7.0) K/uL Lymph # 1.3 (1.0-4.3) K/uL [place] # 1.0 H (0.0-0.8) K/uL Eos # 0.3 (0.0-0.7) K/uL Baso # 0.1 (0.0-0.2) K/uL Neutrophils % (Manual) 80 H (50-75) % Lymphocytes % (Manual) 8 L (20-40) % Monocytes % (Manual) 9 (0-10) % Eosinophils % (Manual) 3 (0-4) % Platelet Estimate Normal (NORMAL) RBC Morphology Normal ESR (0-20) mm/hr PT (9.7-12.2) SECONDS INR APTT (21-34) SECONDS pO2 23 L (30-55) mm/Hg VBG pH 7.41 (7.32-7.43) VBG pCO2 56 (40-60) mmHg VBG HCO3 30.3 mmol/L VBG Total CO2 37.2 H (22-28) mmol/L VBG O2 Sat (Calc) 45.9 (40-65) % VBG Base Excess 8.9 H (0.0-2.0) mmol/L VBG Potassium 5.3 H (3.6-5.2) mmol/L Sodium 139.0 (132-148) mmol/l Chloride 103.0 (98-107) mmol/L Glucose 79 (65-105) mg/dl Lactate 1.6 (0.7-2.1) mmol/L Potassium (3.6-5.2) mmol/L Carbon Dioxide (22-30) mmol/L Anion Gap (10-20) BUN (7-17) mg/dL Creatinine (0.7-1.2) mg/dL Est GFR ( Amer) Est GFR (Non-Af Amer) POC Glucose (mg/dL) (65-110) mg/dL Random Glucose (65-105) mg/dL Hemoglobin A1c (4.2-6.5) % Calcium (8.6-10.4) mg/dl Total Bilirubin (0.2-1.3) mg/dL AST (14-36) U/L ALT (9-52) U/L Alkaline Phosphatase (38-126) U/L Troponin I (0.00-0.120) ng/mL C-React Prot High Sens (1.00-3.00) mg/L Total Protein (6.3-8.3) g/dL Albumin (3.5-5.0) g/dL Globulin (2.2-3.9) gm/dL Albumin/Globulin Ratio (1.0-2.1) Triglycerides (0-149) mg/dL Cholesterol (0-199) mg/dL LDL Cholesterol Direct (0-129) mg/dL HDL Cholesterol (30-70) mg/dL Venous Blood Potassium 5.3 H (3.6-5.2) mmol/L Urine Color (YELLOW) Urine Clarity (Clear) Urine pH (5.0-8.0) Ur Specific [place] (1.003-1.030) Urine Protein (NEGATIVE) mg/dL Urine Glucose (UA) (Normal) mg/dL Urine Ketones (NEGATIVE) mg/dL Urine Blood (NEGATIVE) Urine Nitrate (NEGATIVE) Urine Bilirubin (NEGATIVE) Urine Urobilinogen (0.2-1.0) mg/dL Ur Leukocyte Esterase (Negative) [place]/uL Urine WBC (Auto) (0-5) /hpf Urine RBC (Auto) (0-3) /hpf Blood Type Antibody Screen Laboratory Results - last 24 hr 04/29/17 04/29/17 04/29/17 14:34 14:50 14:50 WBC 14.0 H RBC 3.88 Hgb 11.6 Hct 35.0 MCV 90.0 MCH 29.8 MCHC 33.1 RDW 12.9 Plt Count 352 MPV 7.7 Neut % (Auto) 81.0 H Lymph % (Auto) 9.1 L [place] % (Auto) 7.0 Eos % (Auto) 2.3 Baso % (Auto) 0.6 Neut # 11.3 H Lymph # 1.3 [place] # 1.0 H Eos # 0.3 Baso # 0.1 Neutrophils % (Manual) 80 H Lymphocytes % (Manual) 8 L Monocytes % (Manual) 9 Eosinophils % (Manual) 3 Platelet Estimate Normal RBC Morphology Normal ESR PT INR APTT pO2 23 L VBG pH 7.41 VBG pCO2 56 VBG HCO3 30.3 VBG Total CO2 37.2 H VBG O2 Sat (Calc) 45.9 VBG Base Excess 8.9 H VBG Potassium 5.3 H Sodium 139.0 131 L Chloride 103.0 93 L Glucose 79 Lactate 1.6 Potassium 5.3 H Carbon Dioxide 27 Anion Gap 1 L BUN 38 H Creatinine 1.3 H Est GFR ( Amer) 48 Est GFR (Non-Af Amer) 40 POC Glucose (mg/dL) Random Glucose 72 Hemoglobin A1c Calcium 9.3 Total Bilirubin 0.9 AST 56 H D ALT 77 H D Alkaline Phosphatase 83 Troponin I < 0.0120 C-React Prot High Sens Total Protein 8.4 H Albumin 4.3 Globulin 4.1 H Albumin/Globulin Ratio 1.1 Triglycerides 98 Cholesterol 148 LDL Cholesterol Direct 55 HDL Cholesterol 63 Venous Blood Potassium 5.3 H Urine Color Urine Clarity Urine pH Ur Specific [place] Urine Protein Urine Glucose (UA) Urine Ketones Urine Blood Urine Nitrate Urine Bilirubin Urine Urobilinogen Ur Leukocyte Esterase Urine WBC (Auto) Urine RBC (Auto) Blood Type Antibody Screen 04/29/17 04/29/17 04/29/17 14:50 14:53 15:34 WBC RBC Hgb Hct MCV MCH MCHC RDW Plt Count MPV Neut % (Auto) Lymph % (Auto) [place] % (Auto) Eos % (Auto) Baso % (Auto) Neut # Lymph # [place] # Eos # Baso # Neutrophils % (Manual) Lymphocytes % (Manual) Monocytes % (Manual) Eosinophils % (Manual) Platelet Estimate RBC Morphology ESR PT INR APTT pO2 VBG pH VBG pCO2 VBG HCO3 VBG Total CO2 VBG O2 Sat (Calc) VBG Base Excess VBG Potassium Sodium Chloride Glucose Lactate Potassium Carbon Dioxide Anion Gap BUN Creatinine Est GFR ( Amer) Est GFR (Non-Af Amer) POC Glucose (mg/dL) Random Glucose Hemoglobin A1c 12.3 H Calcium Total Bilirubin AST ALT Alkaline Phosphatase Troponin I C-React Prot High Sens Total Protein Albumin Globulin Albumin/Globulin Ratio Triglycerides Cholesterol LDL Cholesterol Direct HDL Cholesterol Venous Blood Potassium Urine Color Yellow Urine Clarity Clear Urine pH 7.0 Ur Specific [place] 1.011 Urine Protein 3+ H Urine Glucose (UA) Normal Urine Ketones Negative Urine Blood 2+ H Urine Nitrate Negative Urine Bilirubin Negative Urine Urobilinogen 4.0 H Ur Leukocyte Esterase Trace Urine WBC (Auto) 22 H Urine RBC (Auto) 32 H Blood Type A POSITIVE Antibody Screen Negative 04/29/17 04/29/17 04/29/17 18:25 18:32 18:59 WBC RBC Hgb Hct MCV MCH MCHC RDW Plt Count MPV Neut % (Auto) Lymph % (Auto) [place] % (Auto) Eos % (Auto) Baso % (Auto) Neut # Lymph # [place] # Eos # Baso # Neutrophils % (Manual) Lymphocytes % (Manual) Monocytes % (Manual) Eosinophils % (Manual) Platelet Estimate RBC Morphology ESR 86 H PT INR APTT pO2 VBG pH VBG pCO2 VBG HCO3 VBG Total CO2 VBG O2 Sat (Calc) VBG Base Excess VBG Potassium Sodium 131 L Chloride 93 L Glucose Lactate Potassium 4.8 Carbon Dioxide 30 Anion Gap 13 BUN 34 H Creatinine 1.2 Est GFR ( Amer) 53 Est GFR (Non-Af Amer) 44 POC Glucose (mg/dL) Random Glucose 50 L Hemoglobin A1c Calcium 8.9 Total Bilirubin AST ALT Alkaline Phosphatase Troponin I C-React Prot High Sens > 15.00 H Total Protein Albumin Globulin Albumin/Globulin Ratio Triglycerides Cholesterol LDL Cholesterol Direct HDL Cholesterol Venous Blood Potassium Urine Color Urine Clarity Urine pH Ur Specific [place] Urine Protein Urine Glucose (UA) Urine Ketones Urine Blood Urine Nitrate Urine Bilirubin Urine Urobilinogen Ur Leukocyte Esterase Urine WBC (Auto) Urine RBC (Auto) Blood Type Antibody Screen 04/29/17 04/30/17 04/30/17 21:37 06:27 06:27 WBC 8.8 RBC 3.32 L Hgb 10.2 L Hct 30.2 L MCV 91.0 MCH 30.6 MCHC 33.7 RDW 13.0 Plt Count 298 MPV 7.8 Neut % (Auto) 77.3 H Lymph % (Auto) 11.4 L [place] % (Auto) 6.7 Eos % (Auto) 4.1 H Baso % (Auto) 0.5 Neut # 6.8 Lymph # 1.0 [place] # 0.6 Eos # 0.4 Baso # 0.0 Neutrophils % (Manual) Lymphocytes % (Manual) Monocytes % (Manual) Eosinophils % (Manual) Platelet Estimate RBC Morphology ESR PT INR APTT pO2 VBG pH VBG pCO2 VBG HCO3 VBG Total CO2 VBG O2 Sat (Calc) VBG Base Excess VBG Potassium Sodium 132 Chloride 96 L Glucose Lactate Potassium 4.7 Carbon Dioxide 30 Anion Gap 11 BUN 35 H Creatinine 1.3 H Est GFR ( Amer) 48 Est GFR (Non-Af Amer) 40 POC Glucose (mg/dL) 102 Random Glucose 58 L Hemoglobin A1c Calcium 8.6 Total Bilirubin 0.4 AST 48 H ALT 65 H Alkaline Phosphatase 75 Troponin I C-React Prot High Sens Total Protein 7.6 Albumin 3.4 L D Globulin 4.2 H Albumin/Globulin Ratio 0.8 L Triglycerides Cholesterol LDL Cholesterol Direct HDL Cholesterol Venous Blood Potassium Urine Color Urine Clarity Urine pH Ur Specific [place] Urine Protein Urine Glucose (UA) Urine Ketones Urine Blood Urine Nitrate Urine Bilirubin Urine Urobilinogen Ur Leukocyte Esterase Urine WBC (Auto) Urine RBC (Auto) Blood Type Antibody Screen 04/30/17 04/30/17 06:27 07:05 WBC RBC Hgb Hct MCV MCH MCHC RDW Plt Count MPV Neut % (Auto) Lymph % (Auto) [place] % (Auto) Eos % (Auto) Baso % (Auto) Neut # Lymph # [place] # Eos # Baso # Neutrophils % (Manual) Lymphocytes % (Manual) Monocytes % (Manual) Eosinophils % (Manual) Platelet Estimate RBC Morphology ESR PT 12.2 INR 1.1 APTT 25 pO2 VBG pH VBG pCO2 VBG HCO3 VBG Total CO2 VBG O2 Sat (Calc) VBG Base Excess VBG Potassium Sodium Chloride Glucose Lactate Potassium Carbon Dioxide Anion Gap BUN Creatinine Est GFR ( Amer) Est GFR (Non-Af Amer) POC Glucose (mg/dL) 67 Random Glucose Hemoglobin A1c Calcium Total Bilirubin AST ALT Alkaline Phosphatase Troponin I C-React Prot High Sens Total Protein Albumin Globulin Albumin/Globulin Ratio Triglycerides Cholesterol LDL Cholesterol Direct HDL Cholesterol Venous Blood Potassium Urine Color Urine Clarity Urine pH Ur Specific [place] Urine Protein Urine Glucose (UA) Urine Ketones Urine Blood Urine Nitrate Urine Bilirubin Urine Urobilinogen Ur Leukocyte Esterase Urine WBC (Auto) Urine RBC (Auto) Blood Type Antibody Screen EKG/Cardiology Studies: Cardiology / EKG Studies 04/29/17 13:59 ELECTROCARDIOGRAM Stat Comment: Mode Of Transportation: BED Reason For Exam: code stroke Fingerstick Blood Sugar Results: 110 Critical Care Progress Note - Nutrition Nutrition: Nutrition Category Date Time Status Dysphagia/Modified Consistency Diet [DIET] Diets 04/30/17 Breakfast Active
--- NOTE | 2017-04-30 14:36 | CP.PCM.PN ---
Subjective - Date & Time of Evaluation Date of Evaluation: 04/30/17 Time of Evaluation: 14:32 - Subjective Subjective: Mrs. Gigi Maldonado was seen and examined today bedside. There have been no more right facial seizures since starting Keppra. She is awake and alert, but feels somnolent. There were no acute events overnight. Objective - Vital Signs/Intake and Output Vital Signs (last 24 hours): Temp Pulse Resp BP Pulse Ox 98.7 F 92 H 18 157/72 H 97 04/30/17 13:00 04/30/17 13:00 04/30/17 13:00 04/30/17 13:00 04/30/17 13:00 Intake and Output: 04/30/17 04/30/17 06:59 18:59 Intake Total 1450 750 Output Total 800 4250 Balance 650 -3500 - Medications Medications: Current Medications Enoxaparin Sodium (Lovenox) 40 mg SC DAILY [facility] Last Admin: 04/30/17 09:55 Dose: 40 mg Sodium Chloride (Sodium Chloride 0.9%) 1,000 mls @ 100 mls/hr IV .Q10H [facility] Last Admin: 04/30/17 13:03 Dose: 100 mls/hr Ceftriaxone Sodium (Rocephin Iv 1 Gm Duplex) 50 mls @ 100 mls/hr IVPB Q12 [facility] Last Admin: 04/30/17 10:06 Dose: 100 mls/hr Levetiracetam (Keppra) 500 mg PO BID [facility] Last Admin: 04/30/17 09:54 Dose: 500 mg Pantoprazole Sodium (Protonix Ec Tab) 40 mg PO DAILY [facility] Last Admin: 04/30/17 09:54 Dose: 40 mg Prednisone (Prednisone Tab) 60 mg PO DAILY [facility] Last Admin: 04/30/17 10:13 Dose: 60 mg Valacyclovir HCl (Valtrex) 500 mg PO Q12 [facility] Last Admin: 04/30/17 09:54 Dose: 500 mg - Labs Labs: 04/30/17 06:27 04/30/17 06:27 PT 12.2 SECONDS (9.7-12.2) 04/30/17 06:27 INR 1.1 04/30/17 06:27 APTT 25 SECONDS (21-34) 04/30/17 06:27 - Constitutional Appears: Well - Eye Exam Eye Exam: EOMI, Normal appearance, PERRL - Neck Exam Neck Exam: Full ROM, Normal Inspection. absent: Lymphadenopathy - Respiratory Exam Respiratory Exam: Clear to Ausculation Bilateral, NORMAL BREATHING PATTERN - Cardiovascular Exam Cardiovascular Exam: REGULAR RHYTHM, +S1, +S2. 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 CN 7 palsy on the right. Otherwise CN 2-12 are normal. Assessment and Plan (1) Seizure Assessment & Plan: Continue Keppra 500 mg BID. Will obtain EEG on Tuesday. Treat underlying infection and evaluate for reason the patient is hyponatremic. PT/OT, fluids and Q4 neuro-checks. Status: Acute
[2017-04-30] MEDS ORDERED: Nitroglycerin 2% Ointment Foilpak UD TOP PRN (16:45)
[2017-04-30 19:36] VITALS: RESP 20
[2017-04-30] MEDS ORDERED: (Novolin R) Insulin Human Regular 100 units/ml vial SC SCH (22:00)
--- NOTE | 2017-05-01 09:04 | CP.PCM.PN ---
<Gisela Meyer - Last Filed: 05/01/17 09:15> Subjective - Date & Time of Evaluation Date of Evaluation: 05/01/17 Time of Evaluation: 08:57 - Subjective Subjective: Medicine note for Dr. Jang Patient seen and examined at bedside. Patient resting comfortably in bed sleeping. She was easily awakened and says she is still having chest pain. She also admits to lower abdominal pain. I tried asking further questions but the patient was very somnolent and wanted to sleep. Objective - Vital Signs/Intake and Output Vital Signs (last 24 hours): Temp Pulse Resp BP Pulse Ox 99.1 F 87 20 143/62 96 05/01/17 04:00 05/01/17 04:00 05/01/17 04:00 05/01/17 04:00 05/01/17 04:00 Intake and Output: 05/01/17 05/01/17 06:59 18:59 Output Total 2400 Balance -2400 - Medications Medications: Current Medications Demeclocycline HCl (Declomycin) 300 mg PO BID [facility] Last Admin: 04/30/17 22:22 Dose: 300 mg Enoxaparin Sodium (Lovenox) 40 mg SC DAILY [facility] Last Admin: 04/30/17 09:55 Dose: 40 mg Ceftriaxone Sodium (Rocephin Iv 1 Gm Duplex) 50 mls @ 100 mls/hr IVPB Q12 [facility] Last Admin: 04/30/17 22:22 Dose: 100 mls/hr Insulin Human Regular (Novolin R) 0 unit SC ACHS [facility] PRN Reason: Protocol Levetiracetam (Keppra) 500 mg PO BID [facility] Last Admin: 04/30/17 17:03 Dose: 500 mg Nitroglycerin (Nitro-Bid 2% Oint) 1 ea TOP Q8H PRN PRN Reason: chest pain Last Admin: 04/30/17 17:03 Dose: 1 ea Pantoprazole Sodium (Protonix Ec Tab) 40 mg PO DAILY [facility] Last Admin: 04/30/17 09:54 Dose: 40 mg Prednisone (Prednisone Tab) 60 mg PO DAILY [facility] Last Admin: 04/30/17 10:13 Dose: 60 mg Valacyclovir HCl (Valtrex) 500 mg PO Q12 [facility] Last Admin: 04/30/17 22:23 Dose: 500 mg - Labs Labs: 04/30/17 06:27 11/18/17 06:27 PT 12.2 SECONDS (9.7-12.2) 04/30/17 06:27 INR 1.1 04/30/17 06:27 APTT 25 SECONDS (21-34) 04/30/17 06:27 - Constitutional Appears: Non-toxic, No Acute Distress - Head Exam Head Exam: ATRAUMATIC, NORMOCEPHALIC Additional comments: Right sided [place] palsy - Eye Exam Eye Exam: EOMI, Normal appearance - ENT Exam ENT Exam: Mucous Membranes Moist - Respiratory Exam Respiratory Exam: Clear to Ausculation Bilateral, NORMAL BREATHING PATTERN. absent: Accessory Muscle Use, Rales, Rhonchi, Wheezes, Respiratory Distress - Cardiovascular Exam Cardiovascular Exam: RRR, +S1, +S2 - GI/Abdominal Exam GI & Abdominal Exam: Soft, Tenderness (suprapubic ), Normal Bowel Sounds - Extremities Exam Extremities Exam: absent: Calf Tenderness - Neurological Exam Neurological Exam: Alert - Psychiatric Exam Psychiatric exam: Normal Affect - Skin Skin Exam: Dry, Intact, Normal Color, Warm Assessment and Plan - Assessment and Plan (Free Text) Plan: 1.Severe Hyponatremia (04/30 Later in morning): She is now very awake and very alert. Following all commands very well. Her Na remains stable at this time. Tolerating diet, on IVF NSS@ 100. 04/30: Because of the severe hyponatremia the patient just had as well as the correction of her Na, new MRI was done and fourtunately this did not suggest edema or cerebral pontine mylinosis / osmotic brain changes, the new MRI did not suggest any new findings From last admission : "Patient is awake and oriented and no mental status changes. This evening, appears to have focal seizure involving left mouth and eye; resolved on its own ; given Ativan 1mg IVX1. witnessed by nursing, daughter, and myself at the [employer] : Na: 107 (lowest) prompting further management in the ICU and was stablized and brought to the floors on 04/25. Given Hypteronic bolus X1 on 04/24, attempted salt tabs on 04/24, Given Samsca on 04/25Sodium today: 127 this morning, on repeat 124 ordered for serum osmolarity, urine osmolarity, urine sodium for this evening with repeat BMP at 22:00" 2.Syncope 04/30: Patient has had CT as well as MRI done on 04/19 and again on 04/29. * CT brain and MRI negative for new pathology * Blood culture (04/29): no growth after 5 days X2 * urine culture (04/29) contaminated * Neurology consult, Dr Henao, on board--> help appreciate * likely 2/2 to dehydration * Cartoid normal * Echo: LVH EF: 70% 3 Seizures 05/01: EEG scheduled for Tuesday per Dr. Henao; continue Keppra 500 mg BID and Q4 neuro checks (04/30 Later in morning): stable overnight. For EEG later today. 04/30: Family showed a video on phone of siezure like activity She was started on Keppra 1,000 and then Keprra BID. EEG ordered as well. Also ativan PRN She has had two MRI so far, no acute findings. 3. [place] palsy / facial paralysis (right side of face) 04/30: appreciate neurologist seeing patient in ER. Pending HSV studies, also started on valcylclovir. If these are negative then stop the valcylovir. Will try a tapering prednisone dose 4.Uncontrolled DM 04/30: She did have some low blood sugars 04/30: The patient's family member in particular a male family member in the lobby of the hospital was particularly irate/angry at me because of the blood sugar they explained that she normally takes medication for diabetes and that they felt that it was the hospital's fault for her sugars being very high. I explained to them that it is possible that medications such as steroid class medications can cause a higher sugar. I however I also pointed out to them that during the previous week she had a hemoglobin A1c that was done and this was 13.5. I had to explain to them what a hemoglobin A1c was indicated for the sugar levels for the past 3-4 months. I explained to them that I was glad that she was taking her medication for her diabetes however it is possible that she simply was not getting enough medication for diabetes. 6 UTI 05/01: Urine culture shows E. Coli sensitive to ceftriaxone which patient is already taking (04/30 Later in morning) she had abdominal pain - a bladder scan was done and she had > 999 cc urine so cardozo was started. Continue with the IV rocephin. Cultures still pending. 04/30: recheck UA and UCS, will need to be on IV abx 5.HTN 04/30: She was previously on a ARB and BB, these are on hold at this moment. 6.Hyperlipidemia 04/30: Was on crestor, ASA restart later 7.Hx of prior CVA 04/30: Was on ASA, plavix, crestor - will need to resume these at some point <Han Jang H - Last Filed: 05/01/17 09:17> Objective - Vital Signs/Intake and Output Vital Signs (last 24 hours): Temp Pulse Resp BP Pulse Ox 99.1 F 87 20 143/62 96 05/01/17 04:00 05/01/17 04:00 05/01/17 04:00 05/01/17 04:00 05/01/17 04:00 Intake and Output: 05/01/17 05/01/17 06:59 18:59 Output Total 2400 Balance -2400 - Medications Medications: Current Medications Demeclocycline HCl (Declomycin) 300 mg PO BID [facility] Last Admin: 05/01/17 09:14 Dose: 300 mg Enoxaparin Sodium (Lovenox) 40 mg SC DAILY [facility] Last Admin: 05/01/17 09:12 Dose: 40 mg Ceftriaxone Sodium (Rocephin Iv 1 Gm Duplex) 50 mls @ 100 mls/hr IVPB Q12 [facility] Last Admin: 05/01/17 09:14 Dose: 100 mls/hr Insulin Human Regular (Novolin R) 0 unit SC ACHS TITO PRN Reason: Protocol Last Admin: 05/01/17 09:11 Dose: 4 unit Levetiracetam (Keppra) 500 mg PO BID [facility] Last Admin: 05/01/17 09:12 Dose: 500 mg Nitroglycerin (Nitro-Bid 2% Oint) 1 ea TOP Q8H PRN PRN Reason: chest pain Last Admin: 04/30/17 17:03 Dose: 1 ea Pantoprazole Sodium (Protonix Ec Tab) 40 mg PO DAILY [facility] Last Admin: 05/01/17 09:12 Dose: 40 mg Prednisone (Prednisone Tab) 60 mg PO DAILY [facility] Last Admin: 05/01/17 09:12 Dose: 60 mg Valacyclovir HCl (Valtrex) 500 mg PO Q12 [facility] Last Admin: 05/01/17 09:13 Dose: 500 mg - Labs Labs: 04/30/17 06:27 04/30/17 06:27 PT 12.2 SECONDS (9.7-12.2) 04/30/17 06:27 INR 1.1 04/30/17 06:27 APTT 25 SECONDS (21-34) 04/30/17 06:27 Attending/Attestation - Attestation I have personally seen and examined this patient.: Yes I have fully participated in the care of the patient.: Yes I have reviewed all pertinent clinical information, including history, physical exam and plan: Yes Notes (Text): 05/01/17 09:17 please see my note too thanks Han Jang
--- NOTE | 2017-05-01 09:06 | CP.PCM.PN ---
Subjective - Date & Time of Evaluation Date of Evaluation: 05/01/17 Time of Evaluation: 08:20 - Subjective Subjective: So I spoke with the commercial mortgage broker taking care of the patient last week before the patient left AMA. 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 He advised that we keep the patient onto meclocycline for a few days and continue monitoring the patient's sodium. He asked us to reconsult him if necessary. Today I came and saw the patient. She is awake and alert. She is also following commands and basic Lao as well. She was able to stick her tongue me on command, she was able to elevate both arms past 90. She is able to flex and extend her elbows as well as grasp my hand. The muscle strength is 5 out of 5. On exam of the lower extremities she is able to dorsiflex and plantarflex as well as elevate each leg greater than 5 seconds On exam she still has the right side facial paresthesia and paralysis. It did not look different from before. Yesterday she told me about abdominal pain and we checked a bladder scan and it was >999 mL so a cardozo was started. Today she says abdomen is soft and minimal tenderness in suprapubic area. There's a positive E coli + that is sensitive to a lot of things including the rocephin that I had started when she came back. Pending on the lab work this morning. Objective - Vital Signs/Intake and Output Vital Signs (last 24 hours): Temp Pulse Resp BP Pulse Ox 99.1 F 87 20 143/62 96 05/01/17 04:00 05/01/17 04:00 05/01/17 04:00 05/01/17 04:00 05/01/17 04:00 Intake and Output: 05/01/17 05/01/17 06:59 18:59 Output Total 2400 Balance -2400 - Medications Medications: Current Medications Demeclocycline HCl (Declomycin) 300 mg PO BID [facility] Last Admin: 04/30/17 22:22 Dose: 300 mg Enoxaparin Sodium (Lovenox) 40 mg SC DAILY [facility] Last Admin: 04/30/17 09:55 Dose: 40 mg Ceftriaxone Sodium (Rocephin Iv 1 Gm Duplex) 50 mls @ 100 mls/hr IVPB Q12 [facility] Last Admin: 04/30/17 22:22 Dose: 100 mls/hr Insulin Human Regular (Novolin R) 0 unit SC ACHS [facility] PRN Reason: Protocol Levetiracetam (Keppra) 500 mg PO BID [facility] Last Admin: 04/30/17 17:03 Dose: 500 mg Nitroglycerin (Nitro-Bid 2% Oint) 1 ea TOP Q8H PRN PRN Reason: chest pain Last Admin: 04/30/17 17:03 Dose: 1 ea Pantoprazole Sodium (Protonix Ec Tab) 40 mg PO DAILY [facility] Last Admin: 04/30/17 09:54 Dose: 40 mg Prednisone (Prednisone Tab) 60 mg PO DAILY [facility] Last Admin: 04/30/17 10:13 Dose: 60 mg Valacyclovir HCl (Valtrex) 500 mg PO Q12 [facility] Last Admin: 04/30/17 22:23 Dose: 500 mg - Labs Labs: 04/30/17 06:27 04/30/17 06:27 PT 12.2 SECONDS (9.7-12.2) 04/30/17 06:27 INR 1.1 04/30/17 06:27 APTT 25 SECONDS (21-34) 04/30/17 06:27 - Constitutional Appears: Non-toxic, No Acute Distress - Head Exam Additional comments: Right face, with lip drooping. Also some paralysis around the eye and down into the cheeks - ENT Exam ENT Exam: Mucous Membranes Moist - Respiratory Exam Respiratory Exam: Clear to Ausculation Bilateral, NORMAL BREATHING PATTERN - Cardiovascular Exam Cardiovascular Exam: REGULAR RHYTHM - GI/Abdominal Exam GI & Abdominal Exam: Soft, Tenderness. absent: Distended, Firm, Guarding, Rigid Additional comments: Yesterday the patient's lower abdomen felt very full. Today it's very soft and nondistended. Likely the findings yesterday was due to her being not able to empty her bladder - Neurological Exam Neurological Exam: Alert, Awake, CN II-XII Intact, Oriented x3 Neuro motor strength exam: Left Upper Extremity: 5, Right Upper Extremity: 5, Left Lower Extremity: 5, Right Lower Extremity: 5 Additional comments: Besides the right side facial paralysis, her other cranial nerves appear to be grossly intact. She has very good upper and lower extremity muscle strength she would benefit a lot from PT/OT - Psychiatric Exam Psychiatric exam: Normal Affect, Normal Mood - Skin Skin Exam: Normal Color, Warm Assessment and Plan - Assessment and Plan (Free Text) Assessment: Overall so this is a 76-year-old female whose family decided to leave AMA yesterday, their goal was to get to [facility]. However the ambulance that they called from their house promptly brought her back to [facility]. I had a very long discussion with a very large amount of family members in the hospital lobby and also again we saw the patient and family members in the emergency room as well. This is my first time meeting her and her family. 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 We are still pending the lab work from this morning. I placed her on demeclocycline twice a day and discontinued her normal saline. I did not start fluid restrictions since yesterday sodium was stable. (04/30 Later in morning): She is now very awake and very alert. Following all commands very well. Her Na remains stable at this time. Tolerating diet, on IVF NSS@ 100. 04/30: Because of the severe hyponatremia the patient just had as well as the correction of her Na, new MRI was done and fourtunately this did not suggest edema or cerebral pontine mylinosis / osmotic brain changes, the new MRI did not suggest any new findings From last admission : "Patient is awake and oriented and no mental status changes. This evening, appears to have focal seizure involving left mouth and eye; resolved on its own ; given Ativan 1mg IVX1. witnessed by nursing, daughter, and myself at the STAFF EDITOR : Na: 107 (lowest) prompting further management in the ICU and was stablized and brought to the floors on 04/25. Given Hypteronic bolus X1 on 04/24, attempted salt tabs on 04/24, Given Samsca on 04/25Sodium today: 127 this morning, on repeat 124 ordered for serum osmolarity, urine osmolarity, urine sodium for this evening with repeat BMP at 22:00" 2.Syncope 04/30: Patient has had CT as well as MRI done on 04/19 and again on 11/17. * CT brain and MRI negative for new pathology * Blood culture (04/29): no growth after 5 days X2 * urine culture (04/29) contaminated * Neurology consult, Dr Henao, on board--> help appreciate * likely 2/2 to dehydration * Cartoid normal * Echo: LVH EF: 70% 3 Seizures 05/01: Per nursing she did not have any episodes of seizures last night were pending the EEG at this time (04/30 Later in morning): stable overnight. For EEG later today. 04/30: Family showed a video on phone of siezure like activity She was started on Keppra 1,000 and then Keprra BID. EEG ordered as well. Also ativan PRN She has had two MRI so far, no acute findings. 3. [place] palsy / facial paralysis (right side of face) 05/01: She still on the oral prednisone at this time. The HSV studies were collected were still waiting on the results for them. 04/30: appreciate neurologist seeing patient in ER. Pending HSV studies, also started on valcylclovir. If these are negative then stop the valcylovir. Will try a tapering prednisone dose 4.Uncontrolled DM 05/01: The patient is eating now and so overnight she did have some high blood sugars she was started on a insulin sliding scale. 04/30: She did have some low blood sugars 04/30: The patient's family member in particular a male family member in the lobby of the hospital was particularly irate/angry at me because of the blood sugar they explained that she normally takes medication for diabetes and that they felt that it was the hospital's fault for her sugars being very high. I explained to them that it is possible that medications such as steroid class medications can cause a higher sugar. I however I also pointed out to them that during the previous week she had a hemoglobin A1c that was done and this was 13.5. I had to explain to them what a hemoglobin A1c was indicated for the sugar levels for the past 3-4 months. I explained to them that I was glad that she was taking her medication for her diabetes however it is possible that she simply was not getting enough medication for diabetes. 6 UTI 05/01: The patient's urine culture came back positive for Escherichia coli that is sensitive to many things including the Rocephin that she is on. We'll continue with the Rocephin (04/30 Later in morning) she had abdominal pain - a bladder scan was done and she had > 999 cc urine so cardozo was started. Continue with the IV rocephin. Cultures still pending. 04/30: recheck UA and UCS, will need to be on IV abx 5.HTN 05/01: She is eating and drinking now on her own, she is also more active. Her blood pressures are now higher so will restart the patient on Norvasc 10 04/30: She was previously on a ARB and BB, these are on hold at this moment. 6.Hyperlipidemia 04/30: Was on crestor, ASA restart later 7.Hx of prior CVA 04/30: Was on ASA, plavix, crestor - will need to resume these at some point
[2017-05-01] MEDS: (Novolin R) Insulin Human Regular 100 units/ml vial SC SCH ×4 (09:11→21:51)
[2017-05-01] MEDS: Enoxaparin 40 mg Syringe SC SCH (09:12)
[2017-05-01] MEDS: Pantoprazole 40 mg EC Tab PO SCH (09:12)
[2017-05-01] MEDS: cefTRIAXone IV 1 gm in Dextros 50 ML IVPB SCH ×2 (09:14→21:54)
[2017-05-01 09:57] LABS: ALB/GLOB RATIO 1.1 (1.0-2.1); ALKALINE PHOSPHATASE 72 U/L (38-126); ALT/SGPT 57 U/L (9-52); AST/SGOT 32 U/L (14-36); BILIRUBIN,TOTAL 0.5 mg/dL (0.2-1.3); BLOOD UREA NITROGEN 43 mg/dL (7-17); CALCIUM 8.7 mg/dl (8.6-10.4); CARBON DIOXIDE 27 mmol/L (22-30); CHLORIDE 97 mmol/L (98-107); GFR AFRICAN-AMERICAN 48; GLUCOSE,RANDOM 173 mg/dL (65-105); POTASSIUM 4.5 mmol/L (3.6-5.2); SODIUM 134 mmol/L (132-148); TOTAL PROTEIN 6.2 g/dL (6.3-8.3)
[2017-05-01 11:33] LABS: BASO % 0.1 % (0.0-2.0); EOS # 0.1 K/uL (0.0-0.7); EOS % 0.6 % (0.0-4.0); HEMATOCRIT 27.7 % (34.0-47.0); LYMPH # 0.8 K/uL (1.0-4.3); LYMPH % 7.4 % (20.0-40.0); MEAN CORPUSCULAR HEMOGLOBIN 30.1 pg (27.0-31.0); MEAN CORPUSCULAR HGB CONC 33.1 g/dL (33.0-37.0); MEAN PLATELET VOLUME 7.7 fL (7.2-11.7); MONO # 0.5 K/uL (0.0-0.8); MONO % 4.6 % (0.0-10.0); PLATELET COUNT 282 K/uL (130-400); RED CELL DISTRIBUTION WIDTH 12.7 % (11.5-14.5); WHITE BLOOD COUNT 10.8 K/uL (4.8-10.8)
[2017-05-01 12:17] LABS: EOSINOPHIL 1 % (0-4); NEUTROPHIL 93 % (50-75); TOTAL CELLS COUNTED 100
[2017-05-01] MEDS: (Novolog Mix 70/30) Insulin Aspart/Insulin Aspar 100 units/ml SC SCH ×3 (15:44→21:50)
[2017-05-02 07:25] LABS: BASO % 0.3 % (0.0-2.0); EOS % 0.3 % (0.0-4.0); HEMATOCRIT 29.3 % (34.0-47.0); LYMPH # 1.4 K/uL (1.0-4.3); MEAN CELL VOLUME 89.2 fL (81.0-99.0); MEAN CORPUSCULAR HEMOGLOBIN 29.7 pg (27.0-31.0); MEAN CORPUSCULAR HGB CONC 33.3 g/dL (33.0-37.0); MEAN PLATELET VOLUME 7.6 fL (7.2-11.7); MONO # 0.7 K/uL (0.0-0.8); MONO % 6.5 % (0.0-10.0); RED CELL DISTRIBUTION WIDTH 12.5 % (11.5-14.5); WHITE BLOOD COUNT 11.2 K/uL (4.8-10.8)
[2017-05-02 07:46] LABS: ALB/GLOB RATIO 1.1 (1.0-2.1); BILIRUBIN,TOTAL 0.6 mg/dL (0.2-1.3); CALCIUM 9.2 mg/dl (8.6-10.4); MAGNESIUM 1.4 mg/dL (1.6-2.3); PHOSPHOROUS 3.6 mg/dL (2.5-4.5); POTASSIUM 4.5 mmol/L (3.6-5.2); TOTAL PROTEIN 6.7 g/dL (6.3-8.3)
[2017-05-02] MEDS: (Novolog Mix 70/30) Insulin Aspart/Insulin Aspar 100 units/ml SC SCH ×3 (08:32→17:15)
[2017-05-02] MEDS: (Novolin R) Insulin Human Regular 100 units/ml vial SC SCH ×4 (08:33→22:29)
--- NOTE | 2017-05-02 08:46 | CP.PCM.PN ---
<Izabella Zavala - Last Filed: 05/02/17 18:02> Subjective - Date & Time of Evaluation Date of Evaluation: 05/02/17 Time of Evaluation: 08:46 - Subjective Subjective: Medicine note for Dr. Morton Patient was seen and examined at bedside in no acute distress. Patient reports having parasternal chest pain, lower midline abdominal pain, and a headache. Patient reports she has no had a bowel movement in approximately 3 days. Patient denies having shortness of breath, nausea, vomiting, fevers, and leg pain. Objective - Vital Signs/Intake and Output Vital Signs (last 24 hours): Temp Pulse Resp BP Pulse Ox 98.2 F 81 20 159/72 H 98 05/02/17 07:44 05/02/17 07:44 05/02/17 07:44 05/02/17 07:44 05/02/17 07:44 Intake and Output: 05/02/17 05/02/17 06:59 18:59 Output Total 2200 Balance -2200 - Medications Medications: Current Medications Amlodipine Besylate (Norvasc) 10 mg PO DAILY [facility] Last Admin: 05/01/17 11:03 Dose: 10 mg Demeclocycline HCl (Declomycin) 300 mg PO BID [facility] Last Admin: 05/01/17 18:07 Dose: 300 mg Enoxaparin Sodium (Lovenox) 40 mg SC DAILY [facility] Last Admin: 05/01/17 09:12 Dose: 40 mg Ceftriaxone Sodium (Rocephin Iv 1 Gm Duplex) 50 mls @ 100 mls/hr IVPB Q12 [facility] Last Admin: 05/01/17 21:54 Dose: 100 mls/hr Insulin Aspart (Novolog Mix 70/30 (70/30 Units/Ml)) 5 units SC ACHS [facility] Last Admin: 05/02/17 08:32 Dose: 5 units Insulin Human Regular (Novolin R) 0 unit SC ACHS [facility] PRN Reason: Protocol Last Admin: 05/02/17 08:33 Dose: 2 unit Levetiracetam (Keppra) 500 mg PO BID [facility] Last Admin: 05/01/17 18:06 Dose: 500 mg Nitroglycerin (Nitro-Bid 2% Oint) 1 ea TOP Q8H PRN PRN Reason: chest pain Last Admin: 04/30/17 17:03 Dose: 1 ea Pantoprazole Sodium (Protonix Ec Tab) 40 mg PO DAILY [facility] Last Admin: 05/01/17 09:12 Dose: 40 mg Prednisone (Prednisone Tab) 60 mg PO DAILY [facility] Last Admin: 05/01/17 09:12 Dose: 60 mg Valacyclovir HCl (Valtrex) 500 mg PO Q12 [facility] Last Admin: 05/01/17 22:05 Dose: 500 mg - Labs Labs: 05/02/17 06:59 05/02/17 06:59 PT 12.2 SECONDS (9.7-12.2) 04/30/17 06:27 INR 1.1 04/30/17 06:27 APTT 25 SECONDS (21-34) 04/30/17 06:27 - Constitutional Appears: No Acute Distress - Head Exam Head Exam: ATRAUMATIC, NORMAL INSPECTION Additional comments: Right sided Oldhams Palsy - Eye Exam Eye Exam: EOMI - ENT Exam ENT Exam: Mucous Membranes Moist - Respiratory Exam Respiratory Exam: Clear to Ausculation Bilateral, NORMAL BREATHING PATTERN. absent: Rales, Rhonchi, Wheezes, Respiratory Distress - Cardiovascular Exam Cardiovascular Exam: REGULAR RHYTHM, +S1, +S2 - GI/Abdominal Exam GI & Abdominal Exam: Soft, Tenderness (lower abdomen, midline & LLQ with palpation), Normal Bowel Sounds. absent: Distended, Firm, Guarding, Mass - Extremities Exam Extremities Exam: Full ROM, Normal Inspection. absent: Pedal Edema, Tenderness Additional comments: 5/5 LE strength; 5/5 checker loader bilaterally - Neurological Exam Neurological Exam: Alert, Awake, Oriented x3 - Psychiatric Exam Psychiatric exam: Normal Mood - Skin Skin Exam: Dry, Intact, Normal Color, Warm Assessment and Plan (1) Hyponatremia Assessment & Plan: 05/02: Na 131; Continue demeclocycline 300mg PO BID; (04/30 Later in morning): She is now very awake and very alert. Following all commands very well. Her Na remains stable at this time. Tolerating diet, on IVF NSS@ 100. 04/30: Because of the severe hyponatremia the patient just had as well as the correction of her Na, new MRI was done and fourtunately this did not suggest edema or cerebral pontine mylinosis / osmotic brain changes, the new MRI did not suggest any new findings 04/29: Brain MRI-no evidence of diffusion restriction or abnormal hyperintense T2 signal at angela to suggest osmostic demyelination syndrome/central pontine myelinolysis. 04/29: Head CT- no acute intracranial findings From last admission : "Patient is awake and oriented and no mental status changes. This evening, appears to have focal seizure involving left mouth and eye; resolved on its own ; given Ativan 1mg IVX1. witnessed by nursing, daughter, and myself at the [facility] : Na: 107 (lowest) prompting further management in the ICU and was stablized and brought to the floors on 04/25. Given Hypteronic bolus X1 on 04/24, attempted salt tabs on 04/24, Given Samsca on 04/25Sodium today: 127 this morning, on repeat 124 ordered for serum osmolarity, urine osmolarity, urine sodium for this evening with repeat BMP at 22:00" Status: Acute (2) Syncope Assessment & Plan: 04/30: Patient has had CT as well as MRI done on 04/19 and again on 04/29. * likely 2/2 to dehydration * CT brain and MRI negative for new pathology * Blood culture (04/29): no growth after 5 days X2 * urine culture (04/29) contaminated * Neurology consult, Dr Henao, on board--> help appreciated * Cartoid US-normal * Echo: LVH EF: 70% Status: Acute (3) Seizure Assessment & Plan: 05/02: EEG- follow up results; continue Keppra (As per Dr. Henao, continue Keppra even if EEG is negative because patient has clinical seizure); * As per Dr. Henao, continue Keppra, prednisone taper (give 30mg tomorrow, 20mg 05/04, 10mg on 05/05), and Valtrex (until receive results of HSV PCR- if negative, can discontinue). * HSV PCR: f/u results * Seizure precautions ordered 05/01: EEG scheduled for Tuesday per Dr. Henao; continue Keppra 500 mg BID and Q4 neuro checks (04/30 Later in morning): stable overnight. For EEG later today. 04/30: Family showed a video on phone of siezure like activity She was started on Keppra 1,000 and then Keprra BID. EEG ordered as well. Also ativan PRN She has had two MRI so far, no acute findings. 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 Started on valcylclovir. If these are negative then stop the valcylovir. Will try a tapering prednisone dose Status: Acute (5) Diabetes type 2, uncontrolled Assessment & Plan: HgbA1c: 12.3 on 04/29/1705/02: Continue Novolog 70/30, 5unites SC ACHS and ISS. Continue to monitor Endocrinology consulted- Dr. Cobian, help appreciated As per Dr. Gisela Meyer's (PGY1) note- * 04/30: She did have some low blood sugars * 04/30: "The patient's family member in particular a male family member in the lobby of the hospital was particularly irate/angry at me because of the blood sugar they explained that she normally takes medication for diabetes and that they felt that it was the hospital's fault for her sugars being very high. " Status: Acute (6) HTN (hypertension) Assessment & Plan: Patient was previously taking an ARB and Beta swapna- on hold for now. Continue Norvasc 10mg PO daily Status: Acute (7) HLD (hyperlipidemia) Assessment & Plan: Home medication: Atorvastatin 20mg PO daily Status: Acute (8) History of CVA (cerebrovascular accident) Assessment & Plan: 05/02: Restarted home medications- ASA 81mg PO daily, Plavix 75mg PO daily, Atorvastatin 20mg PO daily, Toprol 25mg PO daily 04/30: Was on ASA, plavix, crestor - will need to resume these at some point Status: Acute (9) UTI (urinary tract infection) Assessment & Plan: 05/02: Continue Ceftriaxone 05/01: Urine culture shows E. Coli sensitive to ceftriaxone which patient is already taking (04/30 Later in morning) she had abdominal pain - a bladder scan was done and she had > 999 cc urine so cardozo was started. Continue with the IV rocephin. Cultures still pending. 04/30: recheck UA and UCS, will need to be on IV abx Status: Acute (10) Prophylactic measure Assessment & Plan: Lovenox 40mg SC daily Protonix 40mg PO daily Dysphagia modfiied consistency diet- finely chopped/thin SCDs PT/OT: as per PT, patient has unstable gait, recommends subacute rehab; however , patient does not have insurance. Requested continued PT/OT and out of bed to chair Status: Acute <Will Morton - Last Filed: 05/03/17 19:12> Objective - Vital Signs/Intake and Output Vital Signs (last 24 hours): Temp Pulse Resp BP Pulse Ox 98.4 F 83 20 124/63 98 05/03/17 16:28 05/03/17 16:28 05/03/17 16:28 05/03/17 16:28 05/03/17 16:28 - Medications Medications: Current Medications Amlodipine Besylate (Norvasc) 10 mg PO DAILY [facility] Last Admin: 05/03/17 09:56 Dose: 10 mg Aspirin (Ecotrin) 81 mg PO DAILY [facility] Last Admin: 05/03/17 09:56 Dose: 81 mg Clopidogrel Bisulfate (Plavix) 75 mg PO DAILY [facility] Last Admin: 05/03/17 09:56 Dose: 75 mg Enoxaparin Sodium (Lovenox) 40 mg SC DAILY [facility] Last Admin: 05/03/17 10:03 Dose: 40 mg Famotidine (Pepcid) 20 mg PO BID [facility] Last Admin: 05/03/17 17:37 Dose: 20 mg Ceftriaxone Sodium (Rocephin Iv 1 Gm Duplex) 50 mls @ 100 mls/hr IVPB Q12 [facility] Last Admin: 05/03/17 09:57 Dose: 100 mls/hr Insulin Human Isoph/Insulin Regular (Novolin 70/30 (70/30 Units/Ml) 10 Ml) 30 units SC ACB [facility] Insulin Human Isoph/Insulin Regular (Novolin 70/30 (70/30 Units/Ml) 10 Ml) 20 units SC ACD [facility] Last Admin: 05/03/17 17:39 Dose: 20 units Insulin Human NPH (Novolin N) 16 unit SC HS [facility] Insulin Human Regular (Novolin R) 0 unit SC ACHS [facility] PRN Reason: Protocol Last Admin: 05/03/17 17:15 Dose: 6 unit Levetiracetam (Keppra) 500 mg PO BID [facility] Last Admin: 05/03/17 17:37 Dose: 500 mg Magnesium Chloride (Slow-Mag) 64 mg PO DAILY [facility] Last Admin: 05/03/17 17:37 Dose: 64 mg Magnesium Oxide (Mag-Ox) 400 mg PO BID [facility] Last Admin: 05/03/17 17:37 Dose: 400 mg Metoprolol Succinate (Toprol Xl) 25 mg PO DAILY [facility] Last Admin: 05/03/17 09:55 Dose: 25 mg Nitroglycerin (Nitro-Bid 2% Oint) 1 ea TOP Q8H PRN PRN Reason: chest pain Last Admin: 04/30/17 17:03 Dose: 1 ea Prednisone (Prednisone Tab) 40 mg PO DAILY [facility] Stop: 05/04/17 10:30 Prednisone (Prednisone Tab) 30 mg PO DAILY [facility] Stop: 05/05/17 10:30 Prednisone (Prednisone Tab) 20 mg PO DAILY [facility] Stop: 05/06/17 10:30 Prednisone (Prednisone Tab) 10 mg PO DAILY [facility] Stop: 05/07/17 10:30 Rosuvastatin Calcium (Crestor) 10 mg PO HS [facility] Last Admin: 05/02/17 22:27 Dose: 10 mg Valacyclovir HCl (Valtrex) 500 mg PO Q12 [facility] Last Admin: 05/03/17 09:56 Dose: 500 mg - Labs Labs: 05/03/17 08:57 05/03/17 08:57 PT 12.2 SECONDS (9.7-12.2) 04/30/17 06:27 INR 1.1 04/30/17 06:27 APTT 25 SECONDS (21-34) 04/30/17 06:27 Attending/Attestation - Attestation I have personally seen and examined this patient.: Yes I have fully participated in the care of the patient.: Yes I have reviewed all pertinent clinical information, including history, physical exam and plan: Yes Notes (Text): Patient was seen and examined Discussed with the G daughter at bedside I agrre with the resident's documentation of the assessment and the plan
[2017-05-02] MEDS: Enoxaparin 40 mg Syringe SC SCH (09:30)
[2017-05-02] MEDS: Pantoprazole 40 mg EC Tab PO SCH (09:30)
[2017-05-02] MEDS: cefTRIAXone IV 1 gm in Dextros 50 ML IVPB SCH ×2 (09:32→22:28)
[2017-05-02] MEDS ORDERED: Magnesium Sulfate 1 gm in D5W 1 GM/100 ML BAG IVPB ONE (10:01)
--- NOTE | 2017-05-02 11:18 | CP.PCM.PN ---
Subjective - Date & Time of Evaluation Date of Evaluation: 05/02/17 Time of Evaluation: 11:15 - Subjective Subjective: Ms. Gigi Maldonado was seen and examined at the bedside. She is alert, oriented to all spheres, speaks mainly Yakut. She is able to follow simple commands.She denies any seizures, headache, dizziness, lightheadedness, nausea, or vomiting. There was no untoward events overnight. Objective - Vital Signs/Intake and Output Vital Signs (last 24 hours): Temp Pulse Resp BP Pulse Ox 98.2 F 81 20 159/72 H 98 05/02/17 07:44 05/02/17 07:44 05/02/17 07:44 05/02/17 07:44 05/02/17 07:44 Intake and Output: 05/02/17 05/02/17 06:59 18:59 Output Total 2200 Balance -2200 - Medications Medications: Current Medications Amlodipine Besylate (Norvasc) 10 mg PO DAILY [facility] Last Admin: 05/02/17 09:30 Dose: 10 mg Demeclocycline HCl (Declomycin) 300 mg PO BID [facility] Last Admin: 05/02/17 09:31 Dose: 300 mg Enoxaparin Sodium (Lovenox) 40 mg SC DAILY [facility] Last Admin: 05/02/17 09:30 Dose: 40 mg Ceftriaxone Sodium (Rocephin Iv 1 Gm Duplex) 50 mls @ 100 mls/hr IVPB Q12 [facility] Last Admin: 05/02/17 09:32 Dose: 100 mls/hr Insulin Aspart (Novolog Mix 70/30 (70/30 Units/Ml)) 5 units SC ACHS [facility] Last Admin: 05/02/17 08:32 Dose: 5 units Insulin Human Regular (Novolin R) 0 unit SC ACHS [facility] PRN Reason: Protocol Last Admin: 05/02/17 08:33 Dose: 2 unit Levetiracetam (Keppra) 500 mg PO BID [facility] Last Admin: 05/02/17 09:30 Dose: 500 mg Nitroglycerin (Nitro-Bid 2% Oint) 1 ea TOP Q8H PRN PRN Reason: chest pain Last Admin: 04/30/17 17:03 Dose: 1 ea Pantoprazole Sodium (Protonix Ec Tab) 40 mg PO DAILY [facility] Last Admin: 05/02/17 09:30 Dose: 40 mg Prednisone (Prednisone Tab) 60 mg PO DAILY [facility] Last Admin: 05/02/17 09:30 Dose: 60 mg Valacyclovir HCl (Valtrex) 500 mg PO Q12 [facility] Last Admin: 05/02/17 09:32 Dose: 500 mg - Labs Labs: 05/02/17 06:59 05/02/17 06:59 PT 12.2 SECONDS (9.7-12.2) 04/30/17 06:27 INR 1.1 04/30/17 06:27 APTT 25 SECONDS (21-34) 04/30/17 06:27 - Constitutional Appears: No Acute Distress - Head Exam Head Exam: ATRAUMATIC - Neurological Exam Neurological Exam: Alert, Awake, Oriented x3 Neuro motor strength exam: Left Upper Extremity: 5, Right Upper Extremity: 5, Left Lower Extremity: 5, Right Lower Extremity: 5 Additional comments: She is alert, oriented in all spheres, able to follow commands such as field accommodation and finger to nose test. Sensation remains intact. Assessment and Plan (1) Seizure Assessment & Plan: Case discussed with Dr. Henao, continue all current medicaltion, physical, and occupational therapies. Follow up EEG Status: Acute
--- NOTE | 2017-05-02 12:02 | CARD ---
APPROVED REPORT EKG Measurement Heart [id number] <Conclusion> Sinus tachycardia Otherwise normal ECG
--- NOTE | 2017-05-02 17:19 | CARD ---
APPROVED REPORT EKG Measurement Heart [id number] <Conclusion> Sinus tachycardia Otherwise normal ECG
[2017-05-02] MEDS ORDERED: (Novolin N) Insulin Human Isophane (NPH) 100 u/ml 10 ml vial SC SCH (22:00)
--- NOTE | 2017-05-03 01:00 | CON ---
ENDOCRINOLOGY CONSULT LOCATION: Room #668. HISTORY OF PRESENT ILLNESS: This is a 76-year-old female with known history of type 2 diabetes and hypertension, presenting here with generalized body weakness and supervening marked hyperglycemic accelerations and has been followed closely for the medical status noted. Moreover, she has significant symptomatic hyponatremia with initial serum sodium in the previous admission of 107 mmol/L. History of hypertensive cardiovascular disease and dyslipidemia, history of recent Horta's palsy and was started on steroid therapy as noted with persistent right fascial weakness. She was actually signed AMA by the family with intentions of transfer her to the [facility], but this was not allowed by the ambulance staff and so she was walked up into [facility] for readmission. PAST MEDICAL HISTORY: As mentioned above; history of type 2 insulin requiring diabetes with marked hyperglycemic accelerations as noted, history of hypertensive cardiovascular disease and dyslipidemia, history of osteoarthritis and osteoporosis as noted. MEDICATIONS: No known antiresorptive medications as noted. She is currently on a combination of candesartan with hydrochlorothiazide as noted. FAMILY HISTORY: Positive for diabetes and hypertension. SOCIAL HISTORY: The patient has a supportive family. No known substance use. REVIEW OF SYSTEMS: As mentioned above. Admits to generalized body weakness with easy fatigability and tiredness and suboptimal energy level, also admits to dizziness and lightheadedness worsened on the day of admission. Her oral intake has been variable with nausea, dyspepsia, and vague upper abdominal pain. She also has episodic nocturia as noted. PHYSICAL EXAMINATION GENERAL: This is an over weight female, in no apparent distress. VITAL SIGNS: Blood pressure of 114/80; pulse of 72 beats per minute, regular; temperature 98; respirations 20; height is 5 feet 2 inches and weight is 167 pounds. HEENT: Head is normocephalic. Eyes are anicteric with pink conjunctivae. Funduscopy not possible at this time. Ears, nose, and throat otherwise normal. NECK: Supple. Thyroid gland is normal in size. No carotid bruits or any cervical adenopathy. CARDIOPULMONARY: Adynamic pericardium. S1 and S2 is rapid and regular. LUNGS: Clear to auscultation. ABDOMEN: Flat and soft with positive bowel sounds. EXTREMITIES: No peripheral edema. Pulses are +2 bilaterally. LABORATORY DATA: Her chemistries showed a BUN of 49, sodium 131, potassium 4.5, chloride 96, CO2 of 26, glucose 173, creatinine 1.2. Her glucose levels have been fluctuating ranging from 373 to 403 mg/dL. ASSESSMENT: This is a 76-year-old female with hypovolemic hyponatremia most likely related to the prior diuretic usage at this time with no overt central or peripheral lesion causing the aforementioned hyponatremia. There is also possibility of syndrome of inappropriate antidiuretic hormone (secretion) at this time, although there is no overt lesion noted both from the prior admission and also for this current admission as noted thereof. She also has uncontrolled type 2 insulin requiring diabetes most likely related to the suboptimal therapeutic regimen at this time. We will do further workup to exclude any underlying endocrinopathy as noted. PLAN OF MANAGEMENT: The patient has been started on demeclocycline 300 mg b.i.d., so we will keep the same dosing for now as the serum sodium has stabilized at 130 to 131 mg/dL. We will hold off further titration of the demeclocycline as this is hopefully only a transient phenomenon and should improve once the diuretics are washed out of her body chemistry as noted. We will also modify the current insulin regimen as she is on the high-dose steroids for management of Horta's palsy as noted. We will start her on the premixed insulin regimen with Novolin 70/30 given as 24 units before meals, breakfast and 16 before meals, dinner considering that she has no financial means to afford medical insurance at this time. We will also add Novolin NPH of 12 units subcu at bedtime daily to start tonight. We will modify the coverage scale to obviate hypoglycemia and detailed orders have been given. We will obtain a baseline thyroid function studies and serum cortisol level to rule out any underlying endocrinopathy causing the aforementioned. We will follow up. Alisson Cobian MD
[2017-05-03] MEDS ORDERED: (Novolin R) Insulin Human Regular 100 units/ml vial SC ONE (02:31)
[2017-05-03] MEDS ORDERED: (Novolin 70/30) NPH/Regular 70/30 Units/ml 10 ml vial SC SCH ×2 (07:30→16:30)
[2017-05-03] MEDS: (Novolin R) Insulin Human Regular 100 units/ml vial SC SCH ×4 (08:41→22:11)
[2017-05-03 09:10] LABS: BASO % 0.2 % (0.0-2.0); EOS % 0.2 % (0.0-4.0); HEMATOCRIT 29.4 % (34.0-47.0); LYMPH # 1.4 K/uL (1.0-4.3); LYMPH % 12.7 % (20.0-40.0); MEAN CELL VOLUME 90.3 fL (81.0-99.0); MEAN CORPUSCULAR HEMOGLOBIN 30.1 pg (27.0-31.0); MEAN CORPUSCULAR HGB CONC 33.4 g/dL (33.0-37.0); MEAN PLATELET VOLUME 7.5 fL (7.2-11.7); MONO # 0.7 K/uL (0.0-0.8); MONO % 5.9 % (0.0-10.0); RED CELL DISTRIBUTION WIDTH 12.8 % (11.5-14.5); WHITE BLOOD COUNT 11.1 K/uL (4.8-10.8)
--- NOTE | 2017-05-03 09:18 | CP.PCM.PN ---
Subjective - Date & Time of Evaluation Date of Evaluation: 05/03/17 Time of Evaluation: 09:14 - Subjective Subjective: was seen and examined at the bedside. She is alert and oriented to all spheres. She complains of headache in the frontal area radiating to her bilateral eyes with pain scale 7/20. She denies any blurred vision, numbness, dizziness, nausea, or vomiting. She is able to consume her breakfast. There was no untoward events overnight. Objective - Vital Signs/Intake and Output Vital Signs (last 24 hours): Temp Pulse Resp BP Pulse Ox 98.0 F 80 20 163/77 H 100 05/03/17 08:35 05/03/17 08:35 05/03/17 08:35 05/03/17 08:35 05/03/17 08:35 Intake and Output: 05/03/17 05/03/17 06:59 18:59 Intake Total 600 Output Total 2450 Balance -1850 - Medications Medications: Current Medications Amlodipine Besylate (Norvasc) 10 mg PO DAILY [facility] Last Admin: 05/02/17 09:30 Dose: 10 mg Aspirin (Ecotrin) 81 mg PO DAILY [facility] Clopidogrel Bisulfate (Plavix) 75 mg PO DAILY [facility] Demeclocycline HCl (Declomycin) 300 mg PO BID [facility] Last Admin: 05/02/17 17:40 Dose: 300 mg Enoxaparin Sodium (Lovenox) 40 mg SC DAILY [facility] Last Admin: 05/02/17 09:30 Dose: 40 mg Ceftriaxone Sodium (Rocephin Iv 1 Gm Duplex) 50 mls @ 100 mls/hr IVPB Q12 [facility] Last Admin: 05/02/17 22:28 Dose: 100 mls/hr Insulin Human Isoph/Insulin Regular (Novolin 70/30 (70/30 Units/Ml) 10 Ml) 24 units SC ACB [facility] Last Admin: 05/03/17 08:41 Dose: 24 units Insulin Human Isoph/Insulin Regular (Novolin 70/30 (70/30 Units/Ml) 10 Ml) 16 units SC ACD [facility] Insulin Human NPH (Novolin N) 12 unit SC HS [facility] Last Admin: 05/02/17 22:29 Dose: 12 unit Insulin Human Regular (Novolin R) 0 unit SC ACHS [facility] PRN Reason: Protocol Last Admin: 05/03/17 08:41 Dose: 5 unit Levetiracetam (Keppra) 500 mg PO BID [facility] Last Admin: 05/02/17 17:39 Dose: 500 mg Metoprolol Succinate (Toprol Xl) 25 mg PO DAILY [facility] Nitroglycerin (Nitro-Bid 2% Oint) 1 ea TOP Q8H PRN PRN Reason: chest pain Last Admin: 04/30/17 17:03 Dose: 1 ea Pantoprazole Sodium (Protonix Ec Tab) 40 mg PO DAILY [facility] Last Admin: 05/02/17 09:30 Dose: 40 mg Prednisone (Prednisone Tab) 60 mg PO DAILY [facility] Last Admin: 05/02/17 09:30 Dose: 60 mg Rosuvastatin Calcium (Crestor) 10 mg PO HS [facility] Last Admin: 05/02/17 22:27 Dose: 10 mg Valacyclovir HCl (Valtrex) 500 mg PO Q12 [facility] Last Admin: 05/02/17 22:28 Dose: 500 mg - Labs Labs: 05/03/17 08:57 05/02/17 06:59 PT 12.2 SECONDS (9.7-12.2) 04/30/17 06:27 INR 1.1 04/30/17 06:27 APTT 25 SECONDS (21-34) 04/30/17 06:27 - Constitutional Appears: No Acute Distress - Head Exam Head Exam: ATRAUMATIC - Neurological Exam Neurological Exam: Alert, Awake, CN II-XII Intact, Oriented x3 Neuro motor strength exam: Left Upper Extremity: 5, Right Upper Extremity: 5, Left Lower Extremity: 5, Right Lower Extremity: 5 Additional comments: She is able to answer questions appropriately and follow simple command. Sensation remains intact. Assessment and Plan (1) Seizure Assessment & Plan: Case discussed with Dr. Henao, continue all current medical, physical, and occupational therapies. Status: Acute (2) Headache Assessment & Plan: Case discussed with Dr. Henao, recommends Magnesium Sulfate 2 gm. IVPB for 1 dose Status: Acute
[2017-05-03] MEDS ORDERED: Valproate 500 MG in Sodium Chloride 0.9% 100 ML IVPB ONE (09:32)
--- NOTE | 2017-05-03 09:35 | CP.PCM.PN ---
<Izabella Zavala - Last Filed: 05/03/17 13:14> Subjective - Date & Time of Evaluation Date of Evaluation: 05/03/17 Time of Evaluation: 09:34 - Subjective Subjective: Medicine note for Dr. Morton Patient was seen and examined at bedside in no acute distress. Patient reports having a headache, sore throat, chest pain epigastric pain, and mild pain in her legs. Patient states she has been constipated for 2 days. Patient denies difficulty breathing, nausea, vomiting, and fevers. Objective - Vital Signs/Intake and Output Vital Signs (last 24 hours): Temp Pulse Resp BP Pulse Ox 98.0 F 80 20 163/77 H 100 05/03/17 08:35 05/03/17 08:35 05/03/17 08:35 05/03/17 08:35 05/03/17 08:35 Intake and Output: 05/03/17 05/03/17 06:59 18:59 Intake Total 600 Output Total 2450 Balance -1850 - Medications Medications: Current Medications Amlodipine Besylate (Norvasc) 10 mg PO DAILY [facility] Last Admin: 05/02/17 09:30 Dose: 10 mg Aspirin (Ecotrin) 81 mg PO DAILY [facility] Clopidogrel Bisulfate (Plavix) 75 mg PO DAILY [facility] Demeclocycline HCl (Declomycin) 300 mg PO BID [facility] Last Admin: 05/02/17 17:40 Dose: 300 mg Enoxaparin Sodium (Lovenox) 40 mg SC DAILY [facility] Last Admin: 05/02/17 09:30 Dose: 40 mg Ceftriaxone Sodium (Rocephin Iv 1 Gm Duplex) 50 mls @ 100 mls/hr IVPB Q12 [facility] Last Admin: 05/02/17 22:28 Dose: 100 mls/hr Magnesium Sulfate/Dextrose (Magnesium Sulfate 1 Gm/100 Ml D5w) 1 gm in 100 mls @ 300 mls/hr IVPB Q30M [facility] Stop: 05/03/17 10:19 Valproate Sodium 500 mg/ (Sodium Chloride) 105 mls @ 0 mls/hr IVPB ONCE ONE PRN Reason: Per Protocol Stop: 05/03/17 09:33 Insulin Human Isoph/Insulin Regular (Novolin 70/30 (70/30 Units/Ml) 10 Ml) 24 units SC ACB [facility] Last Admin: 05/03/17 08:41 Dose: 24 units Insulin Human Isoph/Insulin Regular (Novolin 70/30 (70/30 Units/Ml) 10 Ml) 16 units SC ACD TITO Insulin Human NPH (Novolin N) 12 unit SC HS [facility] Last Admin: 05/02/17 22:29 Dose: 12 unit Insulin Human Regular (Novolin R) 0 unit SC ACHS [facility] PRN Reason: Protocol Last Admin: 05/03/17 08:41 Dose: 5 unit Levetiracetam (Keppra) 500 mg PO BID [facility] Last Admin: 05/02/17 17:39 Dose: 500 mg Metoprolol Succinate (Toprol Xl) 25 mg PO DAILY [facility] Nitroglycerin (Nitro-Bid 2% Oint) 1 ea TOP Q8H PRN PRN Reason: chest pain Last Admin: 04/30/17 17:03 Dose: 1 ea Pantoprazole Sodium (Protonix Ec Tab) 40 mg PO DAILY [facility] Last Admin: 05/02/17 09:30 Dose: 40 mg Prednisone (Prednisone Tab) 60 mg PO DAILY [facility] Last Admin: 05/02/17 09:30 Dose: 60 mg Rosuvastatin Calcium (Crestor) 10 mg PO HS [facility] Last Admin: 05/02/17 22:27 Dose: 10 mg Valacyclovir HCl (Valtrex) 500 mg PO Q12 [facility] Last Admin: 05/02/17 22:28 Dose: 500 mg - Labs Labs: 05/03/17 08:57 05/02/17 06:59 PT 12.2 SECONDS (9.7-12.2) 04/30/17 06:27 INR 1.1 04/30/17 06:27 APTT 25 SECONDS (21-34) 04/30/17 06:27 - Constitutional Appears: No Acute Distress - Additional Findings Additional findings: - Head Exam Head Exam: ATRAUMATIC, NORMAL INSPECTION Additional comments: Right sided Antlers Palsy - Eye Exam Eye Exam: EOMI - ENT Exam ENT Exam: Mucous Membranes Moist - Respiratory Exam Respiratory Exam: Clear to Ausculation Bilateral, NORMAL BREATHING PATTERN. absent: Rales, Rhonchi, Wheezes, Respiratory Distress - Cardiovascular Exam Cardiovascular Exam: REGULAR RHYTHM, +S1, +S2 - GI/Abdominal Exam GI & Abdominal Exam: Soft, Tenderness (epigastric), Normal Bowel Sounds. absent : Distended, Firm, Guarding, Mass - Extremities Exam Extremities Exam: Full ROM, Normal Inspection. absent: Pedal Edema, Tenderness Additional comments: 5/5 LE strength; 5/5 advertising statistical clerk bilaterally - Neurological Exam Neurological Exam: Alert, Awake, Oriented x3 - Psychiatric Exam Psychiatric exam: Normal Mood - Skin Skin Exam: Dry, Intact, Normal Color, Warm Assessment and Plan (1) Hyponatremia Status: Acute (2) Syncope Status: Acute (3) Seizure Status: Acute (4) Right-sided Horta's palsy Status: Acute (5) Diabetes type 2, uncontrolled Status: Acute (6) HTN (hypertension) Status: Acute (7) HLD (hyperlipidemia) Status: Acute (8) History of CVA (cerebrovascular accident) Status: Acute (9) UTI (urinary tract infection) Status: Acute (10) Prophylactic measure Status: Acute - Assessment and Plan (Free Text) Plan: Assessment and Plan (1) Hyponatremia Assessment & Plan: 05/03: Na 129; discussed with mobile qa tester. continue demeclocycline 300mg PO BID. 05/02: Na 131; Continue demeclocycline 300mg PO BID; (04/30 Later in morning): She is now very awake and very alert. Following all commands very well. Her Na remains stable at this time. Tolerating diet, on IVF NSS@ 100. 04/30: Because of the severe hyponatremia the patient just had as well as the correction of her Na, new MRI was done and fourtunately this did not suggest edema or cerebral pontine mylinosis / osmotic brain changes, the new MRI did not suggest any new findings 04/29: Brain MRI-no evidence of diffusion restriction or abnormal hyperintense T2 signal at angela to suggest osmostic demyelination syndrome/central pontine myelinolysis. 04/29: Head CT- no acute intracranial findings From last admission : "Patient is awake and oriented and no mental status changes. This evening, appears to have focal seizure involving left mouth and eye; resolved on its own ; given Ativan 1mg IVX1. witnessed by nursing, daughter, and myself at the [facility] : Na: 107 (lowest) prompting further management in the ICU and was stablized and brought to the floors on 04/25. Given Hypteronic bolus X1 on 04/24, attempted salt tabs on 04/24, Given Samsca on 04/25Sodium today: 127 this morning, on repeat 124 ordered for serum osmolarity, urine osmolarity, urine sodium for this evening with repeat BMP at 22:00" Status: Acute (2) Syncope Assessment & Plan: 04/30: Patient has had CT as well as MRI done on 04/19 and again on 04/29. * likely 2/2 to dehydration * CT brain and MRI negative for new pathology * Blood culture (04/29): no growth after 5 days X2 * urine culture (04/29) contaminated * Neurology consult, Dr Henao, on board--> help appreciated * Cartoid US-normal * Echo: LVH EF: 70% Status: Acute (3) Seizure Assessment & Plan: 05/03: Continue Keppra; Follow up HSV PCR results; continue to taper Prednisone. Continue seizure precautions 05/02: EEG- follow up results; continue Keppra (As per Dr. Henao, continue Keppra even if EEG is negative because patient has clinical seizure); * As per Dr. Henao, continue Keppra, prednisone taper (give 30mg tomorrow, 20mg 05/04, 10mg on 05/05), and Valtrex (until receive results of HSV PCR- if negative, can discontinue). * HSV PCR: f/u results * Seizure precautions ordered 05/01: EEG scheduled for Tuesday per Dr. Henao; continue Keppra 500 mg BID and Q4 neuro checks (04/30 Later in morning): stable overnight. For EEG later today. 04/30: Family showed a video on phone of seizure like activity She was started on Keppra 1,000 and then Keprra BID. EEG ordered as well. Also ativan PRN She has had two MRI so far, no acute findings. 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 Started on valcylclovir. If these are negative then stop the valcylovir. Will try a tapering prednisone dose Status: Acute (5) Diabetes type 2, uncontrolled Assessment & Plan: 05/03: Dr. Cobian, plant control aide consulted and adjusted patient's diabetic medication. Continue as per Dr. Cobian. HgbA1c: 12.3 on 04/29/1705/02: Continue Novolog 70/30, 5unites SC ACHS and ISS. Continue to monitor Endocrinology consulted- Dr. Cobian, help appreciated As per Dr. Gisela Meyer's (PGY1) note- * 04/30: She did have some low blood sugars * 04/30: "The patient's family member in particular a male family member in the lobby of the hospital was particularly irate/angry at me because of the blood sugar they explained that she normally takes medication for diabetes and that they felt that it was the hospital's fault for her sugars being very high. " Status: Acute (6) HTN (hypertension) Assessment & Plan: Patient was previously taking an ARB and Beta swapna- on hold for now. Continue Norvasc 10mg PO daily Status: Acute (7) HLD (hyperlipidemia) Assessment & Plan: Home medication: Atorvastatin 20mg PO daily Status: Acute (8) History of CVA (cerebrovascular accident) Assessment & Plan: 05/02: Restarted home medications- ASA 81mg PO daily, Plavix 75mg PO daily, Atorvastatin 20mg PO daily, Toprol 25mg PO daily 04/30: Was on ASA, plavix, crestor - will need to resume these at some point Status: Acute (9) UTI (urinary tract infection) Assessment & Plan: 05/02: Continue Ceftriaxone 05/01: Urine culture shows E. Coli sensitive to ceftriaxone which patient is already taking (04/30 Later in morning) she had abdominal pain - a bladder scan was done and she had > 999 cc urine so cardozo was started. Continue with the IV rocephin. Cultures still pending. 04/30: recheck UA and UCS, will need to be on IV abx Status: Acute (10) Prophylactic measure Assessment & Plan: Lovenox 40mg SC daily Protonix 40mg PO daily Dysphagia modfiied consistency diet- finely chopped/thin SCDs PT/OT: as per PT, patient has unstable gait, recommends subacute rehab; however , patient does not have insurance. Requested continued PT/OT and out of bed to chair Status: Acute <Will Morton - Last Filed: 05/03/17 19:15> Objective - Vital Signs/Intake and Output Vital Signs (last 24 hours): Temp Pulse Resp BP Pulse Ox 98.4 F 83 20 124/63 98 05/03/17 16:28 05/03/17 16:28 05/03/17 16:28 05/03/17 16:28 05/03/17 16:28 - Medications Medications: Current Medications Amlodipine Besylate (Norvasc) 10 mg PO DAILY [facility] Last Admin: 05/03/17 09:56 Dose: 10 mg Aspirin (Ecotrin) 81 mg PO DAILY [facility] Last Admin: 05/03/17 09:56 Dose: 81 mg Clopidogrel Bisulfate (Plavix) 75 mg PO DAILY [facility] Last Admin: 05/03/17 09:56 Dose: 75 mg Enoxaparin Sodium (Lovenox) 40 mg SC DAILY [facility] Last Admin: 05/03/17 10:03 Dose: 40 mg Famotidine (Pepcid) 20 mg PO BID [facility] Last Admin: 05/03/17 17:37 Dose: 20 mg Ceftriaxone Sodium (Rocephin Iv 1 Gm Duplex) 50 mls @ 100 mls/hr IVPB Q12 [facility] Last Admin: 05/03/17 09:57 Dose: 100 mls/hr Insulin Human Isoph/Insulin Regular (Novolin 70/30 (70/30 Units/Ml) 10 Ml) 30 units SC ACB TITO Insulin Human Isoph/Insulin Regular (Novolin 70/30 (70/30 Units/Ml) 10 Ml) 20 units SC ACD [facility] Last Admin: 05/03/17 17:39 Dose: 20 units Insulin Human NPH (Novolin N) 16 unit SC HS [facility]ITO Insulin Human Regular (Novolin R) 0 unit SC ACHS [facility] PRN Reason: Protocol Last Admin: 05/03/17 17:15 Dose: 6 unit Levetiracetam (Keppra) 500 mg PO BID [facility] Last Admin: 05/03/17 17:37 Dose: 500 mg Magnesium Chloride (Slow-Mag) 64 mg PO DAILY [facility] Last Admin: 05/03/17 17:37 Dose: 64 mg Magnesium Oxide (Mag-Ox) 400 mg PO BID [facility] Last Admin: 05/03/17 17:37 Dose: 400 mg Metoprolol Succinate (Toprol Xl) 25 mg PO DAILY [facility] Last Admin: 05/03/17 09:55 Dose: 25 mg Nitroglycerin (Nitro-Bid 2% Oint) 1 ea TOP Q8H PRN PRN Reason: chest pain Last Admin: 04/30/17 17:03 Dose: 1 ea Prednisone (Prednisone Tab) 40 mg PO DAILY [facility] Stop: 05/04/17 10:30 Prednisone (Prednisone Tab) 30 mg PO DAILY [facility] Stop: 05/05/17 10:30 Prednisone (Prednisone Tab) 20 mg PO DAILY [facility] Stop: 05/06/17 10:30 Prednisone (Prednisone Tab) 10 mg PO DAILY [facility] Stop: 05/07/17 10:30 Rosuvastatin Calcium (Crestor) 10 mg PO HS [facility] Last Admin: 05/02/17 22:27 Dose: 10 mg Valacyclovir HCl (Valtrex) 500 mg PO Q12 [facility] Last Admin: 05/03/17 09:56 Dose: 500 mg - Labs Labs: 05/03/17 08:57 05/03/17 08:57 PT 12.2 SECONDS (9.7-12.2) 04/30/17 06:27 INR 1.1 04/30/17 06:27 APTT 25 SECONDS (21-34) 04/30/17 06:27 Attending/Attestation - Attestation I have personally seen and examined this patient.: Yes I have fully participated in the care of the patient.: Yes I have reviewed all pertinent clinical information, including history, physical exam and plan: Yes Notes (Text): 05/03/17 19:13 Patient was seen and examined D/w daughter at bedside I agree with the resident's documentation of the assessment and the plan D/W mobile qa tester Dr Dennis about her sodium level We will follow his recommendation fluid erstriction,salt tabs and lasix
[2017-05-03] MEDS: Metoprolol Succinate 25 mg XL Tab PO SCH (09:55)
[2017-05-03] MEDS: Pantoprazole 40 mg EC Tab PO SCH (09:55)
[2017-05-03] MEDS: cefTRIAXone IV 1 gm in Dextros 50 ML IVPB SCH (09:57)
[2017-05-03] MEDS: Magnesium Sulfate 1 gm in D5W 1 GM/100 ML BAG IVPB SCH ×2 (09:57→14:22)
[2017-05-03] MEDS: Enoxaparin 40 mg Syringe SC SCH (10:03)
[2017-05-03 10:07] LABS: ALB/GLOB RATIO 1.2 (1.0-2.1); BILIRUBIN,TOTAL 0.4 mg/dL (0.2-1.3); CALCIUM 9.1 mg/dl (8.6-10.4); MAGNESIUM 1.4 mg/dL (1.6-2.3); PHOSPHOROUS 3.9 mg/dL (2.5-4.5); POTASSIUM 4.7 mmol/L (3.6-5.2); T4 6.14 ug/dL (5.5-11.0); TOTAL PROTEIN 6.6 g/dL (6.3-8.3)
[2017-05-03] MEDS ORDERED: Pantoprazole 40 mg EC Tab PO SCH (10:30)
[2017-05-03 10:58] LABS: THYROID STIMULATING HORMONE 1.67 mIU/L (0.46-4.68)
[2017-05-03] MEDS ORDERED: Magnesium Sulfate 1 gm in D5W 1 GM/100 ML BAG IVPB ONE (14:23)
[2017-05-03 15:29] LABS: CREATININE, RANDOM URINE 38.2 mg/dL
--- NOTE | 2017-05-03 16:11 | PN ---
ENDOCRINOLOGY FOLLOWUP NOTE DATE: LOCATION: Room 668. SUBJECTIVE: This is a 76-year-old female with recent uncontrolled type 2 insulin-requiring diabetes, currently on a tapering dose of steroid therapy for management of Horta palsy and also has concomitant hyponatremia, currently on demeclocycline medication as given and is being followed closely for metabolic management. Hyperglycemic accelerations are expected with intercurrent steroid therapy, which is transient and should improve accordingly as her steroids are tapered down. Her glucose levels have ranged from 360 to 370 mg/dL. The latest chemistry showed a BUN of 57, sodium 129, potassium 4.7, chloride 93, CO2 of 25, glucose 309, and creatinine 1.3. She also has significant history of diuretic use prior to this admission which could be a contributory factor for the hyponatremia, although this clinical picture is more indicative of the so-called SIADH type of hyponatremia. We will continue the demeclocycline given as 300 mg b.i.d. for now as ordered. We will modify the insulin regimen to optimize metabolic control. We will increase Novolin 70/30 to 30 units a.c. breakfast and 20 units a.c. dinner to start today. We will also increase the NPH to 16 units subcutaneously at bedtime daily to start tonight. We will continue the low dose correction scale using regular insulin as ordered. We will follow. Alisson Cobian MD
[2017-05-03] MEDS: Magnesium Oxide 400 mg Tab UD PO SCH (17:37)
[2017-05-03] MEDS: Magnesium Chloride 64 mg ER Tab PO SCH (17:37)
[2017-05-03] MEDS: (Novolin 70/30) NPH/Regular 70/30 Units/ml 10 ml vial SC SCH (17:39)
[2017-05-03] MEDS: (Novolin N) Insulin Human Isophane (NPH) 100 u/ml 10 ml vial SC SCH (22:12)
[2017-05-03] MEDS: cefTRIAXone 1,000 MG in Sodium Chloride 0.9% 50 ML IVPB SCH (22:30)
[2017-05-04] MEDS: cefTRIAXone 1,000 MG in Sodium Chloride 0.9% 50 ML IVPB SCH ×3 (00:32→21:54)
--- NOTE | 2017-05-04 04:05 | CON ---
DATE: HISTORY OF PRESENT ILLNESS: The patient is a 76-year-old female with past medical history of asthma, status post CVA 30 years ago, diabetes been over 20 years, hypertension, hyperlipidemia and CKD, who presented initially 2 weeks ago with abdominal pain, vomiting and syncopal episode; during that admission the patient developed severe hyponatremia with serum sodium dropping from 126 on admission down to 107 on the 4th day of admission before being corrected with medical management; patient at one point experienced a twitching episode that was felt to possibly have been seizure; patient left against medical advice only to return the same day due to twitching in face and extremities. Nephrology is being consulted for electrolyte abnormalities. On further review of medical record, patient underwent workup for possible CVA with MRI of the brain, which was negative for any acute stroke as well as workup for seizure with EEG, which was deemed to be normal. Patient also underwent GI workup for abdominal pain,which was felt to be secondary to GERD and constipation. Patient's hyponatremia was initially treated with hypertonic saline before being given Tolvaptan. Patient reports currently tolerating diet; the main complaint is headache and feeling dizzy. Patient denies any recent vomiting or diarrhea. Last bowel movement was earlier today and was normal. The patient does report some back pain, but she is not currently getting any pain medications. PAST MEDICAL HISTORY: As above. SOCIAL HISTORY: Previous smoker. FAMILY HISTORY: Child with diabetes and CKD. REVIEW OF SYSTEMS: GENERAL: Appetite is fair. HEENT: Reports some visual difficulties. Reports some sore throat. RESPIRATORY: Reports some cough. CARDIOVASCULAR: Reports some chest pain. GASTROINTESTINAL: As per HPI. GENITOURINARY: Reports dysuria. SKIN: Reports pruritus over her torso. PSYCHIATRIC: Denies any anxiety or depression. NEUROLOGIC: As per HPI, with right facial droop. PHYSICAL EXAMINATION: VITAL SIGNS: This evening, blood pressure 155/70, heart rate 88, no orthostatic changes. GENERAL: In no distress. Conversing coherently in full sentences. HEENT: Moist mucous membranes. Nonicteric. Right facial droop present. NECK: No cervical lymphadenopathy. RESPIRATORY: Lungs, clear to auscultation bilaterally. No rales, no rhonchi, no wheezes. CARDIOVASCULAR: Heart sounds S1, S2 normal. No murmurs. No gallops. No rubs. GASTROINTESTINAL: Abdomen is soft, mild tenderness, nondistended. GENITOURINARY: No bladder distention. EXTREMITIES: No leg edema. SKIN: Warm. No cyanosis. PSYCHIATRIC: Normal mood, normal affect. LABORATORY DATA: Labs this morning CBC; WBC 11.1, hemoglobin 9.8, hematocrit 29.4 and platelets 307. Chemistry panel; sodium 129, potassium 4.7, chloride 93, bicarbonate 25, BUN 57,creatinine 1.3, glucose 309, calcium 9.1, phosphorus 3.9, magnesium 1.4, and albumin 3.6. URINE STUDIES: Urine protein 88 mg/dL, urine creatinine 38 mg/dL, urine osmolality 562. ASSESSMENT: Hyponatremia. Patient developed severe hyponatremia during previous admission. On further review of records, it was noted that patient was getting multiple doses of magnesium sulfate in D5W - having received 6 doses the day before serum sodium dropped rapidly; urine osmolality has been consist with either volume depletion or SIADH; currently no evidence of volume depletion. On exam, no orthostatic drop in blood pressure. Currently, hyponatremia is relatively mild, demeclocycline is not appearing to work, as urine osmolality remains elevated (we would expect demeclocycline to cause mild diabetes insipidus type of picture in order to counter patient's hyponatremia, but this medication does not always work as desired). PLAN: 1. We will try giving salt tablets with sodium chloride 2 g b.i.d. and Lasix 20 mg p.o. daily. 2. Chronic kidney disease stage IIIB. Patient with proteinuric kidney disease with approximately 2.7 g proteinuria on urine tzlimbh-[id number] ratio, likely secondary to diabetic nephropathy. Renal function is relatively stable. Renal ultrasound consistent with chronic kidney disease. Goal is to avoid nephrotoxic agents and to reduce proteinuria with HARVINDER blockade. Patient was on an ARB at home, should restart with losartan 25 mg daily. We will check serologic workup for other possible causes of chronic kidney disease. 3. Hypertensive chronic kidney disease. Blood pressure has been variable, possibly worsened by pain, currently only on amlodipine 10 mg daily, which was started on this admission as well as metoprolol XL 25 mg daily. Continue the same losartan 25 mg as above. 4. Diabetes. Sugars have been uncontrolled in the setting of being on p.o. prednisone with the primary team on need, to taper steroids as soon as possible. 5. Urinary tract infection. Patient with Escherichia coli sensitive to. Patient on ceftriaxone 1 g q. 12 hours; should change solution, so that antibiotic is given in normal saline instead of D5W. 6. Hypomagnesemia. Patient with persistently low magnesium levels, important not to give IV magnesium rapidly as this will result in renal wasting of magnesium, also magnesium formulation that we have here is in D5W, which will worsen the patient's hyponatremia. Starting Slow-Mag 1 tablet as well as magnesium oxide 400 mg p.o. b.i.d. Thank you for this consult, we will be following closely. Willem Dennis MD
[2017-05-04] MEDS ORDERED: (Novolin 70/30) NPH/Regular 70/30 Units/ml 10 ml vial SC SCH (07:30)
[2017-05-04 07:49] LABS: IRON 64 ug/dL (37-170)
[2017-05-04 07:57] LABS: BASO % 0.1 % (0.0-2.0); HEMATOCRIT 30.6 % (34.0-47.0); LYMPH # 1.4 K/uL (1.0-4.3); LYMPH % 10.3 % (20.0-40.0); MEAN CELL VOLUME 89.5 fL (81.0-99.0); MEAN CORPUSCULAR HEMOGLOBIN 29.8 pg (27.0-31.0); MEAN CORPUSCULAR HGB CONC 33.3 g/dL (33.0-37.0); MEAN PLATELET VOLUME 7.6 fL (7.2-11.7); MONO # 0.7 K/uL (0.0-0.8); MONO % 5.1 % (0.0-10.0); RED CELL DISTRIBUTION WIDTH 12.6 % (11.5-14.5); WHITE BLOOD COUNT 13.5 K/uL (4.8-10.8)
[2017-05-04] MEDS: (Novolin R) Insulin Human Regular 100 units/ml vial SC SCH ×4 (08:13→21:51)
[2017-05-04 08:26] LABS: ALB/GLOB RATIO 0.8 (1.0-2.1); ALKALINE PHOSPHATASE 74 U/L (38-126); ALT/SGPT 92 U/L (9-52); AST/SGOT 22 U/L (14-36); BILIRUBIN,TOTAL 0.2 mg/dL (0.2-1.3); BLOOD UREA NITROGEN 52 mg/dL (7-17); CALCIUM 9.3 mg/dl (8.6-10.4); CARBON DIOXIDE 25 mmol/L (22-30); CHLORIDE 95 mmol/L (98-107); GFR AFRICAN-AMERICAN 44; GLUCOSE,RANDOM 264 mg/dL (65-105); MAGNESIUM 1.7 mg/dL (1.6-2.3); PHOSPHOROUS 4.5 mg/dL (2.5-4.5); POTASSIUM 4.8 mmol/L (3.6-5.2); SODIUM 131 mmol/L (132-148)
--- NOTE | 2017-05-04 08:35 | CP.PCM.PN ---
Subjective - Date & Time of Evaluation Date of Evaluation: 05/04/17 Time of Evaluation: 08:32 - Subjective Subjective: Ms. tiffany Maldonado was seen and examined at the bedside. She is alert, oriented in all spheres. She denies any headache, dizziness, numbness, weakness, nausea, or vomiting. She is able to transfer from bed to commode with steady gait. She claims of having good appetite. There was no untoward events overnight. Objective - Vital Signs/Intake and Output Vital Signs (last 24 hours): Temp Pulse Resp BP Pulse Ox 98.5 F 77 20 146/66 100 05/03/17 23:28 05/04/17 04:24 05/03/17 23:28 05/03/17 23:28 05/03/17 23:28 Intake and Output: 05/04/17 05/04/17 06:59 18:59 Intake Total 800 Output Total 2100 Balance -1300 - Medications Medications: Current Medications Amlodipine Besylate (Norvasc) 10 mg PO DAILY [facility] Last Admin: 05/03/17 09:56 Dose: 10 mg Aspirin (Ecotrin) 81 mg PO DAILY [facility] Last Admin: 05/03/17 09:56 Dose: 81 mg Clopidogrel Bisulfate (Plavix) 75 mg PO DAILY [facility] Last Admin: 05/03/17 09:56 Dose: 75 mg Enoxaparin Sodium (Lovenox) 40 mg SC DAILY [facility] Last Admin: 05/03/17 10:03 Dose: 40 mg Famotidine (Pepcid) 20 mg PO BID [facility] Last Admin: 05/03/17 17:37 Dose: 20 mg Furosemide (Lasix) 20 mg PO DAILY [facility] Last Admin: 05/03/17 21:00 Dose: 20 mg Ceftriaxone Sodium 1,000 mg/ (Sodium Chloride) 50 mls @ 100 mls/hr IVPB Q12H [facility] Last Admin: 05/04/17 00:32 Dose: 100 mls/hr Insulin Human Isoph/Insulin Regular (Novolin 70/30 (70/30 Units/Ml) 10 Ml) 30 units SC ACB [facility] Insulin Human Isoph/Insulin Regular (Novolin 70/30 (70/30 Units/Ml) 10 Ml) 20 units SC ACD [facility] Last Admin: 05/03/17 17:39 Dose: 20 units Insulin Human NPH (Novolin N) 16 unit SC HS [facility] Last Admin: 05/03/17 22:12 Dose: 16 unit Insulin Human Regular (Novolin R) 0 unit SC ACHS [facility] PRN Reason: Protocol Last Admin: 05/04/17 08:13 Dose: Not Given Levetiracetam (Keppra) 500 mg PO BID [facility] Last Admin: 05/03/17 17:37 Dose: 500 mg Magnesium Chloride (Slow-Mag) 64 mg PO DAILY [facility] Last Admin: 05/03/17 17:37 Dose: 64 mg Magnesium Oxide (Mag-Ox) 400 mg PO BID [facility] Last Admin: 05/03/17 17:37 Dose: 400 mg Metoprolol Succinate (Toprol Xl) 25 mg PO DAILY [facility] Last Admin: 05/03/17 09:55 Dose: 25 mg Nitroglycerin (Nitro-Bid 2% Oint) 1 ea TOP Q8H PRN PRN Reason: chest pain Last Admin: 04/30/17 17:03 Dose: 1 ea Prednisone (Prednisone Tab) 40 mg PO DAILY [facility] Stop: 05/04/17 10:30 Prednisone (Prednisone Tab) 30 mg PO DAILY [facility] Stop: 05/05/17 10:30 Prednisone (Prednisone Tab) 20 mg PO DAILY [facility] Stop: 05/06/17 10:30 Prednisone (Prednisone Tab) 10 mg PO DAILY [facility] Stop: 05/07/17 10:30 Rosuvastatin Calcium (Crestor) 10 mg PO HS [facility] Last Admin: 05/03/17 22:05 Dose: 10 mg Sodium Chloride (Sodium Chloride Tab) 2 gm PO BID [facility] Last Admin: 05/03/17 21:30 Dose: 2 gm Valacyclovir HCl (Valtrex) 500 mg PO Q12 [facility] Last Admin: 05/03/17 22:05 Dose: 500 mg - Labs Labs: 05/04/17 07:28 05/04/17 07:28 PT 12.2 SECONDS (9.7-12.2) 04/30/17 06:27 INR 1.1 04/30/17 06:27 APTT 25 SECONDS (21-34) 04/30/17 06:27 - Constitutional Appears: No Acute Distress - Head Exam Head Exam: ATRAUMATIC - Neurological Exam Neurological Exam: Alert, Awake, Normal Gait Neuro motor strength exam: Left Upper Extremity: 5, Right Upper Extremity: 5, Left Lower Extremity: 5, Right Lower Extremity: 5 Additional comments: She is able to answer questions appropriately and follow commands. She remains with right Horta's palsy. Sensation remains intact. Assessment and Plan (1) Seizure Assessment & Plan: Case discussed wiith Dr. Henao, continue all current medical and occupational therapies. There is no new recommendation from neurology. Status: Acute (2) Horta palsy Assessment & Plan: Case discussed with Dr. Henao, continue all current medical therapy. Status: Acute
[2017-05-04] MEDS: Metoprolol Succinate 25 mg XL Tab PO SCH (10:41)
[2017-05-04] MEDS: Magnesium Oxide 400 mg Tab UD PO SCH ×2 (10:41→18:12)
[2017-05-04] MEDS: Magnesium Chloride 64 mg ER Tab PO SCH (10:42)
[2017-05-04] MEDS: Enoxaparin 40 mg Syringe SC SCH (10:51)
--- NOTE | 2017-05-04 11:00 | CP.PCM.PN ---
<Izabella Zavala - Last Filed: 05/04/17 10:57> Subjective - Date & Time of Evaluation Date of Evaluation: 05/04/17 Time of Evaluation: 10:57 - Subjective Subjective: Patient was seen and examined at bedside in no acute distress. Patient reports she still has a headache ("very little"), chest pain and suprapubic pain; however, she reports feeling a little better today. Patient also reports she had a normal bowel movement yesterday. Patient denies having shortness of breath , nausea, vomiting, fevers, and leg pain. Objective - Vital Signs/Intake and Output Vital Signs (last 24 hours): Temp Pulse Resp BP Pulse Ox 98.3 F 84 20 147/73 97 05/04/17 08:36 05/04/17 10:38 05/04/17 08:36 05/04/17 10:41 05/04/17 08:36 Intake and Output: 05/04/17 05/04/17 06:59 18:59 Intake Total 800 Output Total 2100 Balance -1300 - Medications Medications: Current Medications Amlodipine Besylate (Norvasc) 10 mg PO DAILY [facility] Last Admin: 05/04/17 10:46 Dose: 10 mg Aspirin (Ecotrin) 81 mg PO DAILY [facility] Last Admin: 05/04/17 10:40 Dose: 81 mg Clopidogrel Bisulfate (Plavix) 75 mg PO DAILY [facility] Last Admin: 05/04/17 10:40 Dose: 75 mg Enoxaparin Sodium (Lovenox) 40 mg SC DAILY [facility] Last Admin: 05/04/17 10:51 Dose: 40 mg Famotidine (Pepcid) 20 mg PO BID [facility] Last Admin: 05/04/17 10:41 Dose: 20 mg Furosemide (Lasix) 20 mg PO DAILY [facility] Last Admin: 05/04/17 10:41 Dose: 20 mg Ceftriaxone Sodium 1,000 mg/ (Sodium Chloride) 50 mls @ 100 mls/hr IVPB Q12H [facility] Last Admin: 05/04/17 10:52 Dose: 100 mls/hr Insulin Human Isoph/Insulin Regular (Novolin 70/30 (70/30 Units/Ml) 10 Ml) 30 units SC ACB [facility] Last Admin: 05/04/17 08:53 Dose: 30 units Insulin Human Isoph/Insulin Regular (Novolin 70/30 (70/30 Units/Ml) 10 Ml) 20 units SC ACD [facility] Last Admin: 05/03/17 17:39 Dose: 20 units Insulin Human NPH (Novolin N) 16 unit SC HS [facility] Last Admin: 05/03/17 22:12 Dose: 16 unit Insulin Human Regular (Novolin R) 0 unit SC ACHS [facility] PRN Reason: Protocol Last Admin: 05/04/17 08:13 Dose: Not Given Levetiracetam (Keppra) 500 mg PO BID [facility] Last Admin: 05/04/17 10:42 Dose: 500 mg Magnesium Chloride (Slow-Mag) 64 mg PO DAILY [facility] Last Admin: 05/04/17 10:42 Dose: 64 mg Magnesium Oxide (Mag-Ox) 400 mg PO BID [facility] Last Admin: 05/04/17 10:41 Dose: 400 mg Metoprolol Succinate (Toprol Xl) 25 mg PO DAILY [facility] Last Admin: 05/04/17 10:41 Dose: 25 mg Nitroglycerin (Nitro-Bid 2% Oint) 1 ea TOP Q8H PRN PRN Reason: chest pain Last Admin: 04/30/17 17:03 Dose: 1 ea Prednisone (Prednisone Tab) 30 mg PO DAILY [facility] Stop: 05/05/17 10:30 Prednisone (Prednisone Tab) 20 mg PO DAILY [facility] Stop: 05/06/17 10:30 Prednisone (Prednisone Tab) 10 mg PO DAILY [facility] Stop: 05/07/17 10:30 Rosuvastatin Calcium (Crestor) 10 mg PO HS [facility] Last Admin: 05/03/17 22:05 Dose: 10 mg Sodium Chloride (Sodium Chloride Tab) 2 gm PO BID [facility] Last Admin: 05/04/17 10:42 Dose: 2 gm Valacyclovir HCl (Valtrex) 500 mg PO Q12 [facility] Last Admin: 05/04/17 10:43 Dose: 500 mg - Labs Labs: 05/04/17 07:28 05/04/17 07:28 PT 12.2 SECONDS (9.7-12.2) 04/30/17 06:27 INR 1.1 04/30/17 06:27 APTT 25 SECONDS (21-34) 04/30/17 06:27 - Additional Findings Additional findings: - Constitutional Appears: No Acute Distress - Head Exam Head Exam: ATRAUMATIC, NORMAL INSPECTION Additional comments: Right sided Dewey Palsy - Eye Exam Eye Exam: EOMI - ENT Exam ENT Exam: Mucous Membranes Moist - Respiratory Exam Respiratory Exam: Rale (right lower), NORMAL BREATHING PATTERN. absent: Rhonchi , Wheezes, Respiratory Distress - Cardiovascular Exam Cardiovascular Exam: REGULAR RHYTHM, +S1, +S2 - GI/Abdominal Exam GI & Abdominal Exam: Soft, Tenderness (suprapubic), Normal Bowel Sounds. absent : Distended, Firm, Guarding, Mass - Extremities Exam Extremities Exam: Full ROM, Normal Inspection. absent: Pedal Edema, Tenderness Additional comments: 5/5 LE strength; 5/5 hand sewer shoes bilaterally - Neurological Exam Neurological Exam: Alert, Awake, Oriented x3 - Psychiatric Exam Psychiatric exam: Normal Mood - Skin Skin Exam: Dry, Intact, Normal Color, Warm Assessment and Plan (1) Hyponatremia Status: Acute (2) Syncope Status: Acute (3) Seizure Status: Acute (4) Right-sided Horta's palsy Status: Acute (5) Diabetes type 2, uncontrolled Status: Acute (6) HTN (hypertension) Status: Acute (7) HLD (hyperlipidemia) Status: Acute (8) History of CVA (cerebrovascular accident) Status: Acute (9) UTI (urinary tract infection) Status: Acute (10) Acute kidney failure Status: Acute (11) Prophylactic measure Status: Acute - Assessment and Plan (Free Text) Plan: (1) Hyponatremia Assessment & Plan: 05/04: Na 131; continue demeclocycline. continue to monitor 05/03: Na 129; discussed with industrial hire sales assistant. continue demeclocycline 300mg PO BID. 05/02: Na 131; Continue demeclocycline 300mg PO BID; (04/30 Later in morning): She is now very awake and very alert. Following all commands very well. Her Na remains stable at this time. Tolerating diet, on IVF NSS@ 100. 04/30: Because of the severe hyponatremia the patient just had as well as the correction of her Na, new MRI was done and fourtunately this did not suggest edema or cerebral pontine mylinosis / osmotic brain changes, the new MRI did not suggest any new findings 04/29: Brain MRI-no evidence of diffusion restriction or abnormal hyperintense T2 signal at angela to suggest osmostic demyelination syndrome/central pontine myelinolysis. 04/29: Head CT- no acute intracranial findings From last admission : "Patient is awake and oriented and no mental status changes. This evening, appears to have focal seizure involving left mouth and eye; resolved on its own ; given Ativan 1mg IVX1. witnessed by nursing, daughter, and myself at the [employer] : Na: 107 (lowest) prompting further management in the ICU and was stablized and brought to the floors on 04/25. Given Hypteronic bolus X1 on 04/24, attempted salt tabs on 04/24, Given Samsca on 04/25Sodium today: 127 this morning, on repeat 124 ordered for serum osmolarity, urine osmolarity, urine sodium for this evening with repeat BMP at 22:00" Status: Acute (2) Syncope Assessment & Plan: 04/30: Patient has had CT as well as MRI done on 04/19 and again on 04/29. * likely 2/2 to dehydration * CT brain and MRI negative for new pathology * Blood culture (04/29): no growth after 5 days X2 * urine culture (04/29) contaminated * Neurology consult, Dr Henao, on board--> help appreciated * Cartoid US-normal * Echo: LVH EF: 70% Status: Acute (3) Seizure Assessment & Plan: 05/04: 05/03: Continue Keppra; Follow up HSV PCR results; continue to taper Prednisone. Continue seizure precautions 05/03: Continue Keppra; Follow up HSV PCR results; continue to taper Prednisone. Continue seizure precautions 05/02: EEG- follow up results; continue Keppra (As per Dr. Henao, continue Keppra even if EEG is negative because patient has clinical seizure); * As per Dr. Henao, continue Keppra, prednisone taper (give 30mg tomorrow, 20mg 05/04, 10mg on 05/05), and Valtrex (until receive results of HSV PCR- if negative, can discontinue). * HSV PCR: f/u results * Seizure precautions ordered 05/01: EEG scheduled for Tuesday per Dr. Henao; continue Keppra 500 mg BID and Q4 neuro checks (04/30 Later in morning): stable overnight. For EEG later today. 04/30: Family showed a video on phone of seizure like activity She was started on Keppra 1,000 and then Keprra BID. EEG ordered as well. Also ativan PRN She has had two MRI so far, no acute findings. 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 Started on valcylclovir. If these are negative then stop the valcylovir. Will try a tapering prednisone dose Status: Acute (5) Diabetes type 2, uncontrolled Assessment & Plan: 05/03: Dr. Cobian, needle process felt goods supervisor consulted and adjusted patient's diabetic medication. Continue as per Dr. Cobian. HgbA1c: 12.3 on 04/29/1705/02: Continue Novolog 70/30, 5 units SC ACHS and ISS. Continue to monitor Endocrinology consulted- Dr. Cobian, help appreciated As per Dr. Gisela Meyer's (PGY1) note- * 04/30: She did have some low blood sugars * 04/30: "The patient's family member in particular a male family member in the lobby of the hospital was particularly irate/angry at me because of the blood sugar they explained that she normally takes medication for diabetes and that they felt that it was the hospital's fault for her sugars being very high. " Status: Acute (6) HTN (hypertension) Assessment & Plan: Patient was previously taking an ARB and Beta swapna- on hold for now. Continue Norvasc 10mg PO daily Status: Acute (7) HLD (hyperlipidemia) Assessment & Plan: Home medication: Atorvastatin 20mg PO daily Status: Acute (8) History of CVA (cerebrovascular accident) Assessment & Plan: 05/02: Restarted home medications- ASA 81mg PO daily, Plavix 75mg PO daily, Atorvastatin 20mg PO daily, Toprol 25mg PO daily 04/30: Was on ASA, plavix, crestor - will need to resume these at some point Status: Acute (9) UTI (urinary tract infection) Assessment & Plan: 05/02: Continue Ceftriaxone 05/01: Urine culture shows E. Coli sensitive to ceftriaxone which patient is already taking (04/30 Later in morning) she had abdominal pain - a bladder scan was done and she had > 999 cc urine so cardozo was started. Continue with the IV rocephin. Cultures still pending. 04/30: recheck UA and UCS, will need to be on IV abx Status: Acute (10) Acute Kidney Failure Assessment & Plan: 05/04: Bun 52, Cr 1.4 05/03: Bun 57, Cr 1.3 Nephrology consulted- Dr. Dennis, help appreciated (11) Prophylactic measure Assessment & Plan: Lovenox 40mg SC daily Protonix 40mg PO daily Dysphagia modfiied consistency diet- finely chopped/thin SCDs PT/OT: as per PT, patient has unstable gait, recommends subacute rehab; however , patient does not have insurance. Requested continued PT/OT and out of bed to chair Status: Acute <Will Morton - Last Filed: 05/04/17 18:59> Objective - Vital Signs/Intake and Output Vital Signs (last 24 hours): Temp Pulse Resp BP Pulse Ox 97.3 F L 87 20 128/69 98 05/04/17 16:00 05/04/17 16:00 05/04/17 16:00 05/04/17 16:00 05/04/17 16:00 Intake and Output: 05/04/17 05/04/17 06:59 18:59 Intake Total 800 550 Output Total 2100 600 Balance -1300 -50 - Medications Medications: Current Medications Amlodipine Besylate (Norvasc) 10 mg PO DAILY [facility] Last Admin: 05/04/17 10:46 Dose: 10 mg Aspirin (Ecotrin) 81 mg PO DAILY [facility] Last Admin: 05/04/17 10:40 Dose: 81 mg Clopidogrel Bisulfate (Plavix) 75 mg PO DAILY [facility] Last Admin: 05/04/17 10:40 Dose: 75 mg Enoxaparin Sodium (Lovenox) 40 mg SC DAILY [facility] Last Admin: 05/04/17 10:51 Dose: 40 mg Famotidine (Pepcid) 20 mg PO BID [facility] Last Admin: 05/04/17 18:13 Dose: 20 mg Furosemide (Lasix) 20 mg PO Q48H [facility] Ceftriaxone Sodium 1,000 mg/ (Sodium Chloride) 50 mls @ 100 mls/hr IVPB Q12H [facility] Last Admin: 05/04/17 10:52 Dose: 100 mls/hr Insulin Human Isoph/Insulin Regular (Novolin 70/30 (70/30 Units/Ml) 10 Ml) 30 units SC ACB [facility] Last Admin: 05/04/17 08:53 Dose: 30 units Insulin Human Isoph/Insulin Regular (Novolin 70/30 (70/30 Units/Ml) 10 Ml) 20 units SC ACD [facility] Last Admin: 05/04/17 18:12 Dose: 20 units Insulin Human NPH (Novolin N) 16 unit SC HS [facility] Last Admin: 05/03/17 22:12 Dose: 16 unit Insulin Human Regular (Novolin R) 0 unit SC ACHS [facility] PRN Reason: Protocol Last Admin: 05/04/17 18:18 Dose: 6 unit Levetiracetam (Keppra) 500 mg PO BID [facility] Last Admin: 05/04/17 18:11 Dose: 500 mg Lisinopril (Zestril) 10 mg PO DAILY [facility] Magnesium Chloride (Slow-Mag) 64 mg PO DAILY [facility] Last Admin: 05/04/17 10:42 Dose: 64 mg Magnesium Oxide (Mag-Ox) 400 mg PO BID [facility] Last Admin: 05/04/17 18:12 Dose: 400 mg Metoprolol Succinate (Toprol Xl) 25 mg PO DAILY [facility] Last Admin: 05/04/17 10:41 Dose: 25 mg Nitroglycerin (Nitro-Bid 2% Oint) 1 ea TOP Q8H PRN PRN Reason: chest pain Last Admin: 04/30/17 17:03 Dose: 1 ea Prednisone (Prednisone Tab) 30 mg PO DAILY [facility] Stop: 05/05/17 10:30 Prednisone (Prednisone Tab) 20 mg PO DAILY [facility] Stop: 05/06/17 10:30 Prednisone (Prednisone Tab) 10 mg PO DAILY [facility] Stop: 05/07/17 10:30 Rosuvastatin Calcium (Crestor) 10 mg PO HS [facility] Last Admin: 05/03/17 22:05 Dose: 10 mg Sodium Chloride (Sodium Chloride Tab) 2 gm PO BID [facility] Last Admin: 05/04/17 18:19 Dose: 2 gm Valacyclovir HCl (Valtrex) 500 mg PO Q12 [facility] Last Admin: 05/04/17 10:43 Dose: 500 mg - Labs Labs: 05/04/17 07:28 05/04/17 07:28 PT 12.2 SECONDS (9.7-12.2) 04/30/17 06:27 INR 1.1 04/30/17 06:27 APTT 25 SECONDS (21-34) 04/30/17 06:27 Attending/Attestation - Attestation I have personally seen and examined this patient.: Yes I have fully participated in the care of the patient.: Yes I have reviewed all pertinent clinical information, including history, physical exam and plan: Yes Notes (Text): Seen and examined.Has high sugar.Insulin dose increased by DR Cobian.Now getting NPH 30units ACB,20units ACD and 16units HS.patient's sodium is better d/w Experimental Preflight Mechanic.Add ACEI for proteinuria.Getting PT continue ceftriaxone for UTI continue valtrex and follow HSV PCR I agree with the resident's assessment and the plan
--- NOTE | 2017-05-04 13:14 | CP.PCM.PN ---
Subjective - Date & Time of Evaluation Date of Evaluation: 05/04/17 Time of Evaluation: 13:00 - Subjective Subjective: 76 yo F w/ pmh of htn, dm, CKD, admitted with facial twitch, Etters palsy, severe hyponatremia; Reports headache improved; tolerating diet; ambulating to bathroom; Objective - Vital Signs/Intake and Output Vital Signs (last 24 hours): Temp Pulse Resp BP Pulse Ox 98.3 F 82 20 147/73 97 05/04/17 08:36 05/04/17 12:20 05/04/17 08:36 05/04/17 10:41 05/04/17 08:36 Intake and Output: 05/04/17 05/04/17 06:59 18:59 Intake Total 800 Output Total 2100 Balance -1300 - Medications Medications: Current Medications Amlodipine Besylate (Norvasc) 10 mg PO DAILY [facility] Last Admin: 05/04/17 10:46 Dose: 10 mg Aspirin (Ecotrin) 81 mg PO DAILY [facility] Last Admin: 05/04/17 10:40 Dose: 81 mg Clopidogrel Bisulfate (Plavix) 75 mg PO DAILY [facility] Last Admin: 05/04/17 10:40 Dose: 75 mg Enoxaparin Sodium (Lovenox) 40 mg SC DAILY [facility] Last Admin: 05/04/17 10:51 Dose: 40 mg Famotidine (Pepcid) 20 mg PO BID [facility] Last Admin: 05/04/17 10:41 Dose: 20 mg Ceftriaxone Sodium 1,000 mg/ (Sodium Chloride) 50 mls @ 100 mls/hr IVPB Q12H [facility] Last Admin: 05/04/17 10:52 Dose: 100 mls/hr Insulin Human Isoph/Insulin Regular (Novolin 70/30 (70/30 Units/Ml) 10 Ml) 30 units SC ACB [facility] Last Admin: 05/04/17 08:53 Dose: 30 units Insulin Human Isoph/Insulin Regular (Novolin 70/30 (70/30 Units/Ml) 10 Ml) 20 units SC ACD [facility] Last Admin: 05/03/17 17:39 Dose: 20 units Insulin Human NPH (Novolin N) 16 unit SC HS [facility] Last Admin: 05/03/17 22:12 Dose: 16 unit Insulin Human Regular (Novolin R) 0 unit SC ACHS [facility] PRN Reason: Protocol Last Admin: 05/04/17 12:34 Dose: 5 unit Levetiracetam (Keppra) 500 mg PO BID [facility] Last Admin: 05/04/17 10:42 Dose: 500 mg Magnesium Chloride (Slow-Mag) 64 mg PO DAILY [facility] Last Admin: 05/04/17 10:42 Dose: 64 mg Magnesium Oxide (Mag-Ox) 400 mg PO BID [facility] Last Admin: 05/04/17 10:41 Dose: 400 mg Metoprolol Succinate (Toprol Xl) 25 mg PO DAILY [facility] Last Admin: 05/04/17 10:41 Dose: 25 mg Nitroglycerin (Nitro-Bid 2% Oint) 1 ea TOP Q8H PRN PRN Reason: chest pain Last Admin: 04/30/17 17:03 Dose: 1 ea Prednisone (Prednisone Tab) 30 mg PO DAILY [facility] Stop: 05/05/17 10:30 Prednisone (Prednisone Tab) 20 mg PO DAILY [facility] Stop: 05/06/17 10:30 Prednisone (Prednisone Tab) 10 mg PO DAILY [facility] Stop: 05/07/17 10:30 Rosuvastatin Calcium (Crestor) 10 mg PO HS [facility] Last Admin: 05/03/17 22:05 Dose: 10 mg Sodium Chloride (Sodium Chloride Tab) 2 gm PO BID [facility] Last Admin: 05/04/17 10:42 Dose: 2 gm Valacyclovir HCl (Valtrex) 500 mg PO Q12 [facility] Last Admin: 05/04/17 10:43 Dose: 500 mg - Labs Labs: 05/04/17 07:28 05/04/17 07:28 PT 12.2 SECONDS (9.7-12.2) 04/30/17 06:27 INR 1.1 04/30/17 06:27 APTT 25 SECONDS (21-34) 04/30/17 06:27 - Constitutional Appears: Non-toxic, No Acute Distress - Eye Exam Eye Exam: absent: Scleral icterus - ENT Exam ENT Exam: Mucous Membranes Moist - Respiratory Exam Respiratory Exam: Clear to Ausculation Bilateral. absent: Respiratory Distress - Cardiovascular Exam Cardiovascular Exam: RRR, +S1, +S2 - GI/Abdominal Exam GI & Abdominal Exam: Soft. absent: Distended, Tenderness - Extremities Exam Additional comments: no leg edema; - Neurological Exam Neurological Exam: Alert, Awake Additional comments: L facial droop; - Psychiatric Exam Psychiatric exam: Normal Affect, Normal Mood - Skin Skin Exam: Warm. 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
--- NOTE | 2017-05-04 15:05 | RAD ---
HISTORY: rales COMPARISON: 04/29/2017. TECHNIQUE: Chest PA and lateral FINDINGS: LUNGS: No active pulmonary disease. PLEURA: No significant pleural effusion identified. No pneumothorax apparent. CARDIOVASCULAR: No radiographic findings to suggest acute or significant cardiovascular disease. OSSEOUS STRUCTURES: No significant abnormalities. VISUALIZED UPPER ABDOMEN: Normal. OTHER FINDINGS: None. IMPRESSION: No active disease. No significant interval change compared to the prior examination(s).
[2017-05-04 17:19] LABS: RAPID PLASMA REAGIN REACTIVE (NONREACTIVE)
[2017-05-04] MEDS: (Novolin 70/30) NPH/Regular 70/30 Units/ml 10 ml vial SC SCH (18:12)
[2017-05-04] MEDS ORDERED: Aluminum Hydroxide/Magnesium Hydroxide Susp (30 mL) PO STA (21:26)
[2017-05-04] MEDS: (Novolin N) Insulin Human Isophane (NPH) 100 u/ml 10 ml vial SC SCH (21:53)
[2017-05-04] MEDS ORDERED: (Novolin N) Insulin Human Isophane (NPH) 100 u/ml 10 ml vial SC SCH (22:00)
[2017-05-04] MEDS ORDERED: (Novolin N) Insulin Human Isophane (NPH) 100 u/ml 10 ml vial SC ONE (23:30)
--- NOTE | 2017-05-05 01:53 | PN ---
ENDO FOLLOWUP NOTE SUBJECTIVE: This is a 76-year-old female with Horta's palsy and given high-dose oral steroid therapy which has been tapered down as noted with supervening hyperglycemic accelerations as expected. Her glucose values have ranged from 295 to 400 and 489 mg/dL. LABORATORY DATA: Her latest chemistry showed BUN of 52, sodium 131, potassium 4.8, chloride 95, CO2 of 25, glucose 264, creatinine 1.4, so at this time, we will modify the basal insulin given as Novolin NPH to higher dose of 24 units subcu at bedtime daily to start tonight. We will also increase the premixed insulin regimen with Novolin 70/30 given as 44 units before meals breakfast and 34 units before meals dinner as ordered. We will titrate incrementally as indicated to optimize metabolic control. We will follow. Alisson Cobian MD
[2017-05-05 07:26] LABS: BASO % 0.1 % (0.0-2.0); EOS % 0.1 % (0.0-4.0); HEMATOCRIT 30.5 % (34.0-47.0); LYMPH # 1.5 K/uL (1.0-4.3); LYMPH % 12.7 % (20.0-40.0); MEAN CORPUSCULAR HEMOGLOBIN 30.1 pg (27.0-31.0); MEAN CORPUSCULAR HGB CONC 33.8 g/dL (33.0-37.0); MEAN PLATELET VOLUME 7.5 fL (7.2-11.7); MONO # 0.5 K/uL (0.0-0.8); MONO % 4.5 % (0.0-10.0); NRBC % 0.1 % (0.0-2.0); RED CELL DISTRIBUTION WIDTH 12.7 % (11.5-14.5)
[2017-05-05] MEDS ORDERED: (Novolin 70/30) NPH/Regular 70/30 Units/ml 10 ml vial SC SCH ×2 (07:30→16:30)
--- NOTE | 2017-05-05 07:31 | CP.PCM.PN ---
Objective - Vital Signs/Intake and Output Vital Signs (last 24 hours): Temp Pulse Resp BP Pulse Ox 98.1 F 83 20 137/71 98 05/05/17 00:20 05/05/17 00:20 05/05/17 00:20 05/05/17 00:20 05/05/17 00:20 Intake and Output: 05/05/17 05/05/17 06:59 18:59 Intake Total 240 Balance 240 - Medications Medications: Current Medications Amlodipine Besylate (Norvasc) 10 mg PO DAILY [facility] Last Admin: 05/04/17 10:46 Dose: 10 mg Aspirin (Ecotrin) 81 mg PO DAILY [facility] Last Admin: 05/04/17 10:40 Dose: 81 mg Clopidogrel Bisulfate (Plavix) 75 mg PO DAILY [facility] Last Admin: 05/04/17 10:40 Dose: 75 mg Enoxaparin Sodium (Lovenox) 40 mg SC DAILY [facility] Last Admin: 05/04/17 10:51 Dose: 40 mg Famotidine (Pepcid) 20 mg PO BID [facility] Last Admin: 05/04/17 18:13 Dose: 20 mg Furosemide (Lasix) 20 mg PO Q48H [facility] Ceftriaxone Sodium 1,000 mg/ (Sodium Chloride) 50 mls @ 100 mls/hr IVPB Q12H [facility] Last Admin: 05/04/17 21:54 Dose: 100 mls/hr Insulin Human Isoph/Insulin Regular (Novolin 70/30 (70/30 Units/Ml) 10 Ml) 44 units SC ACB [facility] Insulin Human Isoph/Insulin Regular (Novolin 70/30 (70/30 Units/Ml) 10 Ml) 34 units SC ACD [facility] Insulin Human NPH (Novolin N) 24 unit SC HS [facility] Last Admin: 05/04/17 22:00 Dose: Not Given Insulin Human Regular (Novolin R) 0 unit SC ACHS [facility] PRN Reason: Protocol Last Admin: 05/04/17 21:51 Dose: 3 unit Levetiracetam (Keppra) 500 mg PO BID [facility] Last Admin: 05/04/17 18:11 Dose: 500 mg Lisinopril (Zestril) 10 mg PO DAILY [facility] Magnesium Chloride (Slow-Mag) 64 mg PO DAILY [facility] Last Admin: 05/04/17 10:42 Dose: 64 mg Magnesium Oxide (Mag-Ox) 400 mg PO BID [facility] Last Admin: 05/04/17 18:12 Dose: 400 mg Metoprolol Succinate (Toprol Xl) 25 mg PO DAILY [facility] Last Admin: 05/04/17 10:41 Dose: 25 mg Nitroglycerin (Nitro-Bid 2% Oint) 1 ea TOP Q8H PRN PRN Reason: chest pain Last Admin: 04/30/17 17:03 Dose: 1 ea Prednisone (Prednisone Tab) 30 mg PO DAILY [facility] Stop: 05/05/17 10:30 Prednisone (Prednisone Tab) 20 mg PO DAILY [facility] Stop: 05/06/17 10:30 Prednisone (Prednisone Tab) 10 mg PO DAILY [facility] Stop: 05/07/17 10:30 Rosuvastatin Calcium (Crestor) 10 mg PO HS [facility] Last Admin: 05/04/17 21:53 Dose: 10 mg Sodium Chloride (Sodium Chloride Tab) 2 gm PO BID [facility] Last Admin: 05/04/17 18:19 Dose: 2 gm Valacyclovir HCl (Valtrex) 500 mg PO Q12 [facility] Last Admin: 05/04/17 21:55 Dose: 500 mg - Labs Labs: 05/04/17 07:28 05/04/17 07:28 PT 12.2 SECONDS (9.7-12.2) 04/30/17 06:27 INR 1.1 04/30/17 06:27 APTT 25 SECONDS (21-34) 04/30/17 06:27
[2017-05-05 08:16] LABS: BILIRUBIN,TOTAL 0.4 mg/dL (0.2-1.3); PHOSPHOROUS 3.7 mg/dL (2.5-4.5); POTASSIUM 4.7 mmol/L (3.6-5.2); TOTAL PROTEIN 6.4 g/dL (6.3-8.3)
[2017-05-05] MEDS: (Novolin R) Insulin Human Regular 100 units/ml vial SC SCH ×2 (08:29→14:08)
[2017-05-05 08:33] LABS: ALB/GLOB RATIO 1.1 (1.0-2.1); CALCIUM 9.5 mg/dl (8.6-10.4); MAGNESIUM 1.7 mg/dL (1.6-2.3)
[2017-05-05 11:07] VITALS: BP 148/76; PULSE 75; TEMP 96.7; O2SAT 100
[2017-05-05] MEDS: Magnesium Chloride 64 mg ER Tab PO SCH (11:31)
[2017-05-05] MEDS: Metoprolol Succinate 25 mg XL Tab PO SCH (11:32)
[2017-05-05] MEDS: Magnesium Oxide 400 mg Tab UD PO SCH (11:32)
[2017-05-05] MEDS: Enoxaparin 40 mg Syringe SC SCH (11:32)
--- NOTE | 2017-05-05 13:21 | CP.PCM.DIS ---
Provider - Provider Date of Admission: 04/29/17 17:29 Attending physician: Will Morton MD Time Spent in preparation of Discharge (in minutes): 40 Hospital Course - Lab Results Lab Results: Micro Results 04/29/17 14:39 Blood-Venous Blood Culture - Final NO GROWTH AFTER 5 DAYS 04/29/17 14:39 Blood-Venous Gram Stain - Final TEST NOT PERFORMED 04/29/17 14:47 Blood-Venous Blood Culture - Final NO GROWTH AFTER 5 DAYS 04/29/17 14:47 Blood-Venous Gram Stain - Final TEST NOT PERFORMED 04/29/17 19:00 Naris MRSA Culture (Admit) - Final MRSA NOT DETECTED 04/29/17 16:06 Urine Urine Culture - Final Escherichia Coli Most Recent Lab Values WBC 12.0 K/uL (4.8-10.8) H 05/05/17 07:17 RBC 3.43 Mil/uL (3.80-5.20) L 05/05/17 07:17 Hgb 10.3 g/dL (11.0-16.0) L 05/05/17 07:17 Hct 30.5 % (34.0-47.0) L 05/05/17 07:17 MCV 89.0 fL (81.0-99.0) 05/05/17 07:17 MCH 30.1 pg (27.0-31.0) 05/05/17 07:17 MCHC 33.8 g/dL (33.0-37.0) 05/05/17 07:17 RDW 12.7 % (11.5-14.5) 05/05/17 07:17 Plt Count 318 K/uL (130-400) 05/05/17 07:17 MPV 7.5 fL (7.2-11.7) 05/05/17 07:17 Neut % (Auto) 82.6 % (50.0-75.0) H 05/05/17 07: Lymph % (Auto) 12.7 % (20.0-40.0) L 05/05/17 07:17 Lamar % (Auto) 4.5 % (0.0-10.0) 05/05/17 07: Eos % (Auto) 0.1 % (0.0-4.0) 05/05/17 07:17 Baso % (Auto) 0.1 % (0.0-2.0) 05/05/17 07:17 Neut # 9.9 K/uL (1.8-7.0) H 05/05/17 07:17 Lymph # 1.5 K/uL (1.0-4.3) 05/05/17 07:17 Lamar # 0.5 K/uL (0.0-0.8) 05/05/17 07:17 Eos # 0.0 K/uL (0.0-0.7) 05/05/17 07: Baso # 0.0 K/uL (0.0-0.2) 05/05/17 07:17 Neutrophils % (Manual) 93 % (50-75) H 05/01/17 11:28 Lymphocytes % (Manual) 3 % (20-40) L 05/01/17 11:28 Monocytes % (Manual) 3 % (0-10) 05/01/17 11:28 Eosinophils % (Manual) 1 % (0-4) 05/01/17 11:28 Platelet Estimate Normal (NORMAL) 05/01/17 11:28 RBC Morphology Normal 05/01/17 11:28 ESR 86 mm/hr (0-20) H 04/29/17 18:25 PT 12.2 SECONDS (9.7-12.2) 04/30/17 06:27 INR 1.1 04/30/17 06:27 APTT 25 SECONDS (21-34) 04/30/17 06:27 pO2 23 mm/Hg (30-55) L 04/29/17 14:34 VBG pH 7.41 (7.32-7.43) 04/29/17 14:34 VBG pCO2 56 mmHg (40-60) 04/29/17 14:34 VBG HCO3 30.3 mmol/L 04/29/17 14:34 VBG Total CO2 37.2 mmol/L (22-28) H 04/29/17 14:34 VBG O2 Sat (Calc) 45.9 % (40-65) 04/29/17 14:34 VBG Base Excess 8.9 mmol/L (0.0-2.0) H 04/29/17 14:34 VBG Potassium 5.3 mmol/L (3.6-5.2) H 04/29/17 14:34 Sodium 139.0 mmol/l (132-148) 04/29/17 14:34 Chloride 103.0 mmol/L (98-107) 04/29/17 14:34 Glucose 79 mg/dl (65-105) 04/29/17 14:34 Lactate 1.6 mmol/L (0.7-2.1) 04/29/17 14:34 Sodium 132 mmol/L (132-148) 05/05/17 07:17 Potassium 4.7 mmol/L (3.6-5.2) 05/05/17 07:17 Chloride 96 mmol/L (98-107) L 05/05/17 07:17 Carbon Dioxide 27 mmol/L (22-30) 05/05/17 07:17 Anion Gap 14 (10-20) 05/05/17 07:17 BUN 61 mg/dL (7-17) H 05/05/17 07:17 Creatinine 1.3 mg/dL (0.7-1.2) H 05/05/17 07:17 Est GFR ( Amer) 48 05/05/17 07:17 Est GFR (Non-Af Amer) 40 05/05/17 07:17 POC Glucose (mg/dL) 331 mg/dL (65-110) H 05/05/17 12:12 Random Glucose 193 mg/dL (65-105) H 05/05/17 07:17 Hemoglobin A1c 12.3 % (4.2-6.5) H 04/29/17 14:50 Calcium 9.5 mg/dl (8.6-10.4) 05/05/17 07:17 Phosphorus 3.7 mg/dL (2.5-4.5) 05/05/17 07:17 Magnesium 1.7 mg/dL (1.6-2.3) 05/05/17 07:17 Iron 64 ug/dL (37-170) 05/04/17 07:28 TIBC 248 ug/dL (250-450) L 05/04/17 07:28 % Saturation 26 (20-55) 05/04/17 07:28 Ferritin 191.0 ng/mL 05/04/17 07:28 Total Bilirubin 0.4 mg/dL (0.2-1.3) 05/05/17 07:17 AST 31 U/L (14-36) 05/05/17 07:17 ALT 81 U/L (9-52) H 05/05/17 07:17 Alkaline Phosphatase 66 U/L (38-126) 05/05/17 07:17 Total Creatine Kinase 38 U/L (30-135) 05/01/17 09:22 CK-MB (Mass) 0.41 ng/mL (0.0-3.38) 05/01/17 09:22 Troponin I < 0.0120 ng/mL (0.00-0.120) 05/01/17 09:22 C-React Prot High Sens > 15.00 mg/L (1.00-3.00) H 04/29/17 18:32 Total Protein 6.4 g/dL (6.3-8.3) 05/05/17 07:17 Albumin 3.4 g/dL (3.5-5.0) L 05/05/17 07: Globulin 3.0 gm/dL (2.2-3.9) 05/05/17 07:17 Albumin/Globulin Ratio 1.1 (1.0-2.1) 05/05/17 07:17 Triglycerides 98 mg/dL (0-149) 04/29/17 14:50 Cholesterol 148 mg/dL (0-199) 04/29/17 14:50 LDL Cholesterol Direct 55 mg/dL (0-129) 04/29/17 14:50 HDL Cholesterol 63 mg/dL (30-70) 04/29/17 14:50 Thyroxine (T4) 6.14 ug/dL (5.5-11.0) 05/03/17 08:57 TSH 3rd Generation 1.67 mIU/L (0.46-4.68) 05/03/17 08:57 Venous Blood Potassium 5.3 mmol/L (3.6-5.2) H 04/29/17 14:34 Urine Color Yellow (YELLOW) 04/29/17 15:34 Urine Clarity Clear (Clear) 04/29/17 15:34 Urine pH 7.0 (5.0-8.0) 04/29/17 15:34 Ur Specific Gile 1.011 (1.003-1.030) 04/29/17 15:34 Urine Protein 3+ mg/dL (NEGATIVE) H 04/29/17 15:34 Urine Glucose (UA) Normal mg/dL (Normal) 04/29/17 15:34 Urine Ketones Negative mg/dL (NEGATIVE) 04/29/17 15:34 Urine Blood 2+ (NEGATIVE) H 04/29/17 15:34 Urine Nitrate Negative (NEGATIVE) 04/29/17 15:34 Urine Bilirubin Negative (NEGATIVE) 04/29/17 15:34 Urine Urobilinogen 4.0 mg/dL (0.2-1.0) H 04/29/17 15:34 Ur Leukocyte Esterase Trace [place]/uL (Negative) 04/29/17 15:34 Urine WBC (Auto) 22 /hpf (0-5) H 04/29/17 15:34 Urine RBC (Auto) 32 /hpf (0-3) H 04/29/17 15:34 Urine Osmolality 562 mosm/kg (300-1000) 05/03/17 12:43 Ur Random Creatinine 38.2 mg/dL 05/03/17 14:41 U Random Total Protein 88.0 mg/dL (0.0-12.0) H 05/03/17 14:41 Ur Random Sodium 69 mmol/L 05/03/17 12:43 Urine Microalbumin 493.4 mg/L (0.0-16.6) H 05/03/17 14:41 Complement C3 139.0 mg/dL (88.0-165.0) 05/04/17 07:28 Complement C4 27.9 mg/dL (14.0-44.0) 05/04/17 07:28 RPR Titer 1:8 (NONREACTIVE) H 05/04/17 07:28 RPR Reactive (NONREACTIVE) H 05/04/17 07:28 Hep Bs Antigen Negative (NEGATIVE) 05/04/17 07:28 Hepatitis C Antibody Negative (NEGATIVE) 05/04/17 07:28 HSV I IgG Ab 6.75 index H 04/30/17 06:27 HSV II IgG 16.10 index H 04/30/17 06:27 HIV 1&2 Antibody Screen Negative (NEGATIVE) 05/04/17 07:28 Blood Type A POSITIVE 04/29/17 14:53 Antibody Screen Negative 04/29/17 14:53 - Hospital Course Hospital Course: This is a 76-year-old female who was previously admitted in the hospital just recently on April 19, 2017 for abdominal pain, weakness, uncontrolled diabetes , and falling. The family decided to leave AMA on April 29, 2017 in the morning wanting to go to [facility]. However the ambulance they called brought her back to [facility]. According to the family the reasons for them leaving the hospital was that yesterday they noticed that she had a lot of facial twitching as well as facial paralysis. The previous weeks team felt this was Horta Palsy or a seizure. The family explained that they felt she was not given enough communication by the medical team and so they decided to leave AMA for [facility]. I explained to the patient's family particularly her daughters that once the patient is in the hospital particularly if they are stable and they do not have insurance that a hospital to hospital transfer is very unlikely. There was also patient's son there as well who is rather concerned about the patient's blood sugars. They were not entirely happy with this but I did talk to them for an extensive amount of time in the hospital lobby as well as then in the emergency room with the neurologist reviewing a new MRI of the brain when the ambulance brought her back. After repeat discussions they explained they did understand. This is my first time meeting the patient, she was mostly nonverbal in the emergency room so I had to speak mostly with the patient's family area as well as reviewed previous lab work as well as some of the previous notes. So during the last week she had rather extensive workup for the syncope, abdominal pain. She had a echo done, she had a CT scan of the head done as well and also MRI done. The CT of the head done on 04/19 scan as well as MRI of the brain done on 04/21 did not show any new acute pathology. The echo that was done on on 04/22 revealed an ejection fraction of 65%, she did have left ventricular hypertrophy. The previous week was noted to that she had an extreme low sodium level of 107 and she was brought to the ICU. She was evaluated by thaw shed heater tender at that time however I'll have to go over some the other notes to see what could've led up to her being so hyponatremic. It is possible that she was taking a lot of hydrochlorothiazide however she is not continue this on admission was only after a day or 2 before she started to have developed hyponatremia. It appears she recived hypertonic saline as well as tolvaptam at that time. However it does not look like there was an SIADH work up (but I have not looked at all the notes.) When we saw the patient in the ER she was just returned from a repeat MRI, because of the recent week of severe hyponatremia there was some concern for possible cerebral pontine myelinolysis, fortunately I am being told this new MRI is ok. She did have several mg of IV ativan and so when I saw her she was more somnolent but awake and following commands. I greatly appreciate neurology coming to see patient in the ER. Because of out concerns for possible Sumner Palsy will start steroids and this will have to be tapered down. Also will run HSV studies and also Valcyclovir - if the HSV is negative will stop the valcyclovir. The family did show us a video on the phone of her in a seizure so Keppra 1,000 was given and she will be on this as well twice a day. Hospital Course: 04/30: Because of the severe hyponatremia the patient just had as well as the correction of her Na, new MRI was done and fourtunately this did not suggest edema or cerebral pontine mylinosis / osmotic brain changes, the new MRI did not suggest any new findings. CT brain and MRI negative for new pathology. Blood culture (04/29): no growth after 5 days X2; Urine culture showed E. Coli and patient continued ceftriaxone. Neurology was consulted Dr Henao. Patient was started on Keppra 1,000 and then Keprra BID. EEG ordered as well. Also ativan PRN was given. HSV I IgG Ab 6.75 (H); HSVII IgG 16.10 (H); continue Valtrex 500mg PO Q12. Patient completed 5 day course of Valtrex. Cartoid dopplers were found to be normal; Echo was done and found to have LVH EF: 70%. Patient is stable to go home per Dr. Morton. Patient to start new medications: Calcium/Chloride/Magnesium 64mg daily for 5 days Magnesium Oxide 400mg twice per day for 5 days Lisinopril 10mg daily Keppra 500mg twice per day Glipizide 10mg twice per day Metformin 500mg twice per day Continue Home Medications: Plavix 75mg daily Aspirin 81mg daily Candesartan/Hydrochlorothiazide 32/25mg daily Follow up in the clinic on Tuesday/Tuesday for continuation of Penicillin G please call to make an appointment: [phone] Follow up with neurologist Dr. Henao: [address] [facility], [address] [place] [address] Follow up with thaw shed heater tender Dr. Dennis: [address] [place] [address], [facility] [phone] Patient should return to ED immediately if symptoms return or worsen. Instructions discussed with patient who understood and agreed. This is a summary of patient's hospitalization please refer to EMR for further details of the record. Discharge Exam - Head Exam Head Exam: ATRAUMATIC Additional comments: Right sided Sumner Palsy - Eye Exam Eye Exam: EOMI, Normal appearance - ENT Exam ENT Exam: Mucous Membranes Moist - Respiratory Exam Respiratory Exam: Clear to PA & Lateral, NORMAL BREATHING PATTERN - Cardiovascular Exam Cardiovascular Exam: REGULAR RHYTHM, RRR, +S1, +S2 - GI/Abdominal Exam GI & Abdominal Exam: Normal Bowel Sounds, Soft. absent: Tenderness - Extremities Exam Extremities exam: normal inspection - Neurological Exam Neurological exam: Alert, Oriented x3 - Psychiatric Exam Psychiatric exam: Normal Mood - Skin Skin Exam: Normal Color, Warm Discharge Plan - Discharge Medications Prescriptions: Calcium/Chloride/Magnesium [Slow-Mag] 64 mg PO DAILY #5 ect Dorzolamide 2%/Timolol 0.5% [Cosopt 2%-0.5% Opht] 5 ml OP DAILY #1 bottle GlipiZIDE [Glucotrol] 10 mg PO BID #60 tab levETIRAcetam [Keppra] 500 mg PO BID #60 tab Lisinopril [Zestril] 10 mg PO DAILY #30 tab Magnesium Oxide [Mag-Ox] 400 mg PO BID #10 tab MetFORMIN [glucOPHAGE] 500 mg PO BID #60 tab - Follow Up Plan Condition: SERIOUS Disposition: HOME/ ROUTINE Instructions: Horta Palsy (DC), Hyponatremia (DC), Sepsis (GEN), Nonepileptic Seizures (DC) Additional Instructions: Patient is stable to go home per Dr. Morton. Patient to start new medications: Calcium/Chloride/Magnesium 64mg daily for 5 days Magnesium Oxide 400mg twice per day for 5 days Lisinopril 10mg daily Keppra 500mg twice per day Glipizide 10mg twice per day Metformin 500mg twice per day Continue Home Medications: Plavix 75mg daily Aspirin 81mg daily Candesartan/Hydrochlorothiazide 32/25mg daily Follow up in the clinic on Tuesday/Tuesday for continuation of Penicillin G please call to make an appointment: [phone] Follow up with neurologist Dr. Henao: [address] [facility], [address] [place] [address] Follow up with thaw shed heater tender Dr. Dennis: [address] [phone] Referrals: Alisson Cobian MD [Medical Doctor] - Elvis Henao MD [Staff Provider] - Willem Dennis MD [Staff Provider] -
[2017-05-05] MEDS ORDERED: Penicillin G Benzathine 2.4 Mill Unit/4 ml Syr IM ONE (14:00)
[2017-05-05] MEDS: cefTRIAXone 1,000 MG in Sodium Chloride 0.9% 50 ML IVPB SCH (14:09)
--- NOTE | 2017-05-05 16:26 | PN ---
DATE: ENDOCRINOLOGY FOLLOWUP NOTE LOCATION: Room 668. SUBJECTIVE: This is a 76-year-old female with recent uncontrolled type 2 insulin-requiring diabetes intercurrent, oral steroid therapy has been tapered down for management of Horta palsy and is now being followed closely for metabolic management. Her glycemic levels are fluctuating and today's glucose values have ranged from 184 to 193 mg/dL. It was 433 to 489 at bedtime last night. Her chemistries showed a BUN of 61, sodium 132, potassium 4.7, chloride 96, CO2 of 27, glucose 193, and creatinine 1.3. So, at this time, we will continue the modified premixed insulin regimen with Novolin 70/30 given as 44 units a.c. breakfast and 34 units a.c. dinner as ordered. We will continue the NPH given as 24 units at bedtime daily as ordered. We will titrate incrementally as indicated to optimize metabolic control. We will follow. Alisson Cobian MD
== END 2017-05-05 14:35 | disposition home or self-care (01) | DRG 566 ==
LOC: C.ER 13:56 → C.9I 17:29 → C.6T 04-30 06:52 → C.9I 04-30 06:52
PROVIDERS: ADMIT Internal Medicine; ATTEND Internal Medicine
DX: E22.2 Syndrome of inappropriate secretion of antidiuretic hormone (principal); N17.9 Acute kidney failure, unspecified; E11.22 Type 2 diabetes mellitus with diabetic chronic kidney disease; G40.89 Other seizures; E11.65 Type 2 diabetes mellitus with hyperglycemia; E86.0 Dehydration; N18.3 Chronic kidney disease, stage 3 (moderate); N39.0 Urinary tract infection, site not specified; I12.9 Hypertensive chronic kidney disease with stage 1 through stage 4 chronic kidney disease, or unspecified chronic kidney disease; R55 Syncope and collapse; G51.0 Bell's palsy; E78.5 Hyperlipidemia, unspecified; B00.9 Herpesviral infection, unspecified; M81.0 Age-related osteoporosis without current pathological fracture; M19.90 Unspecified osteoarthritis, unspecified site; E83.42 Hypomagnesemia; Z79.4 Long term (current) use of insulin; Z86.73 Personal history of transient ischemic attack (TIA), and cerebral infarction without residual deficits; Z87.891 Personal history of nicotine dependence

== ENCOUNTER 2017-05-10 10:27 | Emergency (ER) | payer OTHER ==
[2017-05-10 10:29] VITALS: BMI 27.6
[2017-05-10 10:50] VITALS: O2SAT 100
[2017-05-10] MEDS ORDERED: Sodium Chloride 0.9% 1,000 ML IV ONE (11:10)
--- NOTE | 2017-05-10 11:27 | C.PDOC ---
History Of Present Illness 76 y/o female, history of diabetes, poor historian, presents to ED with c/o epigastric and suprapubic abdominal pain associated with nausea. Patient was hospitalized at [facility] on 04/29/17 for seizures and hyponatremia, discharged on 05/05/17. Patient states she has been compliant with medications but notes she has not filled Keppra prescription yet. Patient also reports chronic neck pain. Denies vomiting, diarrhea, or shortness of breath. Denies any further seizure activity. Review of prior records shows normal head CT on and normal MRI on 04/21/17. Time Seen by Provider: 05/10/17 10:57 Chief Complaint (Nursing): High Blood Sugar History Per: Patient History/Exam Limitations: other (poor historian) Current Symptoms Are (Timing): Still Present Associated Infectious Symptoms: Nausea. denies: Vomiting, Diarrhea Recent travel outside of the [place]: No Past Medical History Reviewed: Historical Data, Nursing Documentation, Vital Signs Vital Signs: Last Vital Signs Temp 99 F 05/10/17 10:45 Pulse 94 H 05/10/17 10:45 Resp 18 05/10/17 10:45 BP 112/67 05/10/17 10:45 Pulse Ox 100 05/10/17 13:53 - Medical History PMH: Arthritis (osteoporosis; back pain), Asthma, CVA, Diabetes (?), HTN, Hypercholesterolemia, Osteoporosis, Chronic Kidney Disease, Seizures (2 weeks ago) Surgical History: Cholecystectomy, Family History: States: Unknown Family Hx - Social History Hx Tobacco Use: No Hx Alcohol Use: No Hx Substance Use: No - Immunization History Hx Tetanus Toxoid Vaccination: Yes Hx Influenza Vaccination: Yes Hx Pneumococcal Vaccination: Yes Review Of Systems Except As Marked, All Systems Reviewed And Found Negative. Constitutional: Negative for: Fever, Chills Cardiovascular: Negative for: Chest Pain Respiratory: Negative for: Cough, Shortness of Breath Gastrointestinal: Positive for: Nausea, Abdominal Pain. Negative for: Vomiting , Diarrhea Genitourinary: Negative for: Dysuria Skin: Negative for: Rash Physical Exam - Physical Exam Appears: Non-toxic, No Acute Distress Skin: Normal Color, Warm, Dry Head: Atraumatic, Normacephalic Oral Mucosa: Moist Chest: Symmetrical Cardiovascular: Rhythm Regular Respiratory: Normal Breath Sounds, No Rales, No Rhonchi, No Wheezing Gastrointestinal/Abdominal: Soft, Tenderness (epigastric, supraubic), No Guarding, No Rebound Back: Normal Inspection, No CVA Tenderness Extremity: Normal ROM, Capillary Refill (< 2 sec.) Neurological/Psych: Oriented x3, Normal Speech, Normal Cognition, Other (R side facial droop consistent with known history of bells palsy) ED Course And Treatment - Laboratory Results Result Diagrams: 05/10/17 11:56 05/10/17 11:43 ECG: Interpreted By Me ECG Rhythm: Sinus Rhythm Interpretation Of ECG: normal intervals, normal axis, no ST/T wave abnormalities Rate From EC (bpm) O2 Sat by Pulse Oximetry: 100 (RA) Pulse Ox Interpretation: Normal Medical Decision Making Medical Decision Making: Assessment: abdominal pain Plan: EKG, bloodwork, obstructive series x-ray. Pepcid, Toradol, IVFs. Reassess. Progress: On re-eval, patient in no acute distress, feels better, abdominal pain resolved. Dx of UTI and horta's palsy. Prescriptions given, advised to take medications as directed. Advised follow up with PMD Disposition Counseled Patient/Family Regarding: Studies Performed, Diagnosis, Need For Followup, Rx Given - Disposition Referrals: [facility] [Outside] Disposition: HOME/ ROUTINE Disposition Time: 13:51 Additional Instructions: follow up with your doctor in 2 days call to make an appointment take medications as prescribed return to hospital if symptoms worsens or progress Prescriptions: Sulfamethoxazole/Trimethoprim [Bactrim DS 800 mg-160 mg] 1 tab PO BID #14 tab Instructions: Urinary Tract Infection in Children (ED), Urinary Tract Infection in Women (ED) Forms: [facility] (Macanese), Gen Discharge Inst Macedonian, [facility] (Macedonian) Print Language: MOSOTHO - Clinical Impression Clinical Impression: UTI (urinary tract infection), Right-sided Horta's palsy - Scribe Statement The provider has reviewed the documentation as recorded by the Ino SM Provider Attestation: All medical record entries made by the Yasminibrobe were at my direction and personally dictated by me. I have reviewed the chart and agree that the record accurately reflects my personal performance of the history, physical exam, medical decision making, and the department course for this patient. I have also personally directed, reviewed, and agree with the discharge instructions and disposition.
[2017-05-10 12:01] LABS: BASO % 0.4 % (0.0-2.0); EOS # 0.3 K/uL (0.0-0.7); EOS % 3.7 % (0.0-4.0); LYMPH # 0.8 K/uL (1.0-4.3); LYMPH % 10.5 % (20.0-40.0); MEAN CELL VOLUME 91.3 fL (81.0-99.0); MEAN CORPUSCULAR HEMOGLOBIN 30.6 pg (27.0-31.0); MEAN CORPUSCULAR HGB CONC 33.5 g/dL (33.0-37.0); MEAN PLATELET VOLUME 7.8 fL (7.2-11.7); MONO # 0.5 K/uL (0.0-0.8); MONO % 5.9 % (0.0-10.0); RED CELL DISTRIBUTION WIDTH 13.6 % (11.5-14.5); WHITE BLOOD COUNT 7.8 K/uL (4.8-10.8)
[2017-05-10] MEDS ORDERED: Sodium Chloride 0.9% 1,000 ML ONE (12:06)
[2017-05-10 12:18] LABS: ALKALINE PHOSPHATASE 81 U/L (38-126); ALT/SGPT 41 U/L (9-52); AST/SGOT 35 U/L (14-36); BILIRUBIN,TOTAL 0.5 mg/dL (0.2-1.3); BLOOD UREA NITROGEN 9 mg/dL (7-17); CALCIUM 8.9 mg/dl (8.6-10.4); CARBON DIOXIDE 29 mmol/L (22-30); CHLORIDE 100 mmol/L (98-107); GFR AFRICAN-AMERICAN > 60; GLUCOSE,RANDOM 88 mg/dL (65-105); MAGNESIUM 1.9 mg/dL (1.6-2.3); SODIUM 138 mmol/L (132-148); TOTAL PROTEIN 8.6 g/dL (6.3-8.3)
--- NOTE | 2017-05-10 12:21 | RAD ---
PROCEDURE: Radiographs of the chest and abdomen (obstructive series) HISTORY: abd pain COMPARISON: Chest radiograph dated 05/04/2017 ; CT scan of the abdomen pelvis dated 04/19/2017. TECHNIQUE: AP radiograph of the chest, with upright and supine radiographs of the abdomen. FINDINGS: CHEST: Lungs: Clear. Cardiovascular: Normal size heart. No pulmonary vascular congestion. Pleura: No pleural fluid. No pneumothorax. Other findings: None. ABDOMEN AND PELVIS: Bowel: Unremarkable bowel gas pattern. Prominent amount of retained colonic stool. Free air: None. Bones: Degenerative changes. Other findings: None. IMPRESSION: Unremarkable radiographs of chest and abdomen. Prominent amount of retained colonic stool.
[2017-05-10 12:24] LABS: RBC URINE 1 /hpf (0-3); URINE BILIRUBIN NEGATIVE (NEGATIVE); URINE BLOOD NEGATIVE (NEGATIVE); URINE COLOR Yellow (YELLOW); URINE GLUCOSE (UA) 3+ mg/dL (Normal); URINE KETONE NEGATIVE (NEGATIVE); URINE LEUKOCYTE ESTERASE TRACE Leu/uL (Negative); URINE PROTEIN 2+ mg/dL (NEGATIVE); URINE UROBILINOGEN NORMAL mg/dL (0.2-1.0); WBC URINE 4 /hpf (0-5)
[2017-05-10] MEDS ORDERED: Tmp-Smz 800 mg-160 mg DS Tab PO STA (13:38)
[2017-05-10] MEDS ORDERED: Tmp-Smz 800 mg-160 mg DS Tab ONE (14:06)
[2017-05-10 14:27] VITALS: BP 140/72; PULSE 87; RESP 20; TEMP 97.4
== END 2017-05-10 14:40 | disposition home or self-care (01) ==
LOC: C.ER 10:27
DX: N39.0 Urinary tract infection, site not specified (principal); G51.0 Bell's palsy
CPT/HCPCS: 74022; 80053; 81001; 83690; 83735; 83880; 84484; 85025; 96374; 96375; 99285; J1885; J7040

== ENCOUNTER 2017-09-17 11:02 | Emergency (ER) | payer OTHER ==
[2017-09-17 11:02] VITALS: BMI 29.0
[2017-09-17] MEDS ORDERED: Sodium Chloride 0.9% 1,000 ML IV STA (11:54)
[2017-09-17] MEDS ORDERED: Sodium Chloride 0.9% 1,000 ML ONE (12:11)
[2017-09-17 12:15] LABS: BASO % 0.2 % (0.0-2.0); EOS # 0.3 K/uL (0.0-0.7); EOS % 3.7 % (0.0-4.0); HEMOGLOBIN 10.7 g/dL (11.0-16.0); LYMPH # 0.7 K/uL (1.0-4.3); LYMPH % 9.8 % (20.0-40.0); MEAN CORPUSCULAR HEMOGLOBIN 29.8 pg (27.0-31.0); MEAN CORPUSCULAR HGB CONC 33.8 g/dL (33.0-37.0); MONO # 0.4 K/uL (0.0-0.8); MONO % 5.2 % (0.0-10.0); NEUT % 81.1 % (50.0-75.0); NRBC % 0.1 % (0.0-2.0); PLATELET COUNT 245 K/uL (130-400); RED CELL DISTRIBUTION WIDTH 13.7 % (11.5-14.5); WHITE BLOOD COUNT 7.4 K/uL (4.8-10.8)
--- NOTE | 2017-09-17 12:18 | C.PDOC ---
History Of Present Illness 77 y/o F p/w subjective fever, sore throat, cough since last night. Also reports dysuria, increased urinary frequency and urinating small amounts. Denies stiff neck, dyspnea, nausea, vomiting, diarrhea, rash. Time Seen by Provider: 09/17/17 11:11 Chief Complaint (Nursing): Flu-like Symptoms Past Medical History Vital Signs: Last Vital Signs Temp 97.9 F 09/17/17 11:07 Pulse 92 H 09/17/17 13:00 Resp 20 09/17/17 13:00 BP 145/73 09/17/17 13:00 Pulse Ox 97 09/17/17 13:00 - Medical History PMH: Arthritis (osteoporosis; back pain), Asthma, CVA, Diabetes (?), HTN, Hypercholesterolemia, Osteoporosis, Chronic Kidney Disease, Seizures Surgical History: Cholecystectomy, Family History: States: Unknown Family Hx - Social History Hx Tobacco Use: No Hx Alcohol Use: No Hx Substance Use: No - Immunization History Hx Tetanus Toxoid Vaccination: Yes Hx Influenza Vaccination: Yes Hx Pneumococcal Vaccination: Yes Review Of Systems Except As Marked, All Systems Reviewed And Found Negative. Respiratory: Negative for: Shortness of Breath Gastrointestinal: Negative for: Vomiting Physical Exam - Physical Exam Additional Physical Exam Comments: Gen: NAD Head: NC/AT Eyes: PERRL ENT: MMM Neck: No rigidity Chest: No tenderness CV: Regular rate Lungs: CTA b/l Abd: Soft, suprapubic tenderness Back: No CVA tenderness Extremities: No swelling Skin: No rash Neuro: Alert, R facial droop (patient states old from previous CVA.) ED Course And Treatment - Laboratory Results Result Diagrams: 09/17/17 12:07 09/17/17 12:07 O2 Sat by Pulse Oximetry: 98 Medical Decision Making Medical Decision Making: CXR no pneumonia. UA positive for UTI. Will discharge on antibiotics. Culture sent. Instructed to f/u with PMD, instructed to return to ED for worsening pain, fever, vomiting, weakness, or any other problem. Disposition - Disposition Referrals: [facility] [Outside] Disposition: HOME/ ROUTINE Disposition Time: 13:20 Condition: STABLE Prescriptions: Ciprofloxacin [Cipro] 500 mg PO BID #14 tab Instructions: Urinary Tract Infection, Adult (DC) Forms: [facility] (Romanian) - Clinical Impression Clinical Impression: UTI (urinary tract infection)
[2017-09-17 12:24] LABS: INR 1.1; PROTHROMBIN TIME 12.7 SECONDS (9.7-12.2)
[2017-09-17 12:27] LABS: ALB/GLOB RATIO 0.9 (1.0-2.1); ALBUMIN 3.9 g/dL (3.5-5.0); CALCIUM 9.3 mg/dl (8.6-10.4)
[2017-09-17 12:30] LABS: SQUAMOUS EPITHIAL 1 /hpf (0-5); URINE BILIRUBIN NEGATIVE (NEGATIVE); URINE BLOOD NEGATIVE (NEGATIVE); URINE CLARITY Hazy (Clear); URINE COLOR Yellow (YELLOW); URINE GLUCOSE (UA) NORMAL (Normal); URINE LEUKOCYTE ESTERASE 1+ Leu/uL (Negative); URINE PROTEIN 2+ mg/dL (NEGATIVE); URINE UROBILINOGEN NORMAL mg/dL (0.2-1.0)
[2017-09-17 12:31] LABS: BANDS 1 % (0-2); EOSINOPHIL 3 % (0-4); LYMPHOCYTE 11 % (20-40); MONOCYTE 6 % (0-10); NEUTROPHIL 79 % (50-75); PLATELET ESTIMATE NORMAL (NORMAL); TOTAL CELLS COUNTED 100
[2017-09-17 12:32] LABS: ANISOCYTOSIS SLIGHT; HYPOCHROMIC SLIGHT; POLYCHROMIC SLIGHT; TOXIC GRANULATION PRESENT
[2017-09-17 12:32] LABS: URINE BACTERIA FEW (<OCC)
[2017-09-17 12:39] LABS: INFLUENZA A B NEGATIVE FOR FLU A/B (NEGATIVE)
[2017-09-17] MEDS ORDERED: Ciprofloxacin 400mg/200ml D5W 400 MG/200 ML BAG IVPB STA (12:50)
[2017-09-17] MEDS ORDERED: Ciprofloxacin 400mg/200ml D5W 400 MG/200 ML BAG IVPB ONE (12:57)
[2017-09-17 13:02] VITALS: RESP 20
[2017-09-17 13:22] VITALS: O2SAT 98
[2017-09-17 14:39] VITALS: BP 143/84; PULSE 84; TEMP 98.4
--- NOTE | 2017-09-17 14:48 | RAD ---
Chest x-ray two views History: Cough. Comparison: 04/29/2017 Findings: Biapical pleural thickening with upper lobe granulomatous changes. Scattered nodularity seen at the level of the right upper and lower lung zones. For example a nodular density is noted projecting over the right upper to mid lung zone. Additional mild nodular densities are noted at the right lung base. Mild venous congestion. Patchy bibasilar airspace opacities. Tortuous aorta. Degenerative changes in the spine with paravertebral osteophytes. Degenerative changes in the bilateral shoulders. Impression: Biapical pleural thickening with upper lobe granulomatous changes. Scattered nodularity seen at the level of the right upper and lower lung zones. For example a nodular density is noted projecting over the right upper to mid lung zone. Additional mild nodular densities are noted at the right lung base. Mild venous congestion. Patchy bibasilar airspace opacities. Tortuous aorta. Degenerative changes in the spine with paravertebral osteophytes. Degenerative changes in the bilateral shoulders.
== END 2017-09-17 14:55 | disposition home or self-care (01) ==
LOC: C.ER 11:02
DX: N39.0 Urinary tract infection, site not specified (principal)
CPT/HCPCS: 71046; 80053; 81001; 85025; 85610; 85730; 87070; 87086; 87181; 87430; 87804; 96361; 96365; 96375; 99285; J0744; J1885; J7040